=== PATIENT | male | born 1955 | race Caucasian/White ===

== ENCOUNTER 2016-04-27 22:51 | Inpatient (IN) ==
--- NOTE | 2016-04-27 23:01 | Emergency Department Note ---
Disposition Clinical Impression: NSTEMI (non-ST elevated myocardial infarction) Syncope Qualifiers: Syncope type: unspecified Qualified Code(s): R55 - Syncope and collapse Disposition: Home, Self-Care Condition: Good Time of Disposition: 01:10 Syncope HPI - General Chief Complaint: ED Fall Stated Complaint: fall Source: patient, EMS Mode of arrival: EMS Limitations: other (Patient is a vague historian and has history of psychiatric disease) Nursing Notes Reviewed: Yes Vital Signs Reviewed: Yes - History of Present Illness HPI Narrative: History is not exactly clear and is provided by the [facility] provider, EMS, and by the patient. Reportedly, the patient had an event in which he fell that was likely syncopal. He was found down in the shower. He states that he has a genital yeast infection and was bending down to put cream on his genitals when he passed out. He awakened with pain to the right side of his head as well as to his neck. He also complains of retrosternal sharp chest pain that has since resolved. He denies any shortness of breath. He denies any prior symptoms. He did not feel lightheaded prior to the episode. He is not sure why he fell. He, the patient has a significant cardiac history with history of stents in the remote past. He is unable to clarify his exact history and [facility] to the chart. We will request a chart for further history. - Related Data Allergies Allergy/AdvReac Type Severity Reaction Status Date / Time fentanyl Allergy Rash Verified 04/27/16 23:01 hydrogen peroxide Allergy Rash Verified 04/27/16 23:01 [From Peroxyl] All systems ED: reviewed and negative except as stated. Past Medical History - Past Medical History Attestation: Yes The following information was validated with the patient. Source: patient Medical history: Reports: coronary artery disease Physical Exam - Head Head exam: atraumatic, normocephalic, normal inspection - Eye Eye exam: Present: normal appearance, PERRL, EOMI - ENT ENT exam: normal exam, normal oropharynx, mucous membranes moist - Neck Cervical spine tenderness. Trachea midline. No lymphadenopathy. - Chest Chest inspection: normal inspection, symmetric chest wall rise. No chest wall tenderness. - Respiratory Respiratory exam: Clear to auscultation bilaterally without wheezes rales or rhonchi Cardiovascular Cardiovascular exam: Present: regular rate, normal rhythm, normal heart sounds - Abdominal Exam Abdominal exam: Present: soft, Non-Tender. Absent: tenderness, distention, guarding, rebound, rigidity - Extremities Exam Extremities exam: Present: normal inspection, full ROM - Expanded Lower Extremity Exam Hip/Pelvis exam: Present: normal inspection, full ROM - Back Exam Back exam: Present: normal inspection, full ROM. Absent: tenderness, CVA tenderness (R), CVA tenderness (L) - Neurological Exam Neurological exam: Present: alert, oriented X3, CN II-XII intact - Psychiatric Psychiatric exam: Present: normal affect, normal mood - Skin Skin exam: Present: warm, mild diaphoresis, intact, normal color Course - Reevaluation(s) Reevaluation #1: Trop elevated to .07 [facility]. Patient has no chest pain and no ST elevation or depression on EKG at this time so heparin was withheld. Additionally, he had a fall just prior to arrival although his CT is negative and may be best to withhold heparin for that as well. Pt accepted to Dr. Alexander. Time: 01:10 Vital Signs Temperature 97.6 F 04/27/16 23:02 Pulse Rate 74 04/27/16 23:02 Respiratory Rate 18 04/27/16 23:02 Blood Pressure 101/61 04/27/16 23:02 O2 Sat by Pulse Oximetry 98 04/27/16 23:02 Temperature 97.9 F 04/28/16 02:21 Pulse Rate 75 04/28/16 02:21 Respiratory Rate 16 04/28/16 02:21 Blood Pressure 96/55 04/28/16 02:21 O2 Sat by Pulse Oximetry 96 04/28/16 02:21 Oxygen Delivery Oxygen Delivery Nasal Cannula Syncope - Lab Data Result diagrams: 04/27/16 23:35 04/28/16 00:05 Lab Results 04/27/16 04/27/16 04/27/16 Range/Units 22:59 23:35 23:35 WBC 10.9 (4.3-11.1) K/mcL RBC 3.52 L (4.19-5.50) M/mcL Hgb 10.1 L (12.9-16.9) g/dL Hct 28.8 L (37.5-50.1) % MCV 81.8 L (83.0-100.0) fL MCH 28.7 (28.0-33.3) pg MCHC 35.1 (31.6-35.5) g/dL RDW 16.3 H (11.5-14.5) % Plt Count 261 (140-400) K/mcL MPV 10.8 (9.4-12.4) fL Immature Gran % 0.5 (0-4) % Seg Neutrophils % 66.6 % Lymphocytes % 21.6 % Monocytes % 10.4 % Eosinophils % 0.7 % Basophils % 0.2 % Neutrophils # 7.3 (1.6-8.9) K/mcL Lymphocytes # 2.4 (0.6-4.6) K/mcL Monocytes # 1.1 (0.0-1.3) K/mcL Eosinophils # 0.1 (0.0-0.6) K/mcL Basophils # 0.0 (0.0-0.2) K/mcL Platelet Estimate Normal (Normal) Immature Plt Fraction 6.3 H (1.1-6.1) % Polychromasia 1+ A (Not Present) Anisocytosis 1+ A (Not Present) Microcytosis Present A (Not Present) Sodium (136-145) mEq/L Potassium (3.5-4.5) mEq/L Chloride (98-109) mEq/L Carbon Dioxide (19-29) mEq/L BUN (8-26) mg/dL Creatinine (0.72-1.25) mg/dL Est GFR ( Amer) (> 60) Est GFR (Non-Af Amer) (> 60) BUN/Creatinine Ratio (6-26) Glucose (70-99) mg/dL POC Glucose 127 H (58-89) Calculated Osmolality (280-300) Calcium (8.6-10.8) mg/dL Troponin I 0.07 H* (0-0.03) ng/mL 04/28/16 Range/Units 00:05 WBC (4.3-11.1) K/mcL RBC (4.19-5.50) M/mcL Hgb (12.9-16.9) g/dL Hct (37.5-50.1) % MCV (83.0-100.0) fL MCH (28.0-33.3) pg MCHC (31.6-35.5) g/dL RDW (11.5-14.5) % Plt Count (140-400) K/mcL MPV (9.4-12.4) fL Immature Gran % (0-4) % Seg Neutrophils % % Lymphocytes % % Monocytes % % Eosinophils % % Basophils % % Neutrophils # (1.6-8.9) K/mcL Lymphocytes # (0.6-4.6) K/mcL Monocytes # (0.0-1.3) K/mcL Eosinophils # (0.0-0.6) K/mcL Basophils # (0.0-0.2) K/mcL Platelet Estimate (Normal) Immature Plt Fraction (1.1-6.1) % Polychromasia (Not Present) Anisocytosis (Not Present) Microcytosis (Not Present) Sodium 139 (136-145) mEq/L Potassium 3.3 L (3.5-4.5) mEq/L Chloride 106 (98-109) mEq/L Carbon Dioxide 23 (19-29) mEq/L BUN 12 (8-26) mg/dL Creatinine 1.27 H (0.72-1.25) mg/dL Est GFR ( Amer) > 60 (> 60) Est GFR (Non-Af Amer) 58 L (> 60) BUN/Creatinine Ratio 9 (6-26) Glucose 141 H (70-99) mg/dL POC Glucose (58-89) Calculated Osmolality 290 (280-300) Calcium 9.3 (8.6-10.8) mg/dL Troponin I (0-0.03) ng/mL - EKG Data EKG attestation: Yes I reviewed and interpreted this EKG. EKG results narrative: Normal sinus rhythm at 74. Normal axis and intervals. No ST elevation or depression. There are inferior Q waves which are new since 06/01/2007 Attestation Statement - Attestation Attestation: For this encounter, I have reviewed the resident, FOIL SPOOLER, or PA documentation, treatment plan, and medical decision making; and I have had face to face time with this patient. History source: Patient is unable to provide information for this note. Info was gathered from the patient, hospital staff, the patient's chart. History limitations: Patient condition Medications: As per nurses note 60-year-old male [facility]. We are unable to obtain an accurate history regarding the patient's case and presentation however are told that he syncopized while in the shower. Patient had a negative trop[facility] the [facility] however repeat laboratory testing shows an elevated troponin in the emergency department. ECG shows a normal sinus rhythm with a rate of 74 without evidence of STEMI. Patient was given aspirin in the emergency department and was admitted for further care and evaluation of syncope and elevated troponin.
[2016-04-27 23:48] LABS: Basophils % 0.2 %; Eosinophils # 0.1 K/mcL (0.0-0.6); Eosinophils % 0.7 %; Hematocrit 28.8 % (37.5-50.1); Hemoglobin 10.1 g/dL (12.9-16.9); Immature Granulocytes % 0.5 % (0-4); Immature Platelets 6.3 % (1.1-6.1); Lymphocytes % 21.6 %; Mean Corpuscular HGB Conc 35.1 g/dL (31.6-35.5); Mean Corpuscular Hemoglobin 28.7 pg (28.0-33.3); Mean Corpuscular Volume 81.8 fL (83.0-100.0); Mean Platelet Volume 10.8 fL (9.4-12.4); Monocytes # 1.1 K/mcL (0.0-1.3); Monocytes % 10.4 %; Platelet Count 261 K/mcL (140-400); Red Blood Count 3.52 M/mcL (4.19-5.50); Red Cell Distribution Width 16.3 % (11.5-14.5); Segmented Neutrophils % 66.6 %
[2016-04-28] MEDS ORDERED: Aspirin 81 MG TAB.CHEW PO ONE (00:07)
[2016-04-28 00:09] LABS: Lymphocytes # 2.4 K/mcL (0.6-4.6); Neutrophils # 7.3 K/mcL (1.6-8.9)
[2016-04-28 00:10] LABS: Anisocytosis 1+ (Not Present); Microcytosis Present (Not Present); Platelet Estimate Normal (Normal)
[2016-04-28 00:12] LABS: Polychromasia 1+ (Not Present)
[2016-04-28 00:26] LABS: BUN/Creatinine Ratio 9 (6-26); Blood Urea Nitrogen 12 mg/dL (8-26); Calcium 9.3 mg/dL (8.6-10.8); Carbon Dioxide 23 mEq/L (19-29); Chloride 106 mEq/L (98-109); Glucose 141 mg/dL (70-99); Osmolality,Calculated 290 (280-300); Potassium 3.3 mEq/L (3.5-4.5); Sodium 139 mEq/L (136-145); eGFR For African Americans > 60 (> 60); eGFR For Non-African Americans 58 (> 60)
--- NOTE | 2016-04-28 01:42 | Internal Med History&Physical ---
<Henry Lewis - Last Filed: 04/28/16 02:46> Date of Encounter: 04/28/16 Time of Encounter: 01:39 Assessment and Plan (1) Syncope Current visit: Yes Status: Acute Unclear etiology at this point, will work up orthostatic vs. cardiogenic Polypharmacy could certainly play a role as he is on many psychiatric and sedating medications Will obtain echocardiogram and bilateral carotid dopplers to rule out vascular/ cardiac causes Keep patient on traffic monitor specialist to observe for any arrhythmias Tox screen was negative from the [place] Qualifiers: Syncope type: unspecified Qualified Code(s): R55 - Syncope and collapse (2) Elevated troponin Current visit: Yes Status: Acute Likely demand ischemia from recent syncopal episode; initial 0.03, repeat 0.07 He does have some chest pain and given history of multiple MIs, will repeat troponin again (3) CKD (chronic kidney disease) Current visit: Yes Status: Chronic Unsure of patient's baseline Cr, he did present with Cr of 1.27 Will avoid nephrotoxic agents and start on gentle hydration as he appears mildly dry Qualifiers: Chronic kidney disease stage: unspecified stage Qualified Code(s): N18.9 - Chronic kidney disease, unspecified (4) COPD (chronic obstructive pulmonary disease) Current visit: Yes Status: Chronic Stable, patient does not endorse increase oxygen demands or productive cough Will continue scheduled breathing treatments, supplemental oxygen Qualifiers: Qualified Code(s): J44.9 - Chronic obstructive pulmonary disease, unspecified (5) CAD (coronary artery disease) Current visit: Yes Status: Chronic Continue with home ASA, BB, Statin and Plavix Obtain lipid panel in AM Qualifiers: Qualified Code(s): I25.10 - Atherosclerotic heart disease of [place] coronary artery without angina pectoris (6) Hypertension Current visit: Yes Status: Chronic He did present with borderline low blood pressures Will hold most home anti-hypertensives for now, but will continue on Metoprolol Qualifiers: Qualified Code(s): I10 - Essential (primary) hypertension (7) DVT prophylaxis Current visit: Yes Status: Acute Heparin 5000 units BID Internal Medicine - H&P: HPI Chief complaint: syncope Admitted From: Intrahospital Transfer Plans for Post Hospital Care: Transfer Senior Living Facility History of present illness: Mr. Mora is a 60 year old male who was transferred from the [facility] after syncope. He states that he was admitted to the [facility] for lightheadedness and earlier last night, he walked to his bathroom and had a syncopal episode. He claims that he was going to the bathroom to apply cream to his genital region for his yeast infection and felt lightheaded and dizzy before losing consciousness. There were no witnesses nearby and he estimates he was out for roughly 10 minutes. He states that when he regained his consciousness he felt confused, but denies any tongue biting, incontinence. He did hit his head in 2 places, his front and back side, and had minor bleeding from one of his wounds. He also mentioned having chest pain and also headache near his injury. He claims to have had a fever for the past 1-2 weeks. Of note , he has a history of multiple heart attacks s/p total of 9 stents, last one being in 2016. He is on aspirin and Plavix. Currently, patient complains of shortness of breath but his chest pain is resolved after aspirin. He denies any nausea, vomiting, diarrhea, or previous history of falls or losing consciousness. Past Med Surg Social Fam HX - Past Medical History Medical history: coronary artery disease Psychiatric history: no psych history - Social History Smoking Status: Current every day smoker Smokeless Tobacco Status: No Alcohol use: none Drug use: none Internal Medicine - H&P: Meds Allergies fentanyl Allergy (Verified 04/27/16 23:01) Rash hydrogen peroxide [From Peroxyl] Allergy (Verified 04/27/16 23:01) Rash All Systems PM: A 10-system review of systems was performed and is negative for pertinent findings except as documented above in the HPI. - Constitutional Constitutional: fever(s), falls, no chills, no night sweats - EENT Eyes: no change in vision, no discharge, no pain, no photophobia Ears: no ear discharge, no ear pain, no tinnitus Nose, mouth and throat: no dysphagia, no nasal discharge, no neck pain, no sore throat - Cardiovascular Cardiovascular ROS IM: chest pain, no diaphoresis, no dyspnea, no lightheadedness, no palpitations, no syncope - Respiratory Respiratory: dyspnea, dyspnea on exertion, no cough, no wheezing, no excessive phlegm production - Gastrointestinal Gastrointestinal: no abdominal pain, no diarrhea, no hematemesis, no hematochezia, no melena, no nausea, no vomiting - Musculoskeletal Musculoskeletal ROS IM: no numbness, no tingling - Integumentary Integumentary IM: no rash, no unusual bruising - Neurological Neurological ROS: confusion, headache(s), no convulsions, no focal weakness, no frequent falls, no numbness, no tingling, no tremor(s) - Hematologic/Lymphatic Hematologic/Lymphatic: no easy bruising - Constitutional Vitals: Temp Pulse Resp BP Pulse Ox 97.6 F 74 18 101/61 98 04/27/16 23:02 04/27/16 23:02 04/27/16 23:02 04/27/16 23:02 04/27/16 23:02 General appearance: Present: cooperative, A&O X 3, pleasant, no acute distress, answers questions appropriately - Head Head exam: Present: normocephalic Additional comments: Bruise noted in middle of forehead s/p fall, no bleeding or open wound - Eye Eye exam: Present: PERRL, conjuntiva pink, sclera anicteric - Neck Neck exam general surgery: Present: supple, trachea midline. Absent: lymphadenopathy - Respiratory Respiratory exam: Present: CTAB. Absent: accessory muscle use, rales, rhonchi, wheezes - Cardiovascular Cardiovascular exam: Present: RRR, +S1, +S2. Absent: diastolic murmur, gallop, rubs, systolic murmur - GI/Abdominal GI/Abdominal exam: Present: normal bowel sounds, soft, no peritoneal signs. Absent: distended, tenderness - Extremities Exam Extremities exam: Present: pedal edema (trace pitting), warm, radial pulses palpable and symetrical. Absent: calf tenderness, cyanotic - Neurological Exam Neurological exam: Present: alert, oriented X3, no focal deficits. Absent: facial droop, speech deficit - Skin Skin exam: Present: dry, intact Internal Med - H&P Results - Labs CBC & Chem 7: 04/27/16 23:35 04/28/16 00:05 <Ainsley Alexander - Last Filed: 04/28/16 08:02> Date of Encounter: 04/28/16 Assessment and Plan (1) Hypokalemia Current visit: Yes Status: Acute Internal Medicine - H&P: HPI History of present illness: Mr. Mora is a 60 year old male All Systems PM: A 10-system review of systems was performed and is negative for pertinent findings except as documented above in the HPI. - Constitutional Vitals: Temp Pulse Resp BP Pulse Ox 98.6 F 73 16 125/73 97 04/28/16 07:03 04/28/16 07:03 04/28/16 07:03 04/28/16 07:03 04/28/16 07:03 Internal Med - H&P Results - Labs CBC & Chem 7: 04/28/16 05:39 04/28/16 05:39 Labs: Short CBC 04/28/16 Range/Units 05:39 WBC 9.2 (4.3-11.1) K/mcL Hgb 9.6 L (12.9-16.9) g/dL Hct 28.0 L (37.5-50.1) % Plt Count 254 (140-400) K/mcL Neutrophils # 6.1 (1.6-8.9) K/mcL BMP 04/28/16 05:39 Sodium 140 Potassium 2.9 L Chloride 107 Carbon Dioxide 22 BUN 12 Creatinine 1.04 Glucose 114 H Calcium 8.8 Cardiac Enzymes 04/28/16 Range/Units 05:39 Troponin I 0.05 H* (0-0.03) ng/mL Liver Function 04/28/16 Range/Units 05:39 Total Bilirubin 0.5 (0.2-1.2) mg/dL AST 24 (5-34) Units/L ALT 24 (0-55) Units/L Alkaline Phosphatase 106 (38-126) Units/L Albumin 3.0 L (3.5-5.0) g/dL - Attending Attestation I examined this patient and my medical decision-making was reviewed with the TELETYPE OR [employer]ITYPE KEYBOARD OPERATOR/PA/Advanced Practice Nurse/Resident Physician. I agree with the documented findings, disposition and treatment plan as described except to the extent set forth below. 60 Y/O , transferred from the [place] [facility] after syncope. Reports LOC, but no incontinence. O/E: Systolic murmur present. No gross localizing deficits. EKG: Q waves in inferior leads. Peak troponin 0.07 CT Head, CT cervical spine and CXR: No acute abnormality. A/P: Syncope: possible Neuro-cardiogenic / vasovagal. Check orthostatics; Echo / carotid Doppler. Elevated troponin: Cardiology consult fof further advice. Hypokalemia: replenish potassium
[2016-04-28] MEDS ORDERED: Naloxone 0.4 MG/ML INJ IVP PRN (02:09)
[2016-04-28] MEDS ORDERED: Acetaminophen 325 MG TABLET PO PRN (02:09)
[2016-04-28] MEDS ORDERED: 0.9 % Sodium Chloride 1,000 ML IVC SCH (02:15)
[2016-04-28] MEDS ORDERED: Sennosides 8.6 MG TABLET PO PRN (02:38)
[2016-04-28] MEDS ORDERED: traMADol 50 MG TABLET PO PRN (02:38)
[2016-04-28] MEDS: *HR* HYDROcodone/Acet 7.5/325 mg TABLET PO PRN ×3 (04:20→21:51)
[2016-04-28] MEDS: Ipratropium/Albuterol Neb 3 ML IH SCH ×4 (04:47→21:40)
[2016-04-28 06:12] LABS: Basophils % 0.2 %; Eosinophils % 0.4 %; Hemoglobin 9.6 g/dL (12.9-16.9); Immature Granulocytes % 0.4 % (0-4); Lymphocytes % 21.4 %; Mean Corpuscular HGB Conc 34.3 g/dL (31.6-35.5); Mean Corpuscular Hemoglobin 28.5 pg (28.0-33.3); Mean Corpuscular Volume 83.1 fL (83.0-100.0); Mean Platelet Volume 10.2 fL (9.4-12.4); Monocytes % 11.3 %; Neutrophils # 6.1 K/mcL (1.6-8.9); Platelet Count 254 K/mcL (140-400); Red Blood Count 3.37 M/mcL (4.19-5.50); Red Cell Distribution Width 16.3 % (11.5-14.5); Segmented Neutrophils % 66.3 %
[2016-04-28 06:28] LABS: % Iron Saturation 11 % (20-55); Alanine Aminotransferase 24 Units/L (0-55); Albumin/Globulin Ratio 1.1 (1.1-2.2); Alkaline Phosphatase 106 Units/L (38-126); Aspartate Amino Transferase 24 Units/L (5-34); BUN/Creatinine Ratio 12 (6-26); Blood Urea Nitrogen 12 mg/dL (8-26); Calcium 8.8 mg/dL (8.6-10.8); Carbon Dioxide 22 mEq/L (19-29); Chloride 107 mEq/L (98-109); Cholesterol 105 mg/dL (< 200); Globulin 2.8 g/dL (2.4-3.5); Glucose 114 mg/dL (70-99); HDL Cholesterol 26 mg/dL (40-59); Iron 23 mcg/dL (65-175); LDL Cholesterol,Calculated 55 mg/dL (0-99); Magnesium 1.8 mg/dL (1.6-2.6); Osmolality,Calculated 291 (280-300); Phosphorous 4.4 mg/dL (2.3-4.7); Potassium 2.9 mEq/L (3.5-4.5); Sodium 140 mEq/L (136-145); Total Protein 5.8 g/dL (6.0-8.3); Transferrin 152 mg/dL (174-364); Triglycerides 120 mg/dL (< 150); eGFR For African Americans > 60 (> 60); eGFR For Non-African Americans > 60 (> 60)
[2016-04-28 06:48] LABS: Ferritin 110 ng/ml (22-275)
[2016-04-28] MEDS: *HR* Heparin 5,000 UNIT/ML VIAL SQ SCH ×2 (06:49→17:04)
[2016-04-28 07:02] LABS: Thyroid Stimulating Hormone 1.545 mcIU/mL (0.350-4.840)
[2016-04-28 07:15] LABS: Bilirubin,Total 0.5 mg/dL (0.2-1.2)
--- NOTE | 2016-04-28 08:46 | Cardiology Consult Note ---
<Tyrell Tao R - Last Filed: 04/28/16 08:46> Date of Encounter: 04/28/16 Time of Encounter: 08:46 Assessment and Plan (1) Syncope Current Visit: Yes Status: Acute Unclear etiology at this point. Agree that Polypharmacy could certainly play a role as he is on many psychiatric and sedating medications, as well as cardiac meds. BP has also been marginal. Will check orthostatic vitals to see if there is a vasovagal component. Agree with obtaining echocardiogram and bilateral carotid dopplers. K 2.9--replace. Mag 1.8. TSH 1.545. 24 hour tele reviewed--AVG HR 72, SR, no significant pauses or arrhythmias noted. Further recommendations to follow based on test results. Qualifiers: Syncope type: unspecified Qualified Code(s): R55 - Syncope and collapse (2) Elevated troponin Current Visit: Yes Status: Acute Borderline troponin elevation. [place]onin at [place] 0.03, then 0.07, 0.05 here at [facility]. This is in the setting of a syncopal event/fall. Do not suspect true ACS. Pt denies chest pain to me, although chest [facility] and in [facility]P. Check echo to evaluate structure and function. (3) Hypokalemia Current Visit: Yes Status: Acute K 2.9 this AM. Will replace. (4) CAD (coronary artery disease) Current Visit: Yes Status: Chronic Per H&P, hx of CAD s/p multipe PCIs. Per pt, most recent 2016 at [facility]. Will request records. Recommend continuing ASA, Statin, Plavix, BB, nitrates. Qualifiers: Coronary Disease-Associated Artery/Lesion type: [place] artery [place] vs. transplanted heart: [place] heart Associated angina: angina presence unspecified Qualified Code(s): I25.10 - Atherosclerotic heart disease of [place] coronary artery without angina pectoris Discussion w patient/family: The assessment and plan as outlined above was discussed with the patient and/or family members who expressed understanding and agreement. All questions were answered. Thank you for involving us in the care of your patient. Please call with any questions. I will discuss all the above with Dr. Núñez and make changes as necessary. History of Present Illness Consult date: 04/28/16 Requesting physician: Ainsley Alexander Consult reason: syncope, elevated troponin Chief complaint: syncope History of present illness: Mr. Mora is a 60 year old male with PMH of CAD s/p multiple PCIs, HTN, HLD, tobacco abuse that was transferred from the [place] hospital after syncope. There are conflicting stories based on pt's reports and [facility] and [facility]. He was recently hospitalized at [place] for spinal fractures/fusion. He has been intermittently confused since that time and walked to his bathroom and had a syncopal episode. He tells me this is the first time it has happened. He did hit his head, presented to [place] and reportedly complained of chest pain and was transferred here. Pt denies any chest pain to pa. He reports his last stent was in 2015 at the [facility]. Home meds included ASA, Plavix, Statin, BB, Lasix , Aldactone. When questioned about CHF pt denies history of this. Troponin 0.07 , 0.05. Past Med Surg Social Fam HX - Past Medical History Medical history: coronary artery disease, hyperlipidemia, hypertension Psychiatric history: no psych history - Past Surgical History Surgical History: angioplasty/stent - Social History Smoking Status: Current every day smoker Smokeless Tobacco Status: No Alcohol use: none Drug use: none Medications and Allergies Albuterol Sulfate [Proair Hfa] 2 puff IH Q6H PRN 04/28/16 [History] Alfuzosin HCl [Uroxatral] 10 mg PO DAILY 04/28/16 [History] Aspirin [Lo-Dose Aspirin EC] 81 mg PO DAILY 04/28/16 [History] Atorvastatin Calcium [Lipitor] 80 mg PO QPM 04/28/16 [History] Carvedilol [Coreg] 25 mg PO BID 04/28/16 [History] CloNIDine HCl [Kapvay] 0.1 mg PO TID 04/28/16 [History] Clopidogrel [Plavix] 75 mg PO DAILY 04/28/16 [History] Cyanocobalamin (B-12) [Vitamin B12] 1,000 mcg PO DAILY 04/28/16 [History] Docusate [Colace] 200 mg PO DAILY 04/28/16 [History] Duloxetine HCl [Cymbalta] 60 mg PO BID 04/28/16 [History] Ferrous Sulfate [Iron] 325 mg PO DAILY 04/28/16 [History] Fluticasone Propionate Nasal [Flonase] 50 mcg NS DAILY 04/28/16 [History] Furosemide [Lasix] 20 mg PO DAILY 04/28/16 [History] HydrALAZINE 75 mg PO TID 04/28/16 [History] Hydrocortisone 1% CREAM [Cortaid] 1 appl TP BID 04/28/16 [History] Isosorbide MONOnitrate [Isosorbide Mononitrate ER] 120 mg PO DAILY 04/28/16 [ History] Lidocaine 4% CRM (LMX) [Lmx 4] 1 appl TP BID PRN 04/28/16 [History] Minoxidil 2.5 mg PO BID 04/28/16 [History] Nicotine Patch [Nicoderm] 21 mg TD DAILY 04/28/16 [History] Nicotine Polacrilex [Nicotine Lozenge] 4 mg BC Q2H PRN 04/28/16 [History] Nystatin Cream [Mycostatin Cream] 1 appl TP BID 04/28/16 [History] Oxcarbazepine [Oxtellar Xr] 600 mg PO TID 04/28/16 [History] Promethazine [Phenergan] 25 mg PO TID PRN 04/28/16 [History] RisperiDONE [Risperdal] 2 mg PO HS 04/28/16 [History] RisperiDONE [Risperidone] 1 mg PO BID 04/28/16 [History] Sennosides [Laxative] 17.2 mg PO DAILY PRN 04/28/16 [History] Spironolactone [Aldactone] 25 mg PO DAILY 04/28/16 [History] TraZODone 50 mg PO HS 04/28/16 [History] Tramadol HCl [Ultram] 100 mg PO QID PRN 04/28/16 [History] Allergies fentanyl Allergy (Verified 04/27/16 23:01) Rash hydrogen peroxide [From Peroxyl] Allergy (Verified 04/27/16 23:01) Rash All Systems Review: A 10-system review of systems was performed and is negative for pertinent findings except as documented above in the HPI. - Cardiovascular Cardiovascular: as per HPI, syncope Physical Examination Vital Signs, Last 4 Hours Temp Pulse Resp BP Pulse Ox 04/28/16 07:03 98.6 F 73 16 125/73 97 Vital Signs Temp Pulse Resp BP Pulse Ox 04/28/16 07:03 98.6 F 73 16 125/73 97 04/28/16 02:21 97.9 F 75 16 96/55 96 04/28/16 01:47 15 104/54 04/27/16 23:02 97.6 F 74 18 101/61 98 Intake and Output 04/27/16 04/28/16 04/28/16 23:59 07:59 15:59 Other: Weight 108.862 kg 110 kg Patient Weight 04/28/16 23:59 Weight 110 kg General: Conversant, No Apparent Distress HEENT: Atraumatic, Normocephaly, Mucus Membranes Moist Neck: No JVD, Normal carotid pulses Cardiac: Reg Rate and Rhythm, Normal S1 and S2, No Murmur Lungs: Normal Breath Sounds, No Wheeze, Rales, Rhonchi Neuro: Alert and responsive, No focal deficits noted Abdomen: Soft, Non-Tender Skin: No rashes noted on visualized skin Musculoskeletal: No Chest Wall Tenderness Extremities: No Clubbing, No Cyanosis, No Edema, Normal Pulses Results 04/28/16 05:39 04/28/16 05:39 Lab Results 04/28/16 04/28/16 04/28/16 05:39 05:39 05:39 WBC 9.2 Hgb 9.6 L Hct 28.0 L Plt Count 254 Sodium 140 Potassium 2.9 L Chloride 107 Carbon Dioxide 22 BUN 12 Creatinine 1.04 Glucose 114 H Calcium 8.8 Magnesium 1.8 Total Bilirubin 0.5 AST 24 ALT 24 Alkaline Phosphatase 106 Troponin I 0.05 H* TSH 1.545 Short CBC 04/28/16 04/27/16 Range/Units 05:39 23:35 WBC 9.2 10.9 (4.3-11.1) K/mcL Hgb 9.6 L 10.1 L (12.9-16.9) g/dL Hct 28.0 L 28.8 L (37.5-50.1) % Plt Count 254 261 (140-400) K/mcL Neutrophils # 6.1 7.3 (1.6-8.9) K/mcL BMP 04/28/16 04/28/16 Range/Units 05:39 00:05 Sodium 140 139 (136-145) mEq/L Potassium 2.9 L 3.3 L (3.5-4.5) mEq/L Chloride 107 106 (98-109) mEq/L Carbon Dioxide 22 23 (19-29) mEq/L BUN 12 12 (8-26) mg/dL Creatinine 1.04 1.27 H (0.72-1.25) mg/dL Glucose 114 H 141 H (70-99) mg/dL Calcium 8.8 9.3 (8.6-10.8) mg/dL Cardiac Enzymes 04/28/16 04/27/16 Range/Units 05:39 23:35 Troponin I 0.05 H* 0.07 H* (0-0.03) ng/mL Liver Function 04/28/16 Range/Units 05:39 Total Bilirubin 0.5 (0.2-1.2) mg/dL AST 24 (5-34) Units/L ALT 24 (0-55) Units/L Alkaline Phosphatase 106 (38-126) Units/L Albumin 3.0 L (3.5-5.0) g/dL Impressions Chest X-Ray 04/27/16 22:56 IMPRESSION: No acute intrathoracic abnormality. D/ / Angelito Nesbitt MD / Angelito Nesbitt MD Interpreting Provider: Angelito Nesbitt MD Cervical Spine CT 04/27/16 22:57 IMPRESSION: No acute abnormality of the cervical spine. D/ / Marco Antonio Humphries MD / Marco Antonio Humphries MD Interpreting Provider: Marco Antonio Humphries MD Head CT 04/27/16 22:57 Active Medications Acetaminophen (Tylenol) 650 mg PO Q6HR PRN PRN Reason: Mild Pain (1-3) Stop: 10/28/16 02:10 Acetaminophen/Hydrocodone Bitart ([place] 7.5-325 Mg) 1 tab PO Q6HR PRN PRN Reason: Pain Stop: 10/28/16 02:39 Last Admin: 04/28/16 04:20 Dose: 1 tab Albuterol/Ipratropium (Duoneb) 3 ml IH [id number] JOVANNY PRN Reason: Protocol Stop: 10/28/16 04:01 Last Admin: 04/28/16 04:47 Dose: Not Given Aspirin (Aspirin) 81 mg PO DAILY [facility] Stop: 10/28/16 09:01 Atorvastatin Calcium (Lipitor) 80 mg PO HS [facility] Stop: 10/28/16 21:01 Budesonide/Formoterol Fumarate (Symbicort) 1 puff IH BIDRESP JOVANNY PRN Reason: Protocol Stop: 10/28/16 10:01 Docusate Sodium (Colace) 100 mg PO BID PRN; Protocol PRN Reason: Constipation Stop: 10/28/16 02:39 Duloxetine HCl (Cymbalta) 60 mg PO DAILY [facility] Stop: 10/28/16 09:01 Heparin Sodium (Porcine) (Heparin) 5,000 unit SQ Q12HR [facility] Stop: 10/28/16 06:01 Last Admin: 04/28/16 06:49 Dose: 5,000 unit Sodium Chloride (0.9 % Sodium Chloride) 1,000 mls @ 100 mls/hr IVC .Q10H [facility] Stop: 04/28/16 14:16 Last Admin: 04/28/16 04:20 Dose: 100 mls/hr Isosorbide Mononitrate (Imdur) 60 mg PO DAILY [facility] Stop: 10/28/16 09:01 Metoprolol Tartrate (Lopressor) 50 mg PO BID [facility] Stop: 10/28/16 09:01 Naloxone HCl (Narcan) 0.4 mg IVP Q2MIN PRN PRN Reason: Opioid Reversal Stop: 10/28/16 02:10 Omeprazole (Prilosec) 20 mg PO DAILY@0630 [facility] PRN Reason: Protocol Stop: 10/28/16 06:31 Last Admin: 04/28/16 06:52 Dose: 20 mg Ondansetron HCl (Zofran Odt) 4 mg SL Q8HR PRN PRN Reason: Nausea And Vomiting Stop: 10/28/16 02:10 Potassium Chloride (Potassium Chloride) 20 meq PO ONCE ONE Stop: 04/28/16 20:01 Risperidone (Risperdal) 2 mg PO DAILY [facility] Stop: 10/28/16 09:01 Senna (Senna) 17.2 mg PO DAILY PRN PRN Reason: Constipation Stop: 10/28/16 02:39 Tamsulosin HCl (Flomax) 0.4 mg PO DAILY JOVANNY PRN Reason: Protocol Stop: 10/28/16 09:01 Tramadol HCl (Ultram) 50 mg PO QID PRN PRN Reason: Pain Stop: 10/28/16 02:39 IMPRESSION: No acute intracranial abnormality. D/ / Guilherme Hardwick MD / Guilherme Hardwick MD Interpreting Provider: Guilherme Hardwick MD - Imaging and Cardiology Chest Xray: report reviewed - EKG Interpretation EKG results cardiology: personally reviewed (SR, evidence of inferior CT), other (24 hour tele AVG HR 72, SR, no significant pauses or arrhythmias noted.) Consult Discharge Plan - Plan [facility]errals: [facility] [Primary Care Provider] - <Tani Núñez - Last Filed: 04/28/16 12:46> Date of Encounter: 04/28/16 Assessment and Plan Discussion w patient/family: The assessment and plan as outlined above was discussed with the patient and/or family members who expressed understanding and agreement. All questions were answered. Thank you for involving us in the care of your patient. Please call with any questions. History of Present Illness History of present illness: Mr. Mora is a 60 year old male All Systems Review: A 10-system review of systems was performed and is negative for pertinent findings except as documented above in the HPI. Physical Examination Vital Signs, Last 4 Hours Temp Pulse Resp BP Pulse Ox 04/28/16 11:21 99.3 F 52 17 86/51 97 Results 04/28/16 05:39 04/28/16 05:39 Lab Results 04/28/16 04/28/16 04/28/16 05:39 05:39 05:39 WBC 9.2 Hgb 9.6 L Hct 28.0 L Plt Count 254 Sodium 140 Potassium 2.9 L Chloride 107 Carbon Dioxide 22 BUN 12 Creatinine 1.04 Glucose 114 H Calcium 8.8 Magnesium 1.8 Total Bilirubin 0.5 AST 24 ALT 24 Alkaline Phosphatase 106 Troponin I 0.05 H* TSH 1.545 - Attending Attestation I examined this patient and my medical decision-making was reviewed with the CROWN IRONER OPERATOR/PA/Advanced Practice Nurse/Resident Physician. I agree with the documented findings, disposition and treatment plan as described except to the extent set forth below. Syncope appears to be medication induced Pt passed out preceded by dizziness, no cp , sob recently had a stress test that was neg as per patient VSS JVD: 6-7 cm Chest : clear no carotid bruit CVS: regular , no murmur s EKG: no acute changes plan; check orthostatics hold diuretics will adjust BP meds PT OT Thanks
[2016-04-28] MEDS ORDERED: cloNIDine HCl 0.1 MG TABLET PO SCH (09:00)
[2016-04-28] MEDS: risperiDONE 1 MG TABLET PO SCH (09:04)
[2016-04-28] MEDS: Aspirin 81 MG TAB.CHEW PO SCH (09:04)
[2016-04-28] MEDS: Isosorbide MONOnitrate (24 HR) 60 MG TAB.ER.24H PO SCH (09:05)
--- NOTE | 2016-04-28 09:13 | Internal Med Progress Note ---
Date of Encounter: 04/28/16 Time of Encounter: 09:10 - Assessment and plan (1) Syncope Current Visit: Yes Status: Acute Assessment and plan: Syncope under evaluation. Possible polypharmacy. Continue tele monitoring. Hypokalemia noted, potassium supplemented. Magnesium WNL. Echo and carotid duplex ordered. Head CT, neck CT unremarkable. Follow cardiology recommendations. DVT prophylaxis. Qualifiers: Syncope type: unspecified Qualified Code(s): R55 - Syncope and collapse (2) Elevated troponin Current Visit: Yes Status: Acute Assessment and plan: Mild trop elevation, no chest pain. Unilkely ACS. (3) Hypokalemia Current Visit: Yes Status: Acute Assessment and plan: Potassium 2.9 Magnesium WNL. Will supplement potassium today and monitor tomorrow. (4) CAD (coronary artery disease) Current Visit: Yes Status: Chronic Qualifiers: Coronary Disease-Associated Artery/Lesion type: [place] artery [place] vs. transplanted heart: [place] heart Associated angina: angina presence unspecified Qualified Code(s): I25.10 - Atherosclerotic heart disease of [place] coronary artery without angina pectoris (5) DVT prophylaxis Current Visit: Yes Status: Acute Assessment and plan: Heparin sq. - Time Spent With Patient 25 - 35 minutes - Subjective Interval history: First encounter with the patient. Patient is currently denying chest pain, shortness of breath. Patient takes many medications including lasix. not sure of doses though. - Constitutional Vitals: Temp Pulse Resp BP Pulse Ox 98.6 F 73 16 125/73 97 04/28/16 07:03 04/28/16 07:03 04/28/16 07:03 04/28/16 07:03 04/28/16 07:03 General appearance: Present: cooperative, A&O X 3, pleasant, no acute distress, answers questions appropriately - Head Head exam: Present: atraumatic, normocephalic - Eye Eye exam: Present: PERRL, conjuntiva pink, sclera anicteric Pupils: Present: PERRL - Neck Neck exam general surgery: Present: supple, trachea midline. Absent: lymphadenopathy - Respiratory Respiratory exam: Present: CTAB. Absent: accessory muscle use, rales, rhonchi, wheezes - Cardiovascular Cardiovascular exam: Present: RRR, +S1, +S2. Absent: diastolic murmur, gallop, rubs, systolic murmur - GI/Abdominal GI/Abdominal exam: Present: normal bowel sounds, soft, no peritoneal signs. Absent: distended, tenderness - Extremities Exam Extremities exam: Present: warm, radial pulses palpable and symetrical. Absent : calf tenderness, cyanotic, pedal edema - Neurological Exam Neurological exam: Present: CN II-XII intact, oriented X3, no focal deficits. Absent: pronater drift, facial droop, speech deficit - Skin Skin exam: Present: dry, intact Internal Medicine: Result - Labs CBC & Chem 7: 04/28/16 05:39 04/28/16 05:39 Labs: Short CBC 04/28/16 Range/Units 05:39 WBC 9.2 (4.3-11.1) K/mcL Hgb 9.6 L (12.9-16.9) g/dL Hct 28.0 L (37.5-50.1) % Plt Count 254 (140-400) K/mcL Neutrophils # 6.1 (1.6-8.9) K/mcL BMP 04/28/16 05:39 Sodium 140 Potassium 2.9 L Chloride 107 Carbon Dioxide 22 BUN 12 Creatinine 1.04 Glucose 114 H Calcium 8.8 Cardiac Enzymes 04/28/16 Range/Units 05:39 Troponin I 0.05 H* (0-0.03) ng/mL Liver Function 04/28/16 Range/Units 05:39 Total Bilirubin 0.5 (0.2-1.2) mg/dL AST 24 (5-34) Units/L ALT 24 (0-55) Units/L Alkaline Phosphatase 106 (38-126) Units/L Albumin 3.0 L (3.5-5.0) g/dL Consult Discharge Plan - Plan [facility]errals: [facility] [Primary Care Provider] -
[2016-04-28] MEDS: Budesonide/Formoterol 160/4.5 MDI IH SCH ×2 (11:00→21:40)
--- NOTE | 2016-04-28 11:43 | Electrocardiograph Report ---
[address] [place] [address] Test Date: 2016-04-27 Pat Name: Chad Mora Department: 104 Room: 2A43 Gender: M Subsorter: : 1955 Requested By: Gabe Valentin Order Number: [id number] Reading MD: Robinson Bland MD Measurements Intervals [place] Rate: 74 P: 74 [place]: 183 QRS: 17 QRSD: 125 T: 91 QT: 441 QTc: 468 Interpretive Statements SINUS RHYTHM INFERIOR MYOCARDIAL INFARCTION, PROBABLY OLD WITH POSTERIOR EXTENSION IVCD, CONSIDER ATYPICAL LBBB Electronically Signed On 04-28-2016 11:41:58 EST by Robinson Bland MD
--- NOTE | 2016-04-28 15:09 | ECHO - Doppler Report ---
Echocardiogram Name: Chad Mora Date of Study: 04/28/2016 Date: 1955 Ht: 74.0 in Medical Record#: [id number] Age: 60 Wt: 242.0 lb Gender: Male BSA: 2.36 Order #: [id number] Location: [facility] Room #: 2A43 Reading Physician: Lashanda Knott DO Swimming Pool Cleaner: Sandeep Ruiz RN Ordering Physician: Henry Lewis DO Primary Physician: [facility] Indications: Syncope Impressions: LVEF 55%. Moderate concentric hypertrophy of the left ventricle. There is evidence of mild diastolic dysfunction of the left ventricle. Normal right ventricular size and function. Mild aortic regurgitation. No pulmonary hypertension. Left Ventricular Wall Motion: Rest Echo Findings All wall segments showed normal motion. Findings: Study Quality * Technically sub-optimal due to body habitus. ECG Findings * Normal sinus rhythm. Left Ventricle * LVEF 55%. * Moderate concentric left ventricular hypertrophy. No LVOTO. * Mild left ventricular diastolic dysfunction. Aortic Valve * Aortic valve not well visualized. * No aortic stenosis. * Mild aortic regurgitation. Mitral Valve * No mitral regurgitation. * Normal mitral valve structure. * No mitral stenosis. Tricuspid Valve * Tricuspid valve not well visualized. * Trace tricuspid regurgitation. * Estimated RA pressure is 3 mmHg. * Estimated RVSP is 21 mmHg. * No pulmonary hypertension. Pulmonic Valve * Pulmonic valve is not well visualized. * No pulmonic stenosis. * No pulmonic regurgitation. Pulmonary Artery * Pulmonary artery not well visualized. Right Ventricle * Normal right ventricular structure and function. Left Atrium * Normal left atrial size. Right Atrium * Normal right atrial size. IVC * Normal IVC dimensions and inspiratory collapse. Interatrial Septum * Interatrial septum not well evaluated. Pericardium * There is no pericardial effusion present. Aorta * Not fully visualized. History Hypertension Hypercholesteremia History of Smoking Years 45 Packs 1.5 Family History of CAD History of CAD/PTCA Myocardial Infarction Measurements: BP: 113/ 78 2D Normal Values IVSd: 1.50 cm 0.6 - 1.0 cm LVIDd: 3.70 cm 3.7 - 5.6 cm LVPWd: 1.50 cm 0.6 - 1.1 cm LVIDs: 2.30 cm 1.5 - 3.6 cm LA: 3.90 cm 2.0 - 4.0cm %FS: 37.80 cm >25 % LVOT Diam: 2.00 cm LA volume: 78 Mitral Valve Peak E:.69 m/sec Peak A:.98 m/sec E/A Ratio:0.7 Peak E' Lat Gen:9.07 cm/s Peak E' Med Gen:6.14 cm/s E/E' Lat Ratio:7.6 E/E' Med Ratio:11.3 Aortic Valve AI pressure Half-time: 682.00 msec Tricuspid Valve TV Regurg Peak Grad: 18.00mmHg TV Regurg Peak Gen: 2.14m/sec Updated by Lashanda Knott on 04/28/2016 3:02:27 PM electronically signed on 04/28/2016 3:03:29 PM with status of Final Wall Motion [place]: 1=Normal, 2=Hypokinesis, 3=Akinesis, 4=Dyskinesis, 5=Aneurysmal, 6=Hyperkinetic, X=Not Visualized (Blank)=Missing
--- NOTE | 2016-04-28 20:13 | Carotid Imaging Report ---
Carotid Duplex Patient Name:Chad Mora Order Number:[id number] Procedure Date:04/28/2016 Date:5Age:60 yrs Gender:Male Lt BP:108 / 67 mmHg Rt.BP:113 / 78 mmHgHeart Rate: Location:[facility] Room #: 2A43 Gallery Assistant:Sandeep Ruiz RN Referring MD:Henry Lewis DO apartment assistant manager:[facility] Kim MD:Dustin Yu MD , FACS Primary Indications:Syncope Risk Factors Yes/No Hypertension Yes Diabetes No Hypercholesterolemia Yes Smoking Current Yes Hx of TIA No Hx of CVA No Anticoagulants Yes Hx of CAD/PTCA Yes Previous Vascular Surgery No Impressions: Findings: Bilateral carotid systems are essentially normal. Recommendations: Test completed on 04/28/2016 at 1:55:00 pm. Findings Carotid Duplex: Right: The right proximal common carotid artery has a PSV of 117 cm/s and a EDV of 13 cm/s. The right mid common carotid artery has a PSV of 70 cm/s and a EDV of 12 cm/s. The right distal common carotid artery has a PSV of 68 cm/s and a EDV of 14 cm/s. There is nonstenotic plaque in the right bifurcation with a PSV of 44 cm/s and a EDV of 13 cm/s. There is smooth heterogeneous plaque. The right proximal internal carotid artery has a PSV of 29 cm/s and a EDV of 11 cm/s. The right mid internal carotid artery has a PSV of 50 cm/s and a EDV of 16 cm/s. The right distal internal carotid artery has a PSV of 64 cm/s and a EDV of 25 cm/s. The right eca has a PSV of 111 cm/s and a EDV of 9 cm/s. The right vertebral artery has a PSV of 45 cm/s and a EDV of 23 cm/s. Left: The left proximal common carotid artery has a PSV of 121 cm/s and a EDV of 15 cm/s. The left mid common carotid artery has a PSV of 59 cm/s and a EDV of 13 cm/s. The left distal common carotid artery has a PSV of 71 cm/s and a EDV of 18 cm/s. There is nonstenotic plaque in the left bifurcation with a PSV of 46 cm/s and a EDV of 13 cm/s. There is smooth heterogeneous plaque. The left proximal internal carotid artery has a PSV of 41 cm/s and a EDV of 13 cm/s. The left mid internal carotid artery has a PSV of 34 cm/s and a EDV of 15 cm/s. The left distal internal carotid artery has a PSV of 36 cm/s and a EDV of 16 cm/s. The left eca has a PSV of 122 cm/s and a EDV of 16 cm/s. The left vertebral artery has a PSV of 27 cm/s and a EDV of 9 cm/s. Prior Study: No prior study available for comparison. Carotid Results Right PSV EDV Assessment Proximal CCA 117 13 Normal Mid CCA 70 12 Normal Distal CCA 68 14 Normal Bifurcation 44 13 Non Stenotic Plaque Proximal ICA 29 11 Normal Mid ICA 50 16 Normal Distal ICA 64 25 Normal ECA 111 9 Normal Vertebral Artery 45 23 Normal Left PSV EDV Assessment Proximal CCA 121 15 Normal Mid CCA 59 13 Normal Distal CCA 71 18 Normal Bifurcation 46 13 Non Stenotic Plaque Proximal ICA 41 13 Normal Mid ICA 34 15 Normal Distal ICA 36 16 Normal ECA 122 16 Normal Vertebral Artery 27 9 Normal Ratio's Right ICA/CCA Ratio: 0.91 ICA/CCA Values: 64/70 Left ICA/CCA Ratio: 0.69 ICA/CCA Values: 41/59 Updated by Dustin Yu MD, FACS on 04/28/2016 8:06:29 PM Dustin Yu MD electronically signed on 04/28/2016 8:07:24 PM with status of Final
[2016-04-29] MEDS: Ipratropium/Albuterol Neb 3 ML IH SCH ×4 (05:33→22:42)
[2016-04-29] MEDS: *HR* Heparin 5,000 UNIT/ML VIAL SQ SCH ×2 (07:16→17:30)
[2016-04-29] MEDS: traZODone 50 MG TABLET PO SCH ×2 (08:38→20:10)
[2016-04-29 08:46] LABS: Basophils % 0.3 %; Eosinophils # 0.2 K/mcL (0.0-0.6); Eosinophils % 2.2 %; Hematocrit 31.8 % (37.5-50.1); Hemoglobin 10.6 g/dL (12.9-16.9); Immature Granulocytes % 0.6 % (0-4); Lymphocytes # 2.6 K/mcL (0.6-4.6); Lymphocytes % 36.3 %; Mean Corpuscular HGB Conc 33.3 g/dL (31.6-35.5); Mean Corpuscular Hemoglobin 28.3 pg (28.0-33.3); Mean Platelet Volume 10.2 fL (9.4-12.4); Monocytes # 0.9 K/mcL (0.0-1.3); Monocytes % 12.6 %; Neutrophils # 3.5 K/mcL (1.6-8.9); Platelet Count 269 K/mcL (140-400); Red Blood Count 3.74 M/mcL (4.19-5.50); Red Cell Distribution Width 16.6 % (11.5-14.5)
[2016-04-29] MEDS: risperiDONE 1 MG TABLET PO SCH (08:50)
[2016-04-29] MEDS: Aspirin 81 MG TAB.CHEW PO SCH (08:50)
[2016-04-29] MEDS: Isosorbide MONOnitrate (24 HR) 60 MG TAB.ER.24H PO SCH (08:50)
[2016-04-29 08:52] LABS: BUN/Creatinine Ratio 12 (6-26); Blood Urea Nitrogen 11 mg/dL (8-26); Carbon Dioxide 22 mEq/L (19-29); Chloride 109 mEq/L (98-109); Glucose 117 mg/dL (70-99); Magnesium 1.7 mg/dL (1.6-2.6); Osmolality,Calculated 294 (280-300); Potassium 3.1 mEq/L (3.5-4.5); Sodium 142 mEq/L (136-145); eGFR For African Americans > 60 (> 60); eGFR For Non-African Americans > 60 (> 60)
--- NOTE | 2016-04-29 09:09 | Internal Med Progress Note ---
Date of Encounter: 04/29/16 Time of Encounter: 09:06 - Assessment and plan (1) Syncope Current Visit: Yes Status: Acute Assessment and plan: Syncope under evaluation. Possible polypharmacy. Continue tele monitoring. Hypokalemia, supplement potassium accordingly. Monitor potassium level tomorrow in a.m. Magnesium WNL. Echo and carotid duplex ordered. Echo revealed an ejection fraction 55%, with moderate concentric hypertrophy of the left ventricle. There is evidence of mild diastolic dysfunction of the left ventricle. No pulmonary hypertension, mild aortic regurgitation. Carotid duplex revealed a bilateral carotid systems essentially normal. Head CT, neck CT unremarkable. Follow cardiology recommendations. DVT prophylaxis. Qualifiers: Syncope type: unspecified Qualified Code(s): R55 - Syncope and collapse (2) Elevated troponin Current Visit: Yes Status: Acute Assessment and plan: Mild trop elevation, no chest pain. Unilkely ACS. (3) Hypokalemia Current Visit: Yes Status: Acute Assessment and plan: Potassium 3.1 Magnesium WNL. Will supplement potassium today and monitor tomorrow. (4) CAD (coronary artery disease) Current Visit: Yes Status: Chronic Qualifiers: Coronary Disease-Associated Artery/Lesion type: [place] artery [place] vs. transplanted heart: [place] heart Associated angina: angina presence unspecified Qualified Code(s): I25.10 - Atherosclerotic heart disease of [place] coronary artery without angina pectoris (5) DVT prophylaxis Current Visit: Yes Status: Acute Assessment and plan: Heparin sq. (6) Hallucination, visual Current Visit: Yes Status: Acute Assessment and plan: Will obtain a consultation with psychiatry. - Subjective Interval history: Patient is currently denying chest pain, shortness of breath. He states that his doctor is waiting for him in the parking lot to take him to [facility]. Patient mentioned that the doctor is right behind me at this point. - Constitutional Vitals: Temp Pulse Resp BP Pulse Ox 97.6 F 88 16 162/79 98 04/29/16 07:12 04/29/16 07:12 04/29/16 07:12 04/29/16 07:12 04/29/16 07:12 General appearance: Present: pleasant, no acute distress - Head Head exam: Present: atraumatic, normocephalic - Eye Eye exam: Present: PERRL, conjuntiva pink, sclera anicteric Pupils: Present: PERRL - Neck Neck exam general surgery: Present: supple, trachea midline. Absent: lymphadenopathy - Respiratory Respiratory exam: Present: CTAB. Absent: accessory muscle use, rales, rhonchi, wheezes - Cardiovascular Cardiovascular exam: Present: RRR, +S1, +S2. Absent: diastolic murmur, gallop, rubs, systolic murmur - GI/Abdominal GI/Abdominal exam: Present: normal bowel sounds, soft, no peritoneal signs. Absent: distended, tenderness - Extremities Exam Extremities exam: Present: warm, radial pulses palpable and symetrical. Absent : calf tenderness, cyanotic, pedal edema - Neurological Exam Neurological exam: Present: CN II-XII intact, oriented X3, no focal deficits. Absent: pronater drift, facial droop, speech deficit - Psychiatric Psychiatric exam: Present: anxious - Skin Skin exam: Present: dry, intact Internal Medicine: Result - Labs CBC & Chem 7: 04/29/16 08:10 04/29/16 08:10 Labs: Short CBC 04/29/16 Range/Units 08:10 WBC 7.3 (4.3-11.1) K/mcL Hgb 10.6 L (12.9-16.9) g/dL Hct 31.8 L (37.5-50.1) % Plt Count 269 (140-400) K/mcL Neutrophils # 3.5 (1.6-8.9) K/mcL BMP 04/29/16 08:10 Sodium 142 Potassium 3.1 L Chloride 109 Carbon Dioxide 22 BUN 11 Creatinine 0.93 Glucose 117 H Calcium 9.0 Consult Discharge Plan - Plan [facility]errals: [facility] [Primary Care Provider] -
--- NOTE | 2016-04-29 10:17 | Cardiology Progress Note ---
Date of Encounter: 04/29/16 Time of Encounter: 10:14 Assessment and Plan (1) Syncope Current Visit: Yes Status: Acute Unclear etiology at this point. Agree that Polypharmacy could certainly play a role as he is on many psychiatric and sedating medications, as well as cardiac meds. BP has also been marginal. Check orthostatic vitals to see if there is a vasovagal component. These have still not been completed. Hypertensive this AM, add back low dose BB Toprol XL 25mg daily. Echo shows preserved EF 55%, moderate concentric LVH, mild diastolic dysfunction , mild AR. K 3.1--replace. Mag 1.8. TSH 1.545. 24 hour tele reviewed--AVG HR 64, SR, no significant pauses or arrhythmias noted. No records obtained, although were requested. At this point, no further cardiac work-up is indicated. Recommend follow-up with established [facility] bundler in [place], [place] in 2-3 weeks. Cardiology signing off. Reconsult PRN. Qualifiers: Syncope type: unspecified Qualified Code(s): R55 - Syncope and collapse (2) Elevated troponin Current Visit: Yes Status: Acute Borderline troponin elevation. Initial troponin at [place] 0.03, then 0.07, 0.[address] [facility]. This is in the setting of a syncopal event/fall. Do not suspect true ACS. Pt denies chest pain to me, although chest pain [facility] a [facility] and [facility]. Echo shows preserved EF. LHC and PCI reportedly last year at [facility] and reported normal stress test after that in [place]. Records requested but not received. No further cardiac testing warranted. (3) Hypokalemia Current Visit: Yes Status: Acute K 3.1 this AM. Will replace. (4) CAD (coronary artery disease) Current Visit: Yes Status: Chronic Per H&P, hx of CAD s/p multipe PCIs. Per pt, most recent 2015 at [facility]. Records requested but not received. Recommend continuing ASA, Statin, Plavix, BB, nitrates. Qualifiers: Coronary Disease-Associated Artery/Lesion type: [place] artery [place] vs. transplanted heart: [place] heart Associated angina: angina presence unspecified Qualified Code(s): I25.10 - Atherosclerotic heart disease of [place] coronary artery without angina pectoris Discussion w patient/family: The assessment and plan as outlined above was discussed with the patient and/or family members who expressed understanding and agreement. All questions were answered. Thank you for involving us in the care of your patient. Please call with any questions. I will discuss all the above with Dr. Núñez and make changes as necessary. Subjective Principal diagnosis: Syncope Interval history: Pt denies any acute complaints this AM. He is confused. No records received, but echo resulted, which shows preserved EF, no significant findings. Objective Vital Signs, Last 4 Hours Temp Pulse Resp BP Pulse Ox 04/29/16 07:12 97.6 F 88 16 162/79 98 Vital Signs Temp Pulse Resp BP Pulse Ox 04/29/16 07:12 97.6 F 88 16 162/79 98 04/28/16 21:53 97.8 F 75 20 117/79 97 04/28/16 15:40 98.6 F 56 18 89/56 98 04/28/16 11:21 99.3 F 52 17 86/51 97 Active Medications Acetaminophen (Tylenol) 650 mg PO Q6HR PRN PRN Reason: Mild Pain (1-3) Stop: 10/28/16 02:10 Acetaminophen/Hydrocodone Bitart ([place] 7.5-325 Mg) 1 tab PO Q6HR PRN PRN Reason: Pain Stop: 10/28/16 02:39 Last Admin: 04/28/16 21:51 Dose: 1 tab Albuterol/Ipratropium (Duoneb) 3 ml IH [id number] JOVANNY PRN Reason: Protocol Stop: 10/28/16 04:01 Last Admin: 04/29/16 05:33 Dose: Not Given Aspirin (Aspirin) 81 mg PO DAILY JOVANNY Stop: 10/28/16 09:01 Last Admin: 04/29/16 08:50 Dose: 81 mg Atorvastatin Calcium (Lipitor) 80 mg PO HS JOVANNY Stop: 10/28/16 21:01 Last Admin: 04/28/16 21:51 Dose: 80 mg Budesonide/Formoterol Fumarate (Symbicort) 1 puff IH BIDRESP JOVANNY PRN Reason: Protocol Stop: 10/28/16 10:01 Last Admin: 04/28/16 21:40 Dose: Not Given Clopidogrel Bisulfate (Plavix) 75 mg PO DAILY JOVANNY Stop: 10/28/16 10:01 Last Admin: 04/29/16 08:50 Dose: 75 mg Docusate Sodium (Colace) 100 mg PO BID PRN; Protocol PRN Reason: Constipation Stop: 10/28/16 02:39 Duloxetine HCl (Cymbalta) 60 mg PO DAILY [facility] Stop: 10/28/16 09:01 Last Admin: 04/29/16 08:49 Dose: 60 mg Heparin Sodium (Porcine) (Heparin) 5,000 unit SQ Q12HR [facility] Stop: 10/28/16 06:01 Last Admin: 04/29/16 07:16 Dose: 5,000 unit Isosorbide Mononitrate (Imdur) 60 mg PO DAILY [facility] Stop: 10/28/16 09:01 Last Admin: 04/29/16 08:50 Dose: 60 mg Naloxone HCl (Narcan) 0.4 mg IVP Q2MIN PRN PRN Reason: Opioid Reversal Stop: 10/28/16 02:10 Omeprazole (Prilosec) 20 mg PO DAILY@0630 [facility] PRN Reason: Protocol Stop: 10/28/16 06:31 Last Admin: 04/29/16 07:16 Dose: 20 mg Ondansetron HCl (Zofran Odt) 4 mg SL Q8HR PRN PRN Reason: Nausea And Vomiting Stop: 10/28/16 02:10 Potassium Chloride (Potassium Chloride) 40 meq PO BID [facility] Stop: 10/29/16 09:16 Last Admin: 04/29/16 09:31 Dose: 40 meq Potassium Chloride (Potassium Chloride) 20 meq PO ONCE ONE Stop: 04/29/16 14:01 Risperidone (Risperdal) 2 mg PO DAILY [facility] Stop: 10/28/16 09:01 Last Admin: 04/29/16 08:50 Dose: 2 mg Senna (Senna) 17.2 mg PO DAILY PRN PRN Reason: Constipation Stop: 10/28/16 02:39 Tamsulosin HCl (Flomax) 0.4 mg PO DAILY [facility] PRN Reason: Protocol Stop: 10/28/16 09:01 Last Admin: 04/29/16 08:49 Dose: 0.4 mg Tramadol HCl (Ultram) 50 mg PO QID PRN PRN Reason: Pain Stop: 10/28/16 02:39 Trazodone HCl (Trazodone) 50 mg PO HS [facility] Stop: 10/29/16 00:16 Last Admin: 04/29/16 08:38 Dose: Not Given Results 04/29/16 08:10 04/29/16 08:10 Lab Results 04/29/16 04/29/16 08:10 08:10 WBC 7.3 Hgb 10.6 L Hct 31.8 L Plt Count 269 Sodium 142 Potassium 3.1 L Chloride 109 Carbon Dioxide 22 BUN 11 Creatinine 0.93 Glucose 117 H Calcium 9.0 Magnesium 1.7 Consult Discharge Plan - Plan [facility]errals: [facility] [Primary Care Provider] -
[2016-04-29] MEDS: Budesonide/Formoterol 160/4.5 MDI IH SCH ×2 (11:23→22:42)
[2016-04-29] MEDS: Metoprolol XL (24 HR) Succ 25 MG TAB.ER.24H PO SCH (12:21)
[2016-04-29] MEDS ORDERED: Potassium Chloride Elixir 20 MEQ/15 ML UDC PO ONE (14:00)
--- NOTE | 2016-04-29 16:37 | Consult Note ---
Date of Encounter: 04/29/16 Time of Encounter: 16:00 Assessment & Recommendation (1) Hallucination, visual Current visit: Yes Status: Acute Assessment & Recommendation: Patient has established psychiatric diagnosis of depression and psychosis is followed by psychiatrist at the [facility] and taking medication for treatment. He can have baseline hallucination related to his illness in addition to hallucination delirium states view of his current medical condition this is a stable condition and that he started to 4 and there are no acute psychiatric recommendation at this time patient is follow up soon to follow-up at the [facility] was his psychiatrist. Thank you for your consult History of Present Illness Patient: new to practice Requesting Physician: Mauricio Mcgill Reason for consult: Visual hallucination History of present illness: Mr. Mora is a 60 year old male referred for psychiatric consultation to evaluate visual hallucinations. Patient is established end of the hospital and followed by psychiatrist and taking psychiatric medication including Risperdal. His psychiatric condition is stable on medication and his symptoms can be due to delirium related to his current medical status. Patient is well aware of his treatment and medication. CC: Mauricio Mcgill Past Med Surg Social Fam HX - Past Medical History Medical history: coronary artery disease, hyperlipidemia, hypertension - Past Psychiatric History Psychiatric history: Reports: schizophrenia, previous psychiatric hospitalization Family psychiatric history: Unknown Family History of Suicide: Unknown - Past Surgical History Surgical History: angioplasty/stent - Social History Smoking Status: Current every day smoker Smokeless Tobacco Status: No Alcohol use: none Drug use: none Medications & Allergies Albuterol Sulfate [Proair Hfa] 2 puff IH Q6H PRN 04/28/16 [History] Alfuzosin HCl [Uroxatral] 10 mg PO DAILY 04/28/16 [History] Aspirin [Lo-Dose Aspirin EC] 81 mg PO DAILY 04/28/16 [History] Atorvastatin Calcium [Lipitor] 80 mg PO QPM 04/28/16 [History] Carvedilol [Coreg] 25 mg PO BID 04/28/16 [History] CloNIDine HCl [Kapvay] 0.1 mg PO TID 04/28/16 [History] Clopidogrel [Plavix] 75 mg PO DAILY 04/28/16 [History] Cyanocobalamin (B-12) [Vitamin B12] 1,000 mcg PO DAILY 04/28/16 [History] Docusate [Colace] 200 mg PO DAILY 04/28/16 [History] Duloxetine HCl [Cymbalta] 60 mg PO BID 04/28/16 [History] Ferrous Sulfate [Iron] 325 mg PO DAILY 04/28/16 [History] Fluticasone Propionate Nasal [Flonase] 50 mcg NS DAILY 04/28/16 [History] Furosemide [Lasix] 20 mg PO DAILY 04/28/16 [History] HydrALAZINE 75 mg PO TID 04/28/16 [History] Hydrocortisone 1% CREAM [Cortaid] 1 appl TP BID 04/28/16 [History] Isosorbide MONOnitrate [Isosorbide Mononitrate ER] 120 mg PO DAILY 04/28/16 [ History] Lidocaine 4% CRM (LMX) [Lmx 4] 1 appl TP BID PRN 04/28/16 [History] Minoxidil 2.5 mg PO BID 04/28/16 [History] Nicotine Patch [Nicoderm] 21 mg TD DAILY 04/28/16 [History] Nicotine Polacrilex [Nicotine Lozenge] 4 mg BC Q2H PRN 04/28/16 [History] Nystatin Cream [Mycostatin Cream] 1 appl TP BID 04/28/16 [History] Oxcarbazepine [Oxtellar Xr] 600 mg PO TID 04/28/16 [History] Promethazine [Phenergan] 25 mg PO TID PRN 04/28/16 [History] RisperiDONE [Risperdal] 2 mg PO HS 04/28/16 [History] RisperiDONE [Risperidone] 1 mg PO BID 04/28/16 [History] Sennosides [Laxative] 17.2 mg PO DAILY PRN 04/28/16 [History] Spironolactone [Aldactone] 25 mg PO DAILY 04/28/16 [History] TraZODone 50 mg PO HS 04/28/16 [History] Tramadol HCl [Ultram] 100 mg PO QID PRN 04/28/16 [History] Allergies fentanyl Allergy (Verified 04/27/16 23:01) Rash hydrogen peroxide [From Peroxyl] Allergy (Verified 04/27/16 23:01) Rash Review of Systems Psychiatric: Reports: visual hallucinations Mental Status Exam Patient orientation: Yes Person, Yes Time, Yes Place Level of alertness: Alert Patient appearance: Unkempt, Disheveled, Malodorous Behavior: cooperative, distractible, talkative Psychomotor activity: Normal Eye contact: Maintains Eye Contact Mood description: Euthymic/stable Affect description: congruent with mood, full range, euphoric Speech pattern: Normal rate, Normal rhythm, Normal tone, Inappropriate to situation, Excessive Speech volume: Normal Thought process: Circumstantial, Tangential Thought content: No Suicidal ideation, No Homicidal ideation, No Overt delusions Perceptual disturbances: Yes Visual hallucinations Attention span: Unable to Focus Memory description: Recent Impaired, Remote Impaired Patient reliability: Not Reliable Historian Intelligence estimate: Below Average Judgment: Limited Insight: Partial Results - Vital Signs Vital signs: Temp Pulse Resp BP Pulse Ox 97.6 F 88 16 152/93 98 04/29/16 07:12 04/29/16 07:12 04/29/16 07:12 04/29/16 16:29 04/29/16 09:00 - Labs Labs: Laboratory Last Values WBC 7.3 K/mcL (4.3-11.1) 04/29/16 08:10 RBC 3.74 M/mcL (4.19-5.50) L 04/29/16 08:10 Hgb 10.6 g/dL (12.9-16.9) L 04/29/16 08:10 Hct 31.8 % (37.5-50.1) L 04/29/16 08:10 MCV 85.0 fL (83.0-100.0) 04/29/16 08:10 MCH 28.3 pg (28.0-33.3) 04/29/16 08:10 MCHC 33.3 g/dL (31.6-35.5) 04/29/16 08:10 RDW 16.6 % (11.5-14.5) H 04/29/16 08:10 Plt Count 269 K/mcL (140-400) 04/29/16 08:10 MPV 10.2 fL (9.4-12.4) 04/29/16 08:10 Immature Gran % 0.6 % (0-4) 04/29/16 08:10 Seg Neutrophils % 48.0 % 04/29/16 08:10 Lymphocytes % 36.3 % 04/29/16 08:10 Monocytes % 12.6 % 04/29/16 08:10 Eosinophils % 2.2 % 04/29/16 08:10 Basophils % 0.3 % 04/29/16 08:10 Neutrophils # 3.5 K/mcL (1.6-8.9) 04/29/16 08:10 Lymphocytes # 2.6 K/mcL (0.6-4.6) 04/29/16 08:10 Monocytes # 0.9 K/mcL (0.0-1.3) 04/29/16 08:10 Eosinophils # 0.2 K/mcL (0.0-0.6) 04/29/16 08:10 Basophils # 0.0 K/mcL (0.0-0.2) 04/29/16 08:10 Platelet Estimate Normal (Normal) 04/27/16 23:35 Immature Plt Fraction 6.3 % (1.1-6.1) H 04/27/16 23:35 Polychromasia 1+ (Not Present) A 04/27/16 23:35 Anisocytosis 1+ (Not Present) A 04/27/16 23:35 Microcytosis Present (Not Present) A 04/27/16 23:35 Sodium 142 mEq/L (136-145) 04/29/16 08:10 Potassium 3.1 mEq/L (3.5-4.5) L 04/29/16 08:10 Chloride 109 mEq/L (98-109) 04/29/16 08:10 Carbon Dioxide 22 mEq/L (19-29) 04/29/16 08:10 BUN 11 mg/dL (8-26) 04/29/16 08:10 Creatinine 0.93 mg/dL (0.72-1.25) 04/29/16 08:10 Est GFR ( Amer) > 60 (> 60) 04/29/16 08:10 Est GFR (Non-Af Amer) > 60 (> 60) 04/29/16 08:10 BUN/Creatinine Ratio 12 (6-26) 04/29/16 08:10 Glucose 117 mg/dL (70-99) H 04/29/16 08:10 POC Glucose 127 (58-89) H 04/27/16 22:59 Calculated Osmolality 294 (280-300) 04/29/16 08:10 Calcium 9.0 mg/dL (8.6-10.8) 04/29/16 08:10 Phosphorus 4.4 mg/dL (2.3-4.7) 04/28/16 05:39 Magnesium 1.7 mg/dL (1.6-2.6) 04/29/16 08:10 Iron 23 mcg/dL (65-175) L 04/28/16 05:39 % Saturation 11 % (20-55) L 04/28/16 05:39 Transferrin 152 mg/dL (174-364) L 04/28/16 05:39 Ferritin 110 ng/ml (22-275) 04/28/16 05:39 Total Bilirubin 0.5 mg/dL (0.2-1.2) 04/28/16 05:39 AST 24 Units/L (5-34) 04/28/16 05:39 ALT 24 Units/L (0-55) 04/28/16 05:39 Alkaline Phosphatase 106 Units/L (38-126) 04/28/16 05:39 Troponin I 0.05 ng/mL (0-0.03) H* 04/28/16 05:39 Serum Total Protein 5.8 g/dL (6.0-8.3) L 04/28/16 05:39 Albumin 3.0 g/dL (3.5-5.0) L 04/28/16 05:39 Globulin 2.8 g/dL (2.4-3.5) 04/28/16 05:39 Albumin/Globulin Ratio 1.1 (1.1-2.2) 04/28/16 05:39 Triglycerides 120 mg/dL (< 150) 04/28/16 05:39 Cholesterol 105 mg/dL (< 200) 04/28/16 05:39 LDL Cholesterol, Calc 55 mg/dL (0-99) 04/28/16 05:39 VLDL Cholesterol, Calc 24 mg/dL (< 31) 04/28/16 05:39 HDL Cholesterol 26 mg/dL (40-59) L 04/28/16 05:39 Cholesterol/HDL Ratio 4.0 (0-4.9) 04/28/16 05:39 TSH 1.545 mcIU/mL (0.350-4.840) 04/28/16 05:39 Consult Discharge Plan - Plan [facility]errals: [facility] [Primary Care Provider] -
[2016-04-29] MEDS: *HR* HYDROcodone/Acet 7.5/325 mg TABLET PO PRN ×2 (17:27→20:10)
[2016-04-29] MEDS: Ondansetron ODT 4 MG TAB.RAPDIS SL PRN (17:28)
[2016-04-30] MEDS: Ipratropium/Albuterol Neb 3 ML IH SCH ×4 (03:38→23:05)
[2016-04-30 06:37] LABS: Basophils % 0.3 %; Eosinophils # 0.1 K/mcL (0.0-0.6); Eosinophils % 1.9 %; Hematocrit 29.2 % (37.5-50.1); Hemoglobin 9.7 g/dL (12.9-16.9); Immature Granulocytes % 0.3 % (0-4); Lymphocytes # 2.5 K/mcL (0.6-4.6); Lymphocytes % 40.5 %; Mean Corpuscular HGB Conc 33.2 g/dL (31.6-35.5); Mean Corpuscular Hemoglobin 28.5 pg (28.0-33.3); Mean Corpuscular Volume 85.9 fL (83.0-100.0); Mean Platelet Volume 10.5 fL (9.4-12.4); Monocytes # 0.7 K/mcL (0.0-1.3); Monocytes % 11.7 %; Neutrophils # 2.8 K/mcL (1.6-8.9); Platelet Count 241 K/mcL (140-400); Red Cell Distribution Width 16.6 % (11.5-14.5); Segmented Neutrophils % 45.3 %
[2016-04-30] MEDS: *HR* Heparin 5,000 UNIT/ML VIAL SQ SCH ×2 (06:40→17:43)
[2016-04-30 06:55] LABS: BUN/Creatinine Ratio 10 (6-26); Blood Urea Nitrogen 8 mg/dL (8-26); Calcium 8.8 mg/dL (8.6-10.8); Carbon Dioxide 23 mEq/L (19-29); Chloride 112 mEq/L (98-109); Glucose 93 mg/dL (70-99); Magnesium 1.7 mg/dL (1.6-2.6); Osmolality,Calculated 292 (280-300); Sodium 142 mEq/L (136-145); eGFR For African Americans > 60 (> 60); eGFR For Non-African Americans > 60 (> 60)
[2016-04-30] MEDS: risperiDONE 1 MG TABLET PO SCH (09:30)
[2016-04-30] MEDS: Isosorbide MONOnitrate (24 HR) 60 MG TAB.ER.24H PO SCH (09:30)
[2016-04-30] MEDS: Aspirin 81 MG TAB.CHEW PO SCH (09:31)
[2016-04-30] MEDS: Metoprolol XL (24 HR) Succ 25 MG TAB.ER.24H PO SCH (09:31)
--- NOTE | 2016-04-30 09:42 | Discharge Summary ---
Date of Encounter: 04/30/16 Time of Encounter: 09:35 - Discharge Diagnosis (1) Syncope Priority: Primary Status: Acute Qualifiers: Syncope type: unspecified Qualified Code(s): R55 - Syncope and collapse (2) Elevated troponin Priority: Secondary Status: Acute (3) Hypokalemia Priority: Secondary Status: Acute (4) CAD (coronary artery disease) Priority: Secondary Status: Chronic Qualifiers: Coronary Disease-Associated Artery/Lesion type: [place] artery [place] vs. transplanted heart: [place] heart Associated angina: angina presence unspecified Qualified Code(s): I25.10 - Atherosclerotic heart disease of [place] coronary artery without angina pectoris (5) DVT prophylaxis Priority: Secondary Status: Acute (6) Hallucination, visual Priority: Secondary Status: Acute - Discharge Medications Prescriptions: HYDROcodone/Acet 7.5/325 mg [[place] 7.5-325 mg] 1 tab PO Q6HR PRN #20 tablet PRN Reason: Pain Isosorbide MONOnitrate (24 HR) [Imdur] 60 mg PO DAILY 30 Days Metoprolol XL (24 HR) Succ [Toprol Xl] 25 mg PO DAILY #30 tab.er.24h Home Medications: Albuterol Sulfate [Proair Hfa] 2 puff IH Q6H PRN 04/28/16 [History] Alfuzosin HCl [Uroxatral] 10 mg PO DAILY 04/28/16 [History] Aspirin [Lo-Dose Aspirin EC] 81 mg PO DAILY 04/28/16 [History] Atorvastatin Calcium [Lipitor] 80 mg PO QPM 04/28/16 [History] CloNIDine HCl [Kapvay] 0.1 mg PO TID 04/28/16 [History] Clopidogrel [Plavix] 75 mg PO DAILY 04/28/16 [History] Cyanocobalamin (B-12) [Vitamin B12] 1,000 mcg PO DAILY 04/28/16 [History] Docusate [Colace] 200 mg PO DAILY 04/28/16 [History] Duloxetine HCl [Cymbalta] 60 mg PO BID 04/28/16 [History] Ferrous Sulfate [Iron] 325 mg PO DAILY 04/28/16 [History] Fluticasone Propionate Nasal [Flonase] 50 mcg NS DAILY 04/28/16 [History] Furosemide [Lasix] 20 mg PO DAILY 04/28/16 [History] HydrALAZINE 75 mg PO TID 04/28/16 [History] Hydrocortisone 1% CREAM [Cortaid] 1 appl TP BID 04/28/16 [History] Lidocaine 4% CRM (LMX) [Lmx 4] 1 appl TP BID PRN 04/28/16 [History] Nicotine Patch [Nicoderm] 21 mg TD DAILY 04/28/16 [History] Nicotine Polacrilex [Nicotine Lozenge] 4 mg BC Q2H PRN 04/28/16 [History] Nystatin Cream [Mycostatin Cream] 1 appl TP BID 04/28/16 [History] Oxcarbazepine [Oxtellar Xr] 600 mg PO TID 04/28/16 [History] RisperiDONE [Risperdal] 2 mg PO HS 04/28/16 [History] RisperiDONE [Risperidone] 1 mg PO BID 04/28/16 [History] Sennosides [Laxative] 17.2 mg PO DAILY PRN 04/28/16 [History] TraZODone 50 mg PO HS 04/28/16 [History] HYDROcodone/Acet 7.5/325 mg [[place] 7.5-325 mg] 1 tab PO Q6HR PRN #20 tablet [Rx] Isosorbide MONOnitrate (24 HR) [Imdur] 60 mg PO DAILY 30 Days 04/30/16 [Rx] Metoprolol XL (24 HR) Succ [Toprol Xl] 25 mg PO DAILY #30 tab.er.24h 04/30/16 [ Rx] Allergies/Adverse Reactions: Allergies fentanyl Allergy (Verified 04/27/16 23:01) Rash hydrogen peroxide [From Peroxyl] Allergy (Verified 04/27/16 23:01) Rash Procedures/tests Complete & Pending: Procedures Performed prior 72 hours Category Date Time Status EV carotid duplex imaging BI Routine Y 04/28/16 02:38 Completed EV echocardiogram Routine Y 04/28/16 02:09 Completed Date of admission: 04/28/16 01:28 Primary care physician: [facility] Consults: 04/28/16 02:15 Consult to Occupational Therapy [CONS] Routine Comment: Evaluate, develop and implement POC Consult to Physical Therapy [CONS] Routine Comment: Evaluate, develop and implement POC Consult to [facility] Coat Tender [CONS] Routine Reason for SW Consult: [facility] patient, may need home health/rehab 04/28/16 02:46 Consult to Nutrition [CONS] Routine Comment: Consulting Provider: NUTRITION Reason for Dietary Consult: MST Score Consult to Pastoral Services [CONS] Routine Comment: 04/28/16 07:39 Consult to Cardiology [CONS] Routine Comment: Consulting Provider: Malorie Bro Reason for Consult: Elevated troponin Call Completed: No 04/29/16 09:04 Consult to Psychiatry [CONS] Routine Consulting Provider: Psychiatry Adali Reason for Consult: visual hallucinations, history of mental health problems Call Completed: Yes Discharging clinician: Mauricio Mcgill Anticipated date of discharge: 04/30/16 - Patient Status Disposition: Transfer Other Condition: Good Functional capacity at discharge: independent ambulation Overall status at discharge: patient is back to baseline - Discharge Instructions Follow Up With: [facility],PC[facility] [Primary Care Provider] - - Diet and Activity Activity: increase activity as tolerated Diet: advance to your usual diet Interval History: Mr. Mora is a 60 year old male who was transferred from the [facility] after syncope. He states that he was admitted to the [facility] for lightheadedness and earlier last night, he walked to his bathroom and had a syncopal episode. He claims that he was going to the bathroom to apply cream to his genital region for his yeast infection and felt lightheaded and dizzy before losing consciousness. There were no witnesses nearby and he estimates he was out for roughly 10 minutes. He states that when he regained his consciousness he felt confused, but denies any tongue biting, incontinence. He did hit his head in 2 places, his front and back side, and had minor bleeding from one of his wounds. He also mentioned having chest pain and also headache near his injury. He claims to have had a fever for the past 1-2 weeks. Of note , he has a history of multiple heart attacks s/p total of 9 stents, last one being in 2016. He is on aspirin and Plavix. Currently, patient complains of shortness of breath but his chest pain is resolved after aspirin. He denies any nausea, vomiting, diarrhea, or previous history of falls or losing consciousness. Hospital course: Mr. Mora is a 60 year old male. Admitted due to syncope. Head CT without intracranial abnormality. Echo revealed an ejection fraction 55%, with moderate concentric hypertrophy of the left ventricle. There is evidence of mild diastolic dysfunction of the left ventricle. No pulmonary hypertension, mild aortic regurgitation. Mild trop elevation, no chest pain. Unilkely ACS. Carotid duplex revealed a bilateral carotid systems essentially normal. Polypharmacy could certainly play a role as he is on many psychiatric and sedating medications, as well as cardiac meds. Potassium levels corrected. Mag 1.8. TSH 1.545. 24 hour tele reviewed--AVG HR 64, SR, no significant pauses or arrhythmias noted. At this point, no further cardiac work-up is indicated. Recommend follow- up with established winch stripper in [place], [place] in 2-3 weeks. Psych evaluated the patient while inhouse, patient has established psychiatric diagnosis of depression and psychosis is followed by psychiatrist at the [facility] and taking medication for treatment. He can have baseline hallucination related to his illness in addition to hallucination delirium states view of his current medical condition this is a stable condition and that he started to 4 and there are no acute psychiatric recommendation at this time patient is follow up soon to follow-up at the [facility] was his psychiatrist. Patient stable, will discharge him back to the [facility], since his EF is preserved, will d/c aldactone. Will continue with betablockers and antihypertensive meds. D /W patient and his . - Time Spent with Patient Total time spent providing and/or coordinating discharge services: Greater than 30 minutes - Constitutional Vitals: Temp Pulse Resp BP Pulse Ox 98.3 F 76 16 183/65 99 04/30/16 07:00 04/30/16 07:00 04/30/16 07:00 04/30/16 07:00 04/30/16 07:00 General appearance: Present: pleasant, no acute distress - Head Head exam: Present: atraumatic, normocephalic - Eye Eye exam: Present: PERRL, conjuntiva pink, sclera anicteric Pupils: Present: PERRL - Neck Neck exam general surgery: Present: supple, trachea midline. Absent: lymphadenopathy - Respiratory Respiratory exam: Present: CTAB. Absent: accessory muscle use, rales, rhonchi, wheezes - Cardiovascular Cardiovascular exam: Present: RRR, +S1, +S2. Absent: diastolic murmur, gallop, rubs, systolic murmur - GI/Abdominal GI/Abdominal exam: Present: normal bowel sounds, soft, no peritoneal signs. Absent: distended, tenderness - Extremities Exam Extremities exam: Present: warm, radial pulses palpable and symetrical. Absent : calf tenderness, cyanotic, pedal edema - Neurological Exam Neurological exam: Present: CN II-XII intact, oriented X3, no focal deficits. Absent: pronater drift, facial droop, speech deficit - Skin Skin exam: Present: dry, intact
--- NOTE | 2016-04-30 09:50 | Physician Discharge Referral ---
ExtendedCare Referral Info Transfer To: [facility] Provider in Charge after Transfer: PCP Institutional Level of Care: Skilled - Diagnosis (1) Syncope Status: Acute (2) Elevated troponin Status: Acute (3) Hypokalemia Status: Acute (4) CAD (coronary artery disease) Status: Chronic (5) DVT prophylaxis Status: Acute (6) Hallucination, visual Status: Acute - Transfer Medications Prescriptions: HYDROcodone/Acet 7.5/325 mg [[place] 7.5-325 mg] 1 tab PO Q6HR PRN #20 tablet PRN Reason: Pain Isosorbide MONOnitrate (24 HR) [Imdur] 60 mg PO DAILY 30 Days Metoprolol XL (24 HR) Succ [Toprol Xl] 25 mg PO DAILY #30 tab.er.24h Home Medications: Albuterol Sulfate [Proair Hfa] 2 puff IH Q6H PRN 04/28/16 [History] Alfuzosin HCl [Uroxatral] 10 mg PO DAILY 04/28/16 [History] Aspirin [Lo-Dose Aspirin EC] 81 mg PO DAILY 04/28/16 [History] Atorvastatin Calcium [Lipitor] 80 mg PO QPM 04/28/16 [History] CloNIDine HCl [Kapvay] 0.1 mg PO TID 04/28/16 [History] Clopidogrel [Plavix] 75 mg PO DAILY 04/28/16 [History] Cyanocobalamin (B-12) [Vitamin B12] 1,000 mcg PO DAILY 04/28/16 [History] Docusate [Colace] 200 mg PO DAILY 04/28/16 [History] Duloxetine HCl [Cymbalta] 60 mg PO BID 04/28/16 [History] Ferrous Sulfate [Iron] 325 mg PO DAILY 04/28/16 [History] Fluticasone Propionate Nasal [Flonase] 50 mcg NS DAILY 04/28/16 [History] Furosemide [Lasix] 20 mg PO DAILY 04/28/16 [History] HydrALAZINE 75 mg PO TID 04/28/16 [History] Hydrocortisone 1% CREAM [Cortaid] 1 appl TP BID 04/28/16 [History] Lidocaine 4% CRM (LMX) [Lmx 4] 1 appl TP BID PRN 04/28/16 [History] Nicotine Patch [Nicoderm] 21 mg TD DAILY 04/28/16 [History] Nicotine Polacrilex [Nicotine Lozenge] 4 mg BC Q2H PRN 04/28/16 [History] Nystatin Cream [Mycostatin Cream] 1 appl TP BID 04/28/16 [History] Oxcarbazepine [Oxtellar Xr] 600 mg PO TID 04/28/16 [History] RisperiDONE [Risperdal] 2 mg PO HS 04/28/16 [History] RisperiDONE [Risperidone] 1 mg PO BID 04/28/16 [History] Sennosides [Laxative] 17.2 mg PO DAILY PRN 04/28/16 [History] TraZODone 50 mg PO HS 04/28/16 [History] HYDROcodone/Acet 7.5/325 mg [[place] 7.5-325 mg] 1 tab PO Q6HR PRN #20 tablet [Rx] Isosorbide MONOnitrate (24 HR) [Imdur] 60 mg PO DAILY 30 Days 04/30/16 [Rx] Metoprolol XL (24 HR) Succ [Toprol Xl] 25 mg PO DAILY #30 tab.er.24h 04/30/16 [ Rx] Allergies/Adverse Reactions: Allergies fentanyl Allergy (Verified 04/27/16 23:01) Rash hydrogen peroxide [From Peroxyl] Allergy (Verified 04/27/16 23:01) Rash - Respiratory Orders Smoking Cessation: Smoking cessation has been advised. For more information, call the [place] Tobacco Quit Line at 8-365-DIHV-NOW. - Advance Directives Code Status: Full Code - Mobility Orders Other ( tolerated, fall precautions) - Rehabiliation Orders Rehab Potential: Fair Rehab Orders: ROM Exercises, Evaluation for Physical Therapy, Evaluation for Occupational Therapy - Diet Orders Regular, Cardiac CERTIFICATION: I certify that the transfer of the above named patient to an Extended Care Facility is necessary for the continuing treatment of the diagnosis listed. The above information is true and accurate reflection of patient's current condition. Confidential - Redisclosure prohibited without a patient's written consent.
[2016-04-30] MEDS: Budesonide/Formoterol 160/4.5 MDI IH SCH ×2 (10:47→23:06)
[2016-04-30] MEDS: *HR* HYDROcodone/Acet 7.5/325 mg TABLET PO PRN (20:19)
[2016-04-30] MEDS: traZODone 50 MG TABLET PO SCH (20:20)
[2016-04-30] MEDS: Ondansetron ODT 4 MG TAB.RAPDIS SL PRN (20:20)
[2016-05-01] MEDS: *HR* Heparin 5,000 UNIT/ML VIAL SQ SCH ×2 (06:29→17:12)
[2016-05-01] MEDS: *HR* HYDROcodone/Acet 7.5/325 mg TABLET PO PRN (06:35)
[2016-05-01] MEDS: Ipratropium/Albuterol Neb 3 ML IH SCH ×4 (06:38→22:03)
[2016-05-01 07:02] LABS: BUN/Creatinine Ratio 7 (6-26); Blood Urea Nitrogen 6 mg/dL (8-26); Calcium 8.9 mg/dL (8.6-10.8); Carbon Dioxide 25 mEq/L (19-29); Chloride 111 mEq/L (98-109); Glucose 96 mg/dL (70-99); Osmolality,Calculated 293 (280-300); Potassium 4.1 mEq/L (3.5-4.5); Sodium 143 mEq/L (136-145); eGFR For African Americans > 60 (> 60); eGFR For Non-African Americans > 60 (> 60)
[2016-05-01 07:20] LABS: Basophils % 0.3 %; Eosinophils # 0.1 K/mcL (0.0-0.6); Hematocrit 29.5 % (37.5-50.1); Hemoglobin 9.8 g/dL (12.9-16.9); Immature Granulocytes % 0.2 % (0-4); Lymphocytes # 2.7 K/mcL (0.6-4.6); Lymphocytes % 44.6 %; Mean Corpuscular HGB Conc 33.2 g/dL (31.6-35.5); Mean Corpuscular Hemoglobin 28.8 pg (28.0-33.3); Mean Corpuscular Volume 86.8 fL (83.0-100.0); Mean Platelet Volume 10.3 fL (9.4-12.4); Monocytes # 0.5 K/mcL (0.0-1.3); Monocytes % 8.7 %; Neutrophils # 2.6 K/mcL (1.6-8.9); Platelet Count 241 K/mcL (140-400); Red Cell Distribution Width 16.6 % (11.5-14.5); Segmented Neutrophils % 44.2 %
[2016-05-01] MEDS: Isosorbide MONOnitrate (24 HR) 60 MG TAB.ER.24H PO SCH (09:00)
[2016-05-01] MEDS: risperiDONE 1 MG TABLET PO SCH (09:00)
[2016-05-01] MEDS: Aspirin 81 MG TAB.CHEW PO SCH (09:00)
[2016-05-01] MEDS: Metoprolol XL (24 HR) Succ 25 MG TAB.ER.24H PO SCH (09:00)
--- NOTE | 2016-05-01 10:35 | Internal Med Progress Note ---
Date of Encounter: 05/01/16 Time of Encounter: 10:33 - Assessment and plan (1) Syncope Current Visit: Yes Status: Acute Assessment and plan: Syncope under evaluation. Possible polypharmacy. Continue tele monitoring. Hypokalemia, corrected, Magnesium WNL. Echo and carotid duplex ordered. Echo revealed an ejection fraction 55%, with moderate concentric hypertrophy of the left ventricle. There is evidence of mild diastolic dysfunction of the left ventricle. No pulmonary hypertension, mild aortic regurgitation. Carotid duplex revealed a bilateral carotid systems essentially normal. Head CT, neck CT unremarkable. Patient was medically discharged yesterday, awaiting for transfer to the [facility]. DVT prophylaxis. Qualifiers: Syncope type: unspecified Qualified Code(s): R55 - Syncope and collapse (2) Elevated troponin Current Visit: Yes Status: Acute Assessment and plan: Mild trop elevation, no chest pain. Unilkely ACS. (3) Hypokalemia Current Visit: Yes Status: Acute Assessment and plan: Corrected. Magnesium WNL. (4) CAD (coronary artery disease) Current Visit: Yes Status: Chronic Qualifiers: Coronary Disease-Associated Artery/Lesion type: [place] artery [place] vs. transplanted heart: [place] heart Associated angina: angina presence unspecified Qualified Code(s): I25.10 - Atherosclerotic heart disease of [place] coronary artery without angina pectoris (5) DVT prophylaxis Current Visit: Yes Status: Acute Assessment and plan: Heparin sq. (6) Hallucination, visual Current Visit: Yes Status: Acute - Time Spent With Patient 25 - 35 minutes - Subjective Interval history: Patient is currently denying chest pain, shortness of breath. Afebrile, sleepy. - Constitutional Vitals: Temp Pulse Resp BP Pulse Ox 98.3 F 66 14 177/104 100 05/01/16 06:54 05/01/16 06:54 05/01/16 06:54 05/01/16 06:54 05/01/16 06:54 General appearance: Present: pleasant, no acute distress - Head Head exam: Present: atraumatic, normocephalic - Eye Eye exam: Present: PERRL, conjuntiva pink, sclera anicteric Pupils: Present: PERRL - Neck Neck exam general surgery: Present: supple, trachea midline. Absent: lymphadenopathy - Respiratory Respiratory exam: Present: CTAB. Absent: accessory muscle use, rales, rhonchi, wheezes - Cardiovascular Cardiovascular exam: Present: RRR, +S1, +S2. Absent: diastolic murmur, gallop, rubs, systolic murmur - GI/Abdominal GI/Abdominal exam: Present: normal bowel sounds, soft, no peritoneal signs. Absent: distended, tenderness - Extremities Exam Extremities exam: Present: warm, radial pulses palpable and symetrical. Absent : calf tenderness, cyanotic, pedal edema - Neurological Exam Neurological exam: Present: CN II-XII intact, oriented X3, no focal deficits. Absent: pronater drift, facial droop, speech deficit - Skin Skin exam: Present: dry, intact Internal Medicine: Result - Labs CBC & Chem 7: 05/01/16 06:41 05/01/16 06:41 Labs: Short CBC 05/01/16 Range/Units 06:41 WBC 6.0 (4.3-11.1) K/mcL Hgb 9.8 L (12.9-16.9) g/dL Hct 29.5 L (37.5-50.1) % Plt Count 241 (140-400) K/mcL Neutrophils # 2.6 (1.6-8.9) K/mcL BMP 05/01/16 06:41 Sodium 143 Potassium 4.1 Chloride 111 H Carbon Dioxide 25 BUN 6 L Creatinine 0.84 Glucose 96 Calcium 8.9 Consult Discharge Plan - Plan Referrals: [facility] [Primary Care Provider] - Prescriptions: HYDROcodone/Acet 7.5/325 mg [[place] 7.5-325 mg] 1 tab PO Q6HR PRN #20 tablet PRN Reason: Pain Isosorbide MONOnitrate (24 HR) [Imdur] 60 mg PO DAILY 30 Days Metoprolol XL (24 HR) Succ [Toprol Xl] 25 mg PO DAILY #30 tab.er.24h
[2016-05-01] MEDS: Budesonide/Formoterol 160/4.5 MDI IH SCH ×2 (10:36→22:03)
[2016-05-01] MEDS: traZODone 50 MG TABLET PO SCH (23:29)
[2016-05-02] MEDS: Ipratropium/Albuterol Neb 3 ML IH SCH ×3 (06:06→16:34)
[2016-05-02 07:22] LABS: Basophils % 0.3 %; Eosinophils # 0.2 K/mcL (0.0-0.6); Eosinophils % 2.3 %; Hematocrit 30.7 % (37.5-50.1); Hemoglobin 10.1 g/dL (12.9-16.9); Immature Granulocytes % 0.3 % (0-4); Lymphocytes # 2.8 K/mcL (0.6-4.6); Lymphocytes % 38.5 %; Mean Corpuscular HGB Conc 32.9 g/dL (31.6-35.5); Mean Corpuscular Hemoglobin 28.5 pg (28.0-33.3); Mean Corpuscular Volume 86.7 fL (83.0-100.0); Mean Platelet Volume 10.1 fL (9.4-12.4); Monocytes # 0.6 K/mcL (0.0-1.3); Monocytes % 7.7 %; Neutrophils # 3.8 K/mcL (1.6-8.9); Platelet Count 242 K/mcL (140-400); Red Blood Count 3.54 M/mcL (4.19-5.50); Red Cell Distribution Width 15.9 % (11.5-14.5); Segmented Neutrophils % 50.9 %
[2016-05-02 07:32] LABS: BUN/Creatinine Ratio 7 (6-26); Blood Urea Nitrogen 6 mg/dL (8-26); Calcium 9.1 mg/dL (8.6-10.8); Carbon Dioxide 27 mEq/L (19-29); Chloride 108 mEq/L (98-109); Glucose 97 mg/dL (70-99); Osmolality,Calculated 294 (280-300); Potassium 3.8 mEq/L (3.5-4.5); Sodium 143 mEq/L (136-145); eGFR For African Americans > 60 (> 60); eGFR For Non-African Americans > 60 (> 60)
[2016-05-02] MEDS: *HR* Heparin 5,000 UNIT/ML VIAL SQ SCH ×2 (08:00→17:36)
[2016-05-02] MEDS: Metoprolol XL (24 HR) Succ 25 MG TAB.ER.24H PO SCH (09:17)
[2016-05-02] MEDS: risperiDONE 1 MG TABLET PO SCH (09:17)
[2016-05-02] MEDS: Aspirin 81 MG TAB.CHEW PO SCH (09:18)
[2016-05-02] MEDS: amLODIPine 5 MG TABLET PO SCH (09:18)
[2016-05-02] MEDS: Isosorbide MONOnitrate (24 HR) 60 MG TAB.ER.24H PO SCH (09:18)
--- NOTE | 2016-05-02 09:46 | Internal Med Progress Note ---
Date of Encounter: 05/02/16 Time of Encounter: 09:44 - Assessment and plan (1) Syncope Current Visit: Yes Status: Acute Assessment and plan: Admitted due to Syncope. Possible polypharmacy. Continue tele monitoring. Hypokalemia, corrected, Magnesium WNL. Echo and carotid duplex ordered. Echo revealed an ejection fraction 55%, with moderate concentric hypertrophy of the left ventricle. There is evidence of mild diastolic dysfunction of the left ventricle. No pulmonary hypertension, mild aortic regurgitation. Carotid duplex revealed a bilateral carotid systems essentially normal. Head CT, neck CT unremarkable. Patient was medically discharged 2 days ago, awaiting for transfer to the [facility]. Uncontrolled HTN, patient refused to take his meds. Will continue monitoring. DVT prophylaxis. Qualifiers: Syncope type: unspecified Qualified Code(s): R55 - Syncope and collapse (2) Elevated troponin Current Visit: Yes Status: Acute Assessment and plan: Mild trop elevation, no chest pain. Unilkely ACS. (3) Hypokalemia Current Visit: Yes Status: Acute Assessment and plan: Corrected. Magnesium WNL. (4) CAD (coronary artery disease) Current Visit: Yes Status: Chronic Qualifiers: Coronary Disease-Associated Artery/Lesion type: [place] artery [place] vs. transplanted heart: [place] heart Associated angina: angina presence unspecified Qualified Code(s): I25.10 - Atherosclerotic heart disease of [place] coronary artery without angina pectoris (5) DVT prophylaxis Current Visit: Yes Status: Acute Assessment and plan: Heparin sq. (6) Hallucination, visual Current Visit: Yes Status: Acute - Time Spent With Patient 25 - 35 minutes - Subjective Interval history: Patient is currently denying chest pain, shortness of breath. Afebrile, sleepy. Refused to take po meds. BP elevated. - Constitutional Vitals: Temp Pulse Resp BP Pulse Ox 98.2 F 82 18 163/94 98 05/02/16 08:12 05/02/16 08:12 05/02/16 08:12 05/02/16 08:12 05/02/16 08:12 General appearance: Present: pleasant, no acute distress - Head Head exam: Present: atraumatic, normocephalic - Eye Eye exam: Present: PERRL, conjuntiva pink, sclera anicteric Pupils: Present: PERRL - Neck Neck exam general surgery: Present: supple, trachea midline. Absent: lymphadenopathy - Respiratory Respiratory exam: Present: CTAB. Absent: accessory muscle use, rales, rhonchi, wheezes - Cardiovascular Cardiovascular exam: Present: RRR, +S1, +S2. Absent: diastolic murmur, gallop, rubs, systolic murmur - GI/Abdominal GI/Abdominal exam: Present: normal bowel sounds, soft, no peritoneal signs. Absent: distended, tenderness - Extremities Exam Extremities exam: Present: warm, radial pulses palpable and symetrical. Absent : calf tenderness, cyanotic, pedal edema - Neurological Exam Neurological exam: Present: CN II-XII intact, oriented X3, no focal deficits. Absent: pronater drift, facial droop, speech deficit - Skin Skin exam: Present: dry, intact Internal Medicine: Result - Labs CBC & Chem 7: 05/02/16 06:26 05/02/16 06:26 Labs: Short CBC 05/02/16 Range/Units 06:26 WBC 7.4 (4.3-11.1) K/mcL Hgb 10.1 L (12.9-16.9) g/dL Hct 30.7 L (37.5-50.1) % Plt Count 242 (140-400) K/mcL Neutrophils # 3.8 (1.6-8.9) K/mcL BMP 05/02/16 06:26 Sodium 143 Potassium 3.8 Chloride 108 Carbon Dioxide 27 BUN 6 L Creatinine 0.88 Glucose 97 Calcium 9.1 Consult Discharge Plan - Plan Referrals: [facility],PC[facility] [Primary Care Provider] - Prescriptions: HYDROcodone/Acet 7.5/325 mg [[place] 7.5-325 mg] 1 tab PO Q6HR PRN #20 tablet PRN Reason: Pain Isosorbide MONOnitrate (24 HR) [Imdur] 60 mg PO DAILY 30 Days Metoprolol XL (24 HR) Succ [Toprol Xl] 25 mg PO DAILY #30 tab.er.24h
[2016-05-02] MEDS: Budesonide/Formoterol 160/4.5 MDI IH SCH ×2 (10:07→22:00)
[2016-05-02] MEDS: hydrALAZINE 25 MG TABLET PO SCH (17:35)
[2016-05-02] MEDS: *HR* HYDROcodone/Acet 7.5/325 mg TABLET PO PRN (22:37)
[2016-05-02] MEDS: traZODone 50 MG TABLET PO SCH (22:38)
[2016-05-03] MEDS: hydrALAZINE 25 MG TABLET PO SCH ×3 (02:02→15:39)
[2016-05-03] MEDS: Ipratropium/Albuterol Neb 3 ML IH SCH ×4 (03:27→22:52)
[2016-05-03] MEDS: *HR* HYDROcodone/Acet 7.5/325 mg TABLET PO PRN ×3 (03:52→20:26)
[2016-05-03] MEDS: *HR* Heparin 5,000 UNIT/ML VIAL SQ SCH ×2 (06:18→17:34)
[2016-05-03 06:36] LABS: Basophils % 0.2 %; Eosinophils # 0.2 K/mcL (0.0-0.6); Eosinophils % 1.6 %; Hematocrit 30.3 % (37.5-50.1); Hemoglobin 10.1 g/dL (12.9-16.9); Immature Granulocytes % 0.3 % (0-4); Lymphocytes # 3.3 K/mcL (0.6-4.6); Lymphocytes % 34.9 %; Mean Corpuscular HGB Conc 33.3 g/dL (31.6-35.5); Mean Corpuscular Hemoglobin 28.9 pg (28.0-33.3); Mean Corpuscular Volume 86.8 fL (83.0-100.0); Mean Platelet Volume 10.2 fL (9.4-12.4); Monocytes # 0.8 K/mcL (0.0-1.3); Monocytes % 8.4 %; Neutrophils # 5.2 K/mcL (1.6-8.9); Platelet Count 243 K/mcL (140-400); Red Blood Count 3.49 M/mcL (4.19-5.50); Red Cell Distribution Width 16.1 % (11.5-14.5); Segmented Neutrophils % 54.6 %
[2016-05-03 06:49] LABS: BUN/Creatinine Ratio 7 (6-26); Blood Urea Nitrogen 7 mg/dL (8-26); Calcium 9.3 mg/dL (8.6-10.8); Carbon Dioxide 29 mEq/L (19-29); Chloride 107 mEq/L (98-109); Glucose 101 mg/dL (70-99); Osmolality,Calculated 294 (280-300); Potassium 4.2 mEq/L (3.5-4.5); Sodium 143 mEq/L (136-145); eGFR For African Americans > 60 (> 60); eGFR For Non-African Americans > 60 (> 60)
[2016-05-03] MEDS: Metoprolol XL (24 HR) Succ 25 MG TAB.ER.24H PO SCH (08:04)
[2016-05-03] MEDS: Isosorbide MONOnitrate (24 HR) 60 MG TAB.ER.24H PO SCH (08:04)
[2016-05-03] MEDS: Aspirin 81 MG TAB.CHEW PO SCH (08:05)
[2016-05-03] MEDS: risperiDONE 1 MG TABLET PO SCH (08:05)
[2016-05-03] MEDS: amLODIPine 5 MG TABLET PO SCH (08:06)
--- NOTE | 2016-05-03 09:57 | Internal Med Progress Note ---
Date of Encounter: 05/03/16 Time of Encounter: 09:55 - Assessment and plan (1) Syncope Current Visit: Yes Status: Acute Assessment and plan: Admitted due to Syncope. Possible polypharmacy. Patient refused tele monitoring. Hypokalemia, corrected, Magnesium WNL. Echo and carotid duplex ordered. Echo revealed an ejection fraction 55%, with moderate concentric hypertrophy of the left ventricle. There is evidence of mild diastolic dysfunction of the left ventricle. No pulmonary hypertension, mild aortic regurgitation. Carotid duplex revealed a bilateral carotid systems essentially normal. Head CT, neck CT unremarkable. Patient was medically discharged 2 days ago, awaiting for transfer to the [facility]. Uncontrolled HTN, patient refused to take his meds. Will continue monitoring. DVT prophylaxis. Qualifiers: Syncope type: unspecified Qualified Code(s): R55 - Syncope and collapse (2) Elevated troponin Current Visit: Yes Status: Acute (3) Hypokalemia Current Visit: Yes Status: Acute (4) CAD (coronary artery disease) Current Visit: Yes Status: Chronic Qualifiers: Coronary Disease-Associated Artery/Lesion type: [place] artery [place] vs. transplanted heart: [place] heart Associated angina: angina presence unspecified Qualified Code(s): I25.10 - Atherosclerotic heart disease of [place] coronary artery without angina pectoris (5) DVT prophylaxis Current Visit: Yes Status: Acute (6) Hallucination, visual Current Visit: Yes Status: Acute - Time Spent With Patient 25 - 35 minutes - Subjective Interval history: Patient is currently denying chest pain, shortness of breath. Afebrile, sleepy. BP elevated. His son is at bedside. - Constitutional Vitals: Temp Pulse Resp BP Pulse Ox 98.2 F 61 18 191/93 100 05/03/16 07:45 05/03/16 07:45 05/03/16 07:45 05/03/16 07:45 05/03/16 07:45 General appearance: Present: no acute distress - Head Head exam: Present: atraumatic, normocephalic - Eye Eye exam: Present: PERRL, conjuntiva pink, sclera anicteric Pupils: Present: PERRL - Neck Neck exam general surgery: Present: supple, trachea midline. Absent: lymphadenopathy - Respiratory Respiratory exam: Present: CTAB. Absent: accessory muscle use, rales, rhonchi, wheezes - Cardiovascular Cardiovascular exam: Present: RRR, +S1, +S2. Absent: diastolic murmur, gallop, rubs, systolic murmur - GI/Abdominal GI/Abdominal exam: Present: normal bowel sounds, soft, no peritoneal signs. Absent: distended, tenderness - Extremities Exam Extremities exam: Present: warm, radial pulses palpable and symetrical. Absent : calf tenderness, cyanotic, pedal edema - Neurological Exam Neurological exam: Present: CN II-XII intact, oriented X3, no focal deficits. Absent: pronater drift, facial droop, speech deficit - Skin Skin exam: Present: dry, intact Internal Medicine: Result - Labs CBC & Chem 7: 05/03/16 05:58 05/03/16 05:58 Labs: Short CBC 05/03/16 Range/Units 05:58 WBC 9.4 (4.3-11.1) K/mcL Hgb 10.1 L (12.9-16.9) g/dL Hct 30.3 L (37.5-50.1) % Plt Count 243 (140-400) K/mcL Neutrophils # 5.2 (1.6-8.9) K/mcL BMP 05/03/16 05:58 Sodium 143 Potassium 4.2 Chloride 107 Carbon Dioxide 29 BUN 7 L Creatinine 0.95 Glucose 101 H Calcium 9.3 Consult Discharge Plan - Plan Referrals: [facility] [Primary Care Provider] - Prescriptions: HYDROcodone/Acet 7.5/325 mg [[place] 7.5-325 mg] 1 tab PO Q6HR PRN #20 tablet PRN Reason: Pain Isosorbide MONOnitrate (24 HR) [Imdur] 60 mg PO DAILY 30 Days Metoprolol XL (24 HR) Succ [Toprol Xl] 25 mg PO DAILY #30 tab.er.24h
[2016-05-03] MEDS: Budesonide/Formoterol 160/4.5 MDI IH SCH ×2 (10:12→22:53)
[2016-05-03] MEDS: Ondansetron ODT 4 MG TAB.RAPDIS SL PRN (12:26)
[2016-05-03] MEDS: traZODone 50 MG TABLET PO SCH (20:26)
[2016-05-04] MEDS: hydrALAZINE 25 MG TABLET PO SCH ×4 (00:43→15:58)
[2016-05-04] MEDS: Ipratropium/Albuterol Neb 3 ML IH SCH ×4 (04:26→21:44)
[2016-05-04] MEDS: *HR* Heparin 5,000 UNIT/ML VIAL SQ SCH ×2 (05:45→17:58)
[2016-05-04 07:09] LABS: BUN/Creatinine Ratio 9 (6-26); Blood Urea Nitrogen 8 mg/dL (8-26); Calcium 9.3 mg/dL (8.6-10.8); Carbon Dioxide 26 mEq/L (19-29); Chloride 105 mEq/L (98-109); Glucose 101 mg/dL (70-99); Osmolality,Calculated 290 (280-300); Potassium 4.2 mEq/L (3.5-4.5); Sodium 141 mEq/L (136-145); eGFR For African Americans > 60 (> 60); eGFR For Non-African Americans > 60 (> 60)
[2016-05-04 07:13] LABS: Basophils % 0.1 %; Eosinophils # 0.2 K/mcL (0.0-0.6); Eosinophils % 1.8 %; Hematocrit 31.5 % (37.5-50.1); Hemoglobin 10.4 g/dL (12.9-16.9); Immature Granulocytes % 0.3 % (0-4); Lymphocytes # 3.1 K/mcL (0.6-4.6); Lymphocytes % 32.7 %; Mean Corpuscular Hemoglobin 28.7 pg (28.0-33.3); Mean Corpuscular Volume 86.8 fL (83.0-100.0); Mean Platelet Volume 9.8 fL (9.4-12.4); Monocytes # 0.7 K/mcL (0.0-1.3); Monocytes % 7.3 %; Neutrophils # 5.4 K/mcL (1.6-8.9); Platelet Count 254 K/mcL (140-400); Red Blood Count 3.63 M/mcL (4.19-5.50); Red Cell Distribution Width 15.9 % (11.5-14.5); Segmented Neutrophils % 57.8 %
[2016-05-04] MEDS: risperiDONE 1 MG TABLET PO SCH (08:47)
[2016-05-04] MEDS: amLODIPine 5 MG TABLET PO SCH (08:47)
[2016-05-04] MEDS: *HR* HYDROcodone/Acet 7.5/325 mg TABLET PO PRN ×2 (08:56→21:06)
[2016-05-04] MEDS: Budesonide/Formoterol 160/4.5 MDI IH SCH ×2 (10:38→21:44)
[2016-05-04] MEDS: Metoprolol XL (24 HR) Succ 25 MG TAB.ER.24H PO SCH (11:41)
[2016-05-04] MEDS: Isosorbide MONOnitrate (24 HR) 60 MG TAB.ER.24H PO SCH (11:41)
[2016-05-04] MEDS: Aspirin 81 MG TAB.CHEW PO SCH (11:41)
--- NOTE | 2016-05-04 13:48 | Internal Med Progress Note ---
Date of Encounter: 05/04/16 Time of Encounter: 13:46 - Assessment and plan (1) Syncope Current Visit: Yes Status: Acute Assessment and plan: Admitted due to Syncope. Possible polypharmacy. Patient refused tele monitoring. Hypokalemia, corrected, Magnesium WNL. Echo and carotid duplex ordered. Echo revealed an ejection fraction 55%, with moderate concentric hypertrophy of the left ventricle. There is evidence of mild diastolic dysfunction of the left ventricle. No pulmonary hypertension, mild aortic regurgitation. Carotid duplex revealed a bilateral carotid systems essentially normal. Head CT, neck CT unremarkable. Patient was medically discharged 2 days ago, awaiting for transfer to the [place]. Uncontrolled HTN, patient refused to take his meds. [facility]W [facility], patient wll be transferred to the [place] today. DVT prophylaxis. Qualifiers: Syncope type: unspecified Qualified Code(s): R55 - Syncope and collapse (2) Elevated troponin Current Visit: Yes Status: Acute (3) Hypokalemia Current Visit: Yes Status: Acute (4) CAD (coronary artery disease) Current Visit: Yes Status: Chronic Qualifiers: Coronary Disease-Associated Artery/Lesion type: [place] artery [place] vs. transplanted heart: [place] heart Associated angina: angina presence unspecified Qualified Code(s): I25.10 - Atherosclerotic heart disease of [place] coronary artery without angina pectoris (5) DVT prophylaxis Current Visit: Yes Status: Acute (6) Hallucination, visual Current Visit: Yes Status: Acute - Subjective Interval history: Patient is currently denying chest pain, shortness of breath. Afebrile, sleepy. BP elevated. Patient refuses to take most of his medications, refused tele monitoring. - Constitutional Vitals: Temp Pulse Resp BP Pulse Ox 98.5 F 85 16 199/99 97 05/04/16 07:39 05/04/16 07:39 05/04/16 07:39 05/04/16 07:39 05/04/16 09:10 General appearance: Present: no acute distress - Head Head exam: Present: atraumatic, normocephalic - Eye Eye exam: Present: PERRL, conjuntiva pink, sclera anicteric Pupils: Present: PERRL - Neck Neck exam general surgery: Present: supple, trachea midline. Absent: lymphadenopathy - Respiratory Respiratory exam: Present: CTAB. Absent: accessory muscle use, rales, rhonchi, wheezes - Cardiovascular Cardiovascular exam: Present: RRR, +S1, +S2. Absent: diastolic murmur, gallop, rubs, systolic murmur - GI/Abdominal GI/Abdominal exam: Present: normal bowel sounds, soft, no peritoneal signs. Absent: distended, tenderness - Extremities Exam Extremities exam: Present: warm, radial pulses palpable and symetrical. Absent : calf tenderness, cyanotic, pedal edema - Neurological Exam Neurological exam: Present: CN II-XII intact, no focal deficits. Absent: pronater drift, facial droop, speech deficit - Psychiatric Psychiatric exam: Present: anxious - Skin Skin exam: Present: dry, intact Internal Medicine: Result - Labs CBC & Chem 7: 05/04/16 06:23 05/04/16 06:23 Labs: Short CBC 05/04/16 Range/Units 06:23 WBC 9.3 (4.3-11.1) K/mcL Hgb 10.4 L (12.9-16.9) g/dL Hct 31.5 L (37.5-50.1) % Plt Count 254 (140-400) K/mcL Neutrophils # 5.4 (1.6-8.9) K/mcL BMP 05/04/16 06:23 Sodium 141 Potassium 4.2 Chloride 105 Carbon Dioxide 26 BUN 8 Creatinine 0.91 Glucose 101 H Calcium 9.3 Consult Discharge Plan - Plan [facility]errals: [facility] [Primary Care Provider] - (Patient will follow up with the [place] PCP from the unit admitted to) Prescriptions: HYDROcodone/Acet 7.5/325 mg [[place] 7.5-325 mg] 1 tab PO Q6HR PRN #20 tablet PRN Reason: Pain Isosorbide MONOnitrate (24 HR) [Imdur] 60 mg PO DAILY 30 Days Metoprolol XL (24 HR) Succ [Toprol Xl] 25 mg PO DAILY #30 tab.er.24h
[2016-05-04] MEDS: traZODone 50 MG TABLET PO SCH (21:06)
[2016-05-05] MEDS: hydrALAZINE 25 MG TABLET PO SCH ×3 (00:15→16:47)
[2016-05-05] MEDS: Ipratropium/Albuterol Neb 3 ML IH SCH ×4 (03:51→19:44)
[2016-05-05] MEDS: *HR* Heparin 5,000 UNIT/ML VIAL SQ SCH ×2 (06:33→18:28)
[2016-05-05 07:11] LABS: Basophils % 0.2 %; Eosinophils # 0.1 K/mcL (0.0-0.6); Eosinophils % 0.5 %; Hematocrit 36.2 % (37.5-50.1); Hemoglobin 11.9 g/dL (12.9-16.9); Immature Granulocytes % 0.3 % (0-4); Lymphocytes # 3.2 K/mcL (0.6-4.6); Lymphocytes % 35.3 %; Mean Corpuscular HGB Conc 32.9 g/dL (31.6-35.5); Mean Corpuscular Hemoglobin 27.9 pg (28.0-33.3); Mean Platelet Volume 9.6 fL (9.4-12.4); Monocytes # 0.8 K/mcL (0.0-1.3); Monocytes % 8.4 %; Neutrophils # 5.1 K/mcL (1.6-8.9); Platelet Count 277 K/mcL (140-400); Red Blood Count 4.26 M/mcL (4.19-5.50); Red Cell Distribution Width 16.1 % (11.5-14.5); Segmented Neutrophils % 55.3 %
[2016-05-05 07:29] LABS: BUN/Creatinine Ratio 7 (6-26); Blood Urea Nitrogen 7 mg/dL (8-26); Calcium 9.5 mg/dL (8.6-10.8); Carbon Dioxide 28 mEq/L (19-29); Chloride 106 mEq/L (98-109); Glucose 109 mg/dL (70-99); Osmolality,Calculated 299 (280-300); Potassium 4.4 mEq/L (3.5-4.5); Sodium 145 mEq/L (136-145); eGFR For African Americans > 60 (> 60); eGFR For Non-African Americans > 60 (> 60)
[2016-05-05] MEDS: amLODIPine 5 MG TABLET PO SCH (09:25)
[2016-05-05] MEDS: Isosorbide MONOnitrate (24 HR) 60 MG TAB.ER.24H PO SCH (09:25)
[2016-05-05] MEDS: Metoprolol XL (24 HR) Succ 25 MG TAB.ER.24H PO SCH (09:25)
[2016-05-05] MEDS: Aspirin 81 MG TAB.CHEW PO SCH (09:25)
[2016-05-05] MEDS: risperiDONE 1 MG TABLET PO SCH (09:26)
[2016-05-05] MEDS: Budesonide/Formoterol 160/4.5 MDI IH SCH ×2 (11:34→19:44)
[2016-05-05] MEDS: RisperiDONE-M 1 MG TAB.RAPDIS PO SCH (13:12)
[2016-05-05] MEDS: D5% in 0.45% NACL 1,000 ML IVC SCH (13:13)
--- NOTE | 2016-05-05 16:16 | Internal Med Progress Note ---
Date of Encounter: 05/05/16 Time of Encounter: 16:14 - Assessment and plan (1) Syncope Current Visit: Yes Status: Acute Assessment and plan: Admitted due to Syncope. Possible polypharmacy. Patient refused tele monitoring. Hypokalemia, corrected, Magnesium WNL. Echo and carotid duplex ordered. Echo revealed an ejection fraction 55%, with moderate concentric hypertrophy of the left ventricle. There is evidence of mild diastolic dysfunction of the left ventricle. No pulmonary hypertension, mild aortic regurgitation. Carotid duplex revealed a bilateral carotid systems essentially normal. Head CT, neck CT unremarkable. Uncontrolled HTN, patient refused to take his meds. IV hydralzyne for bp control. Not eating today, speech and swallow called for eval. Recommend NPO for now. IV fluids started. DVT prophylaxis. Qualifiers: Syncope type: unspecified Qualified Code(s): R55 - Syncope and collapse (2) Elevated troponin Current Visit: Yes Status: Acute (3) Hypokalemia Current Visit: Yes Status: Acute (4) CAD (coronary artery disease) Current Visit: Yes Status: Chronic Qualifiers: Coronary Disease-Associated Artery/Lesion type: [place] artery [place] vs. transplanted heart: [place] heart Associated angina: angina presence unspecified Qualified Code(s): I25.10 - Atherosclerotic heart disease of [place] coronary artery without angina pectoris (5) DVT prophylaxis Current Visit: Yes Status: Acute (6) Hallucination, visual Current Visit: Yes Status: Acute - Subjective Interval history: Patient is currently denying chest pain, shortness of breath. Afebrile, sleepy. BP elevated. Patient refuses to take most of his medications, refused tele monitoring. Did not have breakfast. Speech and swallow called. - Constitutional Vitals: Temp Pulse Resp BP Pulse Ox 96.8 F L 129 21 141/95 98 05/05/16 15:37 05/05/16 15:37 05/05/16 15:37 05/05/16 15:37 05/05/16 15:37 General appearance: Present: no acute distress - Head Head exam: Present: atraumatic, normocephalic - Eye Eye exam: Present: PERRL, conjuntiva pink, sclera anicteric Pupils: Present: PERRL - Neck Neck exam general surgery: Present: supple, trachea midline. Absent: lymphadenopathy - Respiratory Respiratory exam: Present: CTAB. Absent: accessory muscle use, rales, rhonchi, wheezes - Cardiovascular Cardiovascular exam: Present: RRR, +S1, +S2. Absent: diastolic murmur, gallop, rubs, systolic murmur - GI/Abdominal GI/Abdominal exam: Present: normal bowel sounds, soft, no peritoneal signs. Absent: distended, tenderness - Extremities Exam Extremities exam: Present: warm, radial pulses palpable and symetrical. Absent : calf tenderness, cyanotic, pedal edema - Neurological Exam Neurological exam: Present: CN II-XII intact, no focal deficits. Absent: pronater drift, facial droop, speech deficit - Skin Skin exam: Present: dry, intact Internal Medicine: Result - Labs CBC & Chem 7: 05/05/16 06:24 05/05/16 06:24 Labs: Short CBC 05/05/16 Range/Units 06:24 WBC 9.2 (4.3-11.1) K/mcL Hgb 11.9 L D (12.9-16.9) g/dL Hct 36.2 L (37.5-50.1) % Plt Count 277 (140-400) K/mcL Neutrophils # 5.1 (1.6-8.9) K/mcL BMP 05/05/16 06:24 Sodium 145 Potassium 4.4 Chloride 106 Carbon Dioxide 28 BUN 7 L Creatinine 0.98 Glucose 109 H Calcium 9.5 Consult Discharge Plan - Plan Referrals: [facility] [Primary Care Provider] - (Patient will follow up with the [place] PCP from the unit admitted to) Prescriptions: HYDROcodone/Acet 7.5/325 mg [[place] 7.5-325 mg] 1 tab PO Q6HR PRN #20 tablet PRN Reason: Pain Isosorbide MONOnitrate (24 HR) [Imdur] 60 mg PO DAILY 30 Days Metoprolol XL (24 HR) Succ [Toprol Xl] 25 mg PO DAILY #30 tab.er.24h
[2016-05-05] MEDS ORDERED: *HR* Metoprolol 5 MG/5 ML VIAL IVP ONE (16:33)
[2016-05-05] MEDS: Nystatin SUSP 5 ML UD.LIQ PO SCH ×2 (18:29→20:22)
[2016-05-05] MEDS: traZODone 50 MG TABLET PO SCH (20:22)
[2016-05-06] MEDS: hydrALAZINE 25 MG TABLET PO SCH ×2 (00:17→08:37)
[2016-05-06] MEDS: Ipratropium/Albuterol Neb 3 ML IH SCH ×3 (04:03→15:22)
[2016-05-06] MEDS: *HR* Heparin 5,000 UNIT/ML VIAL SQ SCH ×2 (06:55→17:53)
[2016-05-06 07:11] LABS: BUN/Creatinine Ratio 10 (6-26); Blood Urea Nitrogen 10 mg/dL (8-26); Calcium 9.6 mg/dL (8.6-10.8); Carbon Dioxide 26 mEq/L (19-29); Chloride 107 mEq/L (98-109); Glucose 132 mg/dL (70-99); Magnesium 1.8 mg/dL (1.6-2.6); Osmolality,Calculated 301 (280-300); Potassium 3.6 mEq/L (3.5-4.5); Sodium 145 mEq/L (136-145); eGFR For African Americans > 60 (> 60); eGFR For Non-African Americans > 60 (> 60)
[2016-05-06 07:30] LABS: Basophils % 0.1 %; Hematocrit 37.6 % (37.5-50.1); Hemoglobin 12.1 g/dL (12.9-16.9); Immature Granulocytes % 0.3 % (0-4); Lymphocytes # 2.4 K/mcL (0.6-4.6); Lymphocytes % 27.7 %; Mean Corpuscular HGB Conc 32.2 g/dL (31.6-35.5); Mean Corpuscular Hemoglobin 27.8 pg (28.0-33.3); Mean Corpuscular Volume 86.4 fL (83.0-100.0); Monocytes # 0.7 K/mcL (0.0-1.3); Monocytes % 8.5 %; Neutrophils # 5.5 K/mcL (1.6-8.9); Platelet Count 297 K/mcL (140-400); Red Blood Count 4.35 M/mcL (4.19-5.50); Red Cell Distribution Width 16.7 % (11.5-14.5); Segmented Neutrophils % 63.4 %
[2016-05-06] MEDS ORDERED: *HR* Metoprolol 5 MG/5 ML VIAL IVP SCH ×2 (07:45→08:39)
[2016-05-06] MEDS: Nystatin SUSP 5 ML UD.LIQ PO SCH ×4 (08:37→19:46)
[2016-05-06] MEDS ORDERED: *HR* Metoprolol 5 MG/5 ML VIAL IVP PRN (09:22)
[2016-05-06] MEDS: Aspirin 81 MG TAB.CHEW PO SCH (09:29)
[2016-05-06] MEDS: Isosorbide MONOnitrate (24 HR) 60 MG TAB.ER.24H PO SCH (09:30)
[2016-05-06] MEDS: amLODIPine 5 MG TABLET PO SCH (09:33)
[2016-05-06] MEDS: RisperiDONE-M 1 MG TAB.RAPDIS PO SCH (09:33)
[2016-05-06] MEDS: Pantoprazole 40 MG VIAL IVP SCH (10:15)
[2016-05-06 10:40] LABS: Folate 5.1 ng/mL (7.0-31.4)
[2016-05-06] MEDS: Budesonide/Formoterol 160/4.5 MDI IH SCH (10:41)
[2016-05-06] MEDS: Folic Acid 1 MG TABLET PO SCH (11:33)
[2016-05-06] MEDS ORDERED: 0.9 % Sodium Chloride 1,000 ML IVC ONE (13:58)
--- NOTE | 2016-05-06 15:16 | Internal Med Progress Note ---
Date of Encounter: 05/06/16 Time of Encounter: 13:00 - Assessment and plan (1) Syncope Current Visit: Yes Status: Acute Assessment and plan: Admitted due to Syncope. Possible polypharmacy. Patient refused tele monitoring. Hypokalemia, corrected. Magnesium WNL. Echo and carotid duplex ordered. Echo revealed an ejection fraction 55%, with moderate concentric hypertrophy of the left ventricle. There is evidence of mild diastolic dysfunction of the left ventricle. No pulmonary hypertension, mild aortic regurgitation. Carotid duplex revealed a bilateral carotid systems essentially normal. Head CT, neck CT unremarkable. Uncontrolled HTN, patient refused to take his meds and bp became uncontrolled. Currently bp got better, taking po meds now. However, tachycardic, possible withdrawl since he refused to take his po psych meds. Speeech and swallow follwoing, able to tolerate po today, will continue monitoring. On iv fluids, i ordered a bolus of normal saline today due to tachycardia and dyaphoresis. EKG sinus tachy. No chest pain. Afebrile. CXR last night: no pneumonia. Patient receiving DVT prophylaxis with sq heparin. Low folate levels, folic acid started. Not stable for transfer to the [place] at this time. DVT prophylaxis. Qualifiers: Syncope type: unspecified Qualified Code(s): R55 - Syncope and collapse (2) Elevated troponin Current Visit: Yes Status: Acute (3) Hypokalemia Current Visit: Yes Status: Acute (4) CAD (coronary artery disease) Current Visit: Yes Status: Chronic Qualifiers: Coronary Disease-Associated Artery/Lesion type: [place] artery [place] vs. transplanted heart: [place] heart Associated angina: angina presence unspecified Qualified Code(s): I25.10 - Atherosclerotic heart disease of [place] coronary artery without angina pectoris (5) DVT prophylaxis Current Visit: Yes Status: Acute (6) Hallucination, visual Current Visit: Yes Status: Acute - Time Spent With Patient 25 - 35 minutes - Subjective Interval history: Patient is currently denying chest pain, shortness of breath. Afebrile, sleepy. BP elevated. refused tele monitoring. Ate apple sauce. Tachycardic. - Constitutional Vitals: Temp Pulse Resp BP Pulse Ox 97.8 F 119 18 100/64 99 05/06/16 11:09 05/06/16 11:09 05/06/16 11:09 05/06/16 11:09 05/06/16 11:09 General appearance: Present: mild distress Exam: dry mucous membranes - Head Head exam: Present: atraumatic, normocephalic - Eye Eye exam: Present: PERRL, conjuntiva pink, sclera anicteric Pupils: Present: PERRL - Neck Neck exam general surgery: Present: supple, trachea midline. Absent: lymphadenopathy - Respiratory Respiratory exam: Present: CTAB. Absent: accessory muscle use, rales, rhonchi, wheezes - Cardiovascular Cardiovascular exam: Present: RRR, +S1, +S2. Absent: diastolic murmur, gallop, rubs, systolic murmur - GI/Abdominal GI/Abdominal exam: Present: normal bowel sounds, soft, no peritoneal signs. Absent: distended, tenderness - Extremities Exam Extremities exam: Present: warm, radial pulses palpable and symetrical. Absent : calf tenderness, cyanotic, pedal edema - Neurological Exam Neurological exam: Present: CN II-XII intact, oriented X3, no focal deficits. Absent: pronater drift, facial droop, speech deficit - Skin Skin exam: Present: dry, intact Internal Medicine: Result - Labs CBC & Chem 7: 05/06/16 05:28 05/06/16 05:28 Labs: Short CBC 05/06/16 Range/Units 05:28 WBC 8.7 (4.3-11.1) K/mcL Hgb 12.1 L (12.9-16.9) g/dL Hct 37.6 (37.5-50.1) % Plt Count 297 (140-400) K/mcL Neutrophils # 5.5 (1.6-8.9) K/mcL BMP 05/06/16 05:28 Sodium 145 Potassium 3.6 Chloride 107 Carbon Dioxide 26 BUN 10 Creatinine 1.00 Glucose 132 H Calcium 9.6 - Impressions Impressions Chest X-Ray 05/05/16 16:34 IMPRESSION: No acute cardiopulmonary disease. D/ / 05/05/2016 17:04:17 Erik Waldron MD / collin Interpreting Provider: Erik Waldron MD Consult Discharge Plan - Plan [facility]errals: [facility] [Primary Care Provider] - ([facility] with [facility] to) Prescriptions: HYDROcodone/Acet 7.5/325 mg [[place] 7.5-325 mg] 1 tab PO Q6HR PRN #20 tablet PRN Reason: Pain Isosorbide MONOnitrate (24 HR) [Imdur] 60 mg PO DAILY 30 Days Metoprolol XL (24 HR) Succ [Toprol Xl] 25 mg PO DAILY #30 tab.er.24h
[2016-05-06] MEDS: D5% in 0.45% NACL 1,000 ML IVC SCH ×2 (15:26→15:27)
[2016-05-06] MEDS ORDERED: 0.9 % Sodium Chloride 500 ML IVC ONE (18:21)
[2016-05-06] MEDS: traZODone 50 MG TABLET PO SCH (19:57)
[2016-05-06] MEDS: Ondansetron ODT 4 MG TAB.RAPDIS SL PRN (20:50)
[2016-05-06] MEDS: Ketorolac 30 MG/ML VIAL IVP PRN (20:51)
[2016-05-07] MEDS: *HR* Metoprolol 5 MG/5 ML VIAL IVP PRN ×2 (00:26→10:41)
[2016-05-07] MEDS: Ketorolac 30 MG/ML VIAL IVP PRN (03:09)
[2016-05-07] MEDS: Ondansetron ODT 4 MG TAB.RAPDIS SL PRN (05:52)
[2016-05-07] MEDS: *HR* Heparin 5,000 UNIT/ML VIAL SQ SCH ×2 (05:52→18:32)
[2016-05-07 06:00] LABS: Bilirubin,Urine Small (Negative); Blood,Urine Negative (Negative); Clarity,Urine Cloudy (Clear); Color,Urine Dark Yellow (Yellow); Glucose,Urine (UA) Normal (Normal); Ketones,Urine Negative (Negative); Leukocyte Esterase,Urine Small (Negative); Nitrite,Urine Negative (Negative); PH,Urine 6.5 pH Units (5.0-8.0); Protein,Urine 30 mg/dL (Neg-Trace); Specific Gravity,Urine 1.022 (1.010-1.025); Urobilinogen,Urine Normal (Normal)
[2016-05-07 06:03] LABS: Basophils % 0.2 %; Eosinophils % 0.1 %; Hematocrit 32.1 % (37.5-50.1); Hemoglobin 10.6 g/dL (12.9-16.9); Immature Granulocytes % 0.6 % (0-4); Lymphocytes # 2.9 K/mcL (0.6-4.6); Lymphocytes % 27.7 %; Mean Corpuscular Hemoglobin 28.9 pg (28.0-33.3); Mean Corpuscular Volume 87.5 fL (83.0-100.0); Mean Platelet Volume 9.8 fL (9.4-12.4); Monocytes # 0.8 K/mcL (0.0-1.3); Monocytes % 7.3 %; Neutrophils # 6.7 K/mcL (1.6-8.9); Platelet Count 230 K/mcL (140-400); Red Blood Count 3.67 M/mcL (4.19-5.50); Red Cell Distribution Width 16.8 % (11.5-14.5); Segmented Neutrophils % 64.1 %
[2016-05-07 06:03] LABS: RBC,Urine 0-3 per hpf (0-3); Squamous Epithelial Cell,Urine Many per lpf (None-Few); WBC,Urine 15-30 per hpf (0-3)
[2016-05-07 06:21] LABS: Mucus,Urine Moderate (Few)
[2016-05-07 06:22] LABS: Bacteria,Urine Few per hpf (None-Few)
[2016-05-07] MEDS: D5% in 0.45% NACL 1,000 ML IVC SCH ×2 (06:22→19:34)
[2016-05-07 06:26] LABS: BUN/Creatinine Ratio 12 (6-26); Blood Urea Nitrogen 13 mg/dL (8-26); Calcium 8.8 mg/dL (8.6-10.8); Carbon Dioxide 22 mEq/L (19-29); Chloride 110 mEq/L (98-109); Glucose 115 mg/dL (70-99); Osmolality,Calculated 295 (280-300); Potassium 4.1 mEq/L (3.5-4.5); Sodium 142 mEq/L (136-145); eGFR For African Americans > 60 (> 60); eGFR For Non-African Americans > 60 (> 60)
[2016-05-07] MEDS: Nystatin SUSP 5 ML UD.LIQ PO SCH ×4 (10:27→20:03)
[2016-05-07] MEDS ORDERED: 0.9 % Sodium Chloride 1,000 ML IVC ONE (10:28)
[2016-05-07] MEDS: Isosorbide MONOnitrate (24 HR) 60 MG TAB.ER.24H PO SCH (10:28)
[2016-05-07] MEDS: amLODIPine 5 MG TABLET PO SCH (10:30)
[2016-05-07] MEDS: Pantoprazole 40 MG VIAL IVP SCH (10:35)
[2016-05-07] MEDS: RisperiDONE-M 1 MG TAB.RAPDIS PO SCH (10:36)
[2016-05-07] MEDS: Folic Acid 1 MG TABLET PO SCH (10:37)
[2016-05-07] MEDS: Aspirin 81 MG TAB.CHEW PO SCH (10:39)
[2016-05-07] MEDS ORDERED: Folic Acid 1 MG TABLET PO SCH (11:11)
--- NOTE | 2016-05-07 12:30 | Internal Med Progress Note ---
Date of Encounter: 05/07/16 Time of Encounter: 12:28 - Assessment and plan (1) Syncope Current Visit: Yes Status: Acute Assessment and plan: Admitted due to Syncope. Possible polypharmacy. Patient refused tele monitoring. Hypokalemia, corrected. Magnesium WNL. Echo and carotid duplex ordered. Echo revealed an ejection fraction 55%, with moderate concentric hypertrophy of the left ventricle. There is evidence of mild diastolic dysfunction of the left ventricle. No pulmonary hypertension, mild aortic regurgitation. Carotid duplex revealed a bilateral carotid systems essentially normal. Head CT, neck CT unremarkable. Uncontrolled HTN, patient refused to take his meds and bp became uncontrolled. Currently bp got better, taking po meds now. However, tachycardic, possible withdrawl since he refused to take his po psych meds. Speeech and swallow follwoing, diet as per recommendations by spech and swallow team, will continue monitoring. On iv fluids, i ordered a bolus of normal saline today. EKG sinus tachy. No chest pain. Afebrile. CXR last night: no pneumonia. Patient receiving DVT prophylaxis with sq heparin. Low folate levels, continue with folic acid supplementation. Not stable for transfer to the [place] at this time. Abnormal UA, started on rocephin, possible UTI, follow culture. DVT prophylaxis. D/W patient and his son. Qualifiers: Syncope type: unspecified Qualified Code(s): R55 - Syncope and collapse (2) Elevated troponin Current Visit: Yes Status: Acute (3) Hypokalemia Current Visit: Yes Status: Acute (4) CAD (coronary artery disease) Current Visit: Yes Status: Chronic Qualifiers: Coronary Disease-Associated Artery/Lesion type: [place] artery [place] vs. transplanted heart: [place] heart Associated angina: angina presence unspecified Qualified Code(s): I25.10 - Atherosclerotic heart disease of [place] coronary artery without angina pectoris (5) DVT prophylaxis Current Visit: Yes Status: Acute (6) Hallucination, visual Current Visit: Yes Status: Acute - Subjective Interval history: Patient is currently denying chest pain, shortness of breath. Afebrile, sleepy. BP elevated. Tachycardic. hIS SON AT BEDSIDE. - Constitutional Vitals: Temp Pulse Resp BP Pulse Ox 97.8 F 89 16 112/71 97 05/07/16 11:09 05/07/16 11:09 05/07/16 11:09 05/07/16 11:09 05/07/16 11:09 General appearance: Present: cooperative, disheveled, A&O X 2, mild distress - Head Head exam: Present: atraumatic, normocephalic - Eye Eye exam: Present: PERRL, conjuntiva pink, sclera anicteric Pupils: Present: PERRL - Neck Neck exam general surgery: Present: supple, trachea midline. Absent: lymphadenopathy - Respiratory Respiratory exam: Present: CTAB. Absent: accessory muscle use, rales, rhonchi, wheezes - Cardiovascular Cardiovascular exam: Present: RRR, +S1, +S2. Absent: diastolic murmur, gallop, rubs, systolic murmur - GI/Abdominal GI/Abdominal exam: Present: normal bowel sounds, soft, no peritoneal signs. Absent: distended, tenderness - Extremities Exam Extremities exam: Present: warm, radial pulses palpable and symetrical. Absent : calf tenderness, cyanotic, pedal edema - Neurological Exam Neurological exam: Present: CN II-XII intact, no focal deficits. Absent: pronater drift, facial droop, speech deficit - Psychiatric Psychiatric exam: Present: flat affect - Skin Skin exam: Present: dry, intact Internal Medicine: Result - Labs CBC & Chem 7: 05/07/16 05:31 05/07/16 05:31 Labs: Short CBC 05/07/16 Range/Units 05:31 WBC 10.5 (4.3-11.1) K/mcL Hgb 10.6 L D (12.9-16.9) g/dL Hct 32.1 L (37.5-50.1) % Plt Count 230 (140-400) K/mcL Neutrophils # 6.7 (1.6-8.9) K/mcL BMP 05/07/16 05:31 Sodium 142 Potassium 4.1 Chloride 110 H Carbon Dioxide 22 BUN 13 Creatinine 1.05 Glucose 115 H Calcium 8.8 Urine 05/07/16 Range/Units 05:44 Urine Color Dark Yellow (Yellow) Urine Clarity Cloudy A (Clear) Urine pH 6.5 (5.0-8.0) pH Units Ur Specific [place] 1.022 (1.010-1.025) Urine Protein 30 H (Neg-Trace) mg/dL Urine Glucose (UA) Normal (Normal) mg/dL Consult Discharge Plan - Plan Referrals: [facility],PCP [Primary Care Provider] - (Patient will follow up with the [place] PCP from the unit admitted to) Prescriptions: HYDROcodone/Acet 7.5/325 mg [[place] 7.5-325 mg] 1 tab PO Q6HR PRN #20 tablet PRN Reason: Pain Isosorbide MONOnitrate (24 HR) [Imdur] 60 mg PO DAILY 30 Days Metoprolol XL (24 HR) Succ [Toprol Xl] 25 mg PO DAILY #30 tab.er.24h
--- NOTE | 2016-05-07 17:13 | Electrocardiograph Report ---
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
[2016-05-08] MEDS: *HR* Metoprolol 5 MG/5 ML VIAL IVP PRN ×2 (01:33→23:47)
[2016-05-08] MEDS: traZODone 50 MG TABLET PO SCH (02:26)
[2016-05-08] MEDS: *HR* Heparin 5,000 UNIT/ML VIAL SQ SCH ×2 (05:38→17:08)
[2016-05-08 07:08] LABS: Basophils % 0.2 %; Eosinophils % 0.4 %; Hematocrit 32.3 % (37.5-50.1); Hemoglobin 10.8 g/dL (12.9-16.9); Immature Granulocytes % 0.7 % (0-4); Lymphocytes # 2.5 K/mcL (0.6-4.6); Lymphocytes % 29.7 %; Mean Corpuscular HGB Conc 33.4 g/dL (31.6-35.5); Mean Corpuscular Hemoglobin 28.7 pg (28.0-33.3); Mean Corpuscular Volume 85.9 fL (83.0-100.0); Mean Platelet Volume 9.7 fL (9.4-12.4); Monocytes # 0.6 K/mcL (0.0-1.3); Monocytes % 7.4 %; Neutrophils # 5.1 K/mcL (1.6-8.9); Platelet Count 218 K/mcL (140-400); Red Blood Count 3.76 M/mcL (4.19-5.50); Red Cell Distribution Width 16.6 % (11.5-14.5); Segmented Neutrophils % 61.6 %
[2016-05-08 07:33] LABS: BUN/Creatinine Ratio 7 (6-26); Blood Urea Nitrogen 6 mg/dL (8-26); Calcium 8.6 mg/dL (8.6-10.8); Carbon Dioxide 22 mEq/L (19-29); Chloride 109 mEq/L (98-109); Glucose 120 mg/dL (70-99); Osmolality,Calculated 291 (280-300); Potassium 3.3 mEq/L (3.5-4.5); Sodium 141 mEq/L (136-145); eGFR For African Americans > 60 (> 60); eGFR For Non-African Americans > 60 (> 60)
[2016-05-08] MEDS ORDERED: Potassium Chloride Elixir 20 MEQ/15 ML UDC PO ONE (07:57)
[2016-05-08] MEDS: Isosorbide MONOnitrate (24 HR) 60 MG TAB.ER.24H PO SCH (08:20)
[2016-05-08] MEDS: RisperiDONE-M 1 MG TAB.RAPDIS PO SCH (08:21)
[2016-05-08] MEDS: Folic Acid 1 MG TABLET PO SCH (08:22)
[2016-05-08] MEDS: amLODIPine 5 MG TABLET PO SCH (08:22)
[2016-05-08] MEDS: Aspirin 81 MG TAB.CHEW PO SCH (08:23)
[2016-05-08] MEDS: Pantoprazole 40 MG VIAL IVP SCH (08:24)
[2016-05-08] MEDS: Nystatin SUSP 5 ML UD.LIQ PO SCH ×4 (08:24→23:48)
[2016-05-08] MEDS: D5% in 0.45% NACL 1,000 ML IVC SCH ×2 (10:40→23:47)
--- NOTE | 2016-05-08 15:49 | Internal Med Progress Note ---
Date of Encounter: 05/08/16 Time of Encounter: 10:00 - Assessment and plan (1) Syncope Current Visit: Yes Status: Acute Assessment and plan: Admitted due to Syncope. Possible polypharmacy. Patient refused tele monitoring. Hypokalemia, corrected. Magnesium WNL. Echo and carotid duplex ordered. Echo revealed an ejection fraction 55%, with moderate concentric hypertrophy of the left ventricle. There is evidence of mild diastolic dysfunction of the left ventricle. No pulmonary hypertension, mild aortic regurgitation. Carotid duplex revealed a bilateral carotid systems essentially normal. Head CT, neck CT unremarkable. Uncontrolled HTN, patient refused to take his meds and bp became uncontrolled. Currently bp got better, taking po meds now. Speeech and swallow follwoing, diet as per recommendations by spech and swallow team, will continue monitoring. Desi e with iv fluids. EKG sinus tachy. No chest pain. Afebrile. CXR last night: no pneumonia. Patient receiving DVT prophylaxis with sq heparin. Low folate levels, continue with folic acid supplementation. Abnormal UA, started on rocephin, possible UTI, follow culture. DVT prophylaxis. Had extensive imaging done last night, no remarkable findings. No leukocytosis. D/W patient's . Qualifiers: Syncope type: unspecified Qualified Code(s): R55 - Syncope and collapse (2) Elevated troponin Current Visit: Yes Status: Acute (3) Hypokalemia Current Visit: Yes Status: Acute Assessment and plan: Supplemented today. Magnesium WNL. Will recheck tomorrow. (4) CAD (coronary artery disease) Current Visit: Yes Status: Chronic Qualifiers: Coronary Disease-Associated Artery/Lesion type: [place] artery [place] vs. transplanted heart: [place] heart Associated angina: angina presence unspecified Qualified Code(s): I25.10 - Atherosclerotic heart disease of [place] coronary artery without angina pectoris (5) DVT prophylaxis Current Visit: Yes Status: Acute Assessment and plan: Heparin sq. (6) Hallucination, visual Current Visit: Yes Status: Acute - Time Spent With Patient 25 - 35 minutes - Subjective Interval history: Patient is not agitated, on the contrary is drowsy. Afebrile, sleepy. BP elevated. Tachycardic at times, was abl to take his meds in am. - Constitutional Vitals: Temp Pulse Resp BP Pulse Ox 99 F 95 22 195/106 99 05/08/16 04:11 05/08/16 04:11 05/08/16 04:11 05/08/16 04:11 05/08/16 04:11 General appearance: Present: cooperative, disheveled, A&O X 2, mild distress Exam: drooling - Head Head exam: Present: atraumatic, normocephalic - Eye Eye exam: Present: PERRL, conjuntiva pink, sclera anicteric Pupils: Present: PERRL - Neck Neck exam general surgery: Present: supple, trachea midline. Absent: lymphadenopathy - Respiratory Respiratory exam: Present: CTAB. Absent: accessory muscle use, rales, rhonchi, wheezes - Cardiovascular Cardiovascular exam: Present: RRR, +S1, +S2. Absent: diastolic murmur, gallop, rubs, systolic murmur - GI/Abdominal GI/Abdominal exam: Present: normal bowel sounds, soft, no peritoneal signs. Absent: distended, tenderness - Extremities Exam Extremities exam: Present: warm, radial pulses palpable and symetrical. Absent : calf tenderness, cyanotic, pedal edema - Neurological Exam Neurological exam: Present: CN II-XII intact, oriented X3, no focal deficits. Absent: pronater drift, facial droop, speech deficit - Skin Skin exam: Present: dry, intact Internal Medicine: Result - Labs CBC & Chem 7: 05/08/16 06:48 05/08/16 06:48 Labs: Short CBC 05/08/16 Range/Units 06:48 WBC 8.3 (4.3-11.1) K/mcL Hgb 10.8 L (12.9-16.9) g/dL Hct 32.3 L (37.5-50.1) % Plt Count 218 (140-400) K/mcL Neutrophils # 5.1 (1.6-8.9) K/mcL BMP 05/08/16 06:48 Sodium 141 Potassium 3.3 L Chloride 109 Carbon Dioxide 22 BUN 6 L Creatinine 0.86 Glucose 120 H Calcium 8.6 - Impressions Impressions Lumbar Spine CT 05/07/16 20:56 IMPRESSION: No CT findings of thoraco lumbar spinal infection. Spinal stimulator via T11-12 interlaminar approach, distal tip in dorsal epidural space at T8. L4-5 grade 1 anterolisthesis, with solid interbody fusion and incorporated spinous prosthesis. 3.1 cm infrarenal aortic aneurysm. RECOMMENDATIONS: Managing Abdominal Aortic Aneurysms 3.0-3.4 cm: 3 year follow up Reference: Annette et al. The care of patients with an abdominal aortic aneurysm: The Society of Vascular Surgery practice guidelines. Journal of Vascular Surgery. Vol 50, Number 85. Khosa et al. Managing Incidental Findings on Abdominal and Pelvic CT and MRI, Part 2: White Paper of the ACR Incidental Findings Committee II on Vascular Findings. J Am Denys Radiol 2013;10:789-794 D/ / Debi Arrieta MD / Debi Arrieta MD Interpreting Provider: Debi Arrieta MD Pelvis CT 05/07/16 20:56 IMPRESSION: 1. No acute findings identified in the pelvis. 2. There is a 3 cm infrarenal abdominal aortic aneurysm. RECOMMENDATIONS: Managing Abdominal Aortic Aneurysms 2.6-2.9 cm: 5 year follow up. 3.0-3.4 cm: 3 year follow up 3.5-3.9 cm: 1 year follow up. 4.0-4.4 cm: 1 year follow up. Recommend vascular consultation. 4.5-5.4 cm: 6 month follow up. Recommend vascular consultation. Greater than or equal to 5.5 cm: Referral to vascular surgeon. Reference: Annette et al. The care of patients with an abdominal aortic aneurysm: The Society of Vascular Surgery practice guidelines. Journal of Vascular Surgery. Vol 50, Number 85. Khosa et al. Managing Incidental Findings on Abdominal and Pelvic CT and MRI, Part 2: White Paper of the ACR Incidental Findings Committee II on Vascular Findings. J Am Denys Radiol 2013;10:789-794 D/ / 05/08/2016 07:55:33 Janes Rodriguez MD / Tanisha Gastelum Interpreting Provider: Janes Rodriguez MD Thoracic Spine CT 05/07/16 20:56 IMPRESSION: No CT findings of thoraco lumbar spinal infection. Spinal stimulator via T11-12 interlaminar approach, distal tip in dorsal epidural space at T8. L4-5 grade 1 anterolisthesis, with solid interbody fusion and incorporated spinous prosthesis. 3.1 cm infrarenal aortic aneurysm. RECOMMENDATIONS: Managing Abdominal Aortic Aneurysms 3.0-3.4 cm: 3 year follow up Reference: Annette et al. The care of patients with an abdominal aortic aneurysm: The Society of Vascular Surgery practice guidelines. Journal of Vascular Surgery. Vol 50, Number 85. Mine et al. Managing Incidental Findings on Abdominal and Pelvic CT and MRI, Part 2: White Paper of the ACR Incidental Findings Committee II on Vascular Findings. J Am Denys Radiol 2013;10:789-794 D/ / Debi Arrieta MD / Debi Arrieta MD Interpreting Provider: Debi Arrieta MD Consult Discharge Plan - Plan [facility]errals: [facility]Primary Care Provider] - (Patient will [facility] with [facility] from [facility] admitted to) Prescriptions: HYDROcodone/Acet 7.5/325 mg [[place] 7.5-325 mg] 1 tab PO Q6HR PRN #20 tablet PRN Reason: Pain Isosorbide MONOnitrate (24 HR) [Imdur] 60 mg PO DAILY 30 Days Metoprolol XL (24 HR) Succ [Toprol Xl] 25 mg PO DAILY #30 tab.er.24h
[2016-05-09] MEDS: *HR* Heparin 5,000 UNIT/ML VIAL SQ SCH ×2 (05:22→17:25)
[2016-05-09 07:50] LABS: Basophils % 0.1 %; Eosinophils % 0.2 %; Hematocrit 33.5 % (37.5-50.1); Hemoglobin 11.3 g/dL (12.9-16.9); Immature Granulocytes % 0.3 % (0-4); Lymphocytes # 2.6 K/mcL (0.6-4.6); Lymphocytes % 30.4 %; Mean Corpuscular HGB Conc 33.7 g/dL (31.6-35.5); Mean Corpuscular Hemoglobin 28.9 pg (28.0-33.3); Mean Corpuscular Volume 85.7 fL (83.0-100.0); Mean Platelet Volume 9.7 fL (9.4-12.4); Monocytes # 0.7 K/mcL (0.0-1.3); Monocytes % 8.4 %; Neutrophils # 5.2 K/mcL (1.6-8.9); Platelet Count 225 K/mcL (140-400); Red Blood Count 3.91 M/mcL (4.19-5.50); Red Cell Distribution Width 16.3 % (11.5-14.5); Segmented Neutrophils % 60.6 %
[2016-05-09 08:02] LABS: BUN/Creatinine Ratio 5 (6-26); Blood Urea Nitrogen 4 mg/dL (8-26); Calcium 8.7 mg/dL (8.6-10.8); Carbon Dioxide 23 mEq/L (19-29); Chloride 108 mEq/L (98-109); Glucose 113 mg/dL (70-99); Osmolality,Calculated 294 (280-300); Potassium 2.9 mEq/L (3.5-4.5); Sodium 143 mEq/L (136-145); eGFR For African Americans > 60 (> 60); eGFR For Non-African Americans > 60 (> 60)
[2016-05-09] MEDS: Aspirin 81 MG TAB.CHEW PO SCH (08:29)
[2016-05-09] MEDS: Pantoprazole 40 MG VIAL IVP SCH (08:29)
[2016-05-09] MEDS: amLODIPine 5 MG TABLET PO SCH (08:30)
[2016-05-09] MEDS: RisperiDONE-M 1 MG TAB.RAPDIS PO SCH ×2 (08:30→14:41)
[2016-05-09] MEDS: Isosorbide MONOnitrate (24 HR) 60 MG TAB.ER.24H PO SCH (08:31)
[2016-05-09] MEDS: Nystatin SUSP 5 ML UD.LIQ PO SCH ×4 (08:31→19:49)
[2016-05-09] MEDS: Folic Acid 1 MG TABLET PO SCH (08:31)
[2016-05-09] MEDS: *HR* Metoprolol 5 MG/5 ML VIAL IVP PRN ×2 (09:31→18:59)
[2016-05-09] MEDS ORDERED: CloNIDine Patch 0.2 MG PATCH (WEEKLY) TD SCH (10:30)
[2016-05-09] MEDS ORDERED: Magnesium Sulfate 2 GM in D5% in Water 100 ML IVPB ONE (10:34)
[2016-05-09] MEDS ORDERED: Potassium Chloride 40 MEQ, Lidocaine 1% 2 ML in D5% in Water 500 ML IVPB SCH ×2 (10:45→18:15)
--- NOTE | 2016-05-09 13:18 | Internal Med Progress Note ---
Date of Encounter: 05/09/16 Time of Encounter: 09:45 - Assessment and plan (1) Syncope Current Visit: Yes Status: Acute Assessment and plan: Admitted due to Syncope. Hypokalemia, today, will supplelemt potassium via IV and Magnesium, will continue monitoring. Echo revealed an ejection fraction 55%, with moderate concentric hypertrophy of the left ventricle. There is evidence of mild diastolic dysfunction of the left ventricle. No pulmonary hypertension, mild aortic regurgitation. Carotid duplex revealed a bilateral carotid systems essentially normal. Head CT, neck CT unremarkable. Uncontrolled HTN, patient refused to take his meds and bp became uncontrolled. Currently on iv lopressor and hydralazine. Clonidine patch. Speeech and swallow follwoing, diet as per recommendations by spech and swallow team, will continue monitoring. Continue with iv fluids, will add potassium to fluids. Ammonia levels noted. EKG sinus tachy. No chest pain. Afebrile. CXR: no pneumonia. Patient receiving DVT prophylaxis with sq heparin. Low folate levels, continue with folic acid supplementation. Abnormal UA, started on rocephin, possible UTI, follow culture. Had extensive imaging done last night, no remarkable findings. No leukocytosis. D/W patient's . Qualifiers: Syncope type: unspecified Qualified Code(s): R55 - Syncope and collapse (2) Elevated troponin Current Visit: Yes Status: Acute (3) Hypokalemia Current Visit: Yes Status: Acute (4) CAD (coronary artery disease) Current Visit: Yes Status: Chronic Qualifiers: Coronary Disease-Associated Artery/Lesion type: [place] artery [place] vs. transplanted heart: [place] heart Associated angina: angina presence unspecified Qualified Code(s): I25.10 - Atherosclerotic heart disease of [place] coronary artery without angina pectoris (5) DVT prophylaxis Current Visit: Yes Status: Acute (6) Hallucination, visual Current Visit: Yes Status: Acute - Subjective Interval history: Patient is not agitated, on the contrary is drowsy. Afebrile, sleepy. BP elevated. Tachycardic at times, was not able to take his meds in am. at bedside. - Constitutional Vitals: Temp Pulse Resp BP Pulse Ox 98.3 F 87 18 187/100 98 05/09/16 11:55 05/09/16 11:55 05/09/16 11:55 05/09/16 11:55 05/09/16 11:55 General appearance: Present: disheveled, A&O X 2, mild distress Exam: drroling, uncooperative - Head Head exam: Present: atraumatic, normocephalic - Eye Eye exam: Present: PERRL, conjuntiva pink, sclera anicteric Pupils: Present: PERRL - Neck Neck exam general surgery: Present: supple, trachea midline. Absent: lymphadenopathy - Respiratory Respiratory exam: Present: CTAB. Absent: accessory muscle use, rales, rhonchi, wheezes - Cardiovascular Cardiovascular exam: Present: RRR, +S1, +S2. Absent: diastolic murmur, gallop, rubs, systolic murmur - GI/Abdominal GI/Abdominal exam: Present: normal bowel sounds, soft, no peritoneal signs. Absent: distended, tenderness - Extremities Exam Extremities exam: Present: warm, radial pulses palpable and symetrical. Absent : calf tenderness, cyanotic, pedal edema - Neurological Exam Neurological exam: Present: CN II-XII intact, no focal deficits. Absent: pronater drift, facial droop, speech deficit - Skin Skin exam: Present: dry, intact Internal Medicine: Result - Labs CBC & Chem 7: 05/09/16 07:03 05/09/16 07:03 Labs: Short CBC 05/09/16 Range/Units 07:03 WBC 8.7 (4.3-11.1) K/mcL Hgb 11.3 L (12.9-16.9) g/dL Hct 33.5 L (37.5-50.1) % Plt Count 225 (140-400) K/mcL Neutrophils # 5.2 (1.6-8.9) K/mcL BMP 05/09/16 07:03 Sodium 143 Potassium 2.9 L Chloride 108 Carbon Dioxide 23 BUN 4 L Creatinine 0.87 Glucose 113 H Calcium 8.7 Consult Discharge Plan - Plan Referrals: [facility] [Primary Care Provider] - (Patient will follow [facility] with the [facility] P[facility] from the unit admitted to) Prescriptions: HYDROcodone/Acet 7.5/325 mg [[place] 7.5-325 mg] 1 tab PO Q6HR PRN #20 tablet PRN Reason: Pain Isosorbide MONOnitrate (24 HR) [Imdur] 60 mg PO DAILY 30 Days Metoprolol XL (24 HR) Succ [Toprol Xl] 25 mg PO DAILY #30 tab.er.24h
[2016-05-09] MEDS: Potassium Chloride 40 MEQ, Lidocaine 1% 2 ML in D5% in Water 500 ML IVPB SCH ×2 (13:20→18:06)
[2016-05-09] MEDS ORDERED: Thiamine (B-1) 100 MG in D5% in Water 50 ML IVPB STA (16:22)
[2016-05-09] MEDS ORDERED: Furosemide 20 MG/2 ML VIAL IVP ONE (20:41)
[2016-05-09] MEDS: D5% in 0.45% NACL w KCl 20 MEQ/1,000 ML MLS IVC SCH (22:07)
[2016-05-10] MEDS ORDERED: *HR* Morphine 2 MG/ML SYRINGE IVP PRN (03:52)
[2016-05-10] MEDS ORDERED: *HR* Metoprolol 5 MG/5 ML VIAL IVP ONE (04:36)
[2016-05-10] MEDS: *HR* Metoprolol 5 MG/5 ML VIAL IVP PRN ×2 (04:41→20:02)
[2016-05-10] MEDS: Ketorolac 30 MG/ML VIAL IVP PRN (04:42)
[2016-05-10] MEDS: *HR* Heparin 5,000 UNIT/ML VIAL SQ SCH ×2 (04:43→17:42)
[2016-05-10 07:49] LABS: Basophils % 0.2 %; Eosinophils % 0.1 %; Hematocrit 39.2 % (37.5-50.1); Hemoglobin 12.7 g/dL (12.9-16.9); Immature Granulocytes % 0.6 % (0-4); Lymphocytes # 2.5 K/mcL (0.6-4.6); Lymphocytes % 20.5 %; Mean Corpuscular HGB Conc 32.4 g/dL (31.6-35.5); Mean Corpuscular Hemoglobin 27.9 pg (28.0-33.3); Mean Corpuscular Volume 86.2 fL (83.0-100.0); Mean Platelet Volume 9.6 fL (9.4-12.4); Monocytes % 8.4 %; Neutrophils # 8.7 K/mcL (1.6-8.9); Platelet Count 249 K/mcL (140-400); Red Blood Count 4.55 M/mcL (4.19-5.50); Red Cell Distribution Width 16.5 % (11.5-14.5); Segmented Neutrophils % 70.2 %
[2016-05-10 08:13] LABS: BUN/Creatinine Ratio 6 (6-26); Blood Urea Nitrogen 6 mg/dL (8-26); Carbon Dioxide 23 mEq/L (19-29); Chloride 106 mEq/L (98-109); Glucose 117 mg/dL (70-99); Osmolality,Calculated 289 (280-300); Potassium 3.2 mEq/L (3.5-4.5); Sodium 140 mEq/L (136-145); eGFR For African Americans > 60 (> 60); eGFR For Non-African Americans > 60 (> 60)
[2016-05-10] MEDS: Pantoprazole 40 MG VIAL IVP SCH (09:18)
[2016-05-10] MEDS: Nystatin SUSP 5 ML UD.LIQ PO SCH ×4 (09:19→23:04)
[2016-05-10] MEDS: Folic Acid 1 MG TABLET PO SCH (09:29)
[2016-05-10] MEDS: Aspirin 81 MG TAB.CHEW PO SCH (09:29)
[2016-05-10] MEDS: RisperiDONE-M 1 MG TAB.RAPDIS PO SCH (09:30)
[2016-05-10] MEDS: amLODIPine 5 MG TABLET PO SCH (09:30)
[2016-05-10] MEDS: Isosorbide MONOnitrate (24 HR) 60 MG TAB.ER.24H PO SCH (09:30)
--- NOTE | 2016-05-10 10:00 | Internal Med Progress Note ---
Date of Encounter: 05/10/16 Time of Encounter: 09:58 - Assessment and plan (1) Syncope Current Visit: Yes Status: Acute Assessment and plan: Admitted due to Syncope from [place] inpatient psych unit. No episodes of syncope since admission. Had extensive syncope workup. Was medically discharged and was supposed to go to the [place] inpatient psych unit 10 days ago, however was not transferred due to lack of beds available. Last week his oral intake decreased. Uncontrolled HTN, patient refused to take his meds and bp became uncontrolled. Currently on IV lopressor, IV hydralazine and Clonidine patch ordered, will continue monitoring closely. Speech and swallow evlauated the patient and did not find anatomical or mechanical abnormalities that could prevent his ability to swallow. Speeech and swallow follwoing, diet as per recommendations by spech and swallow team, will continue monitoring. Hypokalemia has improved compared to yesterday, 3.2 today, in other setting would supplement via PO, however, since patient is not eating and not taking PO meds, will supplelemt potassium via IV, will continue monitoring. Continue with iv fluids, potassium added to fluids. Ammonia levels noted, not consistent with hepatic etiology of altered mental status. Mild leukocytosis, however afebrile and no evidence of infection at this point. Empirically started on rocephin due to abnormal UA on 05/07,. D/W micro lab, will have UC result tomorrow. Continue with empiric rocephin for now. Vit B12 levels WNL. VDRL negative. TSH WNL. EKG sinus tachy. No chest pain. Afebrile. CXR: no pneumonia. Patient receiving DVT prophylaxis with sq heparin. Low folate levels, continue with folic acid supplementation. Had extensive imaging done, no remarkable findings. Echo revealed an ejection fraction 55%, with moderate concentric hypertrophy of the left ventricle. There is evidence of mild diastolic dysfunction of the left ventricle. No pulmonary hypertension, mild aortic regurgitation. Carotid duplex revealed a bilateral carotid systems essentially normal. Head CT, neck CT unremarkable. Qualifiers: Syncope type: unspecified Qualified Code(s): R55 - Syncope and collapse (2) Elevated troponin Current Visit: Yes Status: Acute (3) Hypokalemia Current Visit: Yes Status: Acute Assessment and plan: Supplemented today via iv. (4) CAD (coronary artery disease) Current Visit: Yes Status: Chronic Qualifiers: Coronary Disease-Associated Artery/Lesion type: [place] artery [place] vs. transplanted heart: [place] heart Associated angina: angina presence unspecified Qualified Code(s): I25.10 - Atherosclerotic heart disease of [place] coronary artery without angina pectoris (5) DVT prophylaxis Current Visit: Yes Status: Acute Assessment and plan: Heparin sq. (6) Hallucination, visual Current Visit: Yes Status: Acute Assessment and plan: A consultation with psychiatry was requested earlier during this admission. Patient with established care at the [place] for psych issues. Will reconsult today. (7) Depression Current Visit: Yes Status: Acute Assessment and plan: Psych reevaluation. Qualifiers: Depression Type: unspecified Qualified Code(s): F32.9 - Major depressive disorder, single episode, unspecified - Subjective Interval history: Patient is not agitated, on the contrary is drowsy. Afebrile, sleepy. BP elevated. Tachycardic at times, was not able to take his meds in am. BP continues elevated. - Constitutional Vitals: Temp Pulse Resp BP Pulse Ox 98.3 F 95 16 163/89 96 05/10/16 07:44 05/10/16 07:44 05/10/16 07:44 05/10/16 07:44 05/10/16 07:44 General appearance: Present: disheveled, A&O X 2, mild distress, obese Exam: patient has significant syalorrhea, afebrile, partialy follows commands, sleepy , not in respiratory distress. - Head Head exam: Present: atraumatic, normocephalic - Eye Eye exam: Present: PERRL, conjuntiva pink, sclera anicteric Pupils: Present: PERRL - Neck Neck exam general surgery: Present: supple, trachea midline. Absent: lymphadenopathy - Respiratory Respiratory exam: Present: CTAB. Absent: accessory muscle use, rales, rhonchi, wheezes - Cardiovascular Cardiovascular exam: Present: RRR, +S1, +S2. Absent: diastolic murmur, gallop, rubs, systolic murmur - GI/Abdominal GI/Abdominal exam: Present: normal bowel sounds, soft, no peritoneal signs. Absent: distended, tenderness - Extremities Exam Extremities exam: Present: warm, radial pulses palpable and symetrical. Absent : calf tenderness, cyanotic, pedal edema - Neurological Exam Neurological exam: Present: no focal deficits. Absent: pronater drift, facial droop, speech deficit - Psychiatric Psychiatric exam: Present: depressed - Skin Skin exam: Present: dry, intact Internal Medicine: Result - Labs CBC & Chem 7: 05/10/16 06:37 05/10/16 06:37 Labs: Short CBC 05/10/16 Range/Units 06:37 WBC 12.4 H (4.3-11.1) K/mcL Hgb 12.7 L (12.9-16.9) g/dL Hct 39.2 (37.5-50.1) % Plt Count 249 (140-400) K/mcL Neutrophils # 8.7 (1.6-8.9) K/mcL BMP 05/10/16 06:37 Sodium 140 Potassium 3.2 L Chloride 106 Carbon Dioxide 23 BUN 6 L Creatinine 0.95 Glucose 117 H Calcium 9.0 Consult Discharge Plan - Plan [facility]errals: [facility] [Primary Care Provider] - (Patient will [facility] with [facility] from [facility] admitted to) Prescriptions: HYDROcodone/Acet 7.5/325 mg [[place] 7.5-325 mg] 1 tab PO Q6HR PRN #20 tablet PRN Reason: Pain Isosorbide MONOnitrate (24 HR) [Imdur] 60 mg PO DAILY 30 Days Metoprolol XL (24 HR) Succ [Toprol Xl] 25 mg PO DAILY #30 tab.er.24h
[2016-05-10 11:33] LABS: HIV-1&2 Antibody & p24 Ag Nonreactive (Nonreactive); Hepatitis A Antibody IgM Nonreactive (Nonreactive); Hepatitis B Core IgM Nonreactive (Nonreactive); Hepatitis B Surface Antigen Nonreactive (Nonreactive); Hepatitis C Virus Antibody Nonreactive (Nonreactive)
[2016-05-10] MEDS: D5% in 0.45% NACL w KCl 20 MEQ/1,000 ML MLS IVC SCH (11:37)
[2016-05-10] MEDS: Potassium Chloride 40 MEQ, Lidocaine 1% 2 ML in D5% in Water 500 ML IVPB SCH ×2 (11:48→16:05)
--- NOTE | 2016-05-10 16:02 | Psychiatry Progress Note ---
Date of Encounter: 05/10/16 Time of Encounter: 15:20 Subjective Interval history: This patient was seen and assessed after consultation evaluated on April 29 and recommendation were made for him to be followed at the [facility] for his psychiatric care where he is established. Today I received a request for the consultation ordered by Dr. Mcgill regarding his refusing medication and an being stabilized medically. I discussed the case was Dr. Mcgill and recommended that for agitation or behavioral disturbance small dose of Haldol injectable IM or IV can be used otherwise the rest of his psychiatric medication on oral medication and they have to be given by mouth. Also I indicated that patient psychiatric care and records are at the [facility] where he is established for many years. At this time I would recommend continuation was in medical stabilization and using when necessary Haldol if warranted. Review of Systems Psychiatric: Reports: visual hallucinations Objective: Exam Patient orientation: Yes Person, Yes Time, Yes Place Level of alertness: Alert Patient appearance: Unkempt, Disheveled, Malodorous Behavior: cooperative, distractible, talkative Psychomotor activity: Normal Eye contact: Maintains Eye Contact Mood description: Euthymic/stable Affect description: congruent with mood, full range, euphoric Speech pattern: Normal rate, Normal rhythm, Normal tone, Inappropriate to situation, Excessive Speech volume: Normal Thought process: Circumstantial, Tangential Thought content: No Suicidal ideation, No Homicidal ideation, No Overt delusions Perceptual disturbances: Yes Visual hallucinations Judgment: Limited Insight: Partial Results - Vital Signs Vital Signs: Temp Pulse Resp BP Pulse Ox 98.3 F 100 16 149/89 95 05/10/16 11:34 05/10/16 11:34 05/10/16 11:34 05/10/16 11:34 05/10/16 11:34 - Labs Labs: Laboratory Results - last 24 hr 05/06/16 05/09/16 05/10/16 05:28 07:03 01:15 WBC RBC Hgb Hct MCV MCH MCHC RDW Plt Count MPV Immature Gran % Seg Neutrophils % Lymphocytes % Monocytes % Eosinophils % Basophils % Neutrophils # Lymphocytes # Monocytes # Eosinophils # Basophils # Sodium Potassium Chloride Carbon Dioxide BUN Creatinine Est GFR ( Amer) Est GFR (Non-Af Amer) BUN/Creatinine Ratio Glucose POC Glucose 110 H Calculated Osmolality Calcium VDRL NON REACTIVE Hepatitis A IgM Ab Nonreactive Hep Bs Antigen Nonreactive Hep B Core IgM Ab Nonreactive Hepatitis C Ab Screen Nonreactive HIV Ag/Ab Combo Qual Nonreactive 05/10/16 05/10/16 06:37 06:37 WBC 12.4 H RBC 4.55 Hgb 12.7 L Hct 39.2 MCV 86.2 MCH 27.9 L MCHC 32.4 RDW 16.5 H Plt Count 249 MPV 9.6 Immature Gran % 0.6 Seg Neutrophils % 70.2 Lymphocytes % 20.5 Monocytes % 8.4 Eosinophils % 0.1 Basophils % 0.2 Neutrophils # 8.7 Lymphocytes # 2.5 Monocytes # 1.0 Eosinophils # 0.0 Basophils # 0.0 Sodium 140 Potassium 3.2 L Chloride 106 Carbon Dioxide 23 BUN 6 L Creatinine 0.95 Est GFR ( Amer) > 60 Est GFR (Non-Af Amer) > 60 BUN/Creatinine Ratio 6 Glucose 117 H POC Glucose Calculated Osmolality 289 Calcium 9.0 VDRL Hepatitis A IgM Ab Hep Bs Antigen Hep B Core IgM Ab Hepatitis C Ab Screen HIV Ag/Ab Combo Qual - Impressions ITS Impressions Chest X-Ray 05/05/16 16:34 IMPRESSION: No acute cardiopulmonary disease. D/ / 05/05/2016 17:04:17 Erik Waldron MD / collin Interpreting Provider: Erik Waldron MD Lumbar Spine CT 05/07/16 20:56 IMPRESSION: No CT findings of thoraco lumbar spinal infection. Spinal stimulator via T11-12 interlaminar approach, distal tip in dorsal epidural space at T8. L4-5 grade 1 anterolisthesis, with solid interbody fusion and incorporated spinous prosthesis. 3.1 cm infrarenal aortic aneurysm. RECOMMENDATIONS: Managing Abdominal Aortic Aneurysms 3.0-3.4 cm: 3 year follow up Reference: Annette et al. The care of patients with an abdominal aortic aneurysm: The Society of Vascular Surgery practice guidelines. Journal of Vascular Surgery. Vol 50, Number 85. Mine et al. Managing Incidental Findings on Abdominal and Pelvic CT and MRI, Part 2: White Paper of the ACR Incidental Findings Committee II on Vascular Findings. J Am Denys Radiol 2013;10:789-794 D/ / Debi Arrieta MD / Debi Arrieta MD Interpreting Provider: Debi Arrieta MD Pelvis CT 05/07/16 20:56 IMPRESSION: 1. No acute findings identified in the pelvis. 2. There is a 3 cm infrarenal abdominal aortic aneurysm. RECOMMENDATIONS: Managing Abdominal Aortic Aneurysms 2.6-2.9 cm: 5 year follow up. 3.0-3.4 cm: 3 year follow up 3.5-3.9 cm: 1 year follow up. 4.0-4.4 cm: 1 year follow up. Recommend vascular consultation. 4.5-5.4 cm: 6 month follow up. Recommend vascular consultation. Greater than or equal to 5.5 cm: Referral to vascular surgeon. Reference: Annette et al. The care of patients with an abdominal aortic aneurysm: The Society of Vascular Surgery practice guidelines. Journal of Vascular Surgery. Vol 50, Number 85. Khosa et al. Managing Incidental Findings on Abdominal and Pelvic CT and MRI, Part 2: White Paper of the ACR Incidental Findings Committee II on Vascular Findings. J Am Denys Radiol 2013;10:789-794 D/ / 05/08/2016 07:55:33 Janes Rodriguez MD / Tanisha Gastelum Interpreting Provider: Janes Rodriguez MD Thoracic Spine CT 05/07/16 20:56 IMPRESSION: No CT findings of thoraco lumbar spinal infection. Spinal stimulator via T11-12 interlaminar approach, distal tip in dorsal epidural space at T8. L4-5 grade 1 anterolisthesis, with solid interbody fusion and incorporated spinous prosthesis. 3.1 cm infrarenal aortic aneurysm. RECOMMENDATIONS: Managing Abdominal Aortic Aneurysms 3.0-3.4 cm: 3 year follow up Reference: Annette et al. The care of patients with an abdominal aortic aneurysm: The Society of Vascular Surgery practice guidelines. Journal of Vascular Surgery. Vol 50, Number 85. Reeseosa et al. Managing Incidental Findings on Abdominal and Pelvic CT and MRI, Part 2: White Paper of the ACR Incidental Findings Committee II on Vascular Findings. J Am Denys Radiol 2013;10:789-794 D/ / Debi Arrieta MD / Debi Arrieta MD Interpreting Provider: Debi Arrieta MD Assessment and Plan (1) Hallucination, visual Current visit: Yes Status: Acute Plan: Continue hospitalization, Close observation, Suicide Precautions per unit protocol, Encourage participation in unit milieu, Group Therapy, Monitor sleep, Monitor appetite Additional Plan: Haldol IM or IV when necessary 2-5 mg every 6 hours for agitation as recommended. Also her psychiatric medications are to be taken orally and it can be restarted when patient is agreeable to oral intake. Thank you for the consult Consult Discharge Plan - Plan [facility]errals: [facility] [Primary Care Provider] - ([facility] with [facility] admitted to) Prescriptions: HYDROcodone/Acet 7.5/325 mg [[place] 7.5-325 mg] 1 tab PO Q6HR PRN #20 tablet PRN Reason: Pain Isosorbide MONOnitrate (24 HR) [Imdur] 60 mg PO DAILY 30 Days Metoprolol XL (24 HR) Succ [Toprol Xl] 25 mg PO DAILY #30 tab.er.24h
[2016-05-11] MEDS: D5% in 0.45% NACL w KCl 20 MEQ/1,000 ML MLS IVC SCH ×3 (01:01→14:36)
[2016-05-11] MEDS: Ketorolac 30 MG/ML VIAL IVP PRN (05:58)
[2016-05-11] MEDS: *HR* Heparin 5,000 UNIT/ML VIAL SQ SCH ×2 (05:58→17:55)
[2016-05-11] MEDS: Pantoprazole 40 MG VIAL IVP SCH (09:48)
[2016-05-11] MEDS: Nystatin SUSP 5 ML UD.LIQ PO SCH ×4 (09:50→21:06)
[2016-05-11] MEDS: Aspirin 81 MG TAB.CHEW PO SCH (09:50)
[2016-05-11] MEDS: Folic Acid 1 MG TABLET PO SCH (09:50)
[2016-05-11] MEDS: amLODIPine 5 MG TABLET PO SCH (09:50)
[2016-05-11] MEDS: RisperiDONE-M 1 MG TAB.RAPDIS PO SCH (09:50)
[2016-05-11] MEDS: Isosorbide MONOnitrate (24 HR) 60 MG TAB.ER.24H PO SCH (09:50)
[2016-05-11 09:59] LABS: Basophils % 0.2 %; Eosinophils # 0.1 K/mcL (0.0-0.6); Eosinophils % 0.8 %; Hematocrit 38.6 % (37.5-50.1); Hemoglobin 12.9 g/dL (12.9-16.9); Immature Granulocytes % 0.4 % (0-4); Lymphocytes # 3.9 K/mcL (0.6-4.6); Lymphocytes % 31.1 %; Mean Corpuscular HGB Conc 33.4 g/dL (31.6-35.5); Mean Corpuscular Hemoglobin 28.6 pg (28.0-33.3); Mean Corpuscular Volume 85.6 fL (83.0-100.0); Mean Platelet Volume 9.6 fL (9.4-12.4); Monocytes % 7.8 %; Neutrophils # 7.4 K/mcL (1.6-8.9); Platelet Count 253 K/mcL (140-400); Red Blood Count 4.51 M/mcL (4.19-5.50); Red Cell Distribution Width 16.3 % (11.5-14.5); Segmented Neutrophils % 59.7 %
[2016-05-11 10:11] LABS: BUN/Creatinine Ratio 7 (6-26); Blood Urea Nitrogen 7 mg/dL (8-26); Calcium 9.1 mg/dL (8.6-10.8); Carbon Dioxide 20 mEq/L (19-29); Chloride 109 mEq/L (98-109); Glucose 129 mg/dL (70-99); Osmolality,Calculated 288 (280-300); Potassium 3.8 mEq/L (3.5-4.5); Sodium 139 mEq/L (136-145); eGFR For African Americans > 60 (> 60); eGFR For Non-African Americans > 60 (> 60)
[2016-05-11] MEDS ORDERED: Ketorolac 30 MG/ML VIAL IVP PRN (12:32)
--- NOTE | 2016-05-11 16:51 | Internal Med Progress Note ---
<Kong Palencia - Last Filed: 05/11/16 17:08> Date of Encounter: 05/11/16 Time of Encounter: 16:48 - Assessment and plan (1) Altered mental state Current Visit: Yes Status: Acute Assessment and plan: Etiology unclear at this time. However currently alert and protecting airway. Hypertensive encephalopathy? Abscence seizures? [facility] if [facility] a history and order EEG. Infection? Unlikely as he has mary afebrile mental status changes occured prior to UTI and leukocytosis. Psychiatric? Possible patient was transferred from [place] psych? Negative effects of Schizophrenia? Catatonia? However is not rigid. Psych is following along and we would appreciate their input. Stacy dose have history of Psychosis and Visual hallucinations. we will continue PRN haldol and when medically stable [facility]. Qualifiers: Qualified Code(s): R41.82 - Altered mental status, unspecified (2) Dysphagia Current Visit: Yes Status: Acute Assessment and plan: Patient may not have true dysphagia. Reportedly patient did not cooperate with testing. NPO for now. Will have speech reevaluate. Qualifiers: Qualified Code(s): R13.10 - Dysphagia, unspecified (3) Accelerated hypertension Current Visit: Yes Status: Acute Assessment and plan: secondary to not taking PO medications Will add scheduled metoprolol and continue PRN hydralazine. (4) Leukocytosis Current Visit: Yes Status: Acute Assessment and plan: mild Secondary to UTI? Qualifiers: Qualified Code(s): D72.829 - Elevated white blood cell count, unspecified (5) UTI (urinary tract infection) Current Visit: Yes Status: Acute Assessment and plan: continue rocephin day 3 Qualifiers: Qualified Code(s): N39.0 - Urinary tract infection, site not specified (6) Coronary artery disease Current Visit: Yes Status: Chronic Assessment and plan: stacy reportedly has had 9 stents in the past. Qualifiers: Qualified Code(s): I25.10 - Atherosclerotic heart disease of [place] coronary artery without angina pectoris (7) DVT prophylaxis Current Visit: Yes Status: Acute Assessment and plan: SQ heparin. barriers to DC. Patient still altered. will need to determine before transferring to CT. - Subjective Interval history: No major events overnight documented. Patient is alert but is a very poor historian. He is nearly nonverbal. No family present in the room. Patient denies any pain or discomfort. Of note patient refused to swallow during swallow test. Unsure if this is dysphagia or if the patient is refusing to participate. Patient has no complaints at this time. - Constitutional Vitals: Temp Pulse Resp BP Pulse Ox 98.4 F 116 20 172/98 97 05/11/16 15:16 05/11/16 15:16 05/11/16 15:16 05/11/16 15:16 05/11/16 15:16 Exam: General: This is a well-developed well-nourished 60-year-old male who is currently alert and orientated only to self. His lying that appears to be comfortable no acute distress at this time. Head: Head is no cephalic atraumatic. EENT: Anicteric sclera, pupils equally round reactive to light and accommodation. Moist mucous membranes. Poor dentition. Neck supple without mass or thyromegaly. There is no cervical or supraclavicular lymphadenopathy palpable on exam. Heart: Regular rate and rhythm without murmurs rubs or gallops. Lungs: Clear to auscultation bilaterally. He has a normal effort of breathing. Normal rise and expansion of the chest wall bilaterally. Abdomen: Obese, nondistended, nontender to palpation. No bruits no organomegaly. Musculoskeletal: Grossly normal for age. No gross deformity noted. Extremities: There is no clubbing, cyanosis or edema. Integument: No rashes or lesions. Does have multiple punctate scarring on the lower extremities bilaterally. Internal Medicine: Result - Labs CBC & Chem 7: 05/11/16 09:43 05/11/16 09:43 Labs: Short CBC 05/11/16 Range/Units 09:43 WBC 12.4 H (4.3-11.1) K/mcL Hgb 12.9 (12.9-16.9) g/dL Hct 38.6 (37.5-50.1) % Plt Count 253 (140-400) K/mcL Neutrophils # 7.4 (1.6-8.9) K/mcL BMP 05/11/16 09:43 Sodium 139 Potassium 3.8 Chloride 109 Carbon Dioxide 20 BUN 7 L Creatinine 1.02 Glucose 129 H Calcium 9.1 Consult Discharge Plan - Plan [facility]errals: [facility] [Primary Care Provider] - (Patient will follow up with the CT PCP from the unit admitted to) Prescriptions: HYDROcodone/Acet 7.5/325 mg [[place] 7.5-325 mg] 1 tab PO Q6HR PRN #20 tablet PRN Reason: Pain Isosorbide MONOnitrate (24 HR) [Imdur] 60 mg PO DAILY 30 Days Metoprolol XL (24 HR) Succ [Toprol Xl] 25 mg PO DAILY #30 tab.er.24h <David Russo - Last Filed: 05/11/16 18:32> Date of Encounter: 05/11/16 - Constitutional Vitals: Temp Pulse Resp BP Pulse Ox 98.4 F 116 20 172/98 97 05/11/16 15:16 05/11/16 15:16 05/11/16 15:16 05/11/16 15:16 05/11/16 15:16 Internal Medicine: Result - Labs CBC & Chem 7: 05/11/16 09:43 05/11/16 09:43 Labs: Short CBC 05/11/16 Range/Units 09:43 WBC 12.4 H (4.3-11.1) K/mcL Hgb 12.9 (12.9-16.9) g/dL Hct 38.6 (37.5-50.1) % Plt Count 253 (140-400) K/mcL Neutrophils # 7.4 (1.6-8.9) K/mcL BMP 05/11/16 09:43 Sodium 139 Potassium 3.8 Chloride 109 Carbon Dioxide 20 BUN 7 L Creatinine 1.02 Glucose 129 H Calcium 9.1 - Attending Attestation I examined this patient and my medical decision-making was reviewed with the LEAD BURNER SUPERVISOR/PA/Advanced Practice Nurse/Resident Physician. I agree with the documented findings, disposition and treatment plan as described except to the extent set forth below.
[2016-05-11] MEDS: *HR* Metoprolol 5 MG/5 ML VIAL IVP SCH (17:56)
[2016-05-11] MEDS: *HR* Morphine 2 MG/ML SYRINGE IVP PRN (21:12)
[2016-05-12] MEDS: *HR* Metoprolol 5 MG/5 ML VIAL IVP SCH ×5 (01:17→23:53)
[2016-05-12] MEDS: D5% in 0.45% NACL w KCl 20 MEQ/1,000 ML MLS IVC SCH ×2 (04:02→19:31)
[2016-05-12] MEDS: *HR* Heparin 5,000 UNIT/ML VIAL SQ SCH ×2 (06:18→16:58)
[2016-05-12 07:51] LABS: Hematocrit 36.6 % (37.5-50.1); Mean Corpuscular HGB Conc 32.8 g/dL (31.6-35.5); Mean Corpuscular Hemoglobin 28.2 pg (28.0-33.3); Mean Corpuscular Volume 86.1 fL (83.0-100.0); Mean Platelet Volume 10.3 fL (9.4-12.4); Platelet Count 224 K/mcL (140-400); Red Blood Count 4.25 M/mcL (4.19-5.50); Red Cell Distribution Width 16.5 % (11.5-14.5)
[2016-05-12 08:25] LABS: BUN/Creatinine Ratio 10 (6-26); Blood Urea Nitrogen 9 mg/dL (8-26); Calcium 8.6 mg/dL (8.6-10.8); Carbon Dioxide 19 mEq/L (19-29); Chloride 112 mEq/L (98-109); Glucose 107 mg/dL (70-99); Osmolality,Calculated 289 (280-300); Sodium 140 mEq/L (136-145); eGFR For African Americans > 60 (> 60); eGFR For Non-African Americans > 60 (> 60)
[2016-05-12] MEDS: Aspirin 81 MG TAB.CHEW PO SCH (09:37)
[2016-05-12] MEDS: Folic Acid 1 MG TABLET PO SCH (09:42)
[2016-05-12] MEDS: Nystatin SUSP 5 ML UD.LIQ PO SCH ×4 (09:44→21:03)
[2016-05-12] MEDS: Isosorbide MONOnitrate (24 HR) 60 MG TAB.ER.24H PO SCH (09:44)
[2016-05-12] MEDS: Pantoprazole 40 MG VIAL IVP SCH (09:45)
[2016-05-12] MEDS: amLODIPine 5 MG TABLET PO SCH (09:46)
[2016-05-12] MEDS: RisperiDONE-M 1 MG TAB.RAPDIS PO SCH (09:46)
--- NOTE | 2016-05-12 10:24 | Neurology - Consult Note ---
<René Baxter - Last Filed: 05/12/16 13:30> Date of Encounter: 05/12/16 Time of Encounter: 10:21 Assessment and Plan (1) Altered mental state Current Visit: Yes Status: Acute The patient has apparent alteration of mentation but is difficult to discern if this is different from his baseline. The patient is answering questions and the following commands appropriately. The patient is refusing to speak at this time but assures me that he is able to utilizing head nodding. The patient has no focalized deficits on physical exam. The patient has a very flat affect. He denies any complaints at this time other than mild reproducible sternal pain on palpation. With the patient's possible history of seizures and EEG is an appropriate test at this time. Further imaging may be warranted given the patient's overall symptoms. The patient appears to be having lack of cooperation without any neurologic cardiology at this time. Psychiatric evaluation is appropriate at this time given the patient's past psychiatric disorders. There seems to be no discernible cause for the patient's symptoms at this time other than mentioned above. We will continue to monitor the patient's mental status for any acute changes. Qualifiers: Altered mental status type: unspecified Qualified Code(s): R41.82 - Altered mental status, unspecified (2) Depression Current Visit: Yes Status: Chronic Qualifiers: Depression Type: unspecified Qualified Code(s): F32.9 - Major depressive disorder, single episode, unspecified (3) Dysphagia Current Visit: Yes Status: Acute Questionable whether this is due to patient participation or true dysphagia. Qualifiers: Dysphagia type: unspecified Qualified Code(s): R13.10 - Dysphagia, unspecified (4) CKD (chronic kidney disease) Current Visit: Yes Status: Chronic Qualifiers: Chronic kidney disease stage: unspecified stage Qualified Code(s): N18.9 - Chronic kidney disease, unspecified (5) COPD (chronic obstructive pulmonary disease) Current Visit: Yes Status: Chronic Qualifiers: COPD type: unspecified COPD Qualified Code(s): J44.9 - Chronic obstructive pulmonary disease, unspecified (6) Coronary artery disease Current Visit: Yes Status: Chronic Qualifiers: Coronary Disease-Associated Artery/Lesion type: unspecified vessel or lesion type [place] vs. transplanted heart: unspecified whether [place] or transplanted heart Associated angina: angina presence unspecified Qualified Code(s): I25.10 - Atherosclerotic heart disease of [place] coronary artery without angina pectoris (7) Hypertension Current Visit: Yes Status: Chronic Qualifiers: Hypertension type: essential hypertension Qualified Code(s): I10 - Essential (primary) hypertension History of Present Illness Chief complaint: Altered mentation HPI: Mr. Mora is a 60 year old male with unclear neurologic history who has been admitted to the hospital for now day 15. The patient has been experiencing alteration of his baseline mentation according to medical team. The patient has been refusing his medications as well as further testing. The patient continues to answer intermittent questions correctly but is unclear if this is the patient . The patient was noted to be on a low-dose carbamazepine outpatient prior to arrival with an unclear history of seizure activity. The patient denies any history of seizures but is a very poor historian. The patient is currently not speaking but answering questions motioning with his hands and his head. He has a clear understanding of the questions being asked of him. He has received a psychiatric evaluation for this refusal to take medications and participate in further testing. The patient will be receiving an EEG given his possible history of seizure activity and periods of not answering questions with concern for absence seizure's according to primary team. In addition it appears as though the primary team will be performing MRI of the patient's brain to determine any other etiology of the patient's symptoms. The patient denies any complaints at this time other than mild reproducible sternal pain. The patient demonstrates no weakness or other signs of focalized deficits. Past Med Surg Social Fam HX - Past Medical History Attestation: Yes The following information was validated with the patient. Source: old records reviewed Medical history: coronary artery disease, hyperlipidemia, hypertension Psychiatric history: schizophrenia, previous psychiatric hospitalization - Past Surgical History Surgical History: angioplasty/stent - Social History Smoking Status: Current every day smoker Smokeless Tobacco Status: No Alcohol use: none Drug use: none Medications and Allergies Albuterol Sulfate [Proair Hfa] 2 puff IH Q6H PRN 04/28/16 [History] Alfuzosin HCl [Uroxatral] 10 mg PO DAILY 04/28/16 [History] Aspirin [Lo-Dose Aspirin EC] 81 mg PO DAILY 04/28/16 [History] Atorvastatin Calcium [Lipitor] 80 mg PO QPM 04/28/16 [History] CloNIDine HCl [Kapvay] 0.1 mg PO TID 04/28/16 [History] Clopidogrel [Plavix] 75 mg PO DAILY 04/28/16 [History] Cyanocobalamin (B-12) [Vitamin B12] 1,000 mcg PO DAILY 04/28/16 [History] Docusate [Colace] 200 mg PO DAILY 04/28/16 [History] Duloxetine HCl [Cymbalta] 60 mg PO BID 04/28/16 [History] Ferrous Sulfate [Iron] 325 mg PO DAILY 04/28/16 [History] Fluticasone Propionate Nasal [Flonase] 50 mcg NS DAILY 04/28/16 [History] Furosemide [Lasix] 20 mg PO DAILY 04/28/16 [History] HydrALAZINE 75 mg PO TID 04/28/16 [History] Hydrocortisone 1% CREAM [Cortaid] 1 appl TP BID 04/28/16 [History] Lidocaine 4% CRM (LMX) [Lmx 4] 1 appl TP BID PRN 04/28/16 [History] Nicotine Patch [Nicoderm] 21 mg TD DAILY 04/28/16 [History] Nicotine Polacrilex [Nicotine Lozenge] 4 mg BC Q2H PRN 04/28/16 [History] Nystatin Cream [Mycostatin Cream] 1 appl TP BID 04/28/16 [History] Oxcarbazepine [Oxtellar Xr] 600 mg PO TID 04/28/16 [History] RisperiDONE [Risperdal] 2 mg PO HS 04/28/16 [History] RisperiDONE [Risperidone] 1 mg PO BID 04/28/16 [History] Sennosides [Laxative] 17.2 mg PO DAILY PRN 04/28/16 [History] TraZODone 50 mg PO HS 04/28/16 [History] HYDROcodone/Acet 7.5/325 mg [[place] 7.5-325 mg] 1 tab PO Q6HR PRN #20 tablet [Rx] Isosorbide MONOnitrate (24 HR) [Imdur] 60 mg PO DAILY 30 Days 04/30/16 [Rx] Metoprolol XL (24 HR) Succ [Toprol Xl] 25 mg PO DAILY #30 tab.er.24h 04/30/16 [ Rx] Allergies fentanyl Allergy (Verified 04/27/16 23:01) Rash hydrogen peroxide [From Peroxyl] Allergy (Verified 04/27/16 23:01) Rash All Systems: A 10-system review of systems was performed and is negative for pertinent findings except as documented above in the HPI. - Cardiovascular Cardiovascular ROS IM: chest pain (Sternal and reproducible) - Neurological Neurological ROS: weakness (Generalized) - Psychiatric Psychiatric general PM: behavioral changes (Unsure if different from baseline), change in appetite (Upon admission from the hospital), irritability Physical Examination - Vital Signs Vital Signs: Initial Vital Signs Temp Pulse Resp BP Pulse Ox 97.6 F 74 18 101/61 98 04/27/16 23:02 04/27/16 23:02 04/27/16 23:02 04/27/16 23:02 04/27/16 23:02 - Constitutional General appearance: comfortable - Neurologic Sensorimotor examination: intact Detailed motor examination: full strength in all major muscle groups Motor examination - right side: 5/5: deltoids, biceps, triceps, wrist flexion, wrist extension, title supervisor, hip flexors, tibialis Anterior, quadriceps, toe extension (EHL), plantarflexion Motor examination - left side: 5/5: deltoids, biceps, triceps, wrist flexion, wrist extension, hip flexors, title supervisor, quadriceps, tibialis Anterior, toe extension (EHL), plantarflexion Detailed sensory examination: intact Reflexes: Biceps: 2+, Brachioradialis: 2+, Patella: 2+, Achilles: 2+ Mental Status Examination: awake, alert, follows commands appropriately, answers questions appropriately (The patient is refusing to speak at this time but is able to communicate with head nods and movement of his hands. He follows all commands correctly and answers all questions appropriately utilizing his communication of hands and head nodding. He was asked to speak to which he promptly shook his head no. He was asked if he could speak which he promptly shook his head yes.), no agnosia Cranial nerve examination: PERRL, EOMI, visual disla intact, corneal reflexes brisk symmetrically, sensory to face intact, mastication intact, no facial asymmetry is present, no dysarthria, hearing is intact symmetrically, soft palate elevates bilaterally upon phonation, gag reflex intact, flexes SCM and trapezius muscles symmetrically with full power, tongue protrudes midline, no atrophy or facial fasiculations present Cerebellar examination: no dysmetria, performs finger to nose and heel to carlson symmetrically without ataxia, no difficulty with rapid alternating movements Results - Laboratory Findings CBC and BMP: 05/12/16 05:56 05/12/16 05:56 Abnormal lab findings: Abnormal lab results Hgb 12.0 g/dL (12.9-16.9) L 05/12/16 05:56 Hct 36.6 % (37.5-50.1) L 05/12/16 05:56 RDW 16.5 % (11.5-14.5) H 05/12/16 05:56 Immature Plt Fraction 6.3 % (1.1-6.1) H 04/27/16 23:35 Polychromasia 1+ (Not Present) A 04/27/16 23:35 Anisocytosis 1+ (Not Present) A 04/27/16 23:35 Microcytosis Present (Not Present) A 04/27/16 23:35 ESR 50 mm/hr (0-10) H 05/06/16 05:28 Chloride 112 mEq/L (98-109) H 05/12/16 05:56 Glucose 107 mg/dL (70-99) H 05/12/16 05:56 POC Glucose 110 (58-89) H 05/10/16 01:15 Iron 23 mcg/dL (65-175) L 04/28/16 05:39 % Saturation 11 % (20-55) L 04/28/16 05:39 Transferrin 152 mg/dL (174-364) L 04/28/16 05:39 Troponin I 0.05 ng/mL (0-0.03) H* 04/28/16 05:39 Serum Total Protein 5.8 g/dL (6.0-8.3) L 04/28/16 05:39 Albumin 3.0 g/dL (3.5-5.0) L 04/28/16 05:39 HDL Cholesterol 26 mg/dL (40-59) L 04/28/16 05:39 Folate 5.1 ng/mL (7.0-31.4) L 05/06/16 05:28 Urine Clarity Cloudy (Clear) A 05/07/16 05:44 Urine Protein 30 mg/dL (Neg-Trace) H 05/07/16 05:44 Urine Bilirubin Small (Negative) H 05/07/16 05:44 Ur Leukocyte Esterase Small (Negative) H 05/07/16 05:44 Urine Microscopic WBC 15-30 per hpf (0-3) H 05/07/16 05:44 Ur Squamous Epith Cells Many per lpf (None-Few) H 05/07/16 05:44 Urine Mucus Moderate (Few) H 05/07/16 05:44 Ur Culture Indicated? YES (NO) A 05/07/16 05:44 - Attending Attestation I examined this patient and my medical decision-making was reviewed with the Resident Physician. I agree with the documented findings, disposition and treatment plan as described except to the extent set forth below. Consult Discharge Plan - Plan [facility]errals: [facility] [Primary Care Provider] - (Patient will follow up with the CT PCP from the unit admitted to) Prescriptions: HYDROcodone/Acet 7.5/325 mg [[place] 7.5-325 mg] 1 tab PO Q6HR PRN #20 tablet PRN Reason: Pain Isosorbide MONOnitrate (24 HR) [Imdur] 60 mg PO DAILY 30 Days Metoprolol XL (24 HR) Succ [Toprol Xl] 25 mg PO DAILY #30 tab.er.24h <Melvi Rodriguez I - Last Filed: 05/12/16 15:40> Assessment and Plan (1) Altered mental state Current Visit: Yes Status: Acute I examined this patient and my medical decision-making was reviewed with the Resident Physician. I agree with the documented findings, disposition and treatment plan will review EEG in mean time continue to treat underlying etiology Melvi Rodriguez MD Qualifiers: Altered mental status type: unspecified Qualified Code(s): R41.82 - Altered mental status, unspecified History of Present Illness HPI: Mr. Mora is a 60 year old male All Systems: A 10-system review of systems was performed and is negative for pertinent findings except as documented above in the HPI. Physical Examination - Vital Signs Vital Signs: Initial Vital Signs Temp Pulse Resp BP Pulse Ox 97.6 F 74 18 101/61 98 04/27/16 23:02 04/27/16 23:02 04/27/16 23:02 04/27/16 23:02 04/27/16 23:02 Results - Laboratory Findings CBC and BMP: 05/12/16 05:56 05/12/16 05:56 Abnormal lab findings: Abnormal lab results Hgb 12.0 g/dL (12.9-16.9) L 05/12/16 05:56 Hct 36.6 % (37.5-50.1) L 05/12/16 05:56 RDW 16.5 % (11.5-14.5) H 05/12/16 05:56 Immature Plt Fraction 6.3 % (1.1-6.1) H 04/27/16 23:35 Polychromasia 1+ (Not Present) A 04/27/16 23:35 Anisocytosis 1+ (Not Present) A 04/27/16 23:35 Microcytosis Present (Not Present) A 04/27/16 23:35 ESR 50 mm/hr (0-10) H 05/06/16 05:28 Chloride 112 mEq/L (98-109) H 05/12/16 05:56 Glucose 107 mg/dL (70-99) H 05/12/16 05:56 POC Glucose 109 (58-89) H 05/12/16 12:03 Iron 23 mcg/dL (65-175) L 04/28/16 05:39 % Saturation 11 % (20-55) L 04/28/16 05:39 Transferrin 152 mg/dL (174-364) L 04/28/16 05:39 Troponin I 0.05 ng/mL (0-0.03) H* 04/28/16 05:39 Serum Total Protein 5.8 g/dL (6.0-8.3) L 04/28/16 05:39 Albumin 3.0 g/dL (3.5-5.0) L 04/28/16 05:39 HDL Cholesterol 26 mg/dL (40-59) L 04/28/16 05:39 Folate 5.1 ng/mL (7.0-31.4) L 05/06/16 05:28 Urine Clarity Cloudy (Clear) A 05/07/16 05:44 Urine Protein 30 mg/dL (Neg-Trace) H 05/07/16 05:44 Urine Bilirubin Small (Negative) H 05/07/16 05:44 Ur Leukocyte Esterase Small (Negative) H 05/07/16 05:44 Urine Microscopic WBC 15-30 per hpf (0-3) H 05/07/16 05:44 Ur Squamous Epith Cells Many per lpf (None-Few) H 05/07/16 05:44 Urine Mucus Moderate (Few) H 05/07/16 05:44 Ur Culture Indicated? YES (NO) A 05/07/16 05:44
[2016-05-12] MEDS: Fluconazole 100 MG/50 ML 100 MG/50 ML BAG IVPB SCH (10:34)
[2016-05-12] MEDS: Magic Mouthwash 10 ML UD Cup PO SCH ×2 (15:29→21:03)
--- NOTE | 2016-05-12 16:09 | EEG/EMG/Oth Biometrics Report ---
EEG Procedure Report Date of procedure: 05/12/16 EEG Procedure: Routine EEG Procedure Note: Patient with mental status changes transferred from the [facility] Routine EEG Routine 18-channel digital EEG was obtained to rule out any seizure activity or focal abnormalities. FINDINGS: Background rhythm during awake stage shows well-organized, well- developed, average voltage 8 to 9 hertz alpha activity in the posterior regions. It blocks with eye opening and it is bilaterally synchronous and symmetrical. No [id number] discharges or any lateralizing abnormalities are seen. Photic stimulation did not produce any abnormalities. Hyperventilation was not performed. No abnormalities were found during the procedure. There is some intermittent frontal temporal sharp activity noted without any obvious epileptiform discharges, Intermittent EMG artifacts were seen. Stage II sleep was not achieved. IMPRESSION: Normal awake study. No epileptiform discharges or any other paroxysmal activities or focal abnormalities seen. Clinical correlation is recommended.
--- NOTE | 2016-05-12 16:34 | Internal Med Progress Note ---
<Kong Palencia - Last Filed: 05/12/16 16:45> Date of Encounter: 05/12/16 Time of Encounter: 13:10 - Assessment and plan (1) Altered mental state Current Visit: Yes Status: Acute Assessment and plan: Etiology unclear at this time. However currently alert and protecting airway. Hypertensive encephalopathy? blood pressure better controlled but continues to be altered EEG is normal. Infection? Unlikely as he has been afebrile mental status changes occured prior to UTI and leukocytosis. Psychiatric? Possible patient was transferred from [facility]? Negative effects of Schizophrenia? Catatonia? However is not rigid. Psych is following along and we would appreciate their input. Patient dose have history of Psychosis and Visual hallucinations. Per history. However I had a long discussion with the this afternoon. she denies patient having hallucinations in the past. She states that he only had PTSD. She states that he was very strong and " normal " prior to april 07 when he had spinal stimulator placed. Reportedly they had use large amounts of anesthetics. 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 We will get an MRI to rule out structural disease or infarct. MRI staff is reviewing patients inplants to make certain it is compatable with MRI. we will continue PRN haldol Qualifiers: Altered mental status type: unspecified Qualified Code(s): R41.82 - Altered mental status, unspecified (2) Dysphagia Current Visit: Yes Status: Acute Assessment and plan: I think this is secondary to thrush. Likely candidal esophagitis. We will treat and see if he improves. Qualifiers: Dysphagia type: unspecified Qualified Code(s): R13.10 - Dysphagia, unspecified (3) Accelerated hypertension Current Visit: Yes Status: Acute Assessment and plan: secondary to not taking PO medications still above goal We will add scheduled hydralazine (4) Leukocytosis Current Visit: Yes Status: Acute Assessment and plan: resolved Qualifiers: Qualified Code(s): D72.829 - Elevated white blood cell count, unspecified (5) UTI (urinary tract infection) Current Visit: Yes Status: Acute Assessment and plan: continue rocephin day 4 Qualifiers: Qualified Code(s): N39.0 - Urinary tract infection, site not specified (6) Coronary artery disease Current Visit: Yes Status: Chronic Assessment and plan: stacy reportedly has had 9 stents in the past. Qualifiers: Coronary Disease-Associated Artery/Lesion type: unspecified vessel or lesion type [place] vs. transplanted heart: unspecified whether [place] or transplanted heart Associated angina: angina presence unspecified Qualified Code(s): I25.10 - Atherosclerotic heart disease of [place] coronary artery without angina pectoris (7) Thrush Current Visit: Yes Status: Acute Assessment and plan: fluconazole Miracle mouth wash (8) DVT prophylaxis Current Visit: Yes Status: Acute Assessment and plan: SQ heparin. barriers to DC. Patient still altered. will need to determine before transferring to [place]. - Subjective Interval history: No major events overnight documented. chas complains of sore throat this AM. He is much more talkative today. He denies any chest pain or dyspnea. He dose state he had breakfast with sausage and gravy however he has been NPO. He denies any further complaints at this time. . - Constitutional Vitals: Temp Pulse Resp BP Pulse Ox 99.2 F 63 17 168/88 98 05/12/16 15:33 05/12/16 15:33 05/12/16 15:33 05/12/16 15:33 05/12/16 15:33 General appearance: Present: A&O X 1, disheveled, obese - Head Head exam: Present: atraumatic, normocephalic - Eye Eye exam: Present: PERRL, conjuntiva pink, sclera anicteric Pupils: Present: PERRL - ENT Additional comments: thrush on buccal mucosa and posterior pharynx - Neck Neck exam general surgery: Present: supple, trachea midline. Absent: lymphadenopathy - Respiratory Respiratory exam: Present: CTAB. Absent: accessory muscle use, rales, rhonchi, wheezes - Cardiovascular Cardiovascular exam: Present: RRR, +S1, +S2. Absent: diastolic murmur, gallop, rubs, systolic murmur - Extremities Exam Extremities exam: Present: warm, radial pulses palpable and symetrical. Absent : calf tenderness, cyanotic, pedal edema Internal Medicine: Result - Labs CBC & Chem 7: 05/12/16 05:56 05/12/16 05:56 Labs: Short CBC 05/12/16 Range/Units 05:56 WBC 10.8 (4.3-11.1) K/mcL Hgb 12.0 L (12.9-16.9) g/dL Hct 36.6 L (37.5-50.1) % Plt Count 224 (140-400) K/mcL BMP 05/12/16 05:56 Sodium 140 Potassium 4.0 Chloride 112 H Carbon Dioxide 19 BUN 9 Creatinine 0.88 Glucose 107 H Calcium 8.6 - Impressions Impressions Pelvis CT 05/07/16 20:56 IMPRESSION: 1. No acute findings identified in the pelvis. 2. There is a 3 cm infrarenal abdominal aortic aneurysm. RECOMMENDATIONS: Managing Abdominal Aortic Aneurysms 2.6-2.9 cm: 5 year follow up. 3.0-3.4 cm: 3 year follow up 3.5-3.9 cm: 1 year follow up. 4.0-4.4 cm: 1 year follow up. Recommend vascular consultation. 4.5-5.4 cm: 6 month follow up. Recommend vascular consultation. Greater than or equal to 5.5 cm: Referral to vascular surgeon. Reference: Annette et al. The care of patients with an abdominal aortic aneurysm: The Society of Vascular Surgery practice guidelines. Journal of Vascular Surgery. Vol 50, Number 85. Reeseosa et al. Managing Incidental Findings on Abdominal and Pelvic CT and MRI, Part 2: White Paper of the ACR Incidental Findings Committee II on Vascular Findings. J Am Denys Radiol 2013;10:789-794 D/ / 05/08/2016 07:55:33 Janes Rodriguez MD / Tanisha Gastelum Interpreting Provider: Janes Rodriguez MD Thoracic Spine CT 05/07/16 20:56 IMPRESSION: No CT findings of thoraco lumbar spinal infection. Spinal stimulator via T11-12 interlaminar approach, distal tip in dorsal epidural space at T8. L4-5 grade 1 anterolisthesis, with solid interbody fusion and incorporated spinous prosthesis. 3.1 cm infrarenal aortic aneurysm. RECOMMENDATIONS: Managing Abdominal Aortic Aneurysms 3.0-3.4 cm: 3 year follow up Reference: Annette et al. The care of patients with an abdominal aortic aneurysm: The Society of Vascular Surgery practice guidelines. Journal of Vascular Surgery. Vol 50, Number 85. Reeseosa et al. Managing Incidental Findings on Abdominal and Pelvic CT and MRI, Part 2: White Paper of the ACR Incidental Findings Committee II on Vascular Findings. J Am Denys Radiol 2013;10:789-794 D/ / Debi Arrieta MD / Debi Arrieta MD Interpreting Provider: Debi Arrieta MD Consult Discharge Plan - Plan [facility]errals: [facility] [Primary Care Provider] - (Patient will follow up with the [place] PCP from the unit admitted to) Prescriptions: HYDROcodone/Acet 7.5/325 mg [[place] 7.5-325 mg] 1 tab PO Q6HR PRN #20 tablet PRN Reason: Pain Isosorbide MONOnitrate (24 HR) [Imdur] 60 mg PO DAILY 30 Days Metoprolol XL (24 HR) Succ [Toprol Xl] 25 mg PO DAILY #30 tab.er.24h <David Russo P - Last Filed: 05/12/16 18:42> - Constitutional Vitals: Temp Pulse Resp BP Pulse Ox 99.2 F 63 17 168/88 98 05/12/16 15:33 05/12/16 15:33 05/12/16 15:33 05/12/16 15:33 05/12/16 15:33 Internal Medicine: Result - Labs CBC & Chem 7: 05/12/16 05:56 05/12/16 05:56 Labs: Short CBC 05/12/16 Range/Units 05:56 WBC 10.8 (4.3-11.1) K/mcL Hgb 12.0 L (12.9-16.9) g/dL Hct 36.6 L (37.5-50.1) % Plt Count 224 (140-400) K/mcL BMP 05/12/16 05:56 Sodium 140 Potassium 4.0 Chloride 112 H Carbon Dioxide 19 BUN 9 Creatinine 0.88 Glucose 107 H Calcium 8.6 - Impressions Impressions Pelvis CT 05/07/16 20:56 IMPRESSION: 1. No acute findings identified in the pelvis. 2. There is a 3 cm infrarenal abdominal aortic aneurysm. RECOMMENDATIONS: Managing Abdominal Aortic Aneurysms 2.6-2.9 cm: 5 year follow up. 3.0-3.4 cm: 3 year follow up 3.5-3.9 cm: 1 year follow up. 4.0-4.4 cm: 1 year follow up. Recommend vascular consultation. 4.5-5.4 cm: 6 month follow up. Recommend vascular consultation. Greater than or equal to 5.5 cm: Referral to vascular surgeon. Reference: Annette et al. The care of patients with an abdominal aortic aneurysm: The Society of Vascular Surgery practice guidelines. Journal of Vascular Surgery. Vol 50, Number 85. Khosa et al. Managing Incidental Findings on Abdominal and Pelvic CT and MRI, Part 2: White Paper of the ACR Incidental Findings Committee II on Vascular Findings. J Am Denys Radiol 2013;10:789-794 D/ / 05/08/2016 07:55:33 Janes Rodriguez MD / Tanisha Gastelum Interpreting Provider: Janes Rodriguez MD Thoracic Spine CT 05/07/16 20:56 IMPRESSION: No CT findings of thoraco lumbar spinal infection. Spinal stimulator via T11-12 interlaminar approach, distal tip in dorsal epidural space at T8. L4-5 grade 1 anterolisthesis, with solid interbody fusion and incorporated spinous prosthesis. 3.1 cm infrarenal aortic aneurysm. RECOMMENDATIONS: Managing Abdominal Aortic Aneurysms 3.0-3.4 cm: 3 year follow up Reference: Annette et al. The care of patients with an abdominal aortic aneurysm: The Society of Vascular Surgery practice guidelines. Journal of Vascular Surgery. Vol 50, Number 85. Khosa et al. Managing Incidental Findings on Abdominal and Pelvic CT and MRI, Part 2: White Paper of the ACR Incidental Findings Committee II on Vascular Findings. J Am Denys Radiol 2013;10:789-794 D/ / Debi Arrieta MD / Debi Arrieta MD Interpreting Provider: Debi Arrieta MD Brain MRI 05/12/16 00:00 IMPRESSION: No acute infarct. D/ / Emerson Geller MD / Emerson Geller MD Interpreting Provider: Emerson Geller MD - Attending Attestation I examined this patient and my medical decision-making was reviewed with the SENIOR INSPECTOR/PA/Advanced Practice Nurse/Resident Physician. I agree with the documented findings, disposition and treatment plan as described except to the extent set forth below.
[2016-05-12] MEDS: Thiamine (B-1) 100 MG, Folic Acid 1 MG, MVI, adult with vitamin K 10 ML in 0.9 % Sodi... IVPB SCH (17:03)
[2016-05-13] MEDS: *HR* Metoprolol 5 MG/5 ML VIAL IVP SCH ×3 (05:25→18:52)
[2016-05-13] MEDS: *HR* Heparin 5,000 UNIT/ML VIAL SQ SCH ×2 (05:27→18:52)
[2016-05-13 06:55] LABS: Basophils % 0.2 %; Eosinophils # 0.3 K/mcL (0.0-0.6); Eosinophils % 2.4 %; Hemoglobin 11.3 g/dL (12.9-16.9); Immature Granulocytes % 0.3 % (0-4); Lymphocytes # 2.9 K/mcL (0.6-4.6); Lymphocytes % 27.7 %; Mean Corpuscular HGB Conc 33.2 g/dL (31.6-35.5); Mean Corpuscular Hemoglobin 28.3 pg (28.0-33.3); Mean Corpuscular Volume 85.2 fL (83.0-100.0); Mean Platelet Volume 9.6 fL (9.4-12.4); Monocytes # 0.9 K/mcL (0.0-1.3); Monocytes % 8.4 %; Neutrophils # 6.4 K/mcL (1.6-8.9); Platelet Count 223 K/mcL (140-400); Red Blood Count 3.99 M/mcL (4.19-5.50); Red Cell Distribution Width 15.9 % (11.5-14.5)
[2016-05-13 07:14] LABS: BUN/Creatinine Ratio 10 (6-26); Blood Urea Nitrogen 8 mg/dL (8-26); Calcium 8.7 mg/dL (8.6-10.8); Carbon Dioxide 22 mEq/L (19-29); Chloride 109 mEq/L (98-109); Glucose 110 mg/dL (70-99); Osmolality,Calculated 289 (280-300); Potassium 3.3 mEq/L (3.5-4.5); Sodium 140 mEq/L (136-145); eGFR For African Americans > 60 (> 60); eGFR For Non-African Americans > 60 (> 60)
--- NOTE | 2016-05-13 09:50 | Neurology Progress Note ---
Date of Encounter: 05/13/16 Time of Encounter: 09:47 Assessment and Plan (1) Altered mental state Current Visit: Yes Status: Acute Patient's imaging and testing, MRI and EEG, demonstrated no acute process. The patient is answering questions correctly with the exception of the date. The patient has no focalization of any deficits. He is able to follow commands without difficulty. We will follow the patient as needed. Qualifiers: Altered mental status type: unspecified Qualified Code(s): R41.82 - Altered mental status, unspecified (2) Depression Current Visit: Yes Status: Chronic Qualifiers: Depression Type: unspecified Qualified Code(s): F32.9 - Major depressive disorder, single episode, unspecified (3) Dysphagia Current Visit: Yes Status: Acute Qualifiers: Dysphagia type: unspecified Qualified Code(s): R13.10 - Dysphagia, unspecified (4) CKD (chronic kidney disease) Current Visit: Yes Status: Chronic Qualifiers: Chronic kidney disease stage: unspecified stage Qualified Code(s): N18.9 - Chronic kidney disease, unspecified (5) COPD (chronic obstructive pulmonary disease) Current Visit: Yes Status: Chronic Qualifiers: COPD type: unspecified COPD Qualified Code(s): J44.9 - Chronic obstructive pulmonary disease, unspecified (6) Coronary artery disease Current Visit: Yes Status: Chronic Qualifiers: Coronary Disease-Associated Artery/Lesion type: unspecified vessel or lesion type [place] vs. transplanted heart: unspecified whether [place] or transplanted heart Associated angina: angina presence unspecified Qualified Code(s): I25.10 - Atherosclerotic heart disease of [place] coronary artery without angina pectoris (7) Hypertension Current Visit: Yes Status: Chronic Qualifiers: Hypertension type: essential hypertension Qualified Code(s): I10 - Essential (primary) hypertension Subjective Principal diagnosis: Syncope Interval history: Patient EEG and MRI were negative for any acute findings. The patient appears to be mentating appropriately at this time. He answered all questions correctly and was able to follow commands without difficulty. The patient did have 1 episode of urinary incontinence prior to examination in the room. The patient denies any other complaints at this time. Objective - Constitutional Vitals: Temp Pulse Resp BP Pulse Ox 98.4 F 78 18 195/92 97 05/13/16 07:45 05/13/16 07:45 05/13/16 07:45 05/13/16 07:45 05/13/16 07:45 General appearance: Present: A&O X 2 (Patient did not know the year.), pleasant , no acute distress, answers questions appropriately - Neurological Exam Sensorimotor examination: Present: intact Motor Examination: Present: full strength in all major muscle groups Motor examination - right side: 5/5: deltoids, biceps, triceps, wrist flexion, wrist extension, open source developer, hip flexors, tibialis Anterior, quadriceps, toe extension (EHL), plantarflexion Motor examination - left side: 5/5: deltoids, biceps, triceps, wrist flexion, wrist extension, hip flexors, open source developer, quadriceps, tibialis Anterior, toe extension (EHL), plantarflexion Sensation intact: Present: intact Reflexes: Biceps: 2+, Patella: 2+ Mental Status Examination: Present: awake, alert, follows commands appropriately , answers questions appropriately (Patient was unable to elicit a year but knew location, and his name. He was able to recall my name upon questioning as well as 3 random objects given to the patient initially during the examination. He was able to recall these roughly 5 minutes later.), no agnosia, no aphasia, no aproxia Cranial nerve examination: Present: PERRL, EOMI, visual disla intact, corneal reflexes brisk symmetrically, sensory to face intact, mastication intact, no facial asymmetry is present, no dysarthria, hearing is intact symmetrically, soft palate elevates bilaterally upon phonation, gag reflex intact, flexes SCM and trapezius muscles symmetrically with full power, tongue protrudes midline, no atrophy or facial fasiculations present Cerebellar examination: Present: no dysmetria, performs finger to nose and heel to carlson symmetrically without ataxia, no difficulty with rapid alternating movements Results - Laboratory Findings CBC and BMP: 05/13/16 06:17 05/13/16 06:17 Abnormal lab findings: Abnormal lab results RBC 3.99 M/mcL (4.19-5.50) L 05/13/16 06:17 Hgb 11.3 g/dL (12.9-16.9) L 05/13/16 06:17 Hct 34.0 % (37.5-50.1) L 05/13/16 06:17 RDW 15.9 % (11.5-14.5) H 05/13/16 06:17 Immature Plt Fraction 6.3 % (1.1-6.1) H 04/27/16 23:35 Polychromasia 1+ (Not Present) A 04/27/16 23:35 Anisocytosis 1+ (Not Present) A 04/27/16 23:35 Microcytosis Present (Not Present) A 04/27/16 23:35 ESR 50 mm/hr (0-10) H 05/06/16 05:28 Potassium 3.3 mEq/L (3.5-4.5) L 05/13/16 06:17 Glucose 110 mg/dL (70-99) H 05/13/16 06:17 POC Glucose 99 (58-89) H 05/13/16 07:42 Iron 23 mcg/dL (65-175) L 04/28/16 05:39 % Saturation 11 % (20-55) L 04/28/16 05:39 Transferrin 152 mg/dL (174-364) L 04/28/16 05:39 Troponin I 0.05 ng/mL (0-0.03) H* 04/28/16 05:39 Serum Total Protein 5.8 g/dL (6.0-8.3) L 04/28/16 05:39 Albumin 3.0 g/dL (3.5-5.0) L 04/28/16 05:39 HDL Cholesterol 26 mg/dL (40-59) L 04/28/16 05:39 Folate 5.1 ng/mL (7.0-31.4) L 05/06/16 05:28 Urine Clarity Cloudy (Clear) A 05/07/16 05:44 Urine Protein 30 mg/dL (Neg-Trace) H 05/07/16 05:44 Urine Bilirubin Small (Negative) H 05/07/16 05:44 Ur Leukocyte Esterase Small (Negative) H 05/07/16 05:44 Urine Microscopic WBC 15-30 per hpf (0-3) H 05/07/16 05:44 Ur Squamous Epith Cells Many per lpf (None-Few) H 05/07/16 05:44 Urine Mucus Moderate (Few) H 05/07/16 05:44 Ur Culture Indicated? YES (NO) A 05/07/16 05:44 Consult Discharge Plan - Plan [facility]errals: [facility]Primary Care Provider[facility] - ([facility]) Prescriptions: HYDROcodone/Acet 7.5/325 mg [[place] 7.5-325 mg] 1 tab PO Q6HR PRN #20 tablet PRN Reason: Pain Isosorbide MONOnitrate (24 HR) [Imdur] 60 mg PO DAILY 30 Days Metoprolol XL (24 HR) Succ [Toprol Xl] 25 mg PO DAILY #30 tab.er.24h - Attending Attestation I examined this patient and my medical decision-making was reviewed with the Resident Physician. I agree with the documented findings, disposition and treatment plan as described except to the extent set forth below.
[2016-05-13] MEDS: D5% in 0.45% NACL w KCl 20 MEQ/1,000 ML MLS IVC SCH (14:08)
--- NOTE | 2016-05-13 14:19 | Internal Med Progress Note ---
<Kong Palencia - Last Filed: 05/13/16 15:13> Date of Encounter: 05/13/16 Time of Encounter: 11:10 - Assessment and plan (1) Altered mental state Current Visit: Yes Status: Acute Assessment and plan: Etiology unclear at this time. However currently alert and protecting airway. He is much more conversant today. Hypertensive encephalopathy? blood pressure better controlled but continues to be altered EEG is normal. MRI of the brain showed no acute findings. Infection? Unlikely as he has been afebrile mental status changes occured prior to UTI and leukocytosis. Additionally is had a CT scan of the lumbar spine and pelvis no abscess was noted. Also leukocytosis has now resolved. Psychiatric? Possible patient was transferred from [facility]? Negative effects of Schizophrenia? Catatonia? However is not rigid. Psych is following along and we would appreciate their input. Patient dose have history of Psychosis and Visual hallucinations. Per history. Given the generally negative workup thus far I would lean more toward a psychiatric cause. Additionally I think the thrushes was keeping him from eating drinking or taking oral medications. Patient does remain confused. We will continue to look for causes. However once he is eating and drinking he may be stable for discharge at that time. As the workup thus far has been negative. Qualifiers: Altered mental status type: unspecified Qualified Code(s): R41.82 - Altered mental status, unspecified (2) Dysphagia Current Visit: Yes Status: Acute Assessment and plan: I think this is secondary to thrush. Likely candidal esophagitis.\ Fluconazole and miracle mouthwash. Qualifiers: Dysphagia type: unspecified Qualified Code(s): R13.10 - Dysphagia, unspecified (3) Accelerated hypertension Current Visit: Yes Status: Acute Assessment and plan: secondary to not taking PO medications still above goal Increase scheduled hydralazine. (4) Leukocytosis Current Visit: Yes Status: Acute Assessment and plan: resolved Qualifiers: Qualified Code(s): D72.829 - Elevated white blood cell count, unspecified (5) UTI (urinary tract infection) Current Visit: Yes Status: Acute Assessment and plan: continue rocephin day 5 Qualifiers: Qualified Code(s): N39.0 - Urinary tract infection, site not specified (6) Coronary artery disease Current Visit: Yes Status: Chronic Assessment and plan: stacy reportedly has had 9 stents in the past. Qualifiers: Coronary Disease-Associated Artery/Lesion type: unspecified vessel or lesion type [place] vs. transplanted heart: unspecified whether [place] or transplanted heart Associated angina: angina presence unspecified Qualified Code(s): I25.10 - Atherosclerotic heart disease of [place] coronary artery without angina pectoris (7) Thrush Current Visit: Yes Status: Acute Assessment and plan: fluconazole Miracle mouth wash (8) DVT prophylaxis Current Visit: Yes Status: Acute Assessment and plan: SQ heparin. barriers to DC. Patient still altered. I think likely secondary to psych. Thyroid he has a severe thrush and will need to treated and oriented oral medications and heat prior to discharging - Subjective Interval history: Measurements overnight. The patient is much more orientated today. However he still has some confusions. However he is much more conversant this morning. He does complain of continued throat pain. Emesis and chronic lower back pain. Denies any chest pain dyspnea nausea vomiting abdominal pain. He has no further complaints or concerns at this time. We will he is currently not available to discuss chronic care - Constitutional Vitals: Temp Pulse Resp BP Pulse Ox 98.8 F 80 18 168/92 97 05/13/16 11:58 05/13/16 11:58 05/13/16 11:58 05/13/16 11:58 05/13/16 11:58 Exam: General: This is a well-developed well-nourished 60-year-old male who is alert and orientated only to person. He is lying that appears to be comfortable and in no acute distress at this time. He is just helpful out his IV. Head: Head is cephalic and atraumatic. EENT: Anicteric sclera, pupils equally round reactive to light palpation. Normal external appearance of the ears nose denies. It is difficult to examine the oropharynx is the patient is refusing to do this. However I did note some mild oral thrush briefly. Appears to be improving somewhat from yesterday. Without masses thyromegaly. No cervical submandibular or supraclavicular lymphadenopathy palpable on exam. Heart: Regular rhythm without murmurs rubs or gallops. Lungs: Clear to auscultation bilaterally. Normal effort of breathing. Abdomen: Nondistended, bowel sounds positive all quadrants. No tenderness to palpation. Musculoskeletal: Grossly normal for age no gross deformity noted. Extremities: No clubbing, cyanosis or edema. Integument: No rashes or lesions does have multiple punctate scarring on the lower extremities bilaterally Internal Medicine: Result - Labs CBC & Chem 7: 05/13/16 06:17 05/13/16 06:17 Labs: Short CBC 05/13/16 Range/Units 06:17 WBC 10.5 (4.3-11.1) K/mcL Hgb 11.3 L (12.9-16.9) g/dL Hct 34.0 L (37.5-50.1) % Plt Count 223 (140-400) K/mcL Neutrophils # 6.4 (1.6-8.9) K/mcL BMP 05/13/16 06:17 Sodium 140 Potassium 3.3 L Chloride 109 Carbon Dioxide 22 BUN 8 Creatinine 0.80 Glucose 110 H Calcium 8.7 - Impressions Impressions Brain MRI 05/12/16 00:00 IMPRESSION: No acute infarct. D/ / Emerson Geller MD / Emerson Geller MD Interpreting Provider: Emerson Geller MD Consult Discharge Plan - Plan [facility]errals: [facility] [Primary Care Provider] - (Patient will follow up with the [facility] PCP from the unit admitted to) Prescriptions: HYDROcodone/Acet 7.5/325 mg [[place] 7.5-325 mg] 1 tab PO Q6HR PRN #20 tablet PRN Reason: Pain Isosorbide MONOnitrate (24 HR) [Imdur] 60 mg PO DAILY 30 Days Metoprolol XL (24 HR) Succ [Toprol Xl] 25 mg PO DAILY #30 tab.er.24h <David Russo P - Last Filed: 05/13/16 18:39> - Constitutional Vitals: Temp Pulse Resp BP Pulse Ox 98.6 F 65 16 165/85 98 05/13/16 16:19 05/13/16 16:19 05/13/16 16:19 05/13/16 16:19 05/13/16 16:19 Internal Medicine: Result - Labs CBC & Chem 7: 05/13/16 06:17 05/13/16 06:17 Labs: Short CBC 05/13/16 Range/Units 06:17 WBC 10.5 (4.3-11.1) K/mcL Hgb 11.3 L (12.9-16.9) g/dL Hct 34.0 L (37.5-50.1) % Plt Count 223 (140-400) K/mcL Neutrophils # 6.4 (1.6-8.9) K/mcL BMP 05/13/16 06:17 Sodium 140 Potassium 3.3 L Chloride 109 Carbon Dioxide 22 BUN 8 Creatinine 0.80 Glucose 110 H Calcium 8.7 - Attending Attestation I examined this patient and my medical decision-making was reviewed with the FLATBED OWNER OPERATOR/PA/Advanced Practice Nurse/Resident Physician. I agree with the documented findings, disposition and treatment plan as described except to the extent set forth below. will speak to family most of the work up is with in normal limit if persists then will transfer to tertiary care.
[2016-05-13] MEDS: *HR* Morphine 2 MG/ML SYRINGE IVP PRN ×2 (14:25→22:48)
[2016-05-13] MEDS: Aspirin 81 MG TAB.CHEW PO SCH (17:26)
[2016-05-13] MEDS: Fluconazole 100 MG/50 ML 100 MG/50 ML BAG IVPB SCH (17:39)
[2016-05-13] MEDS: Isosorbide MONOnitrate (24 HR) 60 MG TAB.ER.24H PO SCH (17:39)
[2016-05-13] MEDS: Folic Acid 1 MG TABLET PO SCH (17:39)
[2016-05-13] MEDS: Nystatin SUSP 5 ML UD.LIQ PO SCH ×2 (17:40→22:09)
[2016-05-13] MEDS: amLODIPine 5 MG TABLET PO SCH (17:40)
[2016-05-13] MEDS: Magic Mouthwash 10 ML UD Cup PO SCH ×2 (17:40→22:09)
[2016-05-13] MEDS: Pantoprazole 40 MG VIAL IVP SCH (17:40)
[2016-05-13] MEDS: RisperiDONE-M 1 MG TAB.RAPDIS PO SCH (17:41)
[2016-05-13] MEDS: Thiamine (B-1) 100 MG, Folic Acid 1 MG, MVI, adult with vitamin K 10 ML in 0.9 % Sodi... IVPB SCH (18:52)
[2016-05-13] MEDS: Ondansetron 4 MG/2 ML VIAL IVP PRN (19:53)
[2016-05-14] MEDS: *HR* Metoprolol 5 MG/5 ML VIAL IVP SCH ×3 (00:24→11:21)
[2016-05-14] MEDS: D5% in 0.45% NACL w KCl 20 MEQ/1,000 ML MLS IVC SCH ×2 (02:57→03:16)
[2016-05-14 03:59] LABS: Basophils % 0.2 %; Eosinophils # 0.3 K/mcL (0.0-0.6); Eosinophils % 3.3 %; Hematocrit 33.1 % (37.5-50.1); Hemoglobin 10.9 g/dL (12.9-16.9); Immature Granulocytes % 0.4 % (0-4); Lymphocytes # 2.9 K/mcL (0.6-4.6); Lymphocytes % 35.1 %; Mean Corpuscular HGB Conc 32.9 g/dL (31.6-35.5); Mean Corpuscular Hemoglobin 28.2 pg (28.0-33.3); Mean Corpuscular Volume 85.5 fL (83.0-100.0); Mean Platelet Volume 9.8 fL (9.4-12.4); Monocytes # 0.8 K/mcL (0.0-1.3); Monocytes % 9.6 %; Neutrophils # 4.3 K/mcL (1.6-8.9); Platelet Count 222 K/mcL (140-400); Red Blood Count 3.87 M/mcL (4.19-5.50); Red Cell Distribution Width 15.9 % (11.5-14.5); Segmented Neutrophils % 51.4 %
[2016-05-14 04:12] LABS: BUN/Creatinine Ratio 9 (6-26); Blood Urea Nitrogen 7 mg/dL (8-26); Calcium 8.4 mg/dL (8.6-10.8); Carbon Dioxide 23 mEq/L (19-29); Chloride 109 mEq/L (98-109); Glucose 109 mg/dL (70-99); Osmolality,Calculated 291 (280-300); Potassium 3.1 mEq/L (3.5-4.5); Sodium 141 mEq/L (136-145); eGFR For African Americans > 60 (> 60); eGFR For Non-African Americans > 60 (> 60)
[2016-05-14] MEDS: *HR* Heparin 5,000 UNIT/ML VIAL SQ SCH (05:32)
[2016-05-14] MEDS: Ondansetron 4 MG/2 ML VIAL IVP PRN ×2 (05:33→11:19)
--- NOTE | 2016-05-14 08:10 | Discharge Summary ---
<Kong Palencia - Last Filed: 05/14/16 08:05> Date of Encounter: 05/14/16 Time of Encounter: 08:05 - Discharge Diagnosis (1) Altered mental state Priority: Primary Status: Acute Qualifiers: Altered mental status type: unspecified Qualified Code(s): R41.82 - Altered mental status, unspecified (2) Dysphagia Status: Acute Qualifiers: Dysphagia type: unspecified Qualified Code(s): R13.10 - Dysphagia, unspecified (3) Accelerated hypertension Status: Acute (4) Leukocytosis Status: Acute Qualifiers: Qualified Code(s): D72.829 - Elevated white blood cell count, unspecified (5) UTI (urinary tract infection) Status: Acute Qualifiers: Qualified Code(s): N39.0 - Urinary tract infection, site not specified (6) Coronary artery disease Status: Chronic Qualifiers: Coronary Disease-Associated Artery/Lesion type: unspecified vessel or lesion type [place] vs. transplanted heart: unspecified whether [place] or transplanted heart Associated angina: angina presence unspecified Qualified Code(s): I25.10 - Atherosclerotic heart disease of [place] coronary artery without angina pectoris (7) Thrush Status: Acute (8) DVT prophylaxis Status: Acute - Discharge Medications Prescriptions: CefTRIAXone [Rocephin] 1,000 mg IVPB DAILY 5 Days Fluconazole 100 MG/50 ML [Diflucan 100 MG/50 ML] 100 mg IVPB DAILY 3 Days Home Medications: Albuterol Sulfate [Proair Hfa] 2 puff IH Q6H PRN 04/28/16 [History] Alfuzosin HCl [Uroxatral] 10 mg PO DAILY 04/28/16 [History] Aspirin [Lo-Dose Aspirin EC] 81 mg PO DAILY 04/28/16 [History] Atorvastatin Calcium [Lipitor] 80 mg PO QPM 04/28/16 [History] Clopidogrel [Plavix] 75 mg PO DAILY 04/28/16 [History] Cyanocobalamin (B-12) [Vitamin B12] 1,000 mcg PO DAILY 04/28/16 [History] Docusate [Colace] 200 mg PO DAILY 04/28/16 [History] Duloxetine HCl [Cymbalta] 60 mg PO BID 04/28/16 [History] Ferrous Sulfate [Iron] 325 mg PO DAILY 04/28/16 [History] Fluticasone Propionate Nasal [Flonase] 50 mcg NS DAILY 04/28/16 [History] Furosemide [Lasix] 20 mg PO DAILY 04/28/16 [History] Hydrocortisone 1% CREAM [Cortaid] 1 appl TP BID 04/28/16 [History] Lidocaine 4% CRM (LMX) [Lmx 4] 1 appl TP BID PRN 04/28/16 [History] Nicotine Patch [Nicoderm] 21 mg TD DAILY 04/28/16 [History] Nicotine Polacrilex [Nicotine Lozenge] 4 mg BC Q2H PRN 04/28/16 [History] Nystatin Cream [Mycostatin Cream] 1 appl TP BID 04/28/16 [History] Oxcarbazepine [Oxtellar Xr] 600 mg PO TID 04/28/16 [History] RisperiDONE [Risperdal] 2 mg PO HS 04/28/16 [History] RisperiDONE [Risperidone] 1 mg PO BID 04/28/16 [History] Sennosides [Laxative] 17.2 mg PO DAILY PRN 04/28/16 [History] TraZODone 50 mg PO HS 04/28/16 [History] CefTRIAXone [Rocephin] 1,000 mg IVPB DAILY 5 Days 05/14/16 [Rx] CloNIDine Patch [Catapres-Tts] 0.2 mg TD QWEEK patch.tdwk 05/14/16 [Rx] Fluconazole 100 MG/50 ML [Diflucan 100 MG/50 ML] 100 mg IVPB DAILY 3 Days [Rx] Folic Acid 5 mg PO DAILY tablet 05/14/16 [Rx] Heparin 5,000 unit SQ Q12HR vial 05/14/16 [Rx] HydrALAZINE 20 mg IVP Q8H vial 05/14/16 [Rx] Metoprolol [Lopressor] 5 mg IVP Q6HR vial 05/14/16 [Rx] Ondansetron [Zofran] 4 mg IVP Q6HR PRN #0 vial 05/14/16 [Rx] Potassium Chloride 40 meq PO BID tab.er.prt 05/14/16 [Rx] Tamsulosin [Flomax] 0.4 mg PO DAILY capsule 05/14/16 [Rx] Allergies/Adverse Reactions: Allergies fentanyl Allergy (Verified 04/27/16 23:01) Rash hydrogen peroxide [From Peroxyl] Allergy (Verified 04/27/16 23:01) Rash Procedures/tests Complete & Pending: Procedures Performed prior 72 hours Category Date Time Status MR head/brain wo con [MR] Routine MRI 05/12/16 Completed Date of admission: 04/28/16 01:28 [facility] physician[facility] Consults: 04/28/16 02:15 Consult to Occupational Therapy [CONS] Routine Comment: Evaluate, develop and implement POC Consult to Physical Therapy [CONS] Routine Comment: Evaluate, develop and implement POC Consult to Outside Property Agent [CONS] Routine Reason for SW Consult: [facility] patient, may need home health/rehab 04/28/16 02:46 Consult to Nutrition [CONS] Routine Comment: Alt. means of nutrition Consulting Provider: NUTRITION Reason for Dietary Consult: MST Score Consult to Pastoral Services [CONS] Routine Comment: 04/28/16 07:39 Consult to Cardiology [CONS] Routine Comment: Consulting Provider: Cardiology [facility] Reason for Consult: Elevated troponin Call Completed: No 04/29/16 09:04 Consult to Psychiatry [CONS] Routine Consulting Provider: Psychiatry [facility] Reason for Consult: visual hallucinations, history of mental health problems Call Completed: Yes 05/05/16 09:42 Consult to Speech Therapy [CONS] Routine Comment: Evaluate, develop and implement POC Reason for Consult: Difficulty swallowing Call Completed: No 05/10/16 09:53 Consult to Psychiatry [CONS] Routine Consulting Provider: Psych[facility] [place] Reason for Consult: depression and psychosis. patient refusing to take meds. please reevaluate. Call Completed: Yes 05/12/16 12:40 Consult to Interpret Exam [CONS] Routine Consulting Provider: Melvi Rodriguez I Consult to Interpret Exam: Interpret EEG 05/13/16 17:31 Consult to Speech Therapy [CONS] Routine Comment: Evaluate, develop and implement POC Reason for Consult: Please reevaluate patient. Patient has severe thrush and suspected esophagitis. Doing better after 2 days of treatment. Please evaluate and make recomendations for a diet. Call Completed: No Discharging clinician: Kong Palencia Anticipated date of discharge: 05/14/16 - Patient Status Disposition: Transfer Other Condition: Good Functional capacity at discharge: bed bound Overall status at discharge: patient is not back to baseline - Discharge Instructions Follow Up With: [facility] [Primary Care Provider] - (Patient will [facility] with [facility] to) - Diet and Activity Activity: as per physical therapy Diet: other (diet after speech eval) Hospital course: Mr. Mora is a 60 year old male who was admitted to [facility] on 04/28/2015 with syncope. He also had altered mentation. Discussed in depth with the family. Patient does have some psychiatric issues at baseline. Reportedly from the he only suffers from PTSD. However he is on the some antipsychotic medications there have also been reports of possible visual hallucinations in the past. The patient had a very extensive workup including: MRI of the brain that showed no acute infarct he did have some minimal subcortical microvascular chronic ischemia. He also had old lacunar infarcts within the left basal ganglia as well as the thalamus. He would have an echocardiogram which revealed a left ventricular ejection fraction of 55%. There is moderate concentric hypertrophy of the left ventricle some mild diastolic dysfunction. Mild aortic regurgitation. No pulmonary hypertension. No significant valvular abnormalities were noted. He had a duplex carotid ultrasound which showed essentially normal bilateral carotids. CT scan of the head showed no acute intracranial abnormalities. Chest x-ray showed no acute cardiopulmonary abnormalities. CT of the lumbar spine showed a spinal stimulator T11-T12 distal tip was in the dorsal epidural space at T8. No signs of spinal abscess or infection. His L4/5 grade 1 anterior listhesis with interbody fusion and incorporating spinous prosthesis. He also had a 3.1 cm abdominal aortic aneurysm that was infrarenal. He was also seen in consultation by cardiology, neurology, and psychiatry. He has been afebrile throughout the entirety of his stay here. He did develop a urinary tract infection and is on day 3 of Rocephin. Additionally the patient stopped eating and taking his oral medications. I think most likely this is secondary to thrush esophagitis. Currently he is on day 2 of fluconazole and Magic mouthwash. VDRL, HIV, hepatitis A, B, and C were all nonreactive. B12 was 757. This morning the patient is alert and orientated to self. However he is still quite confused. He often refers to having a feeding tube which does not have. He is so has not been eating for the past 2-3 days and has stated that he had breakfast this morning which she is not. No significant vital sign abnormalities. No significant lab abnormalities. The patient is stable for transport. I had a long conversation with the family yesterday about the workup. It is my impression that this is most likely due to psychiatric illness. However the patient's and his 2 sons would like to have a second opinion. They are requesting a transfer to [facility] as this is the closest large facility for them. Would recommend that the patient has swallow evaluation. He did fell one 2 days ago however the patient had severe thrush and did not participate in the exam. I think he will likely be able to take oral intake in the next day or 2. Would also continue his IV antibiotics for urinary tract infection. If any questions about hospital stay he can contact me at [phone]. Kong Palencia D.O. PGY 3 IM - Time Spent with Patient Total time spent providing and/or coordinating discharge services: - Constitutional Vitals: Temp Pulse Resp BP Pulse Ox 98.3 F 73 16 147/85 98 05/14/16 07:19 05/14/16 07:19 05/14/16 07:19 05/14/16 07:19 05/14/16 07:19 Exam: General: This is a well-developed well-nourished 60-year-old male. He is currently alert but oriented only to self. She is quite confused. And may also be exhibiting delusions as he keeps referring to having a feeding tube. His lung that appears to be comfortable no acute distress at this time. Head: Head is normal cephalic atraumatic. EENT: Anicteric sclera, pupils equally round reactive light accommodation. Normal external appearance of the ears nose and eyes. He does have extensive oral thrush and the pupil mucosa and posterior pharynx. A likely has Tamy L esophagitis. Neck is supple without mass or thyromegaly. No cervical or or sup mandibular or supraclavicular lymphadenopathy palpable on exam. Heart: Regular rate and rhythm without murmurs rubs or gallops. Lungs: Clear to auscultation bilaterally. Abdomen: Obese, nondistended, he does have some mild ecchymosis from heparin injections. Bowel sounds are positive in all 4 quadrants. No tenderness to palpation. No organomegaly. No bruits. Musculoskeletal: Grossly normal for age no gross deformity noted. Spine: Normal curvature of the spine he does have surgical scars as well as a scar in the left lower lumbar region from a spinal stimulator. There is no erythema ecchymosis or fluctuance with palpation of the spine or the area where the spinal stimulator was placed. Extremities: There is no clubbing, cyanosis or edema. Integument: There is no rash or lesions. Psych: Patient is alert not cooperative with the exam. Possibly confabulating or delusional as he keeps referring to having breakfast or also having a feeding tube. Neuro: Limited by patient's not participating in exam. However does appear to have normal extraocular movements pupils equally round reactive to light. No facial droop or asymmetry he is able to stick out his tongue. He is able to move his head and neck and all 4 extremities without difficulty. <David Russo P - Last Filed: 05/14/16 17:59> Procedures/tests Complete & Pending: Procedures Performed prior 72 hours Category Date Time Status MR head/brain wo con [MR] Routine MRI 05/12/16 Completed Date of admission: 04/28/16 01:28 [facility] care physician: [facility] Consults: 04/28/16 02:15 Consult to Occupational Therapy [CONS] Routine Comment: Evaluate, develop and implement POC Consult to Physical Therapy [CONS] Routine Comment: Evaluate, develop and implement POC Consult to Outside Property Agent [CONS] Routine Reason for SW Consult: [facility], may need home health/rehab 04/28/16 02:46 Consult to Nutrition [CONS] Routine Comment: Alt. means of nutrition Consulting Provider: NUTRITION Reason for Dietary Consult: MST Score Consult to Pastoral Services [CONS] Routine Comment: 04/28/16 07:39 Consult to Cardiology [CONS] Routine Comment: Consulting Provider: Cardiology Adali Reason for Consult: Elevated troponin Call Completed: No 04/29/16 09:04 Consult to Psychiatry [CONS] Routine Consulting Provider: [facility] [place] Reason for Consult: visual hallucinations, history of mental health problems Call Completed: Yes 05/05/16 09:42 Consult to Speech Therapy [CONS] Routine Comment: Evaluate, develop and implement POC Reason for Consult: Difficulty swallowing Call Completed: No 05/10/16 09:53 Consult to Psychiatry [CONS] Routine Consulting Provider: Psych[facility] [place] Reason for Consult: depression and psychosis. patient refusing to take meds. please reevaluate. Call Completed: Yes 05/12/16 12:40 Consult to Interpret Exam [CONS] Routine Consulting Provider: Jennifer,[place] I Consult to Interpret Exam: Interpret EEG 05/13/16 17:31 Consult to Speech Therapy [CONS] Routine Comment: Evaluate, develop and implement POC Reason for Consult: Please reevaluate patient. Patient has severe thrush and suspected esophagitis. Doing better after 2 days of treatment. Please evaluate and make recomendations for a diet. Call Completed: No Hospital course: Mr. Mora is a 60 year old male - Time Spent with Patient Total time spent providing and/or coordinating discharge services: - Constitutional Vitals: Temp Pulse Resp BP Pulse Ox 98.5 F 80 16 180/89 100 05/14/16 16:27 05/14/16 16:27 05/14/16 16:27 05/14/16 16:27 05/14/16 16:27 - Attending Attestation I examined this patient and my medical decision-making was reviewed with the BLOOD BANK ORDER CONTROL CLERK/PA/Advanced Practice Nurse/Resident Physician. I agree with the documented findings, disposition and treatment plan as described except to the extent set forth below.
[2016-05-14] MEDS: RisperiDONE-M 1 MG TAB.RAPDIS PO SCH (09:01)
[2016-05-14] MEDS: Pantoprazole 40 MG VIAL IVP SCH (09:01)
[2016-05-14] MEDS: Nystatin SUSP 5 ML UD.LIQ PO SCH ×3 (09:02→16:35)
[2016-05-14] MEDS: Isosorbide MONOnitrate (24 HR) 60 MG TAB.ER.24H PO SCH (09:02)
[2016-05-14] MEDS: amLODIPine 5 MG TABLET PO SCH (09:02)
[2016-05-14] MEDS: Aspirin 81 MG TAB.CHEW PO SCH (09:03)
[2016-05-14] MEDS: Folic Acid 1 MG TABLET PO SCH (09:03)
[2016-05-14] MEDS: Fluconazole 100 MG/50 ML 100 MG/50 ML BAG IVPB SCH (09:54)
[2016-05-14] MEDS: Magic Mouthwash 10 ML UD Cup PO SCH ×2 (10:00→14:45)
[2016-05-14] MEDS: *HR* Morphine 2 MG/ML SYRINGE IVP PRN (13:49)
[2016-05-14 16:28] VITALS: BP 180/89
== END 2016-05-14 16:52 | disposition other institution (70) | DRG 690 ==
LOC: EMEROO 22:51 → SUATTDRO 04-28 01:28 → 2ANU 04-28 01:28
PROVIDERS: ADMIT Internal Medicine; ATTEND Internal Medicine

== ENCOUNTER 2016-06-05 19:17 | Inpatient (IN) ==
[2016-06-05] MEDS ORDERED: Nitroglycerin 25 MG/250 ML INFUS..BTL IVC SCH (19:30)
[2016-06-05] MEDS ORDERED: Ondansetron 4 MG/2 ML VIAL IVP ONE (19:34)
--- NOTE | 2016-06-05 19:34 | Emergency Department Note ---
Disposition Clinical Impression: Healthcare-associated pneumonia, Elevated troponin Leukocytosis Qualifiers: Leukocytosis type: unspecified Qualified Code(s): D72.829 - Elevated white blood cell count, unspecified Chest pain Qualifiers: Chest pain type: other chest pain Qualified Code(s): R07.89 - Other chest pain ; R07.8 - Other chest pain Disposition: Admitted As Inpatient Condition: Good Chest Pain HPI - General Chief Complaint: ED Chest Pain Stated Complaint: CP Time Seen by Provider: 06/05/16 19:20 Source: patient, EMS Mode of arrival: EMS Limitations: no limitations Vital Signs Reviewed: Yes Nursing Notes Reviewed: Yes - History of Present Illness HPI Narrative: 60-year-old male history of CAD, status post 9 cardiac stents, hypertension, hyperlipidemia, type 2 diabetes who presents to the ER from the [facility] due to elevated troponin and chest pain. Patient reports that he had a non-STEMI one week ago and was seen at [facility]. He denies any cath or intervention at that time. Patient reports this morning that he started having substernal chest pain described as pressure with left shoulder numbness. He states since that time that he has continued to have nausea and vomiting with some shortness of breath. Patient reports his last stent was placed in 2016 at [place]. Patient reports he was given nitroglycerin earlier and that improved his pain but it has continued. No other complaints. Pt complaint: chest pain Onset (ago): hour(s) Time: 11:00 Duration: constant Onset: during rest Pain Location: substernal Severity: moderate Severity scale (1-10): 5 Quality: tightness Pain Radiation: LUE (Numbness) Improves with: nitroglycerin Worsens with: nothing Associated symptoms: Reports: nausea, vomiting, diaphoresis. Denies: dyspnea Treatments prior to arrival chest pain: aspirin, nitroglycerin - Related Data On Oral Contraceptives: No Home Medications Medication Instructions Recorded Confirmed Albuterol Sulfate [Proair Hfa] 2 puff IH Q6H PRN 04/28/16 04/28/16 Alfuzosin HCl [Uroxatral] 10 mg PO DAILY 04/28/16 04/28/16 Aspirin [Lo-Dose Aspirin EC] 81 mg PO DAILY 04/28/16 04/28/16 Atorvastatin Calcium [Lipitor] 80 mg PO QPM 04/28/16 04/28/16 Clopidogrel [Plavix] 75 mg PO DAILY 04/28/16 04/28/16 Cyanocobalamin (B-12) [Vitamin B12] 1,000 mcg PO DAILY 04/28/16 04/28/16 Docusate [Colace] 200 mg PO DAILY 04/28/16 04/28/16 Duloxetine HCl [Cymbalta] 60 mg PO BID 04/28/16 04/28/16 Ferrous Sulfate [Iron] 325 mg PO DAILY 04/28/16 04/28/16 Fluticasone Propionate Nasal 50 mcg NS DAILY 04/28/16 04/28/16 [Flonase] Furosemide [Lasix] 20 mg PO DAILY 04/28/16 04/28/16 Hydrocortisone 1% CREAM [Cortaid] 1 appl TP BID 04/28/16 04/28/16 Lidocaine 4% CRM (LMX) [Lmx 4] 1 appl TP BID PRN 04/28/16 04/28/16 Nicotine Patch [Nicoderm] 21 mg TD DAILY 04/28/16 04/28/16 Nicotine Polacrilex [Nicotine 4 mg BC Q2H PRN 04/28/16 04/28/16 Lozenge] Nystatin Cream [Mycostatin Cream] 1 appl TP BID 04/28/16 04/28/16 Oxcarbazepine [Oxtellar Xr] 600 mg PO TID 04/28/16 04/28/16 RisperiDONE [Risperdal] 2 mg PO HS 04/28/16 04/28/16 RisperiDONE [Risperidone] 1 mg PO BID 04/28/16 04/28/16 Sennosides [Laxative] 17.2 mg PO DAILY PRN 04/28/16 04/28/16 TraZODone 50 mg PO HS 04/28/16 04/28/16 Previous Rx's Medication Instructions Recorded CefTRIAXone [Rocephin] 1,000 mg IVPB DAILY 5 Days 05/14/16 CloNIDine Patch [Catapres-Tts] 0.2 mg TD QWEEK patch.tdwk 05/14/16 Fluconazole 100 MG/50 ML [Diflucan 100 mg IVPB DAILY 3 Days 05/14/16 100 MG/50 ML] Folic Acid 5 mg PO DAILY tablet 05/14/16 Heparin 5,000 unit SQ Q12HR vial 05/14/16 HydrALAZINE 20 mg IVP Q8H vial 05/14/16 Metoprolol [Lopressor] 5 mg IVP Q6HR vial 05/14/16 Ondansetron [Zofran] 4 mg IVP Q6HR PRN #0 vial 05/14/16 Potassium Chloride 40 meq PO BID tab.er.prt 05/14/16 Tamsulosin [Flomax] 0.4 mg PO DAILY capsule 05/14/16 Allergies Allergy/AdvReac Type Severity Reaction Status Date / Time Amoxicillin Allergy See Verified 06/05/16 19:20 Comments fentanyl Allergy Rash Verified 04/27/16 23:01 hydrogen peroxide Allergy Rash Verified 04/27/16 23:01 [From Peroxyl] piroxicam Allergy See Verified 06/05/16 19:20 Comments propofol Allergy See Verified 06/05/16 19:20 Comments All systems ED: reviewed and negative except as stated. Constitutional: Denies: fever Cardiovascular: Reports: chest pain. Denies: palpitations Respiratory: Reports: dyspnea. Denies: cough, wheezes Gastrointestinal: Denies: abdominal pain, nausea, vomiting Musculoskeletal: Denies: back pain Chest Pain PMH - Past Medical History Medical history: Reports: coronary artery disease, hyperlipidemia, hypertension Surgical history: Reports: angioplasty/stent Psychiatric history: Reports: schizophrenia, previous psychiatric hospitalization - Social History Smoking Status: Current every day smoker Alcohol use: Reports: none Drug use: Reports: none Physical Exam - General Limitations: no limitations General appearance: alert, in no apparent distress - Head Head exam: atraumatic, normocephalic, normal inspection - Eye Eye exam: Present: normal appearance, EOMI - ENT ENT exam: normal exam - Neck Neck exam: Present: normal inspection - Chest Chest inspection: Present: normal inspection, symmetric chest wall rise - Respiratory Respiratory exam: Present: normal lung sounds bilaterally - Cardiovascular Cardiovascular exam: Present: regular rate, normal rhythm, normal heart sounds - Abdominal Exam Abdominal exam: Present: soft, Non-Tender. Absent: tenderness - Extremities Exam Extremities exam: Present: normal inspection, full ROM - Expanded Upper Extremity Exam Shoulder exam: Present: normal inspection, full ROM Arm exam: Present: normal inspection, full ROM Elbow exam: Present: normal inspection, full ROM Forearm/Wrist exam: Present: normal inspection, full ROM Hand exam: Present: normal inspection, full ROM - Expanded Lower Extremity Exam Hip/Pelvis exam: Present: normal inspection, full ROM Upper leg exam: Present: normal inspection, full ROM Knee exam: Present: normal inspection, full ROM Lower leg exam: Present: normal inspection, full ROM Ankle exam: Present: normal inspection, full ROM Foot/toe exam: Present: normal inspection, full ROM - Neurological Exam Neurological exam: Present: alert - Psychiatric Psychiatric exam: Present: normal affect, normal mood - Skin Skin exam: Present: warm, dry, intact, normal color Course Course Narrative: Patient seen and examined. Vital signs reviewed. Patient reports that he is still having chest pain rated as 5/10. He did report improvement with nitroglycerin earlier. His blood pressures currently in the 160s over 90s. We will begin him on a nitroglycerin drip and reorder labs to trend. Patient also provided Zofran for his nausea and vomiting. - Reevaluation(s) Reevaluation #1: I discussed the results with the patient and family present. We will be admitting to the hospital for concerning healthcare associated pneumonia. Vital Signs Temperature 100.3 F H 06/05/16 19:21 Pulse Rate 82 06/05/16 19:21 Respiratory Rate 16 06/05/16 19:21 Blood Pressure 163/97 06/05/16 19:21 O2 Sat by Pulse Oximetry 96 06/05/16 19:21 Temperature 100.3 F H 06/05/16 19:21 Pulse Rate 78 06/05/16 21:00 Respiratory Rate 20 06/05/16 22:43 Blood Pressure 150/100 06/05/16 22:43 O2 Sat by Pulse Oximetry 98 06/05/16 21:00 Oxygen Delivery Oxygen Delivery Nasal Cannula Chest Pain - [facility] Narrative Medical decision making narrative: 60-year-old male presents to the ER from the [facility] due to chest pain and elevated troponin. Patient was admitted there for a UTI and for follow -up after a non-STEMI last week at [facility]. His troponin had marginally increased from 0.037 to 0.43. Here the patient continued complaining of central chest pain with left shoulder numbness. Patient was placed on nitroglycerin drip due to hypertension and his chest pain. His EKG is sinus rhythm unchanged from previous. Troponin here is 0.04. His chest x-ray does show concern for pulmonary vascular congestion and opacities. However he does not appear fluid overloaded and has had a cough with recent utilization with a white count of 18. Patient treated for healthcare associated pneumonia and admitted to the hospital. - Lab Data Lab results reviewed: Yes I reviewed the patient's lab results. Result diagrams: 06/05/16 19:37 06/05/16 19:37 Lab Results 06/05/16 06/05/16 06/05/16 Range/Units 19:37 19:37 19:37 WBC 18.3 H (4.3-11.1) K/mcL RBC 4.05 L (4.19-5.50) M/mcL Hgb 11.3 L (12.9-16.9) g/dL Hct 34.2 L (37.5-50.1) % MCV 84.4 (83.0-100.0) fL MCH 27.9 L (28.0-33.3) pg MCHC 33.0 (31.6-35.5) g/dL RDW 14.5 (11.5-14.5) % Plt Count 333 (140-400) K/mcL MPV 9.6 (9.4-12.4) fL Immature Gran % 0.4 (0-4) % Seg Neutrophils % 80.8 % Lymphocytes % 10.2 % Monocytes % 8.3 % Eosinophils % 0.1 % Basophils % 0.2 % Neutrophils # 14.8 H (1.6-8.9) K/mcL Lymphocytes # 1.9 (0.6-4.6) K/mcL Monocytes # 1.5 H (0.0-1.3) K/mcL Eosinophils # 0.0 (0.0-0.6) K/mcL Basophils # 0.0 (0.0-0.2) K/mcL PT 12.8 H (9.4-12.1) Seconds INR 1.2 APTT 25.1 L (26.0-36.0) Seconds Sodium 139 (136-145) mEq/L Potassium 3.5 (3.5-4.5) mEq/L Chloride 106 (98-109) mEq/L Carbon Dioxide 22 (19-29) mEq/L BUN 15 (8-26) mg/dL Creatinine 0.70 L (0.72-1.25) mg/dL Est GFR ( Amer) > 60 (> 60) Est GFR (Non-Af Amer) > 60 (> 60) BUN/Creatinine Ratio 21 (6-26) Glucose 130 H (70-99) mg/dL Calculated Osmolality 291 (280-300) Calcium 9.6 (8.6-10.8) mg/dL Troponin I (0-0.03) ng/mL B-Natriuretic Peptide (0-100) pg/mL Urine Color (Yellow) Urine Clarity (Clear) Urine pH (5.0-8.0) pH Units Ur Specific [place] (1.010-1.025) Urine Protein (Neg-Trace) mg/dL Urine Glucose (UA) (Normal) mg/dL Urine Ketones (Negative) mg/dL Urine Blood (Negative) Urine Nitrite (Negative) Urine Bilirubin (Negative) Urine Urobilinogen (Normal) mg/dL Ur Leukocyte Esterase (Negative) Ur Culture Indicated? (NO) 06/05/16 06/05/16 06/05/16 Range/Units 19:37 19:37 22:00 WBC (4.3-11.1) K/mcL RBC (4.19-5.50) M/mcL Hgb (12.9-16.9) g/dL Hct (37.5-50.1) % MCV (83.0-100.0) fL MCH (28.0-33.3) pg MCHC (31.6-35.5) g/dL RDW (11.5-14.5) % Plt Count (140-400) K/mcL MPV (9.4-12.4) fL Immature Gran % (0-4) % Seg Neutrophils % % Lymphocytes % % Monocytes % % Eosinophils % % Basophils % % Neutrophils # (1.6-8.9) K/mcL Lymphocytes # (0.6-4.6) K/mcL Monocytes # (0.0-1.3) K/mcL Eosinophils # (0.0-0.6) K/mcL Basophils # (0.0-0.2) K/mcL PT (9.4-12.1) Seconds INR APTT (26.0-36.0) Seconds Sodium (136-145) mEq/L Potassium (3.5-4.5) mEq/L Chloride (98-109) mEq/L Carbon Dioxide (19-29) mEq/L BUN (8-26) mg/dL Creatinine (0.72-1.25) mg/dL Est GFR ( Amer) (> 60) Est GFR (Non-Af Amer) (> 60) BUN/Creatinine Ratio (6-26) Glucose (70-99) mg/dL Calculated Osmolality (280-300) Calcium (8.6-10.8) mg/dL Troponin I 0.04 H* (0-0.03) ng/mL B-Natriuretic Peptide 95 (0-100) pg/mL Urine Color Yellow (Yellow) Urine Clarity Clear (Clear) Urine pH 6.5 (5.0-8.0) pH Units Ur Specific [place] 1.015 (1.010-1.025) Urine Protein Negative (Neg-Trace) mg/dL Urine Glucose (UA) Normal (Normal) mg/dL Urine Ketones Negative (Negative) mg/dL Urine Blood Negative (Negative) Urine Nitrite Negative (Negative) Urine Bilirubin Negative (Negative) Urine Urobilinogen Normal (Normal) mg/dL Ur Leukocyte Esterase Negative (Negative) Ur Culture Indicated? NO (NO) - Radiology Data Radiology results reviewed: Yes I reviewed the patient's radiology results. Chest X-Ray 06/05/16 19:35 IMPRESSION: 1. Pulmonary vascular congestion with mild cardiomegaly. 2. Patchy bilateral perihilar opacities could represent developing edema. D/ / Hay Taylor MD / Hay Taylor MD Interpreting Provider: Hay Taylor MD - EKG Data EKG attestation: Yes I reviewed and interpreted this EKG. EKG results narrative: EKG demonstrates normal sinus rhythm with rate of 81 bpm. No more axis. MN interval 165 QRS duration [address] elevations or depressions. No acute ischemic findings. No significant changes from previous EKG. Critical Care Time Critical Care Time: Yes Total Critical Care Time: 45 Attestation: Critical care performed: Time is exclusive of separately billable procedures. Time includes: direct patient care, patient reassessment, coordination of patient care, interpretation of data (laboratory data, radiology data, and respiratory data), review of patient's medical records, medical consultation and documentation of patient care. Procedures included in critical care time: Procedures excluded from critical care time: S.B.AVilla - S.Wilma Situation: Demographics, MOA Background: Presenting Complaint, Relevant PMH, Meds, & Allergies Assessment: Vital Signs, Course and respsone to treatment, Exam Concerns, Patient/Family Expectation, Pertinant Lab Results, Outstanding Labs Recommendation: Barrier(s) to disposition, Recommendation based on pending studies, treatments, or consults S.Bal.A.Jennifer. Report Given to: Dr. Mcgill Attestation Statement - Attestation Attestation: I, Jose R Gottlieb MD, personally performed a history and physical exam of the patient and discussed their management with the resident. I reviewed the resident's note and agree with the documented findings, medical decision making , and plan of care. 60-year-old male transferred here from the local [place] hospital for further evaluation because he has been having persistent chest pain and elevated blood pressure with increasing troponins this afternoon. His last troponin around 5 PM was 0.043 which is still within their normal range of 0-0.045. Patient also has had a low-grade fever and increasing his seat. He has apparently been treated for urinary tract infection. On examination patient is a well-developed well-nourished male in no acute distress. She is alert and oriented 3. There is no cyanosis or diaphoresis. Breath sounds are equal but decreased bilaterally with no rales or wheezes noted. Heart regular rate and rhythm. Abdomen soft with normal bowel sounds. No acute changes on EKG. Troponin here is 0.04. Chest x-ray shows pulmonary vascular congestion and mild cardiomegaly with some bilateral perihilar opacities which could represent early edema. Urinalysis here was normal. WBC has increased and is now up to 18. Low-grade fever here. Patient was placed on a nitro drip here for his persistent chest pain and hypertension. The hospitalist, Dr. Mcgill, was consulted and accepted admission of the patient.
[2016-06-05 19:43] LABS: Basophils % 0.2 %; Eosinophils % 0.1 %; Hematocrit 34.2 % (37.5-50.1); Hemoglobin 11.3 g/dL (12.9-16.9); Immature Granulocytes % 0.4 % (0-4); Lymphocytes # 1.9 K/mcL (0.6-4.6); Lymphocytes % 10.2 %; Mean Corpuscular Hemoglobin 27.9 pg (28.0-33.3); Mean Corpuscular Volume 84.4 fL (83.0-100.0); Mean Platelet Volume 9.6 fL (9.4-12.4); Monocytes # 1.5 K/mcL (0.0-1.3); Monocytes % 8.3 %; Neutrophils # 14.8 K/mcL (1.6-8.9); Platelet Count 333 K/mcL (140-400); Red Blood Count 4.05 M/mcL (4.19-5.50); Red Cell Distribution Width 14.5 % (11.5-14.5); Segmented Neutrophils % 80.8 %
[2016-06-05] MEDS ORDERED: 0.9 % Sodium Chloride 1,000 ML ONE (19:46)
[2016-06-05 19:49] LABS: INR 1.2; Prothrombin Time 12.8 Seconds (9.4-12.1)
[2016-06-05 19:52] LABS: Activated Partial Thrombo Time 25.1 Seconds (26.0-36.0)
[2016-06-05 19:57] LABS: BUN/Creatinine Ratio 21 (6-26); Blood Urea Nitrogen 15 mg/dL (8-26); Calcium 9.6 mg/dL (8.6-10.8); Carbon Dioxide 22 mEq/L (19-29); Chloride 106 mEq/L (98-109); Glucose 130 mg/dL (70-99); Osmolality,Calculated 291 (280-300); Potassium 3.5 mEq/L (3.5-4.5); Sodium 139 mEq/L (136-145); eGFR For African Americans > 60 (> 60); eGFR For Non-African Americans > 60 (> 60)
[2016-06-05] MEDS: 0.9 % Sodium Chloride 500 ML IVC SCH (20:06)
[2016-06-05] MEDS ORDERED: Levofloxacin 750 MG/150 ML 750 MG/150 ML BAG IVPB ONE (20:48)
[2016-06-05] MEDS ORDERED: Vancomycin 1,500 MG in D5% in Water 250 ML IVPB ONE (20:48)
[2016-06-05] MEDS ORDERED: Aztreonam 2,000 MG in D5% in Water (Mini-Bag+) 100 ML IVPB ONE (20:48)
[2016-06-05 22:11] LABS: Bilirubin,Urine Negative (Negative); Blood,Urine Negative (Negative); Clarity,Urine Clear (Clear); Color,Urine Yellow (Yellow); Glucose,Urine (UA) Normal (Normal); Ketones,Urine Negative (Negative); Leukocyte Esterase,Urine Negative (Negative); Nitrite,Urine Negative (Negative); PH,Urine 6.5 pH Units (5.0-8.0); Protein,Urine Negative (Neg-Trace); Specific Gravity,Urine 1.015 (1.010-1.025); Urobilinogen,Urine Normal (Normal)
--- NOTE | 2016-06-05 23:20 | Internal Med History&Physical ---
Date of Encounter: 06/05/16 Time of Encounter: 23:10 Assessment and Plan (1) Acute cholecystitis Current visit: Yes Status: Suspected Patient with right upper quadrant pain, leukocytosis, nausea and vomiting and right upper quadrant tenderness. We will obtain a right upper Quadrant ultrasound. Abdominal CT. Liver Function test will be requested. Continue with broad-spectrum antibiotics. Pain control. IV fluids. Monitor kidney function tests. Check Amylase and lipase. (2) Elevated troponin Current visit: No Status: Acute Continue checking trend of troponin. Patient is on Plavix according to the [facility] records. Echo done in April of this year showed an ejection fraction of 55% with mild diastolic dysfunction. Telemetry monitoring. Aspirin. The patient also had mild troponin elevation 2 months ago, at the time he also was evaluated by cardiology, no further recommendation were provided. He is currently on nitroglycerin drip. A consultation with cardiology will be requested for further recommendations. (3) Hypertension Current visit: No Status: Chronic Qualifiers: Hypertension type: essential hypertension Qualified Code(s): I10 - Essential (primary) hypertension (4) Leukocytosis Current visit: No Status: Acute Patient with history of UTI, at the [facility] he had mild leukocytosis, however it has increased according to admission labs. Continue with broad-spectrum antibiotics. Leukocytosis likely infectious. Possibly due to UTI, however urinalysis upon admission looks clean. There was a concern about pneumonia based on the chest x-ray findings when he arrived at the emergency department. Chest x-ray done at the [facility] today did not show any acute findings. we will look for other sources. Qualifiers: Leukocytosis type: unspecified Qualified Code(s): D72.829 - Elevated white blood cell count, unspecified (5) COPD (chronic obstructive pulmonary disease) Current visit: No Status: Chronic Not in exacerbation. Qualifiers: COPD type: unspecified COPD Qualified Code(s): J44.9 - Chronic obstructive pulmonary disease, unspecified (6) CAD (coronary artery disease) Current visit: No Status: Chronic Qualifiers: Coronary Disease-Associated Artery/Lesion type: tribal artery [place] vs. transplanted heart: tribal heart Associated angina: angina presence unspecified Qualified Code(s): I25.10 - Atherosclerotic heart disease of tribal coronary artery without angina pectoris (7) DVT prophylaxis Current visit: No Status: Acute We will give DVT prophylaxis with subcutaneous heparin. (8) Urinary tract infection Current visit: Yes Status: Acute Patient was receiving treatment for a UTI at the [facility] with Levaquin, according to sensitivity given in the urine culture Qualifiers: Urinary tract infection type: site unspecified Hematuria presence: without hematuria Qualified Code(s): N39.0 - Urinary tract infection, site not specified Internal Medicine - H&P: HPI Chief complaint: Right upper quadrant pain Admitted From: Emergency Dept Plans for Post Hospital Care: Transfer Other ([facility]) History of present illness: Mr. Mora is a 60 year old male with past medical history of mental health disorders, hypertension, smoker, chronic back pain, CAD s/p multiple PCIs, recently transferred from this facility to [facility], last time he was admitted to syncope, he had uncontrolled hypertension and he was unable to swallow likely associated with oral and esophageal thrush. The patient was transferred to our emergency department from the inpatient at the [facility], he was receiving treatment for urinary tract infection (enterococcus, [facility] le[facility]quin[facility]) . The patient states that has been complaining of pain in the right upper quadrant in the last 3-4 days, associated to nausea and vomiting. Pain is worse after he eats. The patient had chest pain earlier today, he had workup done at the [facility] which revealed a mild elevation of troponins (0.04) and the patient was transferred here for evaluation of possible NSTEMI. Upon ambulation in our emergency department he was found to be hypertensive, with leukocytosis and complaining of chest pain. A nitro drip was started. Patient is currently chest pain-free. I saw him in the inpatient unit already, he was complaining of right upper quadrant pain. He is alert, he recognized me, I took care of him during his last admission. The patient denies fever, cough, shortness of breath. In the emergency department he received a dose of Azactam , Levaquin and vancomycin for a possible healthcare associated pneumonia. The patient is allergic to penicillins. Past Med Surg Social Fam HX - Past Medical History Medical history: coronary artery disease, hyperlipidemia, hypertension Psychiatric history: schizophrenia, previous psychiatric hospitalization - Past Surgical History Surgical History: angioplasty/stent - Social History Smoking Status: Current every day smoker Smokeless Tobacco Status: No Alcohol use: none Drug use: none Internal Medicine - H&P: Meds Albuterol Sulfate [Proair Hfa] 2 puff IH Q6H PRN 04/28/16 [History] Alfuzosin HCl [Uroxatral] 10 mg PO DAILY 04/28/16 [History] Aspirin [Lo-Dose Aspirin EC] 81 mg PO DAILY 04/28/16 [History] Atorvastatin Calcium [Lipitor] 80 mg PO QPM 04/28/16 [History] Clopidogrel [Plavix] 75 mg PO DAILY 04/28/16 [History] Cyanocobalamin (B-12) [Vitamin B12] 1,000 mcg PO DAILY 04/28/16 [History] Docusate [Colace] 200 mg PO DAILY 04/28/16 [History] Duloxetine HCl [Cymbalta] 60 mg PO BID 04/28/16 [History] Ferrous Sulfate [Iron] 325 mg PO DAILY 04/28/16 [History] Fluticasone Propionate Nasal [Flonase] 50 mcg NS DAILY 04/28/16 [History] Furosemide [Lasix] 20 mg PO DAILY 04/28/16 [History] Hydrocortisone 1% CREAM [Cortaid] 1 appl TP BID 04/28/16 [History] Lidocaine 4% CRM (LMX) [Lmx 4] 1 appl TP BID PRN 04/28/16 [History] Nicotine Patch [Nicoderm] 21 mg TD DAILY 04/28/16 [History] Nicotine Polacrilex [Nicotine Lozenge] 4 mg BC Q2H PRN 04/28/16 [History] Nystatin Cream [Mycostatin Cream] 1 appl TP BID 04/28/16 [History] Oxcarbazepine [Oxtellar Xr] 600 mg PO TID 04/28/16 [History] RisperiDONE [Risperdal] 2 mg PO HS 04/28/16 [History] RisperiDONE [Risperidone] 1 mg PO BID 04/28/16 [History] Sennosides [Laxative] 17.2 mg PO DAILY PRN 04/28/16 [History] TraZODone 50 mg PO HS 04/28/16 [History] CefTRIAXone [Rocephin] 1,000 mg IVPB DAILY 5 Days 05/14/16 [Rx] CloNIDine Patch [Catapres-Tts] 0.2 mg TD QWEEK patch.tdwk 05/14/16 [Rx] Fluconazole 100 MG/50 ML [Diflucan 100 MG/50 ML] 100 mg IVPB DAILY 3 Days [Rx] Folic Acid 5 mg PO DAILY tablet 05/14/16 [Rx] Heparin 5,000 unit SQ Q12HR vial 05/14/16 [Rx] HydrALAZINE 20 mg IVP Q8H vial 05/14/16 [Rx] Metoprolol [Lopressor] 5 mg IVP Q6HR vial 05/14/16 [Rx] Ondansetron [Zofran] 4 mg IVP Q6HR PRN #0 vial 05/14/16 [Rx] Potassium Chloride 40 meq PO BID tab.er.prt 05/14/16 [Rx] Tamsulosin [Flomax] 0.4 mg PO DAILY capsule 05/14/16 [Rx] Allergies Amoxicillin Allergy (Verified 06/05/16 19:20) See Comments fentanyl Allergy (Verified 04/27/16 23:01) Rash hydrogen peroxide [From Peroxyl] Allergy (Verified 04/27/16 23:01) Rash piroxicam Allergy (Verified 06/05/16 19:20) See Comments propofol Allergy (Verified 06/05/16 19:20) See Comments All Systems PM: A 10-system review of systems was performed and is negative for pertinent findings except as documented above in the HPI. - Constitutional Constitutional: as per HPI - EENT Eyes: as per HPI Ears: as per HPI Nose, mouth and throat: as per HPI - Breasts Breasts: as per HPI - Cardiovascular Cardiovascular ROS IM: as per HPI, chest pain - Respiratory Respiratory: as per HPI - Gastrointestinal Gastrointestinal: as per HPI, abdominal pain, nausea, vomiting - Genitourinary Genitourinary ROS male: as per HPI - Musculoskeletal Musculoskeletal ROS IM: as per HPI - Integumentary Integumentary IM: as per HPI - Neurological Neurological ROS: as per HPI - Psychiatric Psychiatric: as per HPI - Endocrine Endocrine IM: as per HPI - Hematologic/Lymphatic Hematologic/Lymphatic: as per HPI - Allergic/Immunologic Allergic/Immunologic: as per HPI - Constitutional Vitals: Temp Pulse Resp BP Pulse Ox 100.3 F H 78 20 150/100 98 06/05/16 19:21 06/05/16 21:00 06/05/16 22:43 06/05/16 22:43 06/05/16 21:00 General appearance: Present: cooperative, A&O X 2, mild distress, pleasant - Head Head exam: Present: atraumatic, normocephalic - Eye Eye exam: Present: PERRL, conjuntiva pink, sclera anicteric Pupils: Present: PERRL - Neck Neck exam general surgery: Present: supple, trachea midline. Absent: lymphadenopathy - Respiratory Respiratory exam: Present: CTAB. Absent: accessory muscle use, rales, rhonchi, wheezes - Cardiovascular Cardiovascular exam: Present: RRR, +S1, +S2. Absent: diastolic murmur, gallop, rubs, systolic murmur - GI/Abdominal GI/Abdominal exam: Present: normal bowel sounds, soft. Absent: distended, tenderness Additional comments: RUQ pain upon palpation - Extremities Exam Extremities exam: Present: warm, radial pulses palpable and symetrical. Absent : calf tenderness, cyanotic, pedal edema - Neurological Exam Neurological exam: Present: CN II-XII intact, oriented X3, no focal deficits. Absent: pronater drift, facial droop, speech deficit - Skin Skin exam: Present: dry, intact Internal Med - H&P Results - Labs CBC & Chem 7: 06/05/16 19:37 06/05/16 19:37
[2016-06-05] MEDS ORDERED: Acetaminophen 325 MG TABLET PO PRN (23:38)
[2016-06-05] MEDS ORDERED: Albuterol 2.5 MG/3 ML NEBULIZER IH PRN (23:38)
[2016-06-05] MEDS ORDERED: Naloxone 0.4 MG/ML INJ IVP PRN (23:38)
[2016-06-05] MEDS ORDERED: CloNIDine Patch 0.2 MG PATCH (WEEKLY) TD SCH (23:45)
[2016-06-05] MEDS ORDERED: Vancomycin (wt based) 1,000 MG VIAL IVPB SCH (23:45)
[2016-06-05] MEDS ORDERED: traMADol 50 MG TABLET PO PRN (23:48)
[2016-06-05] MEDS ORDERED: 0.9 % Sodium Chloride 500 ML IVC ONE (23:49)
[2016-06-06 00:48] LABS: Basophils % 0.1 %; Eosinophils % 0.1 %; Hematocrit 30.6 % (37.5-50.1); Hemoglobin 10.2 g/dL (12.9-16.9); Immature Granulocytes % 0.5 % (0-4); Lymphocytes # 2.6 K/mcL (0.6-4.6); Lymphocytes % 14.6 %; Mean Corpuscular HGB Conc 33.3 g/dL (31.6-35.5); Mean Corpuscular Hemoglobin 28.3 pg (28.0-33.3); Mean Corpuscular Volume 84.8 fL (83.0-100.0); Mean Platelet Volume 9.4 fL (9.4-12.4); Monocytes # 1.6 K/mcL (0.0-1.3); Neutrophils # 13.6 K/mcL (1.6-8.9); Platelet Count 297 K/mcL (140-400); Red Blood Count 3.61 M/mcL (4.19-5.50); Red Cell Distribution Width 14.6 % (11.5-14.5); Segmented Neutrophils % 75.7 %
[2016-06-06 00:54] LABS: INR 1.2; Prothrombin Time 13.5 Seconds (9.4-12.1)
[2016-06-06 01:03] LABS: Alanine Aminotransferase 63 Units/L (0-55); Albumin 2.5 g/dL (3.5-5.0); Albumin/Globulin Ratio 0.7 (1.1-2.2); Alkaline Phosphatase 169 Units/L (38-126); Aspartate Amino Transferase 82 Units/L (5-34); BUN/Creatinine Ratio 21 (6-26); Bilirubin,Direct 0.7 mg/dL (0.0-0.5); Bilirubin,Indirect 0.5 mg/dL (0.0-1.2); Bilirubin,Total 1.2 mg/dL (0.2-1.2); Blood Urea Nitrogen 16 mg/dL (8-26); Calcium 9.6 mg/dL (8.6-10.8); Carbon Dioxide 23 mEq/L (19-29); Chloride 102 mEq/L (98-109); Globulin 3.5 g/dL (2.4-3.5); Glucose 122 mg/dL (70-99); Magnesium 1.7 mg/dL (1.6-2.6); Osmolality,Calculated 284 (280-300); Potassium 3.5 mEq/L (3.5-4.5); Sodium 136 mEq/L (136-145); eGFR For African Americans > 60 (> 60); eGFR For Non-African Americans > 60 (> 60)
[2016-06-06] MEDS: D5% in 0.45% NACL 1,000 ML IVC SCH ×2 (01:08→13:46)
[2016-06-06] MEDS: MetroNIDAZOLE 500 MG/100 ML 500 MG/100 ML BAG IVPB SCH ×3 (01:09→16:30)
[2016-06-06] MEDS ORDERED: *HR* Heparin 5,000 UNIT/ML VIAL SQ SCH (06:00)
[2016-06-06] MEDS ORDERED: Vancomycin 2,000 MG in D5% in Water 500 ML IVPB SCH ×2 (08:00→23:00)
[2016-06-06] MEDS ORDERED: risperiDONE 1 MG TABLET PO SCH (09:00)
[2016-06-06] MEDS ORDERED: Aspirin Enteric Coated 81 MG Tablet PO SCH (09:00)
[2016-06-06] MEDS: Pantoprazole 40 MG VIAL IVP SCH (09:46)
--- NOTE | 2016-06-06 09:48 | Internal Med Progress Note ---
<Duarte Rodríguez - Last Filed: 06/06/16 16:13> Date of Encounter: 06/06/16 Time of Encounter: 09:39 - Assessment and plan (1) Acute cholecystitis Current Visit: Yes Status: Acute Assessment and plan: Patient is a 60 year old male who was transferred from the [place] to [facility] ED with complaint of chest pain, RUQ abdominal pain, nausea, and vomiting. Determined to have leukocytosis with WBC of 18.3 upon arrival and elevated temp of 100.3. AST 82, ALT 63, Alk phos 169, T bili 1.2, Direct bili 0.7, Indirect bili 0.5. Lipase and amylase normal. WBC at 18.0 this morning, decreased from 18.[address] abd/pelvis revealed acute cholecystitis, indeterminate 2.3 cm left adrenal nodule, trace bilateral pleural effusion Continue antibiotics. Patient received aztreonam, levaquin, and vancomycin in ED. Currently on Flagyl, Vancomycin, and Levaquin; continue d1. Pain control, avoid significant opiate pain medication due to history of dependence. IV Fluids RUQ ultrasound pending NPO diet Surgery consulted, note reviewed. Plan for IR tomorrow. Hold Aspirin and heparin. Anesthesia to evaluate patient due to complicated course following anesthesia previously. (2) Nausea & vomiting Current Visit: Yes Status: Acute Assessment and plan: No additional vomiting since admission. Likely secondary to acute cholecystitis. Zofran q8h prn. Qualifiers: Vomiting type: unspecified Vomiting Intractability: non-intractable Qualified Code(s): R11.2 - Nausea with vomiting, unspecified (3) Leukocytosis Current Visit: Yes Status: Acute Assessment and plan: WBC elevated at 18.3 upon admission. UA was negative for UTI. CXR revealed pulmonary vascular congestion with mild cardiomegaly and patchy bilateral perihilar opacities that could represent early pulmonary edema. Continue with broad spectrum antibiotics. Flagyl, Vancomycin, and Levaquin d1. Likely secondary to acute cholecytitis. Blood cultures ordered. Qualifiers: Leukocytosis type: other Qualified Code(s): D72.828 - Other elevated white blood cell count (4) Elevated troponin Current Visit: Yes Status: Acute Assessment and plan: Patient was transferred from [place] to [facility] ED with elevation in troponin, chest pain, abdominal pain, nausea, and vomiting. Troponin elevated from 0.03 to 0.04 prior to arrival. Troponins have been 0.04, 0.05, and 0.05. Elevated troponins likely secondary to demand ischemia secondary to acute cholecystitis. Continue telemetry, but in the absence of ekg findings, a fairly adynamic troponin, and resolution of chest pain since arrival this is unlikely related to ACS. Most recent cardiology evaluation at [facility] <1 week ago recommended no interventions. Aspirin held per surgery recommendation. Hold plavix pending possible interventions for acute cholecystitis. Nitro drip discontinued. (5) Chest pain Current Visit: Yes Status: Acute Assessment and plan: Resolved since admission. EKG revealed normal sinus rhythm, no st elevation or depressions. Troponin 0.04, 0.05, 0.05. Discontinue Nitroglycerin drip. Resume home medications. Qualifiers: Chest pain type: other chest pain Qualified Code(s): R07.89 - Other chest pain; R07.8 - Other chest pain (6) CAD (coronary artery disease) Current Visit: Yes Status: Chronic Assessment and plan: History of CAD s/p multiple PCI and stents, most recently at [facility] <1week ago for NSTEMI, no additional interventions. Hold Plavix for possible interventions for acute cholecystitis. Continue aspirin. Continue home isosorbide mononitrate tab 120mg po qd for angina. Qualifiers: Coronary Disease-Associated Artery/Lesion type: [place] artery [place] vs. transplanted heart: [place] heart Associated angina: angina presence unspecified Qualified Code(s): I25.10 - Atherosclerotic heart disease of [place] coronary artery without angina pectoris (7) COPD (chronic obstructive pulmonary disease) Current Visit: Yes Status: Chronic Assessment and plan: No acute exacerbation. Duonebs q6h prn Albuterol q2h prn. Qualifiers: COPD type: unspecified COPD Qualified Code(s): J44.9 - Chronic obstructive pulmonary disease, unspecified (8) Hypertension Current Visit: Yes Status: Chronic Assessment and plan: Elevated bp 163/97 upon arrival. Continues to be elevated, 172/96 this morning. [facility]: on Metoprolol succinate 12.5 mg po qd, nicardipine 40mg q8h, and enalapril inj 0.625/0.5mL IVP q6h. Restart home medications. Qualifiers: Hypertension type: essential hypertension Qualified Code(s): I10 - Essential (primary) hypertension (9) Mood disorder Current Visit: Yes Status: Chronic Assessment and plan: Mood disorder unspecified when reviewing [facility] records. Medications reviewed and ordered Duloxetine 60 mg po bid wm, Oxcarbazepine 600mg tid, risperidone 1mg po qhs for mood Haloperidol 10mg po q6h prn for moderate agitation ordered. (10) Thrush, oral Current Visit: Yes Status: Acute Assessment and plan: Chlorohexidine oral rinse ordered. (11) History of dysphagia Current Visit: Yes Status: Chronic Assessment and plan: Dysphagia alert noted when reviewing [facility]. Diet Pureed and thin liquids, crush and serve medication in pudding, direct feeding assistance, upright position and spoon straw intake. (12) DVT prophylaxis Current Visit: Yes Status: Acute Assessment and plan: Heparin held per Surgery recommendation. IPCD ordered. - Subjective Interval history: Mr. Mora is a 60 year old male with history of CAD s/p multiple pci and stents (most recent <1 week at [facility] for NSTEMI, no stent placement), hypertension , hld, type II dm, chronic back pain with pain stimulator, tobacco use disorder , and unspecified mood disorder who was transferred form the [place] to [facility] ED with complain of chest pain and elevated troponins (0.03 to 0.04). Patient was receiving treatment for UTI at the [place] and then started complaining substernal 5/ 10 chest pain with Left shoulder numbness that started yesterday afternoon. Patient has also been having RUQ abdominal pain for the past couple days and developed nausea and vomiting. Labs revealed elevated WBC of 18.0 and trponin of 0.04. EKG revealed normal sinus rhythm with rate [address] elevation or depression compared to previous. CXR revaled pulmonary vascular congestion with mild cardiomegaly and patchy bilateral perihilar opacities that could represent early pulmonary edema. Patient was admitted for possible HCAP and received Aztreonam, Levaquin, and Vancomycin in the ED. Overnight patient report no additional chest pain, continued left shoulder numbness. Patient reports sweats and feeling hot, but upon entering room the room was very warm and thermostat at max. Patient continues to reports achy RUQ pain of 5/10 severity and some nausea without vomiting since admission. Patient denies fevers, chills, headaches, vomiting, chest pain, shortness of breath, changes in bowels or bladder, weakness, or loss of sensation. - Constitutional Vitals: Temp Pulse Resp BP Pulse Ox 99.4 F 75 18 172/96 99 06/06/16 07:00 06/06/16 07:00 06/06/16 07:00 06/06/16 07:00 06/06/16 07:00 General appearance: Present: cooperative, mild distress, A&O X 3, pleasant, obese, answers questions appropriately - Head Head exam: Present: atraumatic, normal inspection, normocephalic - Eye Eye exam: Present: normal appearance - ENT ENT exam: Present: mucous membranes moist, normal external ear exam, normal oropharynx Additional comments: whitish membranous noted in oral pharynx and tongue. - Neck Neck exam general surgery: Present: normal inspection, supple, trachea midline - Respiratory Respiratory exam: Present: CTAB. Absent: rales, rhonchi, wheezes - Cardiovascular Cardiovascular exam: Present: +S1, +S2, systolic murmur. Absent: diastolic murmur, irregular rhythm, JVD Additional comments: regular rate - GI/Abdominal GI/Abdominal exam: Present: soft, tenderness (RUQ, murphys sign positive). Absent: distended, guarding, no peritoneal signs - Extremities Exam Extremities exam: Present: full ROM, pedal edema (1+ pitting bilaterally), warm. Absent: tenderness Additional comments: rash noted - Neurological Exam Neurological exam: Present: alert, oriented X3, no focal deficits, strengths equal and symetr throughout. Absent: facial droop, speech deficit - Psychiatric Psychiatric exam: Present: normal affect, normal mood - Skin Skin exam: Present: diaphoretic, intact, pallor, rash (multiple 8mm dark brown papular lesions with central umbilication and normal base over lower bilateral extremities R>L and stasis dermatitis changes to left lower extremity), warm. Absent: erythema Internal Medicine: Result - Labs CBC & Chem 7: 06/06/16 00:38 06/06/16 00:38 Labs: Short CBC 06/06/16 Range/Units 00:38 WBC 18.0 H (4.3-11.1) K/mcL Hgb 10.2 L (12.9-16.9) g/dL Hct 30.6 L (37.5-50.1) % Plt Count 297 (140-400) K/mcL Neutrophils # 13.6 H (1.6-8.9) K/mcL BMP 06/06/16 00:38 Sodium 136 Potassium 3.5 Chloride 102 Carbon Dioxide 23 BUN 16 Creatinine 0.77 Glucose 122 H Calcium 9.6 Cardiac Enzymes 06/06/16 06/06/16 Range/Units 00:38 08:20 Troponin I 0.05 H* 0.05 H* (0-0.03) ng/mL Liver Function 06/06/16 Range/Units 00:38 Total Bilirubin 1.2 (0.2-1.2) mg/dL Direct Bilirubin 0.7 H (0.0-0.5) mg/dL AST 82 H (5-34) Units/L ALT 63 H (0-55) Units/L Alkaline Phosphatase 169 H (38-126) Units/L Albumin 2.5 L (3.5-5.0) g/dL - ABG Interpretation ABG results: PT/INR, D-dimer PT 13.5 Seconds (9.4-12.1) H 06/06/16 00:38 Consult Discharge Plan - Plan [facility]errals: [facility] [Primary Care Provider] - <David Russo P - Last Filed: 06/06/16 16:34> Date of Encounter: 06/06/16 - Constitutional Vitals: Temp Pulse Resp BP Pulse Ox 99.6 F 77 18 144/88 97 06/06/16 15:00 06/06/16 15:00 06/06/16 15:00 06/06/16 15:00 06/06/16 15:00 Internal Medicine: Result - Labs CBC & Chem 7: 06/06/16 00:38 06/06/16 00:38 Labs: Short CBC 06/06/16 Range/Units 00:38 WBC 18.0 H (4.3-11.1) K/mcL Hgb 10.2 L (12.9-16.9) g/dL Hct 30.6 L (37.5-50.1) % Plt Count 297 (140-400) K/mcL Neutrophils # 13.6 H (1.6-8.9) K/mcL BMP 06/06/16 00:38 Sodium 136 Potassium 3.5 Chloride 102 Carbon Dioxide 23 BUN 16 Creatinine 0.77 Glucose 122 H Calcium 9.6 Cardiac Enzymes 06/06/16 06/06/16 Range/Units 00:38 08:20 Troponin I 0.05 H* 0.05 H* (0-0.03) ng/mL Liver Function 06/06/16 Range/Units 00:38 Total Bilirubin 1.2 (0.2-1.2) mg/dL Direct Bilirubin 0.7 H (0.0-0.5) mg/dL AST 82 H (5-34) Units/L ALT 63 H (0-55) Units/L Alkaline Phosphatase 169 H (38-126) Units/L Albumin 2.5 L (3.5-5.0) g/dL - ABG Interpretation ABG results: PT/INR, D-dimer PT 13.5 Seconds (9.4-12.1) H 06/06/16 00:38 - Impressions Impressions Abdomen/Pelvis CT 06/06/16 23:44 IMPRESSION: 1. Acute cholecystitis. 2. Indeterminate 2.3 cm left adrenal nodule. Recommend MRI of the abdomen with and without contrast using adrenal mass protocol in 1 year. 3. Trace bilateral pleural effusions. 4. Small amount of ascites RECOMMENDATION: Managing Incidental Adrenal Nodule > or equal to 1 cm Indeterminate adrenal nodule 1-4 cm: Benign imaging features (homogeneous, low density, smooth margin) - if no priors exams available, follow up adrenal protocol CT or MR recommended in 12 months Reference: Vince et al. Managing Incidental Findings on Abdominal CT: White Paper of the ACR Incidental Findings Committee. J Am Denys Radiol 2010;7:754-773 D/ / Leopoldo Pacheco MD / Leopoldo Pacheco MD Interpreting Provider: Leopoldo Pacheco MD - Attending Attestation I examined this patient and my medical decision-making was reviewed with the PENSION ADVISER/PA/Advanced Practice Nurse/Resident Physician. I agree with the documented findings, disposition and treatment plan as described except to the extent set forth below.
[2016-06-06] MEDS ORDERED: Ipratropium/Albuterol Neb 3 ML IH PRN (10:18)
[2016-06-06 11:52] LABS: Amylase 44 Units/L (25-125); Lipase 17 Units/L (8-78)
[2016-06-06] MEDS: Metoprolol XL (24 HR) Succ 25 MG TAB.ER.24H PO SCH (12:54)
[2016-06-06] MEDS: Isosorbide MONOnitrate (24 HR) 30 MG TAB.ER.24H PO SCH (12:54)
[2016-06-06] MEDS: Chlorhexidine Rinse 15 ML MOUTHWASH MM SCH ×2 (12:55→20:54)
[2016-06-06] MEDS: niCARdipine 20 MG CAPSULE PO SCH ×3 (13:02→20:54)
[2016-06-06] MEDS: Levofloxacin 750 MG/150 ML 750 MG/150 ML BAG IVPB SCH (13:03)
--- NOTE | 2016-06-06 15:20 | General Surgery Consult Note ---
Date of Encounter: 06/06/16 Time of Encounter: 15:20 Assessment and Plan (1) COPD (chronic obstructive pulmonary disease) Current Visit: Yes Status: Chronic ok to continue home meds, aggressive pulmonary toilet Qualifiers: COPD type: unspecified COPD Qualified Code(s): J44.9 - Chronic obstructive pulmonary disease, unspecified (2) CAD (coronary artery disease) Current Visit: Yes Status: Chronic hold aspirin for IR procedure tomorrow Qualifiers: Coronary Disease-Associated Artery/Lesion type: [place] artery [place] vs. transplanted heart: [place] heart Associated angina: angina presence unspecified Qualified Code(s): I25.10 - Atherosclerotic heart disease of [place] coronary artery without angina pectoris (3) Hypertension Current Visit: Yes Status: Chronic ok to continue home po meds Qualifiers: Hypertension type: essential hypertension Qualified Code(s): I10 - Essential (primary) hypertension (4) DVT prophylaxis Current Visit: Yes Status: Acute EPCDs for now hold heparin for IR procedure tomorrow (5) Depression Current Visit: No Status: Chronic ok to continue home po meds Qualifiers: Depression Type: unspecified Qualified Code(s): F32.9 - Major depressive disorder, single episode, unspecified (6) Altered mental state Current Visit: No Status: Acute consult to anesthesia for evaluation for reports of mental status changes after spinal surgery (not spinal stimulator) Qualifiers: Altered mental status type: unspecified Qualified Code(s): R41.82 - Altered mental status, unspecified (7) Leukocytosis Current Visit: No Status: Acute continue Antibiotics, trend wbc Qualifiers: Leukocytosis type: unspecified Qualified Code(s): D72.829 - Elevated white blood cell count, unspecified (8) Acute cholecystitis Current Visit: Yes Status: Acute patient with acute cholecystitis after extensive discussion with patient and family given his history of reaction and MS changes after general anesthesia will consult anesthesia to see and evaluate patient to see if he were to urgently need surgery what his risk is and for interval cholecystectomy in future in mean time will have IR place percutaneous cholecystostomy tube tomorrow hold all blood thinners and heparin npo ok give po meds ivf hydration dilaudid for pain control recheck labs in am History of Present Illness Consult date: 06/06/16 Reason for consult: gallstones History of present illness: Patient is a 60 yr old male with a complex medical history regarding recent anesthesia events during his back surgery. His family (, son and sister) is present and give most of the information. Several months ago he underwent spinal surgery and "woke up" during the procedure and and was given medication to further induce anesthesia. After that procedure patient had significant issues with memory, awareness and cognitiion and was up at [facility] for a month being treated and worked up after the incident. Family states he has never cognitively been right after that surgery, at least not to his baseline. He recently underwent a "light anesthesia" procedure and a spinal stimulator was placed and he had a little bit of return of cognitive issues after that as well. He started having chest pain last night which was sharp and he thought it was his heart as he has had 3 [place]'s in the past. He has 9 cardiac stents and has never undergone an open cardiac bypass. He had nausea and vomiting yesterday, none today. No diarrhea. Slight tactile fever and sweats. He came to the ED and CT scan was done showing pericholecystic fluid, gallbladder wall thickening and gallstones. WBC 18. Past Med Surg Social Fam HX - Past Medical History Source: patient, obtained from family Medical history: COPD (not on home oxygen), coronary artery disease, hyperlipidemia, hypertension, myocardial infarction (x3) Psychiatric history: anxiety, depression, schizophrenia, previous psychiatric hospitalization - Past Surgical History Surgical History: angioplasty/stent (9 cardiac stents), orthopedic, other ( spinal surgery, back spinal stimulator, LLE repair after trauma (tree crushed leg)) - Social History Smoking Status: Current every day smoker Smokeless Tobacco Status: No Alcohol use: none Drug use: none - Family History Father History Unknown: Yes Age: 45 Living Status: Age at : 45 Cause of : Heart attack Hx Family Cardiac Disorders: Yes Medications and Allergies Aspirin [Lo-Dose Aspirin EC] 81 mg PO DAILY 04/28/16 [History] Atorvastatin Calcium [Lipitor] 80 mg PO QPM 04/28/16 [History] Clopidogrel [Plavix] 75 mg PO DAILY 04/28/16 [History] Cyanocobalamin (B-12) [Vitamin B12] 1,000 mcg PO DAILY 04/28/16 [History] Docusate [Colace] 200 mg PO DAILY 04/28/16 [History] Duloxetine HCl [Cymbalta] 60 mg PO BID 04/28/16 [History] Fluticasone Propionate Nasal [Flonase] 50 mcg NS DAILY 04/28/16 [History] Hydrocortisone 1% CREAM [Cortaid] 1 appl TP BID 04/28/16 [History] Lidocaine 4% CRM (LMX) [Lmx 4] 1 appl TP BID PRN 04/28/16 [History] Oxcarbazepine [Oxtellar Xr] 600 mg PO TID 04/28/16 [History] RisperiDONE [Risperidone] 1 mg PO HS 04/28/16 [History] Sennosides [Laxative] 17.2 mg PO DAILY PRN 04/28/16 [History] Tamsulosin [Flomax] 0.4 mg PO DAILY capsule 05/14/16 [Rx] Acetaminophen [Tylenol] 650 mg PO Q6HR 06/06/16 [History] Cyclobenzaprine [Flexeril] 10 mg PO TID 06/06/16 [History] Enalapril Maleate [Vasotec] 5 mg PO BID 06/06/16 [History] Enoxaparin [Lovenox] 40 mg SQ DAILY 06/06/16 [History] Haloperidol 10 mg PO Q6H PRN 06/06/16 [History] Haloperidol Lactate [Haldol] 20 mg IM Q6H PRN 06/06/16 [History] Insulin Regular Human [HumuLIN R] 3 - 8 unit SQ TIDWM 06/06/16 [History] Ipratropium/Albuterol Neb [Duoneb] 3 ml IH Q4HR 06/06/16 [History] Isosorbide MONOnitrate (24 HR) [Imdur] 120 mg PO DAILY 06/06/16 [History] Levofloxacin [Levaquin] 750 mg PO DAILY 06/06/16 [History] Melatonin/Pyridoxine HCl (B6) [Melatonin 3 mg Tablet] 3 mg PO HS 06/06/16 [ History] Metoprolol XL (24 HR) Succ [Toprol XL] 12.5 mg PO DAILY 06/06/16 [History] Multivitamin Liquid [Cerovite Liquid] 5 ml PO DAILY 06/06/16 [History] Nitroglycerin [Nitro-Bid] 1 inch TD Q6H 06/06/16 [History] Pregabalin [Lyrica] 150 mg PO HS 06/06/16 [History] Allergies Amoxicillin Allergy (Verified 06/05/16 19:20) See Comments fentanyl Allergy (Verified 04/27/16 23:01) Rash hydrogen peroxide [From Peroxyl] Allergy (Verified 04/27/16 23:01) Rash piroxicam Allergy (Verified 06/05/16 19:20) See Comments propofol Allergy (Verified 06/05/16 19:20) See Comments Review of Systems All systems PM: reviewed and no additional remarkable complaints except as stated All systems PM: A 10-system review of systems was performed and is negative for pertinent findings except as documented above in the HPI. General Surgery Exam Initial Vital Signs Temp Pulse Resp BP Pulse Ox 100.3 F H 82 16 163/97 96 06/05/16 19:21 06/05/16 19:21 06/05/16 19:21 06/05/16 19:21 06/05/16 19:21 - General physical appearance well developed, moderate distress, moderate pain - Eyes PERRL, normal ocular movement - ENT normal mucosa, normocephalic - Neck trachea midline - Respiratory normal expansion, clear to auscultation - Cardiovascular Cardiovascular exam: Present: RRR - Abdomen Abdomen general surgery: Present: bowel sounds present, soft, tender. Absent: guarding, rebound Abdominal Tenderness: Present: RUQ - Integumentary Integumentary general surgery: Present: warm and dry, no abnormal pigmentation - Neurologic Present: CN 2-12 grossly intact - Musculoskeletal Present: normal posture - Psychiatric Psychiatric general surgery: Present: A&Ox3, speech is normal Exam Initial Vital Signs Temp Pulse Resp BP Pulse Ox 100.3 F H 82 16 163/97 96 06/05/16 19:21 06/05/16 19:21 06/05/16 19:21 06/05/16 19:21 06/05/16 19:21 Results - Labs 06/06/16 00:38 06/06/16 00:38 Short CBC 06/06/16 06/05/16 Range/Units 00:38 19:37 WBC 18.0 H 18.3 H (4.3-11.1) K/mcL Hgb 10.2 L 11.3 L (12.9-16.9) g/dL Hct 30.6 L 34.2 L (37.5-50.1) % Plt Count 297 333 (140-400) K/mcL Neutrophils # 13.6 H 14.8 H (1.6-8.9) K/mcL BMP 06/06/16 06/05/16 Range/Units 00:38 19:37 Sodium 136 139 (136-145) mEq/L Potassium 3.5 3.5 (3.5-4.5) mEq/L Chloride 102 106 (98-109) mEq/L Carbon Dioxide 23 22 (19-29) mEq/L BUN 16 15 (8-26) mg/dL Creatinine 0.77 0.70 L (0.72-1.25) mg/dL Glucose 122 H 130 H (70-99) mg/dL Calcium 9.6 9.6 (8.6-10.8) mg/dL Cardiac Enzymes 06/06/16 06/06/16 06/05/16 Range/Units 08:20 00:38 19:37 Troponin I 0.05 H* 0.05 H* 0.04 H* (0-0.03) ng/mL Liver Function 06/06/16 Range/Units 00:38 Total Bilirubin 1.2 (0.2-1.2) mg/dL Direct Bilirubin 0.7 H (0.0-0.5) mg/dL AST 82 H (5-34) Units/L ALT 63 H (0-55) Units/L Alkaline Phosphatase 169 H (38-126) Units/L Albumin 2.5 L (3.5-5.0) g/dL Urine 06/05/16 Range/Units 22:00 Urine Color Yellow (Yellow) Urine Clarity Clear (Clear) Urine pH 6.5 (5.0-8.0) pH Units Ur Specific [place] 1.015 (1.010-1.025) Urine Protein Negative (Neg-Trace) mg/dL Urine Glucose (UA) Normal (Normal) mg/dL Vital Signs Temp Pulse Resp BP Pulse Ox 06/06/16 07:00 99.4 F 75 18 172/96 99 06/06/16 04:30 98.1 F 71 16 170/91 98 06/06/16 03:35 160/95 06/05/16 23:31 100.4 F H 70 19 157/91 99 06/05/16 22:43 20 150/100 06/05/16 21:00 78 20 165/104 98 06/05/16 20:58 78 18 163/101 98 06/05/16 20:30 81 20 167/100 98 06/05/16 20:02 76 20 167/107 99 06/05/16 19:45 81 20 162/99 99 06/05/16 19:35 96 06/05/16 19:30 82 20 164/101 96 06/05/16 19:21 100.3 F H 82 16 163/97 96 Intake and Output 06/05/16 06/06/16 06/06/16 23:59 07:59 15:59 Intake Total 100 / 100 100 / 100 1000 / 1000 Output Total 100 / 100 Balance 100 / 100 0 / 0 1000 / 1000 Intake: IV Fluids 100 / 100 100 / 100 1000 / 1000 D5% And 0.45% Nacl 1000 1000 / 1000 Ml Bag 1,000 ML @ 100 mls /hr IVC .Q10H JOVANNY Rx#: [id number] Azactam 2,000 MG In 100 / 100 Dextrose 5% (Minibag+) 100 ML 100 ML @ 200 mls/ hr IVPB ONCE ONE Rx#: [id number] Flagyl 500 MG/100 ML 500 100 / 100 mg In 100 ml @ 100 mls/hr IVPB Q8HR JOVANNY Rx#: [id number] Output: Urine 100 / 100 Urethral (Colon) 100 / 100 Other: Weight 103.8 kg Blood Glucose* 131 122 - Imaging CT scan - abdomen: report reviewed, image reviewed CT scan - pelvis: report reviewed, image reviewed Consult Discharge Plan - Plan [facility]errals: [facility] [Primary Care Provider] -
[2016-06-06] MEDS: OXcarbazepine 150 MG TABLET PO SCH ×2 (16:29→20:55)
[2016-06-06] MEDS: *HR* HYDROmorphone (PF) 1 MG/ML SYRINGE IVP PRN ×2 (16:44→21:26)
--- NOTE | 2016-06-06 17:53 | Electrocardiograph Report ---
[place] [id number] Test Date: 2016-06-05 Pat Name: Chad Mora Department: 104 Room: 2NE28 Gender: M Claims Support Specialist: BOAZ : [id number] Requested By: David Russo Order Number: [id number] Reading MD: Lashanda Knott Measurements Intervals [place] Rate: 81 P: 62 HI: 165 QRS: 0 QRSD: 113 T: 68 QT: 386 QTc: 424 Interpretive Statements SINUS RHYTHM POSSIBLE LEFT VENTRICULAR HYPERTROPHY INFERIOR MYOCARDIAL INFARCTION, PROBABLY OLD Electronically Signed On 06-06-2016 17:51:41 EDT by Lashanda Knott
[2016-06-06] MEDS: Acetaminophen IV 1,000 MG/100 ML INFUS..BTL IVPB SCH (18:42)
[2016-06-06] MEDS: 0.9 % Sodium Chloride 500 ML IVC SCH (20:48)
[2016-06-06] MEDS: risperiDONE 1 MG TABLET PO SCH (20:55)
[2016-06-06] MEDS: 0.9 % Sodium Chloride 1,000 ML IVC SCH (20:55)
[2016-06-06] MEDS ORDERED: traZODone 50 MG TABLET PO SCH (21:00)
[2016-06-07] MEDS: MetroNIDAZOLE 500 MG/100 ML 500 MG/100 ML BAG IVPB SCH ×3 (00:15→18:23)
[2016-06-07] MEDS: 0.9 % Sodium Chloride 1,000 ML IVC SCH ×2 (02:58→09:45)
[2016-06-07 03:58] LABS: Basophils % 0.2 %; Eosinophils # 0.5 K/mcL (0.0-0.6); Eosinophils % 3.5 %; Hematocrit 24.5 % (37.5-50.1); Immature Granulocytes % 0.5 % (0-4); Lymphocytes # 2.5 K/mcL (0.6-4.6); Lymphocytes % 18.7 %; Mean Corpuscular HGB Conc 33.9 g/dL (31.6-35.5); Mean Corpuscular Hemoglobin 28.6 pg (28.0-33.3); Mean Corpuscular Volume 84.5 fL (83.0-100.0); Mean Platelet Volume 9.8 fL (9.4-12.4); Monocytes # 1.5 K/mcL (0.0-1.3); Neutrophils # 8.7 K/mcL (1.6-8.9); Platelet Count 227 K/mcL (140-400); Red Cell Distribution Width 14.6 % (11.5-14.5); Segmented Neutrophils % 66.1 %
[2016-06-07 04:05] LABS: INR 1.4; Prothrombin Time 14.8 Seconds (9.4-12.1)
[2016-06-07 04:09] LABS: Hemoglobin 8.3 g/dL (12.9-16.9)
[2016-06-07 04:13] LABS: BUN/Creatinine Ratio 13 (6-26); Blood Urea Nitrogen 9 mg/dL (8-26); Calcium 8.7 mg/dL (8.6-10.8); Carbon Dioxide 23 mEq/L (19-29); Chloride 104 mEq/L (98-109); Glucose 96 mg/dL (70-99); Osmolality,Calculated 279 (280-300); Potassium 3.1 mEq/L (3.5-4.5); Sodium 135 mEq/L (136-145); eGFR For African Americans > 60 (> 60); eGFR For Non-African Americans > 60 (> 60)
[2016-06-07 04:19] LABS: Albumin/Globulin Ratio 0.6 (1.1-2.2); Bilirubin,Direct 0.6 mg/dL (0.0-0.5); Bilirubin,Indirect 0.5 mg/dL (0.0-1.2); Bilirubin,Total 1.1 mg/dL (0.2-1.2); Globulin 3.1 g/dL (2.4-3.5); Total Protein 5.1 g/dL (6.0-8.3)
[2016-06-07] MEDS: *HR* HYDROmorphone (PF) 1 MG/ML SYRINGE IVP PRN ×4 (04:42→22:08)
[2016-06-07] MEDS: Acetaminophen IV 1,000 MG/100 ML INFUS..BTL IVPB SCH ×2 (05:00→19:40)
[2016-06-07] MEDS ORDERED: Potassium Chloride 40 MEQ, Lidocaine 1% 2 ML in D5% in Water 500 ML IVPB ONE (09:14)
[2016-06-07] MEDS: OXcarbazepine 150 MG TABLET PO SCH ×3 (09:44→21:56)
[2016-06-07] MEDS: Metoprolol XL (24 HR) Succ 25 MG TAB.ER.24H PO SCH (09:44)
[2016-06-07] MEDS: niCARdipine 20 MG CAPSULE PO SCH ×3 (09:45→21:57)
[2016-06-07] MEDS: Chlorhexidine Rinse 15 ML MOUTHWASH MM SCH ×2 (09:46→21:57)
[2016-06-07] MEDS: Isosorbide MONOnitrate (24 HR) 30 MG TAB.ER.24H PO SCH (09:48)
[2016-06-07] MEDS: Ondansetron 4 MG/2 ML VIAL IVP PRN (09:48)
[2016-06-07] MEDS: Pantoprazole 40 MG VIAL IVP SCH (09:49)
--- NOTE | 2016-06-07 10:11 | Internal Med Progress Note ---
<Duarte Rodríguez - Last Filed: 06/07/16 10:36> Date of Encounter: 06/07/16 Time of Encounter: 10:08 - Assessment and plan (1) Acute cholecystitis Current Visit: Yes Status: Acute Assessment and plan: Patient is a 60 year old male who was transferred [place] to [facility] ED with complaint of chest pain, RUQ abdominal pain, nausea, and vomiting. Determined to have leukocytosis with WBC of 18.3 upon arrival and elevated temp of 100.3. AST 82, ALT 63, Alk phos 169, T bili 1.2, Direct bili 0.7, Indirect bili 0.5. Lipase and amylase normal. LFT decreasing. AST 45, ALT 62, alk phos 167, T bili 1.1, Direct bili 0.6, Indirect bili 0.5. WBC at 13.2, decreased from 18.[address] abd/pelvis revealed acute cholecystitis, indeterminate 2.3 cm left adrenal nodule, trace bilateral pleural effusion Continue antibiotics. Patient received aztreonam, levaquin, and vancomycin in ED. Currently on Flagyl, Vancomycin, and Levaquin; continue d2. Pain control, avoid significant opiate pain medication due to history of dependence. IV Fluids RUQ ultrasound pending NPO diet Surgery following patient. Patient refused IR drain placement this morning, informed surgery. Hold Aspirin and heparin. Anesthesia to evaluate patient due to complicated course following anesthesia previously. (2) Nausea & vomiting Current Visit: Yes Status: Acute Assessment and plan: No additional vomiting since admission. Likely secondary to acute cholecystitis. Zofran q8h prn. Qualifiers: Vomiting type: unspecified Vomiting Intractability: non-intractable Qualified Code(s): R11.2 - Nausea with vomiting, unspecified (3) Leukocytosis Current Visit: Yes Status: Acute Assessment and plan: WBC elevated at 18.3 upon admission. UA was negative for UTI. CXR revealed pulmonary vascular congestion with mild cardiomegaly and patchy bilateral perihilar opacities that could represent early pulmonary edema. Continue with broad spectrum antibiotics. Flagyl, Vancomycin, and Levaquin d1. Likely secondary to acute cholecytitis. Blood cultures ordered, no growth to date x4 Qualifiers: Leukocytosis type: other Qualified Code(s): D72.828 - Other elevated white blood cell count (4) Elevated troponin Current Visit: Yes Status: Acute Assessment and plan: Patient was transferred [place] to [facility] ED with elevation in troponin, chest pain, abdominal pain, nausea, and vomiting. Troponin elevated from 0.03 to 0.04 prior to arrival. Troponins have been 0.04, 0.05, and 0.05. Elevated troponins likely secondary to demand ischemia secondary to acute cholecystitis. Continue telemetry, but in the absence of ekg findings, a fairly adynamic troponin, and resolution of chest pain since arrival this is unlikely related to ACS. Most recent cardiology evaluation at [facility] <1 week ago recommended no interventions. Aspirin held per surgery recommendation. Hold plavix pending possible interventions for acute cholecystitis. (5) Chest pain Current Visit: Yes Status: Acute Assessment and plan: Resolved since admission. EKG revealed normal sinus rhythm, no st elevation or depressions. Troponin 0.04, 0.05, 0.05. Discontinue Nitroglycerin drip. Resume home medications. Qualifiers: Chest pain type: other chest pain Qualified Code(s): R07.89 - Other chest pain; R07.8 - Other chest pain (6) CAD (coronary artery disease) Current Visit: Yes Status: Chronic Assessment and plan: History of CAD s/p multiple PCI and stents, most recently at [facility] <1week ago for NSTEMI, no additional interventions. Hold Plavix for possible interventions for acute cholecystitis. Continue aspirin. Continue home isosorbide mononitrate tab 120mg po qd for angina. Qualifiers: Coronary Disease-Associated Artery/Lesion type: [place] artery [place] vs. transplanted heart: [place] heart Associated angina: angina presence unspecified Qualified Code(s): I25.10 - Atherosclerotic heart disease of [place] coronary artery without angina pectoris (7) COPD (chronic obstructive pulmonary disease) Current Visit: Yes Status: Chronic Assessment and plan: No acute exacerbation. Duonebs q6h prn Albuterol q2h prn. Qualifiers: COPD type: unspecified COPD Qualified Code(s): J44.9 - Chronic obstructive pulmonary disease, unspecified (8) Hypertension Current Visit: Yes Status: Chronic Assessment and plan: Elevated bp 163/97 upon arrival. Bp 134/72 this morning, controlled on home medications. Review of [place] records: on Metoprolol succinate 12.5 mg po qd, nicardipine 40mg q8h, and enalapril inj 0.625/0.5mL IVP q6h. Qualifiers: Hypertension type: essential hypertension Qualified Code(s): I10 - Essential (primary) hypertension (9) Mood disorder Current Visit: Yes Status: Chronic Assessment and plan: Mood disorder unspecified [facility]. Medications reviewed and ordered Duloxetine 60 mg po bid wm, Oxcarbazepine 600mg tid, risperidone 1mg po qhs for mood Haloperidol 10mg po q6h prn for moderate agitation ordered. (10) Thrush, oral Current Visit: Yes Status: Acute Assessment and plan: Chlorohexidine oral rinse ordered. (11) History of dysphagia Current Visit: Yes Status: Chronic Assessment and plan: Dysphagia alert noted [facility]. Diet Pureed and thin liquids, crush and serve medication in pudding, direct feeding assistance, upright position and spoon straw intake. Spoke with rock star regarding [facility] brought forth from [facility] about [facility]. Patient has been on PPN for the past 4-5 days. Suspect symptoms from acute cholecystitis prevented this patietn from having a good appetite. Prealbumin ordered, Albumin 2.0 Bedside swallow eval ordered; however, patient is npo at this time, pending possible surgical intervention. Will likely have to reorder in the next couple days. (12) Hypokalemia Current Visit: Yes Status: Acute Assessment and plan: Potassium at 3.1 this morning. Replaced 40mEQ. Continue to monitor and replete as necessary. (13) DVT prophylaxis Current Visit: Yes Status: Acute Assessment and plan: Heparin held per Surgery recommendation. IPCD ordered. - Subjective Interval history: Patient reports he is feeling a little better today than yesterday. Patient continues to complain of nausea and abdominal pain. Patient refused drain placement by IR this morning. Patient would rather have surgical intervention for his gallbladder. Informed Surgery this morning. Patient denies fevers, chills, sweats, headaches, chest pain, vomiting, shortness of breath, changes in bowels or bladder, weakness, or loss of sensation. - Constitutional Vitals: Temp Pulse Resp BP Pulse Ox 98.4 F 70 16 134/72 97 06/07/16 09:20 06/07/16 09:20 06/07/16 09:20 06/07/16 09:20 06/07/16 09:20 General appearance: Present: cooperative, A&O X 3, pleasant, no acute distress, obese, answers questions appropriately - Head Head exam: Present: atraumatic, normocephalic - Eye Eye exam: Present: normal appearance - ENT ENT exam: Present: mucous membranes dry, normal exam, normal external ear exam, normal oropharynx - Neck Neck exam general surgery: Present: full ROM, normal inspection, supple, trachea midline. Absent: tenderness - Respiratory Respiratory exam: Present: CTAB. Absent: rales, rhonchi, wheezes - Cardiovascular Cardiovascular exam: Present: RRR, +S1, +S2. Absent: diastolic murmur, JVD, systolic murmur - GI/Abdominal GI/Abdominal exam: Present: hypoactive bowel sounds, soft, tenderness (RUQ). Absent: distended, guarding, rebound - Extremities Exam Extremities exam: Present: full ROM, pedal edema, warm. Absent: tenderness Additional comments: rash noted - Neurological Exam Neurological exam: Present: alert, oriented X3, no focal deficits, strengths equal and symetr throughout. Absent: facial droop, speech deficit - Psychiatric Psychiatric exam: Present: normal affect, normal mood - Skin Skin exam: Present: dry, intact, rash (multiple 8mm dark brown papular lesions with central umbilication and normal base over lower bilateral extremities R>L and stasis dermatitis changes to left lower extremity), warm. Absent: diaphoretic, erythema, pallor Internal Medicine: Result - Labs CBC & Chem 7: 06/07/16 03:41 06/07/16 03:41 Labs: Short CBC 06/07/16 Range/Units 03:41 WBC 13.2 H (4.3-11.1) K/mcL Hgb 8.3 L D (12.9-16.9) g/dL Hct 24.5 L (37.5-50.1) % Plt Count 227 (140-400) K/mcL Neutrophils # 8.7 (1.6-8.9) K/mcL BMP 06/07/16 03:41 Sodium 135 L Potassium 3.1 L Chloride 104 Carbon Dioxide 23 BUN 9 Creatinine 0.72 Glucose 96 Calcium 8.7 Liver Function 06/07/16 Range/Units 03:41 Total Bilirubin 1.1 (0.2-1.2) mg/dL Direct Bilirubin 0.6 H (0.0-0.5) mg/dL AST 45 H (5-34) Units/L ALT 62 H (0-55) Units/L Alkaline Phosphatase 167 H (38-126) Units/L Albumin 2.0 L (3.5-5.0) g/dL - ABG Interpretation ABG results: PT/INR, D-dimer PT 14.8 Seconds (9.4-12.1) H 06/07/16 03:41 - Impressions Impressions Abdomen/Pelvis CT 06/06/16 23:44 IMPRESSION: 1. Acute cholecystitis. 2. Indeterminate 2.3 cm left adrenal nodule. Recommend MRI of the abdomen with and without contrast using adrenal mass protocol in 1 year. 3. Trace bilateral pleural effusions. 4. Small amount of ascites RECOMMENDATION: Managing Incidental Adrenal Nodule > or equal to 1 cm Indeterminate adrenal nodule 1-4 cm: Benign imaging features (homogeneous, low density, smooth margin) - if no priors exams available, follow up adrenal protocol CT or MR recommended in 12 months Reference: Vince et al. Managing Incidental Findings on Abdominal CT: White Paper of the ACR Incidental Findings Committee. J Am Denys Radiol 2010;7:754-773 D/ / Leopoldo Pacheco MD / Leopoldo Pacheco MD Interpreting Provider: Leopoldo Pacheco MD Abdomen Ultrasound 06/07/16 08:30 IMPRESSION: 1. Cholelithiasis. Moderate gallbladder wall thickening and pericholecystic edema concerning for acute cholecystitis. 2. No significant bile duct dilatation. D/ / 06/07/2016 09:24:07 Santana Mckeon MD / Tanisha Gsatelum Interpreting Provider: Santana Mckeon MD Consult Discharge Plan - Plan [facility]errals: [facility] [Primary Care Provider[facility] - <David Russo P - Last Filed: 06/07/16 16:56> Date of Encounter: 06/07/16 - Constitutional Vitals: Temp Pulse Resp BP Pulse Ox 98.5 F 69 18 113/70 93 06/07/16 11:24 06/07/16 15:08 06/07/16 15:08 06/07/16 15:08 06/07/16 15:08 Internal Medicine: Result - Labs CBC & Chem 7: 06/07/16 03:41 06/07/16 03:41 Labs: Short CBC 06/07/16 Range/Units 03:41 WBC 13.2 H (4.3-11.1) K/mcL Hgb 8.3 L D (12.9-16.9) g/dL Hct 24.5 L (37.5-50.1) % Plt Count 227 (140-400) K/mcL Neutrophils # 8.7 (1.6-8.9) K/mcL BMP 06/07/16 03:41 Sodium 135 L Potassium 3.1 L Chloride 104 Carbon Dioxide 23 BUN 9 Creatinine 0.72 Glucose 96 Calcium 8.7 Liver Function 06/07/16 Range/Units 03:41 Total Bilirubin 1.1 (0.2-1.2) mg/dL Direct Bilirubin 0.6 H (0.0-0.5) mg/dL AST 45 H (5-34) Units/L ALT 62 H (0-55) Units/L Alkaline Phosphatase 167 H (38-126) Units/L Albumin 2.0 L (3.5-5.0) g/dL - ABG Interpretation ABG results: PT/INR, D-dimer PT 14.8 Seconds (9.4-12.1) H 06/07/16 03:41 - Impressions Impressions Abdomen Ultrasound 06/07/16 08:30 IMPRESSION: 1. Cholelithiasis. Moderate gallbladder wall thickening and pericholecystic edema concerning for acute cholecystitis. 2. No significant bile duct dilatation. D/ / 06/07/2016 09:24:07 Santana Mckeon MD / Tanisha Gastelum Interpreting Provider: Santana Mckeon MD - Attending Attestation I examined this patient and my medical decision-making was reviewed with the GEOGRAPHY PROFESSOR/PA/Advanced Practice Nurse/Resident Physician. I agree with the documented findings, disposition and treatment plan as described except to the extent set forth below.
[2016-06-07] MEDS: Levofloxacin 750 MG/150 ML 750 MG/150 ML BAG IVPB SCH (10:30)
--- NOTE | 2016-06-07 11:36 | Electrocardiograph Report ---
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
--- NOTE | 2016-06-07 14:03 | General Surgery Progress Note ---
Date of Encounter: 06/07/16 Time of Encounter: 14:01 - Assessment and Plan (1) Acute cholecystitis Current Visit: Yes Status: Acute He has a history of reaction and MS changes after general anesthesia Anesthesia consult pending Patient was to have IR place percutaneous cholecystostomy tube today, however patient refused and he and his voiced there wishes to have cholecystectomy. I spoke at length with his about his previous mental status change when he had a spinal stimulator placed. She stated that Mr. Mora was taking a lot of pain medication and she believed that this was the cause of his difficulty to sedate him. Patient will be taken for cholecystecomy tomorrow, 06/08/16. hold all blood thinners and heparin NPO after midnight for surgery tomorrow npo ok give po meds ivf hydration dilaudid for pain control recheck labs in am (2) Altered mental state Current Visit: No Status: Acute consult to anesthesia for evaluation for reports of mental status changes after surgery Qualifiers: Altered mental status type: unspecified Qualified Code(s): R41.82 - Altered mental status, unspecified (3) CAD (coronary artery disease) Current Visit: Yes Status: Chronic hold aspirin for surgery tomorrow Qualifiers: Coronary Disease-Associated Artery/Lesion type: [place] artery [place] vs. transplanted heart: [place] heart Associated angina: angina presence unspecified Qualified Code(s): I25.10 - Atherosclerotic heart disease of [place] coronary artery without angina pectoris (4) COPD (chronic obstructive pulmonary disease) Current Visit: Yes Status: Chronic IH bronchodilators Qualifiers: COPD type: unspecified COPD Qualified Code(s): J44.9 - Chronic obstructive pulmonary disease, unspecified (5) DVT prophylaxis Current Visit: Yes Status: Acute epcds (6) Hypertension Current Visit: Yes Status: Chronic currently normotensive, 113/70 continue home meds Qualifiers: Hypertension type: essential hypertension Qualified Code(s): I10 - Essential (primary) hypertension Subjective Narrative: Patient seen and examined. He continues to have RUQ and epigastric abdominal pain. Continues to have nausea but no further episodes of emesis. Objective Vital Signs - Last 8 Hours Temp Pulse Resp BP Pulse Ox 06/07/16 11:24 98.5 F 72 18 108/69 90 06/07/16 09:20 98.4 F 70 16 134/72 97 06/07/16 08:30 92 06/07/16 07:37 98.6 F 71 18 130/70 92 Intake and Output 06/06/16 06/07/16 06/07/16 23:59 07:59 15:59 Intake Total 2100 / 2100 1700 / 1700 Output Total 1800 / 1800 800 / 800 400 / 400 Balance 300 / 300 900 / 900 -400 / -400 Intake: IV Fluids 2100 / 2100 1700 / 1700 0.9 % Sodium Chloride 1, 1000 / 1000 000 ML @ 125 mls/hr IVC . Q8H JOVANNY Rx#:[id number] D5% And 0.45% Nacl 1000 1000 / 1000 Ml Bag 1,000 ML @ 100 mls /hr IVC .Q10H JOVANNY Rx#: [id number] Ofirmev 1,000 mg In 100 100 / 100 100 / 100 ml @ 400 mls/hr IVPB Q12HR JOVANNY Rx#:[id number] Levaquin 750mg/150 mL 750 150 / 150 mg In 150 ml @ 100 mls/ hr IVPB DAILY JOVANNY Rx#: [id number] Flagyl 500 MG/100 ML 500 100 / 100 100 / 100 mg In 100 ml @ 100 mls/hr IVPB Q8HR JOVANNY Rx#: [id number] Vancocin 2,000 MG In 500 / 500 500 / 500 Dextrose 5% 500 ML @ 250 mls/hr IVPB Q12H JOVANNY Rx#: [id number] Output: Urine 400 / 400 Catheter 1800 / 1800 800 / 800 Other: Weight 103.8 kg Blood Glucose* 99 106 Patient Weight 06/07/16 23:59 Weight 103.8 kg - General physical appearance well developed, well nourished, moderate distress - Eyes normal ocular movement - Neck Neck exam: trachea midline - Respiratory clear to auscultation - Cardiovascular Cardiovascular exam: Present: RRR, no murmurs/rubs/gallops - Abdomen Abdomen: Present: bowel sounds present, soft, tender. Absent: guarding, rebound , rigid Abdominal Tenderness: epigastic, RUQ - Neurologic CN 2-12 grossly intact - Labs 06/08/16 07:12 06/08/16 07:12 Diabetes panel 06/07/16 06/07/16 Range/Units 03:41 03:41 Sodium 135 L (136-145) mEq/L Potassium 3.1 L (3.5-4.5) mEq/L Chloride 104 (98-109) mEq/L Carbon Dioxide 23 (19-29) mEq/L BUN 9 (8-26) mg/dL Creatinine 0.72 (0.72-1.25) mg/dL Glucose 96 (70-99) mg/dL Calcium 8.7 (8.6-10.8) mg/dL AST 45 H (5-34) Units/L ALT 62 H (0-55) Units/L Alkaline Phosphatase 167 H (38-126) Units/L Albumin 2.0 L (3.5-5.0) g/dL Calcium panel 06/07/16 06/07/16 Range/Units 03:41 03:41 Calcium 8.7 (8.6-10.8) mg/dL Albumin 2.0 L (3.5-5.0) g/dL Pituitary panel 06/07/16 Range/Units 03:41 Sodium 135 L (136-145) mEq/L Potassium 3.1 L (3.5-4.5) mEq/L Chloride 104 (98-109) mEq/L Carbon Dioxide 23 (19-29) mEq/L BUN 9 (8-26) mg/dL Creatinine 0.72 (0.72-1.25) mg/dL Glucose 96 (70-99) mg/dL Calcium 8.7 (8.6-10.8) mg/dL Adrenal panel 06/07/16 06/07/16 Range/Units 03:41 03:41 Sodium 135 L (136-145) mEq/L Potassium 3.1 L (3.5-4.5) mEq/L Chloride 104 (98-109) mEq/L Carbon Dioxide 23 (19-29) mEq/L BUN 9 (8-26) mg/dL Creatinine 0.72 (0.72-1.25) mg/dL Glucose 96 (70-99) mg/dL Calcium 8.7 (8.6-10.8) mg/dL Total Bilirubin 1.1 (0.2-1.2) mg/dL AST 45 H (5-34) Units/L ALT 62 H (0-55) Units/L Alkaline Phosphatase 167 H (38-126) Units/L Albumin 2.0 L (3.5-5.0) g/dL Consult Discharge Plan - Plan [facility]: [facility] Care Provider[facility] - 06/15/16 3:30 pm
[2016-06-07] MEDS: Vancomycin 1,750 MG in D5% in Water 500 ML IVPB SCH (15:41)
--- NOTE | 2016-06-07 21:25 | Anesthesia Evaluation PreOp ---
Date of Encounter: 06/07/16 Time of Encounter: 21:25 - Past History Planned Operation: Lap cholecystectomy Cardiac History: VT, HTN, Hyperlipidemia, Cardiac Stent (9 stents total; patient says most recent in 2015 -- I found most recent in transfer records 11-14 (2 [facility] to [facility])), Other (CAD) Pulmonary History: Former smoker (quit in March), COPD MEDICATION MANAGER History: Other (anxiety, depression, schizophrenia) Other Medical History: Diabetes Type II (uses insulin), Other (anemia -- repeat HH 8.3?) Anesthesia History: Problems (awareness during spinal cord stimulator placement and is not the same since (patient says he is "loopy")) Alcohol Use: none Drug use: none Medications and Allergies Aspirin [Lo-Dose Aspirin EC] 81 mg PO DAILY 04/28/16 [History] Atorvastatin Calcium [Lipitor] 80 mg PO QPM 04/28/16 [History] Clopidogrel [Plavix] 75 mg PO DAILY 04/28/16 [History] Cyanocobalamin (B-12) [Vitamin B12] 1,000 mcg PO DAILY 04/28/16 [History] Docusate [Colace] 200 mg PO DAILY 04/28/16 [History] Duloxetine HCl [Cymbalta] 60 mg PO BID 04/28/16 [History] Fluticasone Propionate Nasal [Flonase] 50 mcg NS DAILY 04/28/16 [History] Hydrocortisone 1% CREAM [Cortaid] 1 appl TP BID 04/28/16 [History] Lidocaine 4% CRM (LMX) [Lmx 4] 1 appl TP BID PRN 04/28/16 [History] Oxcarbazepine [Oxtellar Xr] 600 mg PO TID 04/28/16 [History] RisperiDONE [Risperidone] 1 mg PO HS 04/28/16 [History] Sennosides [Laxative] 17.2 mg PO DAILY PRN 04/28/16 [History] Tamsulosin [Flomax] 0.4 mg PO DAILY capsule 05/14/16 [Rx] Acetaminophen [Tylenol] 650 mg PO Q6HR 06/06/16 [History] Cyclobenzaprine [Flexeril] 10 mg PO TID 06/06/16 [History] Enalapril Maleate [Vasotec] 5 mg PO BID 06/06/16 [History] Enoxaparin [Lovenox] 40 mg SQ DAILY 06/06/16 [History] Haloperidol 10 mg PO Q6H PRN 06/06/16 [History] Haloperidol Lactate [Haldol] 20 mg IM Q6H PRN 06/06/16 [History] Insulin Regular Human [HumuLIN R] 3 - 8 unit SQ TIDWM 06/06/16 [History] Ipratropium/Albuterol Neb [Duoneb] 3 ml IH Q4HR 06/06/16 [History] Isosorbide MONOnitrate (24 HR) [Imdur] 120 mg PO DAILY 06/06/16 [History] Levofloxacin [Levaquin] 750 mg PO DAILY 06/06/16 [History] Melatonin/Pyridoxine HCl (B6) [Melatonin 3 mg Tablet] 3 mg PO HS 06/06/16 [ History] Metoprolol XL (24 HR) Succ [Toprol XL] 12.5 mg PO DAILY 06/06/16 [History] Multivitamin Liquid [Cerovite Liquid] 5 ml PO DAILY 06/06/16 [History] Nitroglycerin [Nitro-Bid] 1 inch TD Q6H 06/06/16 [History] Pregabalin [Lyrica] 150 mg PO HS 06/06/16 [History] Allergies Amoxicillin Allergy (Verified 06/05/16 19:20) See Comments fentanyl Allergy (Verified 04/27/16 23:01) Rash hydrogen peroxide [From Peroxyl] Allergy (Verified 04/27/16 23:01) Rash piroxicam Allergy (Verified 06/05/16 19:20) See Comments propofol Allergy (Verified 06/05/16 19:20) See Comments - Meds/Allergy Pre-op Review Medications Reviewed: Yes Allergies Reviewed: Yes Beta Blockers on Current Med List: Yes Anesthesia Results - Labs 06/07/16 03:41 06/07/16 03:41 06-05-16 bnp 95 - Imaging EKG: report reviewed, image reviewed (SR; possible LVH; inferior VT (possibly old)) Chest x-ray: image reviewed (Pulm vascular congestion, mild cardiomegay; bilateral perihilar opacities could represent developing edema) Additional studies: TTE: LVEF 55% mod concentric LVH mild diastolic dysfunction of the LV normal RV size/function mild AR no pulm htn 04-29-16 Cardiology consult: Patient with elevated troponins at the time and s/p syncopal event and with mildly elevated troponins (trop 0.03, 0.07, 0.05); Per patient report [facility] with PCI prior year at [facility] (records note obtained per cards consult). Anesthesia Exam Last Vital Signs Temp 98.8 F 06/07/16 20:00 Pulse 74 06/07/16 20:00 Resp 20 06/07/16 20:00 BP 151/88 06/07/16 20:00 Pulse Ox 95 06/07/16 20:00 Weight: 104 kg - HEENT Pupil (Motor): Pupils equal, EOMI Mallampati: IV (large tongue, small mouth opening) Oral Opening: Less than or equal to 3 - MEDICATION MANAGER LOC: Oriented - Cardiac Rhythm: Regular Murmur: None - Pulmonary Breath Sounds: bilateral Rhonchi Anesthesia Assess/Plan ASA Score: 4 (schizophrenia, anemia, CAD s/p multiple PCI (? most recent), VT, COPD, tobacco abuse, ?chronic troponin elevation, possible early CHF exacerbation (with relatively low BNP of 95 but pulm vascular congestion noted on recent CXR)) Modified [place] Scale for Level of Consciousness: Cooperative, oriented, and tranquil Anesthetic Plan: General Monitoring Plan: Standard Monitors Recovery Plan: PACU
[2016-06-07] MEDS: risperiDONE 1 MG TABLET PO SCH (21:56)
[2016-06-07] MEDS: 0.9 % Sodium Chloride 500 ML IVC SCH (21:56)
[2016-06-08] MEDS: 0.9 % Sodium Chloride 1,000 ML IVC SCH ×2 (00:50→00:53)
[2016-06-08] MEDS: MetroNIDAZOLE 500 MG/100 ML 500 MG/100 ML BAG IVPB SCH ×4 (00:52→23:55)
[2016-06-08] MEDS: Vancomycin 1,750 MG in D5% in Water 500 ML IVPB SCH ×2 (02:13→15:25)
[2016-06-08] MEDS: *HR* HYDROmorphone (PF) 1 MG/ML SYRINGE IVP PRN ×3 (03:19→22:08)
[2016-06-08] MEDS: Acetaminophen IV 1,000 MG/100 ML INFUS..BTL IVPB SCH ×2 (06:45→20:10)
[2016-06-08 07:45] LABS: Basophils % 0.2 %; Eosinophils # 0.6 K/mcL (0.0-0.6); Eosinophils % 3.8 %; Hematocrit 24.9 % (37.5-50.1); Hemoglobin 8.3 g/dL (12.9-16.9); Immature Granulocytes % 0.5 % (0-4); Lymphocytes # 2.3 K/mcL (0.6-4.6); Mean Corpuscular HGB Conc 33.3 g/dL (31.6-35.5); Mean Corpuscular Hemoglobin 28.4 pg (28.0-33.3); Mean Corpuscular Volume 85.3 fL (83.0-100.0); Mean Platelet Volume 10.1 fL (9.4-12.4); Monocytes # 1.3 K/mcL (0.0-1.3); Monocytes % 8.3 %; Platelet Count 247 K/mcL (140-400); Red Blood Count 2.92 M/mcL (4.19-5.50); Red Cell Distribution Width 14.6 % (11.5-14.5); Segmented Neutrophils % 72.2 %
[2016-06-08 07:50] LABS: INR 1.2; Prothrombin Time 12.5 Seconds (9.4-12.1)
[2016-06-08 07:53] LABS: Activated Partial Thrombo Time 27.8 Seconds (26.0-36.0)
[2016-06-08 08:00] LABS: Alanine Aminotransferase 40 Units/L (0-55); Albumin/Globulin Ratio 0.5 (1.1-2.2); Alkaline Phosphatase 203 Units/L (38-126); Aspartate Amino Transferase 25 Units/L (5-34); BUN/Creatinine Ratio 12 (6-26); Bilirubin,Direct 0.5 mg/dL (0.0-0.5); Bilirubin,Indirect 0.3 mg/dL (0.0-1.2); Bilirubin,Total 0.8 mg/dL (0.2-1.2); Blood Urea Nitrogen 9 mg/dL (8-26); Calcium 8.7 mg/dL (8.6-10.8); Carbon Dioxide 23 mEq/L (19-29); Chloride 102 mEq/L (98-109); Globulin 3.5 g/dL (2.4-3.5); Glucose 96 mg/dL (70-99); Osmolality,Calculated 277 (280-300); Potassium 3.1 mEq/L (3.5-4.5); Sodium 134 mEq/L (136-145); Total Protein 5.4 g/dL (6.0-8.3); eGFR For African Americans > 60 (> 60); eGFR For Non-African Americans > 60 (> 60)
[2016-06-08 08:01] LABS: Albumin 1.9 g/dL (3.5-5.0)
--- NOTE | 2016-06-08 08:16 | Internal Med Progress Note ---
<Duarte Rodríguez - Last Filed: 06/08/16 09:41> Date of Encounter: 06/08/16 Time of Encounter: 08:14 - Assessment and plan (1) Acute cholecystitis Current Visit: Yes Status: Acute Assessment and plan: Patient is a 60 year old male who was transferred from the [place] to [facility] ED with complaint of chest pain, RUQ abdominal pain, nausea, and vomiting. Determined to have leukocytosis with WBC of 18.3 upon arrival and elevated temp of 100.3. AST 82, ALT 63, Alk phos 169, T bili 1.2, Direct bili 0.7, Indirect bili 0.5. Lipase and amylase normal. LFT continues decreasing. AST 25, ALT 40, Alk phos 203 (increased), T bili 0.8 , Direct bili 0.5, Indirect bili 0.3 WBC at 15.3, increased from 13.[address] abd/pelvis revealed acute cholecystitis, indeterminate 2.3 cm left adrenal nodule, trace bilateral pleural effusion Continue antibiotics. Currently on Flagyl, Vancomycin, and Levaquin; continue d3. Add Zosyn for Hospital acquired pneumonia. Pain control, avoid significant opiate pain medication due to history of dependence. IV Fluids NPO diet Surgery following patient, plan for cholecystectomy later today. Hold Aspirin and heparin. (2) Nausea & vomiting Current Visit: Yes Status: Acute Assessment and plan: No additional vomiting since admission. Likely secondary to acute cholecystitis. Zofran q8h prn. Qualifiers: Vomiting type: unspecified Vomiting Intractability: non-intractable Qualified Code(s): R11.2 - Nausea with vomiting, unspecified (3) Hospital-acquired pneumonia Current Visit: Yes Status: Acute Assessment and plan: Patient reported increased cough and sputum production overnight. Exam revealed significant rhonchi and rales throughout lung disla. Elevated WBC 15.3 fro 13.2 yesterday. CXR revealed increased right infrahilar region opacities, likely developing pneumonia in RLL. Start Zosyn. Continue d3 of Flagyl, Levaquin, and Vancomycin. (4) Leukocytosis Current Visit: Yes Status: Acute Assessment and plan: WBC elevated at 18.3 upon admission. UA was negative for UTI. CXR revealed pulmonary vascular congestion with mild cardiomegaly and patchy bilateral perihilar opacities that could represent early pulmonary edema. WBC at 15.3, elevated from 13.2 yesterday. Blood cultures ordered, no growth to date x4 Likely secondary to acute cholecystitis, though with significant lung findings correlated to history, patient may be developing early pneumonia. CXR revealed increase opacity of right infrahilar region, likely related to developing pneumonia. Continue with antibiotics Flagyl, Vancomycin, and Levaquin d3. Start Zosyn. Qualifiers: Leukocytosis type: other Qualified Code(s): D72.828 - Other elevated white blood cell count (5) Elevated troponin Current Visit: Yes Status: Acute Assessment and plan: Patient was transferred [place] to [facility] ED with elevation in troponin, chest pain, abdominal pain, nausea, and vomiting. Troponin elevated from 0.03 to 0.04 prior to arrival. Troponins have been 0.04, 0.05, and 0.05. Elevated troponins likely secondary to demand ischemia secondary to acute cholecystitis. Continue telemetry, but in the absence of ekg findings, a fairly adynamic troponin, and resolution of chest pain since arrival this is unlikely related to ACS. Most recent cardiology evaluation at [facility] <1 week ago recommended no interventions. Aspirin held per surgery recommendation. Hold plavix pending possible interventions for acute cholecystitis. (6) Chest pain Current Visit: Yes Status: Acute Assessment and plan: Resolved since admission. EKG revealed normal sinus rhythm, no st elevation or depressions. Troponin 0.04, 0.05, 0.05. Discontinue Nitroglycerin drip. Resume home medications. Qualifiers: Chest pain type: other chest pain Qualified Code(s): R07.89 - Other chest pain; R07.8 - Other chest pain (7) CAD (coronary artery disease) Current Visit: Yes Status: Chronic Assessment and plan: History of CAD s/p multiple PCI and stents, most recently at [facility] <1week ago for NSTEMI, no additional interventions. Hold Plavix for possible interventions for acute cholecystitis. Continue aspirin. Continue home isosorbide mononitrate tab 120mg po qd for angina. Qualifiers: Coronary Disease-Associated Artery/Lesion type: [place] artery [place] vs. transplanted heart: [place] heart Associated angina: angina presence unspecified Qualified Code(s): I25.10 - Atherosclerotic heart disease of [place] coronary artery without angina pectoris (8) COPD (chronic obstructive pulmonary disease) Current Visit: Yes Status: Chronic Assessment and plan: No acute exacerbation. Duonebs q6h prn Albuterol q2h prn. Qualifiers: COPD type: unspecified COPD Qualified Code(s): J44.9 - Chronic obstructive pulmonary disease, unspecified (9) Hypertension Current Visit: Yes Status: Chronic Assessment and plan: Elevated bp 163/97 upon arrival. Bp 121/74 this morning, controlled on home medications. [facility] Metoprolol succinate 12.5 mg po qd, nicardipine 40mg q8h, and enalapril inj 0.625/0.5mL IVP q6h. Qualifiers: Hypertension type: essential hypertension Qualified Code(s): I10 - Essential (primary) hypertension (10) Mood disorder Current Visit: Yes Status: Chronic Assessment and plan: Mood disorder unspecified when reviewing [facility]. Medications reviewed and ordered Duloxetine 60 mg po bid wm, Oxcarbazepine 600mg tid, risperidone 1mg po qhs for mood Haloperidol 10mg po q6h prn for moderate agitation ordered. (11) Thrush, oral Current Visit: Yes Status: Acute Assessment and plan: Chlorohexidine oral rinse ordered. (12) History of dysphagia Current Visit: Yes Status: Chronic Assessment and plan: Dysphagia alert noted when reviewing [facility]. Diet Pureed and thin liquids, crush and serve medication in pudding, direct feeding assistance, upright position and spoon straw intake. Spoke with installer metal flooring regarding concerns brought forth from [facility] about [facility]. Patient has been on PPN for the past 4-5 days. Suspect symptoms from acute cholecystitis prevented this patient from having a good appetite. Prealbumin ordered, Albumin 2.0 Bedside swallow reviewed. Speech therapy recommends thin liquids and puree textures. Speech will continue to follow patient per note reviewed. (13) Hypokalemia Current Visit: Yes Status: Acute Assessment and plan: Potassium at 3.1 this morning again. Continue to monitor and replete as necessary. (14) DVT prophylaxis Current Visit: Yes Status: Acute Assessment and plan: Heparin held per Surgery recommendation. IPCD ordered - Subjective Interval history: Patient reports he had some significant pain overnight, has been having chills and sweats, coughing more and more sputum overnight. Patient continues to complain of nausea and abdominal pain. Patient denies fever, headaches, chest pain, shortness of breath, vomiting, changes in bowels or bladder, weakness, or loss of sensation. Plan to go to surgery for cholecystectomy later today. - Constitutional Vitals: Temp Pulse Resp BP Pulse Ox 99 F 67 18 121/74 94 06/08/16 07:17 06/08/16 07:17 06/08/16 07:17 06/08/16 07:06/08/16 07:17 General appearance: Present: cooperative, A&O X 3, pleasant, no acute distress, obese, answers questions appropriately - Head Head exam: Present: atraumatic, normocephalic - Eye Eye exam: Present: normal appearance - ENT ENT exam: Present: mucous membranes dry, normal external ear exam Additional comments: thrush noted - Neck Neck exam general surgery: Present: supple, trachea midline. Absent: tenderness - Respiratory Respiratory exam: Present: rales, rhonchi. Absent: wheezes - Cardiovascular Cardiovascular exam: Present: RRR, +S1, +S2. Absent: diastolic murmur, JVD, systolic murmur - GI/Abdominal GI/Abdominal exam: Present: hypoactive bowel sounds, soft, tenderness (RUQ). Absent: distended, guarding - Extremities Exam Extremities exam: Present: pedal edema, warm. Absent: tenderness Additional comments: rash noted. - Neurological Exam Neurological exam: Present: alert, oriented X3, strengths equal and symetr throughout. Absent: facial droop, speech deficit - Psychiatric Psychiatric exam: Present: normal affect, normal mood - Skin Skin exam: Present: diaphoretic, intact, normal color, rash (multiple 8mm dark brown papular lesions with central umbilication and normal base over lower bilateral extremities R>L and stasis dermatitis changes to left lower extremity) , warm. Absent: erythema, pallor Internal Medicine: Result - Labs CBC & Chem 7: 06/08/16 07:12 06/08/16 07:12 Labs: Short CBC 06/08/16 Range/Units 07:12 WBC 15.3 H (4.3-11.1) K/mcL Hgb 8.3 L (12.9-16.9) g/dL Hct 24.9 L (37.5-50.1) % Plt Count 247 (140-400) K/mcL Neutrophils # 11.0 H (1.6-8.9) K/mcL BMP 06/08/16 07:12 Sodium 134 L Potassium 3.1 L Chloride 102 Carbon Dioxide 23 BUN 9 Creatinine 0.74 Glucose 96 Calcium 8.7 Liver Function 06/08/16 Range/Units 07:12 Total Bilirubin 0.8 (0.2-1.2) mg/dL Direct Bilirubin 0.5 (0.0-0.5) mg/dL AST 25 (5-34) Units/L ALT 40 (0-55) Units/L Alkaline Phosphatase 203 H (38-126) Units/L Albumin 1.9 L (3.5-5.0) g/dL - ABG Interpretation ABG results: PT/INR, D-dimer PT 12.5 Seconds (9.4-12.1) H 06/08/16 07:12 - Impressions Impressions Abdomen Ultrasound 06/07/16 08:30 IMPRESSION: 1. Cholelithiasis. Moderate gallbladder wall thickening and pericholecystic edema concerning for acute cholecystitis. 2. No significant bile duct dilatation. D/ / 06/07/2016 09:24:07 Santana Mckeon MD / Tanisha Gastelum Interpreting Provider: Santana Mckeon MD Consult Discharge Plan - Plan Referrals: [place],PCP [Primary Care Provider] - 06/15/16 3:30 pm <David Russo P - Last Filed: 06/08/16 17:51> Date of Encounter: 06/08/16 - Constitutional Vitals: Temp Pulse Resp BP Pulse Ox 98.9 F 69 16 145/81 99 06/08/16 15:22 06/08/16 15:22 06/08/16 15:22 06/08/16 15:22 06/08/16 15:22 Internal Medicine: Result - Labs CBC & Chem 7: 06/08/16 07:12 06/08/16 07:12 Labs: Short CBC 06/08/16 Range/Units 07:12 WBC 15.3 H (4.3-11.1) K/mcL Hgb 8.3 L (12.9-16.9) g/dL Hct 24.9 L (37.5-50.1) % Plt Count 247 (140-400) K/mcL Neutrophils # 11.0 H (1.6-8.9) K/mcL BMP 06/08/16 07:12 Sodium 134 L Potassium 3.1 L Chloride 102 Carbon Dioxide 23 BUN 9 Creatinine 0.74 Glucose 96 Calcium 8.7 Liver Function 06/08/16 Range/Units 07:12 Total Bilirubin 0.8 (0.2-1.2) mg/dL Direct Bilirubin 0.5 (0.0-0.5) mg/dL AST 25 (5-34) Units/L ALT 40 (0-55) Units/L Alkaline Phosphatase 203 H (38-126) Units/L Albumin 1.9 L (3.5-5.0) g/dL - ABG Interpretation ABG results: PT/INR, D-dimer PT 12.5 Seconds (9.4-12.1) H 06/08/16 07:12 - Impressions Impressions Needle Aspiration CT 06/08/16 00:00 IMPRESSION: Successful CT guided placement of cholecystostomy tube. D/ / Jeffery Connell MD / Jeffery Connell MD Interpreting Provider: Jeffery Connell MD Chest X-Ray 06/08/16 08:20 IMPRESSION: Likely developing pneumonia in the right lower lobe. D/ / Justice Hobson MD / Justice Hobson MD Interpreting Provider: Justice Hobson MD - Attending Attestation I examined this patient and my medical decision-making was reviewed with the MILITARY TECHNICIAN/PA/Advanced Practice Nurse/Resident Physician. I agree with the documented findings, disposition and treatment plan as described except to the extent set forth below. Events noted. Chart reviewed. Patient will be in interventional radiology for possible drainage.
[2016-06-08] MEDS: Metoprolol XL (24 HR) Succ 25 MG TAB.ER.24H PO SCH (08:39)
[2016-06-08] MEDS: Pantoprazole 40 MG VIAL IVP SCH (08:41)
[2016-06-08] MEDS: Chlorhexidine Rinse 15 ML MOUTHWASH MM SCH ×2 (08:41→22:01)
[2016-06-08] MEDS: OXcarbazepine 150 MG TABLET PO SCH ×3 (08:41→22:01)
[2016-06-08] MEDS: Isosorbide MONOnitrate (24 HR) 30 MG TAB.ER.24H PO SCH (08:43)
[2016-06-08] MEDS: niCARdipine 20 MG CAPSULE PO SCH ×3 (11:21→22:00)
[2016-06-08] MEDS: Levofloxacin 750 MG/150 ML 750 MG/150 ML BAG IVPB SCH (11:23)
--- NOTE | 2016-06-08 11:51 | General Surgery Progress Note ---
Date of Encounter: 06/08/16 Time of Encounter: 12:10 - Assessment and Plan (1) Acute cholecystitis Current Visit: Yes Status: Acute Surgery cancelled per anesthesia due to developing RLL pneumonia and high risk for general anesthesia NPO for IR drain placement, May have clears after procedure IV fluids Interventional Radiology consulted to percutaneous cholecystotomy tube today- IR notified and patient/ agreeable IV antibiotics- Zosyn Supportive care/pain control Repeat am labs (2) Hospital-acquired pneumonia Current Visit: Yes Status: Acute IV antibiotics coverage increased per hospitalist- Zosyn, Flagyl, Vancomycin IS every 1 hour while awake WBC 13.2>15.3 Management per medicine service (3) COPD (chronic obstructive pulmonary disease) Current Visit: Yes Status: Chronic Stable Continue bronchodilators as needed Qualifiers: COPD type: unspecified COPD Qualified Code(s): J44.9 - Chronic obstructive pulmonary disease, unspecified (4) CAD (coronary artery disease) Current Visit: Yes Status: Chronic Qualifiers: Coronary Disease-Associated Artery/Lesion type: [place] artery [place] vs. transplanted heart: [place] heart Associated angina: angina presence unspecified Qualified Code(s): I25.10 - Atherosclerotic heart disease of [place] coronary artery without angina pectoris (5) Hypertension Current Visit: Yes Status: Chronic Normotensive Continue current medication regimen Management per medicine service Qualifiers: Hypertension type: essential hypertension Qualified Code(s): I10 - Essential (primary) hypertension (6) DVT prophylaxis Current Visit: Yes Status: Acute EPCDs to bilateral lower extremities for DVT prophylaxis Subjective Patient reports: no new complaints, still having pain, no bowel movement, afebrile, other (Events noted- increased WBC count, CXR shows RLL pneumonia; anesthesia has seen and evaluate the patient and patient not safe for general anesthesia at this time) Narrative: pain in RUQ better, no rebound or guarding coarse audible rhonchi, denies nausea Objective Vital Signs - Last 8 Hours Temp Pulse Resp BP Pulse Ox 06/08/16 07:17 99 F 67 18 121/74 94 06/08/16 04:00 67 20 94 Intake and Output 06/07/16 06/08/16 06/08/16 23:59 07:59 15:59 Intake Total 1800 / 1800 0 / 0 100 / 100 Output Total 450 / 450 425 / 425 Balance 1350 / 1350 -425 / -425 100 / 100 Intake: IV Fluids 1800 / 1800 100 / 100 0.9 % Sodium Chloride 1, 1000 / 1000 000 ML @ 125 mls/hr IVC . Q8H JOVANNY Rx#:[id number] Ofirmev 1,000 mg In 100 100 / 100 ml @ 400 mls/hr IVPB Q12HR JOVANNY Rx#:[id number] Flagyl 500 MG/100 ML 500 200 / 200 100 / 100 mg In 100 ml @ 100 mls/hr IVPB Q8HR JOVANNY Rx#: [id number] Vancocin 1,750 MG In 500 / 500 Dextrose 5% 500 ML @ 333. 34 mls/hr IVPB Q12H JOVANNY Rx#:[id number] Oral 0 / 0 Output: Catheter 450 / 450 425 / 425 Other: Weight 105.7 kg Blood Glucose* 92 101 Patient Weight 06/08/16 23:59 Weight 105.7 kg - General physical appearance well developed, moderate distress, moderate pain, chronically ill, obese - Eyes PERRL, normal ocular movement - ENT normal mucosa, dry mucosa, atraumatic, normocephalic - Neck Neck exam: trachea midline - Respiratory other (diminished bibasilar bases) rales: right - Cardiovascular Cardiovascular exam: Present: RRR - Abdomen Abdomen: Present: bowel sounds present, soft, distended, tender (less than previously). Absent: guarding, rebound Abdominal Tenderness: epigastic, RUQ - Genitourinary other (moscoso catheter to SD with clear, yellow urine noted) - Integumentary no rash, no growths - Neurologic CN 2-12 grossly intact - Psychiatric oriented to time, oriented to person, oriented to place, speech is normal, memory intact - Labs 06/08/16 07:12 06/08/16 07:12 Short CBC 06/08/16 Range/Units 07:12 WBC 15.3 H (4.3-11.1) K/mcL Hgb 8.3 L (12.9-16.9) g/dL Hct 24.9 L (37.5-50.1) % Plt Count 247 (140-400) K/mcL Neutrophils # 11.0 H (1.6-8.9) K/mcL BMP 06/08/16 Range/Units 07:12 Sodium 134 L (136-145) mEq/L Potassium 3.1 L (3.5-4.5) mEq/L Chloride 102 (98-109) mEq/L Carbon Dioxide 23 (19-29) mEq/L BUN 9 (8-26) mg/dL Creatinine 0.74 (0.72-1.25) mg/dL Glucose 96 (70-99) mg/dL Calcium 8.7 (8.6-10.8) mg/dL Liver Function 06/08/16 Range/Units 07:12 Total Bilirubin 0.8 (0.2-1.2) mg/dL Direct Bilirubin 0.5 (0.0-0.5) mg/dL AST 25 (5-34) Units/L ALT 40 (0-55) Units/L Alkaline Phosphatase 203 H (38-126) Units/L Albumin 1.9 L (3.5-5.0) g/dL Vital Signs Temp Pulse Resp BP Pulse Ox 06/08/16 15:22 98.9 F 69 16 145/81 99 06/08/16 15:20 70 16 145/81 98 06/08/16 14:36 72 30 134/76 89 06/08/16 12:00 98.5 F 65 18 98 06/08/16 07:17 99 F 67 18 121/74 94 06/08/16 04:00 67 20 94 06/08/16 00:24 99.2 F 64 20 100/48 94 06/07/16 22:19 97 06/07/16 20:00 98.8 F 74 20 151/88 95 Intake and Output 06/08/16 06/08/16 06/08/16 07:59 15:59 23:59 Intake Total 500 / 500 200 / 200 240 / 240 Output Total 425 / 425 75 / 75 Balance 75 / 75 200 / 200 165 / 165 Intake: IV Fluids 500 / 500 200 / 200 Flagyl 500 MG/100 ML 500 200 / 200 mg In 100 ml @ 100 mls/hr IVPB Q8HR JOVANNY Rx#: [id number] Vancocin 1,750 MG In 500 / 500 Dextrose 5% 500 ML @ 333. 34 mls/hr IVPB Q12H JOVANNY Rx#:[id number] Oral 0 / 0 240 / 240 Output: Catheter 425 / 425 Wound Drainage 75 / 75 Right Medial Abdomen 75 / 75 Other: Meal npo Weight 105.7 kg Blood Glucose* 101 106 Patient Weight 06/08/16 23:59 Weight 105.7 kg Consult Discharge Plan - Plan [facility] Provider[facility] - 06/15/16 3:30 pm - Attending Attestation I examined this patient and my medical decision-making was reviewed with the GAS OPERATION MANAGER/PA/Advanced Practice Nurse/Resident Physician. I agree with the documented findings, disposition and treatment plan as described except to the extent set forth below.
[2016-06-08] MEDS: Piperacillin/Tazobactam 3.375 GM in D5% in Water (Mini-Bag+) 100 ML IVPB SCH ×2 (12:49→20:30)
[2016-06-08] MEDS: 0.9 % Sodium Chloride 500 ML IVC SCH (20:17)
[2016-06-08] MEDS: risperiDONE 1 MG TABLET PO SCH (22:08)
[2016-06-08 23:37] LABS: Appearance of Body Fluid Cloudy (Clear); Source of Body Fluid right upper quadrant; Volume of Body Fluid 20 mL
[2016-06-09 01:30] LABS: Basophils % 0.2 %; Eosinophils # 0.4 K/mcL (0.0-0.6); Hematocrit 25.2 % (37.5-50.1); Hemoglobin 8.4 g/dL (12.9-16.9); Immature Granulocytes % 0.4 % (0-4); Lymphocytes # 2.5 K/mcL (0.6-4.6); Lymphocytes % 21.4 %; Mean Corpuscular HGB Conc 33.3 g/dL (31.6-35.5); Mean Corpuscular Hemoglobin 28.2 pg (28.0-33.3); Mean Corpuscular Volume 84.6 fL (83.0-100.0); Mean Platelet Volume 9.6 fL (9.4-12.4); Monocytes # 0.8 K/mcL (0.0-1.3); Platelet Count 276 K/mcL (140-400); Red Blood Count 2.98 M/mcL (4.19-5.50); Red Cell Distribution Width 14.6 % (11.5-14.5)
[2016-06-09 01:36] LABS: INR 1.3; Prothrombin Time 14.2 Seconds (9.4-12.1)
[2016-06-09 01:49] LABS: BUN/Creatinine Ratio 12 (6-26); Blood Urea Nitrogen 9 mg/dL (8-26); Carbon Dioxide 24 mEq/L (19-29); Chloride 103 mEq/L (98-109); Glucose 98 mg/dL (70-99); Osmolality,Calculated 283 (280-300); Sodium 137 mEq/L (136-145); eGFR For African Americans > 60 (> 60); eGFR For Non-African Americans > 60 (> 60)
[2016-06-09 01:51] LABS: Albumin/Globulin Ratio 0.5 (1.1-2.2); Bilirubin,Direct 0.4 mg/dL (0.0-0.5); Bilirubin,Indirect 0.3 mg/dL (0.0-1.2); Bilirubin,Total 0.7 mg/dL (0.2-1.2); Globulin 3.5 g/dL (2.4-3.5); Total Protein 5.4 g/dL (6.0-8.3)
[2016-06-09 01:52] LABS: Albumin 1.9 g/dL (3.5-5.0)
[2016-06-09] MEDS: Vancomycin 1,750 MG in D5% in Water 500 ML IVPB SCH ×2 (02:45→14:48)
[2016-06-09] MEDS: Piperacillin/Tazobactam 3.375 GM in D5% in Water (Mini-Bag+) 100 ML IVPB SCH ×3 (04:18→21:30)
[2016-06-09] MEDS: Acetaminophen IV 1,000 MG/100 ML INFUS..BTL IVPB SCH (06:11)
[2016-06-09] MEDS ORDERED: Potassium Chloride 40 MEQ, Lidocaine 1% 2 ML in D5% in Water 500 ML IVPB ONE (07:57)
--- NOTE | 2016-06-09 07:58 | Internal Med Progress Note ---
<Duarte Rodríguez - Last Filed: 06/09/16 10:24> Date of Encounter: 06/09/16 Time of Encounter: 07:58 - Assessment and plan (1) Acute cholecystitis Current Visit: Yes Status: Acute Assessment and plan: Patient is a 60 year old male who was transferred from the ID to [facility] ED with complaint of chest pain, RUQ abdominal pain, nausea, and vomiting. Determined to have leukocytosis with WBC of 18.3 upon arrival and elevated temp of 100.3. AST 82, ALT 63, Alk phos 169, T bili 1.2, Direct bili 0.7, Indirect bili 0.5. Lipase and amylase normal. LFT continues decreasing. AST 19, ALT 28, Alk phos 198, T bili 0.7, Direct bili 0.4, Indirect bili 0.3 WBC at 11.8, decreased from 15.[address] abd/pelvis revealed acute cholecystitis, indeterminate 2.3 cm left adrenal nodule, trace bilateral pleural effusion Underwent IR drain placement yesterday, surgery cancelled due to developing RLL and high risk for general anesthesia. Gallbladder fluid sent for culture, no growth to date. Continue antibiotics. Currently on Flagyl, Vancomycin, and Levaquin; continue d4. Zosyn d2. Pain control, avoid significant opiate pain medication due to history of dependence. IV Fluids Clear liquid diet, Clear Ensure, may consider increase to normal diet tomorrow. Continue following surgery recommendations. Hold Aspirin. Heparin for dvt ppx. (2) Nausea & vomiting Current Visit: Yes Status: Acute Assessment and plan: No additional vomiting since admission. Likely secondary to acute cholecystitis. Zofran q8h prn. Qualifiers: Vomiting type: unspecified Vomiting Intractability: non-intractable Qualified Code(s): R11.2 - Nausea with vomiting, unspecified (3) Hospital-acquired pneumonia Current Visit: Yes Status: Acute Assessment and plan: Patient reported increased cough and sputum production overnight on the morning of 06/08/16. Exam revealed significant rhonchi and rales throughout lung disla. Elevated WBC 15.3 from 13.2 yesterday. CXR revealed increased right infrahilar region opacities, likely developing pneumonia in RLL. WBC decreased to 11.8 from 15.3 yesterday. Continue d4 of Flagyl, Levaquin, and Vancomycin. Zosyn d2 Encourage incentive spirometry PT/OT consulted (4) Leukocytosis Current Visit: Yes Status: Acute Assessment and plan: WBC elevated at 18.3 upon admission. UA was negative for UTI. CXR revealed pulmonary vascular congestion with mild cardiomegaly and patchy bilateral perihilar opacities that could represent early pulmonary edema. WBC at 11.8, elevated from 15.3 yesterday. Blood cultures ordered, no growth to date x4 Likely secondary to acute cholecystitis, though with significant lung findings correlated to history, patient may be developing early pneumonia. CXR revealed increase opacity of right infrahilar region, likely related to developing pneumonia. Continue with antibiotics Flagyl, Vancomycin, and Levaquin d4. Zosyn d2.. Qualifiers: Leukocytosis type: other Qualified Code(s): D72.828 - Other elevated white blood cell count (5) Elevated troponin Current Visit: Yes Status: Acute Assessment and plan: Patient was transferred from ID to [facility] ED with elevation in troponin, chest pain, abdominal pain, nausea, and vomiting. Troponin elevated from 0.03 to 0.04 prior to arrival. Troponins have been 0.04, 0.05, and 0.05. Elevated troponins likely secondary to demand ischemia secondary to acute cholecystitis. Continue telemetry, but in the absence of ekg findings, a fairly adynamic troponin, and resolution of chest pain since arrival this is unlikely related to ACS. Most recent cardiology evaluation at [facility] <1 week ago recommended no interventions. (6) Chest pain Current Visit: Yes Status: Acute Assessment and plan: Resolved since admission. EKG revealed normal sinus rhythm, no st elevation or depressions. Troponin 0.04, 0.05, 0.05. Discontinue Nitroglycerin drip. Resume home medications. Qualifiers: Chest pain type: other chest pain Qualified Code(s): R07.89 - Other chest pain; R07.8 - Other chest pain (7) CAD (coronary artery disease) Current Visit: Yes Status: Chronic Assessment and plan: History of CAD s/p multiple PCI and stents, most recently at [facility] <1week ago for NSTEMI, no additional interventions. Hold Plavix for possible interventions for acute cholecystitis. Continue holding aspirin. Continue home isosorbide mononitrate tab 120mg po qd for angina. Qualifiers: Coronary Disease-Associated Artery/Lesion type: [place] artery [place] vs. transplanted heart: [place] heart Associated angina: angina presence unspecified Qualified Code(s): I25.10 - Atherosclerotic heart disease of [place] coronary artery without angina pectoris (8) COPD (chronic obstructive pulmonary disease) Current Visit: Yes Status: Chronic Assessment and plan: No acute exacerbation. Duonebs q6h prn Albuterol q2h prn. Qualifiers: COPD type: unspecified COPD Qualified Code(s): J44.9 - Chronic obstructive pulmonary disease, unspecified (9) Hypertension Current Visit: Yes Status: Chronic Assessment and plan: Elevated bp 163/97 upon arrival. Bp 130/89 this morning, controlled on home medications. [facility] Metoprolol succinate 12.5 mg po qd, nicardipine 40mg q8h, and enalapril inj 0.625/0.5mL IVP q6h. Qualifiers: Hypertension type: essential hypertension Qualified Code(s): I10 - Essential (primary) hypertension (10) Mood disorder Current Visit: Yes Status: Chronic Assessment and plan: Mood disorder unspecified when reviewing [facility]. Medications reviewed and ordered Duloxetine 60 mg po bid wm, Oxcarbazepine 600mg tid, risperidone 1mg po qhs for mood Haloperidol 10mg po q6h prn for moderate agitation ordered. (11) Thrush, oral Current Visit: Yes Status: Acute Assessment and plan: Chlorohexidine oral rinse ordered. (12) History of dysphagia Current Visit: Yes Status: Chronic Assessment and plan: Dysphagia alert noted when reviewing [facility]. Diet Pureed and thin liquids, crush and serve medication in pudding, direct feeding assistance, upright position and spoon straw intake. Spoke with cylinder die machine helper regarding concerns brought forth from [facility] about [facility]. Patient has been on PPN for the past 4-5 days. Suspect symptoms from acute cholecystitis prevented this patient from having a good appetite. Prealbumin ordered, Albumin 2.0 Bedside swallow reviewed. Speech therapy recommends thin liquids and puree textures. Speech will continue to follow patient per note reviewed. (13) Hypokalemia Current Visit: Yes Status: Acute Assessment and plan: Potassium at 3.0 this morning again. Continue to monitor and replete as necessary. (14) DVT prophylaxis Current Visit: Yes Status: Acute Assessment and plan: Heparin for dvt ppx. IPCD ordered - Subjective Interval history: Patient reports he is feeling much better overnight compared to yesterday. He reports cough without sputum this morning. Patient reports continue nausea and mild abdominal pain. Patient denies fevers, chills, sweats, chest pain, shortness of breath, vomiting, changes in bowels or bladder, weakness, or loss of sensation. Continue management per surgical recommendations. - Constitutional Vitals: Temp Pulse Resp BP Pulse Ox 98.7 F 63 18 130/89 96 06/09/16 07:40 06/09/16 07:40 06/09/16 07:40 06/09/16 07:40 06/09/16 07:40 General appearance: Present: cooperative, A&O X 3, pleasant, no acute distress, obese, answers questions appropriately - Head Head exam: Present: atraumatic, normocephalic - Eye Eye exam: Present: normal appearance - ENT ENT exam: Present: mucous membranes moist, normal exam, normal external ear exam , normal oropharynx Additional comments: thrush noted. - Neck Neck exam general surgery: Present: full ROM, normal inspection, supple, trachea midline. Absent: tenderness - Respiratory Respiratory exam: Present: rales, rhonchi. Absent: wheezes - Cardiovascular Cardiovascular exam: Present: RRR, +S1, +S2 - GI/Abdominal GI/Abdominal exam: Present: normal bowel sounds, soft, tenderness (RUQ). Absent : distended, guarding - Extremities Exam Extremities exam: Present: pedal edema, warm - Neurological Exam Neurological exam: Present: alert, oriented X3, no focal deficits, strengths equal and symetr throughout. Absent: facial droop, speech deficit - Psychiatric Psychiatric exam: Present: normal affect, normal mood - Skin Skin exam: Present: diaphoretic, intact, warm. Absent: erythema, pallor Internal Medicine: Result - Labs CBC & Chem 7: 06/09/16 01:10 06/09/16 01:10 Labs: Short CBC 06/09/16 Range/Units 01:10 WBC 11.8 H (4.3-11.1) K/mcL Hgb 8.4 L (12.9-16.9) g/dL Hct 25.2 L (37.5-50.1) % Plt Count 276 (140-400) K/mcL Neutrophils # 8.0 (1.6-8.9) K/mcL BMP 06/08/16 06/09/16 07:12 01:10 Sodium 134 L 137 Potassium 3.1 L 3.0 L Chloride 102 103 Carbon Dioxide 23 24 BUN 9 9 Creatinine 0.74 0.73 Glucose 96 98 Calcium 8.7 9.0 Liver Function 06/08/16 06/09/16 Range/Units 07:12 01:10 Total Bilirubin 0.8 0.7 (0.2-1.2) mg/dL Direct Bilirubin 0.5 0.4 (0.0-0.5) mg/dL AST 25 19 (5-34) Units/L ALT 40 28 (0-55) Units/L Alkaline Phosphatase 203 H 198 H (38-126) Units/L Albumin 1.9 L 1.9 L (3.5-5.0) g/dL - ABG Interpretation ABG results: PT/INR, D-dimer PT 14.2 Seconds (9.4-12.1) H 06/09/16 01:10 - Impressions Impressions Needle Aspiration CT 06/08/16 00:00 IMPRESSION: Successful CT guided placement of cholecystostomy tube. D/ / Jeffery Connell MD / Jeffery Connell MD Interpreting Provider: Jeffery Connell MD Chest X-Ray 06/08/16 08:20 IMPRESSION: Likely developing pneumonia in the right lower lobe. D/ / Justice Hobson MD / Justice Hobson MD Interpreting Provider: Justice Hobson MD Consult Discharge Plan - Plan [facility]errals: [facility]Primary Care Provider[facility] - 06/15/16 3:30 pm <David Russo - Last Filed: 06/09/16 16:52> Date of Encounter: 06/09/16 - Constitutional Vitals: Temp Pulse Resp BP Pulse Ox 97.6 F 68 18 147/87 98 06/09/16 14:53 06/09/16 14:53 06/09/16 14:53 06/09/16 14:53 06/09/16 14:53 Internal Medicine: Result - Labs CBC & Chem 7: 06/09/16 01:10 06/09/16 01:10 Labs: Short CBC 06/09/16 Range/Units 01:10 WBC 11.8 H (4.3-11.1) K/mcL Hgb 8.4 L (12.9-16.9) g/dL Hct 25.2 L (37.5-50.1) % Plt Count 276 (140-400) K/mcL Neutrophils # 8.0 (1.6-8.9) K/mcL BMP 06/09/16 01:10 Sodium 137 Potassium 3.0 L Chloride 103 Carbon Dioxide 24 BUN 9 Creatinine 0.73 Glucose 98 Calcium 9.0 Liver Function 06/09/16 Range/Units 01:10 Total Bilirubin 0.7 (0.2-1.2) mg/dL Direct Bilirubin 0.4 (0.0-0.5) mg/dL AST 19 (5-34) Units/L ALT 28 (0-55) Units/L Alkaline Phosphatase 198 H (38-126) Units/L Albumin 1.9 L (3.5-5.0) g/dL - ABG Interpretation ABG results: PT/INR, D-dimer PT 14.2 Seconds (9.4-12.1) H 06/09/16 01:10 - Attending Attestation I examined this patient and my medical decision-making was reviewed with the BUILDING WRECKER/PA/Advanced Practice Nurse/Resident Physician. I agree with the documented findings, disposition and treatment plan as described except to the extent set forth below.
[2016-06-09 08:07] LABS: Magnesium 1.8 mg/dL (1.6-2.6)
[2016-06-09] MEDS: Pantoprazole 40 MG VIAL IVP SCH (08:52)
[2016-06-09] MEDS: MetroNIDAZOLE 500 MG/100 ML 500 MG/100 ML BAG IVPB SCH ×2 (08:53→16:48)
[2016-06-09] MEDS: OXcarbazepine 150 MG TABLET PO SCH ×2 (08:55→14:48)
[2016-06-09] MEDS: Isosorbide MONOnitrate (24 HR) 30 MG TAB.ER.24H PO SCH (08:55)
[2016-06-09] MEDS: niCARdipine 20 MG CAPSULE PO SCH ×2 (08:55→14:47)
[2016-06-09] MEDS: Chlorhexidine Rinse 15 ML MOUTHWASH MM SCH (08:55)
--- NOTE | 2016-06-09 09:37 | General Surgery Progress Note ---
Date of Encounter: 06/09/16 Time of Encounter: 09:00 - Assessment and Plan (1) Acute cholecystitis Current Visit: Yes Status: Acute Surgery cancelled per anesthesia due to developing RLL pneumonia and high risk for general anesthesia S/P IR cholecystostomy drain placement WBC improving- 15.3>11.8 IV fluids IV antibiotics- Zosyn Supportive care/pain control Repeat am labs (2) Hospital-acquired pneumonia Current Visit: Yes Status: Acute IV antibiotics coverage increased per hospitalist- Zosyn, Flagyl, Vancomycin IS every 1 hour while awake WBC 13.2>15.3>11.8 Management per medicine service (3) COPD (chronic obstructive pulmonary disease) Current Visit: Yes Status: Chronic Stable Continue bronchodilators as needed Qualifiers: COPD type: unspecified COPD Qualified Code(s): J44.9 - Chronic obstructive pulmonary disease, unspecified (4) CAD (coronary artery disease) Current Visit: Yes Status: Chronic Qualifiers: Coronary Disease-Associated Artery/Lesion type: [place] artery [place] vs. transplanted heart: [place] heart Associated angina: angina presence unspecified Qualified Code(s): I25.10 - Atherosclerotic heart disease of [place] coronary artery without angina pectoris (5) Hypertension Current Visit: Yes Status: Chronic Normotensive Continue current medication regimen Management per medicine service Qualifiers: Hypertension type: essential hypertension Qualified Code(s): I10 - Essential (primary) hypertension (6) DVT prophylaxis Current Visit: Yes Status: Acute EPCDs to bilateral lower extremities for DVT prophylaxis Add heparin 5,000 units SQ twice daily for DVT prophylaxis Subjective Patient reports: no new complaints, feels better, still having pain, pain is less, tolerating liquids well, afebrile, other (Patient resting comfortably and states that he feels much better after cholecystostomy tube placement) Objective Vital Signs - Last 8 Hours Temp Pulse Resp BP Pulse Ox 06/09/16 07:40 98.7 F 63 18 130/89 96 06/09/16 05:13 98.8 F 62 18 133/85 99 Intake and Output 06/08/16 06/09/16 06/09/16 23:59 07:59 15:59 Intake Total 1040 / 1040 300 / 300 Output Total 1500 / 1500 477 / 477 Balance -460 / -460 -177 / -177 Intake: IV Fluids 800 / 800 300 / 300 Ofirmev 1,000 mg In 100 100 / 100 100 / 100 ml @ 400 mls/hr IVPB Q12HR [facility] Rx#:[id number] Flagyl 500 MG/100 ML 500 100 / 100 100 / 100 mg In 100 ml @ 100 mls/hr IVPB Q8HR [facility] Rx#: [id number] Zosyn 3.375 GM In 100 / 100 100 / 100 Dextrose 5% (Minibag+) 100 ML 100 ML @ 25 mls/hr IVPB Q8H [facility] Rx#: [id number] Vancocin 1,750 MG In 500 / 500 Dextrose 5% 500 ML @ 333. 34 mls/hr IVPB Q12H [facility] Rx#:[id number] Oral 240 / 240 0 / 0 Output: Catheter 1400 / 1400 450 / 450 Wound Drainage 100 / 100 / Right Medial Abdomen 100 / 100 Other: # Voids 0 0 Weight 105.7 kg Patient Weight 06/09/16 23:59 Weight 105.7 kg - General physical appearance no distress, chronically ill, obese - Eyes PERRL, normal ocular movement - ENT dry mucosa, atraumatic, normocephalic - Neck Neck exam: trachea midline - Respiratory normal respiratory effort, other (diminished bibasilar bases; moist, non- productive cough) rales: bilateral - Cardiovascular Cardiovascular exam: Present: RRR - Abdomen Abdomen: Present: bowel sounds present, soft, tender (minimal), wound (Pigtail drain with bilious drainage noted ) Abdominal Tenderness: RUQ - Genitourinary other (Colon catheter to SD with clear, yellow urine noted) - Neurologic CN 2-12 grossly intact - Psychiatric oriented to person, oriented to place, speech is normal - Labs 06/09/16 01:10 06/09/16 01:10 Diabetes panel 06/09/16 06/09/16 Range/Units 01:10 01:10 Sodium 137 (136-145) mEq/L Potassium 3.0 L (3.5-4.5) mEq/L Chloride 103 (98-109) mEq/L Carbon Dioxide 24 (19-29) mEq/L BUN 9 (8-26) mg/dL Creatinine 0.73 (0.72-1.25) mg/dL Glucose 98 (70-99) mg/dL Calcium 9.0 (8.6-10.8) mg/dL AST 19 (5-34) Units/L ALT 28 (0-55) Units/L Alkaline Phosphatase 198 H (38-126) Units/L Albumin 1.9 L (3.5-5.0) g/dL Calcium panel 06/09/16 06/09/16 Range/Units 01:10 01:10 Calcium 9.0 (8.6-10.8) mg/dL Albumin 1.9 L (3.5-5.0) g/dL Pituitary panel 06/09/16 Range/Units 01:10 Sodium 137 (136-145) mEq/L Potassium 3.0 L (3.5-4.5) mEq/L Chloride 103 (98-109) mEq/L Carbon Dioxide 24 (19-29) mEq/L BUN 9 (8-26) mg/dL Creatinine 0.73 (0.72-1.25) mg/dL Glucose 98 (70-99) mg/dL Calcium 9.0 (8.6-10.8) mg/dL Adrenal panel 06/09/16 06/09/16 Range/Units 01:10 01:10 Sodium 137 (136-145) mEq/L Potassium 3.0 L (3.5-4.5) mEq/L Chloride 103 (98-109) mEq/L Carbon Dioxide 24 (19-29) mEq/L BUN 9 (8-26) mg/dL Creatinine 0.73 (0.72-1.25) mg/dL Glucose 98 (70-99) mg/dL Calcium 9.0 (8.6-10.8) mg/dL Total Bilirubin 0.7 (0.2-1.2) mg/dL AST 19 (5-34) Units/L ALT 28 (0-55) Units/L Alkaline Phosphatase 198 H (38-126) Units/L Albumin 1.9 L (3.5-5.0) g/dL Consult Discharge Plan - Plan [facility]: [facility] Care Provider[facility] - 06/15/16 3:30 pm - Attending Attestation I examined this patient and my medical decision-making was reviewed with the SUBSTANCE ADDICTION COORDINATOR/PA/Advanced Practice Nurse/Resident Physician. I agree with the documented findings, disposition and treatment plan as described except to the extent set forth below.
[2016-06-09] MEDS: Metoprolol XL (24 HR) Succ 25 MG TAB.ER.24H PO SCH (11:32)
[2016-06-09] MEDS: Levofloxacin 750 MG/150 ML 750 MG/150 ML BAG IVPB SCH (11:33)
[2016-06-09] MEDS: *HR* Heparin 5,000 UNIT/ML VIAL SQ SCH (16:54)
[2016-06-09] MEDS: 0.9 % Sodium Chloride 500 ML IVC SCH (21:31)
[2016-06-09] MEDS: Ondansetron 4 MG/2 ML VIAL IVP PRN (21:32)
[2016-06-10] MEDS: risperiDONE 1 MG TABLET PO SCH ×2 (00:06→22:43)
[2016-06-10] MEDS: niCARdipine 20 MG CAPSULE PO SCH ×4 (00:06→22:59)
[2016-06-10] MEDS: OXcarbazepine 150 MG TABLET PO SCH ×4 (00:06→22:43)
[2016-06-10] MEDS: Chlorhexidine Rinse 15 ML MOUTHWASH MM SCH ×3 (00:07→22:44)
[2016-06-10] MEDS: *HR* HYDROmorphone (PF) 1 MG/ML SYRINGE IVP PRN (00:14)
[2016-06-10] MEDS: MetroNIDAZOLE 500 MG/100 ML 500 MG/100 ML BAG IVPB SCH ×3 (00:18→20:05)
[2016-06-10] MEDS: Vancomycin 1,750 MG in D5% in Water 500 ML IVPB SCH ×2 (04:38→17:13)
[2016-06-10] MEDS: Piperacillin/Tazobactam 3.375 GM in D5% in Water (Mini-Bag+) 100 ML IVPB SCH ×3 (04:39→22:44)
[2016-06-10] MEDS: *HR* Heparin 5,000 UNIT/ML VIAL SQ SCH ×2 (04:57→18:34)
[2016-06-10] MEDS: Pantoprazole 40 MG VIAL IVP SCH (09:07)
[2016-06-10] MEDS: Isosorbide MONOnitrate (24 HR) 30 MG TAB.ER.24H PO SCH (09:15)
[2016-06-10] MEDS: Metoprolol XL (24 HR) Succ 25 MG TAB.ER.24H PO SCH (09:16)
--- NOTE | 2016-06-10 09:26 | Internal Med Progress Note ---
<Duarte Rodríguez - Last Filed: 06/10/16 15:13> Date of Encounter: 06/10/16 Time of Encounter: 09:26 - Assessment and plan (1) Acute cholecystitis Current Visit: Yes Status: Acute Assessment and plan: Patient is a 60 year old male who was transferred from the [place] to [facility] ED with complaint of chest pain, RUQ abdominal pain, nausea, and vomiting. Determined to have leukocytosis with WBC of 18.3 upon arrival and elevated temp of 100.3. AST 82, ALT 63, Alk phos 169, T bili 1.2, Direct bili 0.7, Indirect bili 0.5. Lipase and amylase normal. LFT continues decreasing. AST 26, ALT 23, Alk phos 200, T bili 0.5, Direct bili 0.3, Indirect bili 0.2 WBC at 7.9, decreased from 11.[address] abd/pelvis revealed acute cholecystitis, indeterminate 2.3 cm left adrenal nodule, trace bilateral pleural effusion Underwent IR drain placement yesterday, surgery cancelled due to developing RLL and high risk for general anesthesia. Gallbladder fluid sent for culture, no growth to date, negative acid fast stain. Continue antibiotics. Currently on Flagyl, Vancomycin, and Levaquin, continue d5. Zosyn d3. Pain control, avoid significant opiate pain medication due to history of dependence. IV Fluids Clear liquid diet, Clear Ensure, ok to advance to low fat diet. Follow up with Surgery as outpatient 06/23/16. Hold Aspirin. Heparin for dvt ppx. (2) Nausea & vomiting Current Visit: Yes Status: Acute Assessment and plan: No additional vomiting since admission. Likely secondary to acute cholecystitis. Zofran q8h prn. Qualifiers: Vomiting type: unspecified Vomiting Intractability: non-intractable Qualified Code(s): R11.2 - Nausea with vomiting, unspecified (3) Hospital-acquired pneumonia Current Visit: Yes Status: Acute Assessment and plan: Hospital Acquired Pneumonia, unknown. Patient reported increased cough and sputum production overnight on the morning of 06/08/16. Exam revealed significant rhonchi and rales throughout lung disla. Elevated WBC 15.3 from 13.2 day prior. CXR revealed increased right infrahilar region opacities, likely developing pneumonia in RLL. Blood cultures x4 negative, sputum culture unobtained. WBC decreased to 7.9 from 11.8 yesterday. Improved lung sounds Reported decreased cough. Continue d5 of Flagyl, Levaquin, and Vancomycin. Zosyn d3 Encourage incentive spirometry PT/OT consulted (4) Leukocytosis Current Visit: Yes Status: Acute Assessment and plan: Resolved. WBC elevated at 18.3 upon admission. UA was negative for UTI. CXR revealed pulmonary vascular congestion with mild cardiomegaly and patchy bilateral perihilar opacities that could represent early pulmonary edema. WBC at 7.9, decreased from 11.8 yesterday. Blood cultures ordered, no growth to date x4 Likely secondary to acute cholecystitis, though with significant lung findings correlated to history, patient may have been due to developing early pneumonia. CXR revealed increase opacity of right infrahilar region, likely related to developing pneumonia. Continue with antibiotics Flagyl, Vancomycin, and Levaquin d5. Zosyn d3. Qualifiers: Leukocytosis type: other Qualified Code(s): D72.828 - Other elevated white blood cell count (5) Elevated troponin Current Visit: Yes Status: Acute Assessment and plan: Patient was transferred from [place] to [facility] ED with elevation in troponin, chest pain, abdominal pain, nausea, and vomiting. Troponin elevated from 0.03 to 0.04 prior to arrival. Troponins have been 0.04, 0.05, and 0.05. Elevated troponins likely secondary to demand ischemia secondary to acute cholecystitis. Continue telemetry, but in the absence of ekg findings, a fairly adynamic troponin, and resolution of chest pain since arrival this is unlikely related to ACS. Most recent cardiology evaluation at [facility] <1 week ago recommended no interventions. (6) Chest pain Current Visit: Yes Status: Acute Assessment and plan: Resolved since admission. EKG revealed normal sinus rhythm, no st elevation or depressions. Troponin 0.04, 0.05, 0.05. Discontinue Nitroglycerin drip. Resume home medications. Qualifiers: Chest pain type: other chest pain Qualified Code(s): R07.89 - Other chest pain; R07.8 - Other chest pain (7) CAD (coronary artery disease) Current Visit: Yes Status: Chronic Assessment and plan: History of CAD s/p multiple PCI and stents, most recently at [facility] <1week ago for NSTEMI, no additional interventions. Hold Plavix for possible interventions for acute cholecystitis. Continue holding aspirin. Continue home isosorbide mononitrate tab 120mg po qd for angina. Qualifiers: Coronary Disease-Associated Artery/Lesion type: [place] artery [place] vs. transplanted heart: [place] heart Associated angina: angina presence unspecified Qualified Code(s): I25.10 - Atherosclerotic heart disease of [place] coronary artery without angina pectoris (8) COPD (chronic obstructive pulmonary disease) Current Visit: Yes Status: Chronic Assessment and plan: No acute exacerbation. Duonebs q6h prn Albuterol q2h prn. Qualifiers: COPD type: unspecified COPD Qualified Code(s): J44.9 - Chronic obstructive pulmonary disease, unspecified (9) Hypertension Current Visit: Yes Status: Chronic Assessment and plan: Elevated bp 163/97 upon arrival. Bp 152/90 this morning, controlled on home medications. [facility] Metoprolol succinate 12.5 mg po qd, nicardipine 40mg q8h, and enalapril inj 0.625/0.5mL IVP q6h. Qualifiers: Hypertension type: essential hypertension Qualified Code(s): I10 - Essential (primary) hypertension (10) Mood disorder Current Visit: Yes Status: Chronic Assessment and plan: Mood disorder unspecified when reviewing [facility]. Medications reviewed and ordered Duloxetine 60 mg po bid wm, Oxcarbazepine 600mg tid, risperidone 1mg po qhs for mood Haloperidol 10mg po q6h prn for moderate agitation ordered. (11) Thrush, oral Current Visit: Yes Status: Acute Assessment and plan: Chlorohexidine oral rinse ordered. (12) History of dysphagia Current Visit: Yes Status: Chronic Assessment and plan: Dysphagia alert noted when reviewing [facility]. Diet Pureed and thin liquids, crush and serve medication in pudding, direct feeding assistance, upright position and spoon straw intake. Spoke with graphics manager regarding concerns brought forth from [facility] about [facility]. Patient has been on PPN for the past 4-5 days. Suspect symptoms from acute cholecystitis prevented this patient from having a good appetite. Prealbumin ordered, Albumin 2.0 Bedside swallow reviewed. Speech therapy recommends thin liquids and puree textures. Speech will continue to follow patient per note reviewed. Diet currently clear liquids with Ensure clear. Pending surgery recommendation to advance. (13) Hypokalemia Current Visit: Yes Status: Acute Assessment and plan: Potassium at 3.0 this morning again. Continue to monitor and replete as necessary. (14) DVT prophylaxis Current Visit: Yes Status: Acute Assessment and plan: Heparin for dvt ppx. IPCD ordered - Subjective Interval history: Patient reports he is continuing to feel much better. Patient reports cough has improved as well. Has some nausea, but denies abdominal pain. Patient denies fevers, chills, sweats, chest pain, shortness of breath, vomiting, changes in bowels or bladder, weakness, or loss of sensation. Continue management per surgical recommendations. - Constitutional Vitals: Temp Pulse Resp BP Pulse Ox 98.2 F 72 18 152/90 99 06/10/16 07:01 06/10/16 07:01 06/10/16 07:01 06/10/16 07:01 06/10/16 07:01 General appearance: Present: cooperative, A&O X 3, pleasant, no acute distress, obese, answers questions appropriately - Head Head exam: Present: atraumatic, normal inspection, normocephalic - Eye Eye exam: Present: normal appearance - ENT ENT exam: Present: mucous membranes moist, normal external ear exam, normal oropharynx Additional comments: thrush noted, improving. - Neck Neck exam general surgery: Present: supple, trachea midline. Absent: tenderness - Respiratory Respiratory exam: Present: rhonchi (decreased rhonchi bilaterally). Absent: rales, wheezes - Cardiovascular Cardiovascular exam: Present: RRR, +S1, +S2 - GI/Abdominal GI/Abdominal exam: Present: normal bowel sounds, soft. Absent: distended, guarding, tenderness Additional comments: drain in place, bilious drainage noted. - Extremities Exam Extremities exam: Present: full ROM, pedal edema, warm. Absent: tenderness Additional comments: rash: multiple 8mm dark brown papular lesions with central umbilication and normal base over lower bilateral extremities R>L and stasis dermatitis changes to left lower extremity - Neurological Exam Neurological exam: Present: alert, oriented X3, no focal deficits, strengths equal and symetr throughout. Absent: facial droop, speech deficit - Psychiatric Psychiatric exam: Present: normal affect, normal mood - Skin Skin exam: Present: dry, intact, rash, warm. Absent: diaphoretic, erythema, pallor Internal Medicine: Result - Labs CBC & Chem 7: 06/10/16 09:36 06/10/16 09:36 - ABG Interpretation ABG results: PT/INR, D-dimer PT 14.2 Seconds (9.4-12.1) H 06/09/16 01:10 Consult Discharge Plan - Plan Additional Instructions: Low fat diet Pigtail drain- cleanse around drain with soap and water and pat dry daily, apply split 4X4 gauze and tape to secure daily. Empty drain 4 times daily and as needed if full. Record output and bring to follow-up appointment on 06/23/[address] Brenner. Referrals: Jenny Brenner MD [Partnered Physician] - 06/23/16 1:50 pm (hospital follow- up) [facility] [Primary Care Provider] - 06/15/16 3:30 pm <David Russo - Last Filed: 06/10/16 16:31> Date of Encounter: 06/10/16 - Constitutional Vitals: Temp Pulse Resp BP Pulse Ox 97.9 F 73 17 125/86 96 06/10/16 15:41 06/10/16 15:00 06/10/16 15:00 06/10/16 15:00 06/10/16 15:00 Internal Medicine: Result - Labs CBC & Chem 7: 06/10/16 09:36 06/10/16 09:36 Labs: Short CBC 06/10/16 Range/Units 09:36 WBC 7.9 (4.3-11.1) K/mcL Hgb 9.1 L (12.9-16.9) g/dL Hct 27.5 L (37.5-50.1) % Plt Count 336 (140-400) K/mcL Neutrophils # 5.0 (1.6-8.9) K/mcL BMP 06/10/16 09:36 Sodium 138 Potassium 3.0 L Chloride 103 Carbon Dioxide 26 BUN 9 Creatinine 0.77 Glucose 107 H Calcium 9.2 Liver Function 06/10/16 Range/Units 09:36 Total Bilirubin 0.5 (0.2-1.2) mg/dL Direct Bilirubin 0.3 (0.0-0.5) mg/dL AST 26 (5-34) Units/L ALT 23 (0-55) Units/L Alkaline Phosphatase 200 H (38-126) Units/L Albumin 2.0 L (3.5-5.0) g/dL - ABG Interpretation ABG results: PT/INR, D-dimer PT 14.2 Seconds (9.4-12.1) H 06/09/16 01:10 - Attending Attestation I examined this patient and my medical decision-making was reviewed with the SHERIFF OFFICER/PA/Advanced Practice Nurse/Resident Physician. I agree with the documented findings, disposition and treatment plan as described except to the extent set forth below.
[2016-06-10 09:54] LABS: Basophils % 0.3 %; Eosinophils # 0.2 K/mcL (0.0-0.6); Eosinophils % 2.7 %; Hematocrit 27.5 % (37.5-50.1); Hemoglobin 9.1 g/dL (12.9-16.9); Immature Granulocytes % 0.4 % (0-4); Lymphocytes % 24.9 %; Mean Corpuscular HGB Conc 33.1 g/dL (31.6-35.5); Mean Corpuscular Hemoglobin 27.9 pg (28.0-33.3); Mean Corpuscular Volume 84.4 fL (83.0-100.0); Mean Platelet Volume 9.1 fL (9.4-12.4); Monocytes # 0.7 K/mcL (0.0-1.3); Monocytes % 9.2 %; Platelet Count 336 K/mcL (140-400); Red Blood Count 3.26 M/mcL (4.19-5.50); Red Cell Distribution Width 14.4 % (11.5-14.5); Segmented Neutrophils % 62.5 %
[2016-06-10 10:15] LABS: Alanine Aminotransferase 23 Units/L (0-55); Albumin/Globulin Ratio 0.6 (1.1-2.2); Alkaline Phosphatase 200 Units/L (38-126); Aspartate Amino Transferase 26 Units/L (5-34); BUN/Creatinine Ratio 12 (6-26); Bilirubin,Direct 0.3 mg/dL (0.0-0.5); Bilirubin,Indirect 0.2 mg/dL (0.0-1.2); Bilirubin,Total 0.5 mg/dL (0.2-1.2); Blood Urea Nitrogen 9 mg/dL (8-26); Calcium 9.2 mg/dL (8.6-10.8); Carbon Dioxide 26 mEq/L (19-29); Chloride 103 mEq/L (98-109); Globulin 3.5 g/dL (2.4-3.5); Glucose 107 mg/dL (70-99); Osmolality,Calculated 285 (280-300); Sodium 138 mEq/L (136-145); Total Protein 5.5 g/dL (6.0-8.3); eGFR For African Americans > 60 (> 60); eGFR For Non-African Americans > 60 (> 60)
[2016-06-10] MEDS ORDERED: Potassium Chloride 40 MEQ, Lidocaine 1% 2 ML in D5% in Water 500 ML IVPB ONE (10:47)
[2016-06-10] MEDS ORDERED: Potassium Chloride Elixir 20 MEQ/15 ML UDC PO ONE (10:48)
[2016-06-10] MEDS: Levofloxacin 750 MG/150 ML 750 MG/150 ML BAG IVPB SCH (12:14)
--- NOTE | 2016-06-10 13:42 | General Surgery Progress Note ---
Date of Encounter: 06/10/16 Time of Encounter: 13:00 - Assessment and Plan (1) Acute cholecystitis Current Visit: Yes Status: Acute Surgery cancelled per anesthesia due to developing RLL pneumonia and high risk for general anesthesia S/P IR cholecystostomy drain placement Advance to low fat diet as tolerated WBC improving- 15.3>11.8>7.9 IV fluids IV antibiotics- Zosyn Supportive care/pain control Surgery will sign off at this time. Thank you for allowing us to participate in the care of this patient. Please call with any further questions/concerns. Follow-up as scheduled with Dr. Brenner on 06/23/16. (2) Hospital-acquired pneumonia Current Visit: Yes Status: Acute IV antibiotics coverage increased per hospitalist- Zosyn, Flagyl, Vancomycin IS every 1 hour while awake WBC 13.2>15.3>11.8>7.9 Management per medicine service (3) COPD (chronic obstructive pulmonary disease) Current Visit: Yes Status: Chronic Stable Continue bronchodilators as needed Qualifiers: COPD type: unspecified COPD Qualified Code(s): J44.9 - Chronic obstructive pulmonary disease, unspecified (4) CAD (coronary artery disease) Current Visit: Yes Status: Chronic Qualifiers: Coronary Disease-Associated Artery/Lesion type: [place] artery [place] vs. transplanted heart: [place] heart Associated angina: angina presence unspecified Qualified Code(s): I25.10 - Atherosclerotic heart disease of [place] coronary artery without angina pectoris (5) Hypertension Current Visit: Yes Status: Chronic Normotensive Continue current medication regimen Management per medicine service Qualifiers: Hypertension type: essential hypertension Qualified Code(s): I10 - Essential (primary) hypertension (6) DVT prophylaxis Current Visit: Yes Status: Acute EPCDs to bilateral lower extremities for DVT prophylaxis Add heparin 5,000 units SQ twice daily for DVT prophylaxis Subjective Patient reports: no new complaints, tolerating liquids well, flatus, bowel movement, afebrile, other (resting comfortably) Objective Vital Signs - Last 8 Hours Temp Pulse Resp BP Pulse Ox 06/10/16 12:13 84 16 125/87 96 06/10/16 07:01 98.2 F 72 18 152/90 99 Intake and Output 06/09/16 06/10/16 06/10/16 23:59 07:59 15:59 Intake Total 700 / 700 100 / 100 700 / 700 Output Total 462 / 462 575 / 575 850 / 850 Balance 238 / 238 -475 / -475 -150 / -150 Intake: IV Fluids 700 / 700 100 / 100 700 / 700 Flagyl 500 MG/100 ML 500 100 / 100 100 / 100 100 / 100 mg In 100 ml @ 100 mls/hr IVPB Q8HR JOV[facility] Rx#: [id number] Zosyn 3.375 GM In 100 / 100 0 / 0 100 / 100 Dextrose 5% (Minibag+) 100 ML 100 ML @ 25 mls/hr IVPB Q8H [facility]OV[facility] Rx#: [id number] Vancocin 1,750 MG In 500 / 500 500 / 500 Dextrose 5% 500 ML @ 150 mls/hr IVPB Q12H [facility]OV[facility] Rx#: [id number] Output: Urine 500 / 500 Catheter 450 / 450 800 / 800 Wound Drainage 75 / 75 50 / 50 Right Medial Abdomen 75 / 75 50 / 50 Other: Stool Size Moderate Stool Consistency liquid Stool Color Brown Weight 104.1 kg Patient Weight 06/10/16 23:59 Weight 104.1 kg - General physical appearance well developed, no distress, chronically ill - Eyes normal ocular movement - ENT normal mucosa, atraumatic, normocephalic - Neck Neck exam: trachea midline - Respiratory normal respiratory effort, other (diminished bibasilar bases) rales: bilateral - Cardiovascular Cardiovascular exam: Present: RRR - Abdomen Abdomen: Present: bowel sounds present, soft, non tender, wound (Pigtail drain RUQ with bilious drainage noted) - Genitourinary other ([place]o catheter to [place] with clear, yellow urine noted) - Psychiatric oriented to person, oriented to place - Labs 06/10/16 09:36 06/10/16 09:36 Diabetes panel 06/10/16 Range/Units 09:36 Sodium 138 (136-145) mEq/L Potassium 3.0 L (3.5-4.5) mEq/L Chloride 103 (98-109) mEq/L Carbon Dioxide 26 (19-29) mEq/L BUN 9 (8-26) mg/dL Creatinine 0.77 (0.72-1.25) mg/dL Glucose 107 H (70-99) mg/dL Calcium 9.2 (8.6-10.8) mg/dL AST 26 (5-34) Units/L ALT 23 (0-55) Units/L Alkaline Phosphatase 200 H (38-126) Units/L Albumin 2.0 L (3.5-5.0) g/dL Calcium panel 06/10/16 Range/Units 09:36 Calcium 9.2 (8.6-10.8) mg/dL Albumin 2.0 L (3.5-5.0) g/dL Pituitary panel 06/10/16 Range/Units 09:36 Sodium 138 (136-145) mEq/L Potassium 3.0 L (3.5-4.5) mEq/L Chloride 103 (98-109) mEq/L Carbon Dioxide 26 (19-29) mEq/L BUN 9 (8-26) mg/dL Creatinine 0.77 (0.72-1.25) mg/dL Glucose 107 H (70-99) mg/dL Calcium 9.2 (8.6-10.8) mg/dL Adrenal panel 06/10/16 Range/Units 09:36 Sodium 138 (136-145) mEq/L Potassium 3.0 L (3.5-4.5) mEq/L Chloride 103 (98-109) mEq/L Carbon Dioxide 26 (19-29) mEq/L BUN 9 (8-26) mg/dL Creatinine 0.77 (0.72-1.25) mg/dL Glucose 107 H (70-99) mg/dL Calcium 9.2 (8.6-10.8) mg/dL Total Bilirubin 0.5 (0.2-1.2) mg/dL AST 26 (5-34) Units/L ALT 23 (0-55) Units/L Alkaline Phosphatase 200 H (38-126) Units/L Albumin 2.0 L (3.5-5.0) g/dL Consult Discharge Plan - Plan Additional Instructions: Low fat diet Pigtail drain- cleanse around drain with soap and water and pat dry daily, apply split 4X4 gauze and tape to secure daily. Empty drain 4 times daily and as needed if full. Record output and bring to follow-up appointment on 06/23/[address] Brenner. [facility] - 06/15/16 3:30 pm Jenny Brenner MD [Partnered Physician] - 06/23/16 1:50 pm (hospital follow- up) - Attending Attestation I examined this patient and my medical decision-making was reviewed with the TRACTOR TRAILER DRIVER/PA/Advanced Practice Nurse/Resident Physician. I agree with the documented findings, disposition and treatment plan as described except to the extent set forth below.
[2016-06-10] MEDS ORDERED: Lidocaine -MPF 1% 5 ML AMPUL INFILT ONE (15:39)
[2016-06-10] MEDS: 0.9 % Sodium Chloride 500 ML IVC SCH (22:34)
[2016-06-11] MEDS: MetroNIDAZOLE 500 MG/100 ML 500 MG/100 ML BAG IVPB SCH ×3 (03:53→20:14)
[2016-06-11 04:32] LABS: Basophils % 0.3 %; Eosinophils # 0.3 K/mcL (0.0-0.6); Eosinophils % 4.7 %; Hematocrit 22.8 % (37.5-50.1); Immature Granulocytes % 0.6 % (0-4); Lymphocytes % 30.4 %; Mean Corpuscular Hemoglobin 27.4 pg (28.0-33.3); Mean Corpuscular Volume 85.7 fL (83.0-100.0); Mean Platelet Volume 8.6 fL (9.4-12.4); Monocytes # 0.6 K/mcL (0.0-1.3); Monocytes % 9.6 %; Neutrophils # 3.5 K/mcL (1.6-8.9); Platelet Count 282 K/mcL (140-400); Red Blood Count 2.66 M/mcL (4.19-5.50); Red Cell Distribution Width 14.5 % (11.5-14.5); Segmented Neutrophils % 54.4 %
[2016-06-11] MEDS: Vancomycin 1,750 MG in D5% in Water 500 ML IVPB SCH (04:34)
[2016-06-11 04:37] LABS: Hemoglobin 7.3 g/dL (12.9-16.9)
[2016-06-11 04:48] LABS: Alanine Aminotransferase 18 Units/L (0-55); Albumin/Globulin Ratio 0.6 (1.1-2.2); Alkaline Phosphatase 151 Units/L (38-126); Aspartate Amino Transferase 22 Units/L (5-34); BUN/Creatinine Ratio 8 (6-26); Bilirubin,Direct 0.2 mg/dL (0.0-0.5); Bilirubin,Indirect 0.2 mg/dL (0.0-1.2); Bilirubin,Total 0.4 mg/dL (0.2-1.2); Blood Urea Nitrogen 6 mg/dL (8-26); Calcium 7.9 mg/dL (8.6-10.8); Carbon Dioxide 24 mEq/L (19-29); Chloride 108 mEq/L (98-109); Globulin 2.8 g/dL (2.4-3.5); Glucose 85 mg/dL (70-99); Osmolality,Calculated 291 (280-300); Potassium 2.7 mEq/L (3.5-4.5); Sodium 142 mEq/L (136-145); Total Protein 4.6 g/dL (6.0-8.3); eGFR For African Americans > 60 (> 60); eGFR For Non-African Americans > 60 (> 60)
[2016-06-11 04:51] LABS: Albumin 1.8 g/dL (3.5-5.0)
[2016-06-11] MEDS ORDERED: Vancomycin 1,750 MG in D5% in Water 500 ML IVPB SCH (05:00)
[2016-06-11] MEDS ORDERED: Calcium Gluconate 2,000 MG in D5% in Water 100 ML IVPB ONE (05:21)
[2016-06-11] MEDS: *HR* Heparin 5,000 UNIT/ML VIAL SQ SCH ×2 (06:10→17:27)
[2016-06-11] MEDS: Piperacillin/Tazobactam 3.375 GM in D5% in Water (Mini-Bag+) 100 ML IVPB SCH ×3 (06:12→20:15)
[2016-06-11 07:03] LABS: Magnesium 1.7 mg/dL (1.6-2.6); Phosphorous 2.8 mg/dL (2.3-4.7)
[2016-06-11] MEDS ORDERED: Aminoglycoside Consult 1 EACH MC ONE (08:36)
--- NOTE | 2016-06-11 08:45 | Internal Med Progress Note ---
<Duarte Rodríguez - Last Filed: 06/11/16 13:50> Date of Encounter: 06/11/16 Time of Encounter: 08:40 - Assessment and plan (1) Acute cholecystitis Current Visit: Yes Status: Acute Assessment and plan: Patient is a 60 year old male who was transferred from the CT to [facility] ED with complaint of chest pain, RUQ abdominal pain, nausea, and vomiting. Determined to have leukocytosis with WBC of 18.3 upon arrival and elevated temp of 100.3. AST 82, ALT 63, Alk phos 169, T bili 1.2, Direct bili 0.7, Indirect bili 0.5. Lipase and amylase normal. LFT continues decreasing. AST 22, ALT 18, Alk phos 151, T bili 0.4, Direct bili 0.2, Indirect bili 0.2 WBC at 6.4, decreased from 7.[address] abd/pelvis revealed acute cholecystitis, indeterminate 2.3 cm left adrenal nodule, trace bilateral pleural effusion Underwent IR drain placement yesterday, surgery cancelled due to developing RLL and high risk for general anesthesia. Gallbladder fluid sent for culture, no growth to date, negative acid fast stain. Observed to be grossly bloody yesterday evening and mildly blood this morning. Continue antibiotics. Currently on Flagyl, Vancomycin, and Levaquin, continue d6. Zosyn d4. Pain control, avoid significant opiate pain medication due to history of dependence. IV Fluids NPO d/t partial sbo. Begin TPN per nutrition. Follow up with Surgery as outpatient 06/23/16. Hold Aspirin. Heparin for dvt ppx. Home med changes as noted d/t npo status: stop Duloxetine 60mg po Bidwm, stop Imdur 120mg po qd, ordered sublingual nitroglycerin prn, stop Metoprolol XL 12.5mg po qd, switch to IV metoprolol 5mg q6h, stop Nicardipine 40mg po tid, stop oxcarbazepine 600mg po tid, switch to ? (pending pharmacist recommendation) , stop Risperdal 1mg po qhs, switch to Risperdal rapid dissolve 1mg po hs. (2) Partial small bowel obstruction Current Visit: Yes Status: Acute Assessment and plan: CT abdomen/pelvis revealed decompressed gallbladder s/p cholecystostomy tube placement without evidence of bleed, new distention of fluid-filled small bowel loops to level of distal small bowel concerning for partial sbo, increase small bilateral pleural effusions, increasing small abdominal and pelvis free fluid, left adrenal nodule as previously noted. Surgery consulted. NG tube placement, to LIWS NPO, TPN ordered (3) Nausea & vomiting Current Visit: Yes Status: Acute Assessment and plan: Projectile vomiting reported last evening. On admission nausea and vomiting likely secondary to acute cholecystitis. Overnight, likely secondary to partial sbo. Zofran q8h prn. Additional management per assessments above. Qualifiers: Vomiting type: unspecified Vomiting Intractability: non-intractable Qualified Code(s): R11.2 - Nausea with vomiting, unspecified (4) Hospital-acquired pneumonia Current Visit: Yes Status: Acute Assessment and plan: Hospital Acquired Pneumonia, unknown. Patient reported increased cough and sputum production overnight on the morning of 06/08/16. Exam revealed significant rhonchi and rales throughout lung disla. Elevated WBC 15.3 from 13.2 day prior. CXR revealed increased right infrahilar region opacities, likely developing pneumonia in RLL. Blood cultures x4 negative, sputum culture unobtained. WBC decreased to 6.4 from 7.9 yesterday. Improved lung sounds, rhonchi still present. Reported decreased cough. Continue d6 of Flagyl, Levaquin, and Vancomycin. Zosyn d4 Encourage incentive spirometry PT/OT consulted (5) Leukocytosis Current Visit: Yes Status: Resolved Assessment and plan: Resolved. WBC elevated at 18.3 upon admission. UA was negative for UTI. CXR revealed pulmonary vascular congestion with mild cardiomegaly and patchy bilateral perihilar opacities that could represent early pulmonary edema. WBC at 6.4, decreased from 7.9 yesterday. Blood cultures ordered, final no growth Likely secondary to acute cholecystitis, though with significant lung findings correlated to history, patient may have been due to developing early pneumonia. CXR revealed increase opacity of right infrahilar region, likely related to developing pneumonia. Continue with antibiotics Flagyl, Vancomycin, and Levaquin d6. Zosyn d4. Qualifiers: Leukocytosis type: other Qualified Code(s): D72.828 - Other elevated white blood cell count (6) Elevated troponin Current Visit: Yes Status: Acute Assessment and plan: Patient was transferred from CT to [facility] ED with elevation in troponin, chest pain, abdominal pain, nausea, and vomiting. Troponin elevated from 0.03 to 0.04 prior to arrival. Troponins have been 0.04, 0.05, and 0.05. Elevated troponins likely secondary to demand ischemia secondary to acute cholecystitis. Continue telemetry, but in the absence of ekg findings, a fairly adynamic troponin, and resolution of chest pain since arrival this is unlikely related to ACS. Most recent cardiology evaluation at [facility] <1 week ago recommended no interventions. (7) Chest pain Current Visit: Yes Status: Acute Assessment and plan: Resolved since admission. EKG revealed normal sinus rhythm, no st elevation or depressions. Troponin 0.04, 0.05, 0.05. Discontinue Nitroglycerin drip. Home med held due to npo status, resume when partial sbo cleared. Med changes as set forth in plans above. Qualifiers: Chest pain type: other chest pain Qualified Code(s): R07.89 - Other chest pain; R07.8 - Other chest pain (8) CAD (coronary artery disease) Current Visit: Yes Status: Chronic Assessment and plan: History of CAD s/p multiple PCI and stents, most recently at [facility] <1week ago for NSTEMI, no additional interventions. Hold Plavix for possible interventions for acute cholecystitis. Continue holding aspirin. ome med held due to npo status, resume when partial sbo cleared. Med changes as set forth in plans above. Qualifiers: Coronary Disease-Associated Artery/Lesion type: douglas artery [place] vs. transplanted heart: douglas heart Associated angina: angina presence unspecified Qualified Code(s): I25.10 - Atherosclerotic heart disease of douglas coronary artery without angina pectoris (9) COPD (chronic obstructive pulmonary disease) Current Visit: Yes Status: Chronic Assessment and plan: No acute exacerbation. Duonebs q6h prn Albuterol q2h prn. Qualifiers: COPD type: unspecified COPD Qualified Code(s): J44.9 - Chronic obstructive pulmonary disease, unspecified (10) Hypertension Current Visit: Yes Status: Chronic Assessment and plan: Bp 147/93 this morning, controlled on home medications. Review of CT records: on Metoprolol succinate 12.5 mg po qd, nicardipine 40mg q8h, and enalapril inj 0.625/0.5mL IVP q6h. Home med held due to npo status, resume when partial sbo cleared. Med changes as set forth in plans above. Was determined to still have Clonidine patch on yesterday evening despite discontinuance on d1 of hospital stay, removed from patient. Watch next 24 hours for possible rebound hypertension. Appears stable thus far. Qualifiers: Hypertension type: essential hypertension Qualified Code(s): I10 - Essential (primary) hypertension (11) Mood disorder Current Visit: Yes Status: Chronic Assessment and plan: Mood disorder unspecified [facility]. Medications reviewed and ordered Duloxetine 60 mg po bid wm, Oxcarbazepine 600mg tid, risperidone 1mg po qhs for mood Home med held due to npo status, resume when partial sbo cleared. Med changes as set forth in plans above. (12) Thrush, oral Current Visit: Yes Status: Acute Assessment and plan: Chlorohexidine oral rinse ordered. (13) History of dysphagia Current Visit: Yes Status: Chronic Assessment and plan: Dysphagia alert noted [facility]. Diet Pureed and thin liquids, crush and serve medication in pudding, direct feeding assistance, upright position and spoon straw intake. Spoke with assistant director of plant operations regarding concerns brought forth from [facility] about [facility]. Patient has been on PPN for the past 4-5 days. Suspect symptoms from acute cholecystitis prevented this patient from having a good appetite. Prealbumin ordered, Albumin 2.0 Bedside swallow reviewed. Speech therapy recommends thin liquids and puree textures. Speech will continue to follow patient per note reviewed. Patient developed partial sbo, currently NPO, will start TPN. (14) Hypokalemia Current Visit: Yes Status: Acute Assessment and plan: Potassium at 2.7 this morning, down from 3.0 yesterday. Continue to monitor and replete as necessary. Electrolyte protocol. (15) Altered mental state Current Visit: Yes Status: Resolved Assessment and plan: AMS, unspecified, resolved overnight. Nurses report patient has been in and out of arousability throughout the day, lethargic. Patient was at baseline/normal three time throughout the day when visited patient, until later evening when he was determined to be less arousable. CT Head revealed no acute intracranial abnormality. Stable findings compatible with mild age related atrophy and likely chronic small vessel ischemic changes as well as old lacunar infarcts to left basal ganglia. CT abdomen/pelvis revealed decompressed gallbladder s/p cholecystostomy tube placement without evidence of bleed, new distention of fluid-filled small bowel loops to level of distal small bowel concerning for partial sbo, increase small bilateral pleural effusions, increasing small abdominal and pelvis free fluid, left adrenal nodule as previously noted. poc glucose was 100. Vitals otherwise stable. This morning, discussed events of yesterday and patient reports he was just not feeling all that well throughout the afternoon and early evening. Patient reports he was very tired and had significant decreased energy due to pain. Qualifiers: Altered mental status type: unspecified Qualified Code(s): R41.82 - Altered mental status, unspecified (16) Severe protein-calorie malnutrition Current Visit: Yes Status: Acute Assessment and plan: Likely related to dysphagia vs nausea and vomiting in acute disease processes. History of poor ntakes since February 2016, 47 Lb weight loss in 3 months, Pre albumin 10. Nutrition on board, continue to follow recommendations. NPO due to partial sbo, Start TPN. (17) DVT prophylaxis Current Visit: Yes Status: Acute Assessment and plan: Heparin for dvt ppx. IPCD ordered - Subjective Interval history: Yesterday patient was determined to have episodes in and out of arousability, due to worsening status CT Head and Abd/Pelvis was ordered. Patient was determined to have partial sbo noted on CT Abd/pelvis, and drain in place. Patient this morning started on npo diet, ng tube management, and tpn started. Hb also notable drop from 9.1 to 7.3 this morning. Patient transferred to for continued care. Patient reports feeling mediocre this morning, better than yesterday afternoon/ evening. Patient has had continued episodes of emesis and not able to tolerate diet ordered. Patient also reports diffuse dull achy abdominal pain. Patient denies fevers, chills, sweats, chest pain, shortness of breath, changes in bowels or bladder, weakness, or loss of sensation. Patient has bloody drainage into drain. - Constitutional Vitals: Temp Pulse Resp BP Pulse Ox 98.3 F 65 18 147/93 96 06/11/16 08:23 06/11/16 08:23 06/11/16 08:23 06/11/16 08:23 06/11/16 08:23 General appearance: Present: cooperative, A&O X 3, pleasant, no acute distress, obese, answers questions appropriately - Head Head exam: Present: atraumatic, normal inspection, normocephalic - Eye Eye exam: Present: normal appearance - ENT ENT exam: Present: mucous membranes dry, normal external ear exam, normal oropharynx Additional comments: thrush noted - Neck Neck exam general surgery: Present: normal inspection, supple, trachea midline. Absent: tenderness - Respiratory Respiratory exam: Present: rhonchi. Absent: rales, wheezes - Cardiovascular Cardiovascular exam: Present: RRR, +S1, +S2 - GI/Abdominal GI/Abdominal exam: Present: distended, hypoactive bowel sounds, soft, tenderness (diffuse mild tenderness). Absent: guarding, rebound, no peritoneal signs - Extremities Exam Extremities exam: Present: full ROM, pedal edema, warm, radial pulses palpable and symetrical. Absent: tenderness - Neurological Exam Neurological exam: Present: alert, oriented X3, no focal deficits, strengths equal and symetr throughout. Absent: facial droop, speech deficit - Psychiatric Psychiatric exam: Present: normal affect, normal mood - Skin Skin exam: Present: diaphoretic, intact, normal color, rash, warm. Absent: erythema, pallor Internal Medicine: Result - Labs CBC & Chem 7: 06/11/16 04:15 06/11/16 04:15 Labs: Short CBC 06/10/16 06/11/16 Range/Units 09:36 04:15 WBC 7.9 6.4 (4.3-11.1) K/mcL Hgb 9.1 L 7.3 L D (12.9-16.9) g/dL Hct 27.5 L 22.8 L (37.5-50.1) % Plt Count 336 282 (140-400) K/mcL Neutrophils # 5.0 3.5 (1.6-8.9) K/mcL BMP 06/10/16 06/11/16 09:36 04:15 Sodium 138 142 Potassium 3.0 L 2.7 L Chloride 103 108 Carbon Dioxide 26 24 BUN 9 6 L Creatinine 0.77 0.72 Glucose 107 H 85 Calcium 9.2 7.9 L Liver Function 06/10/16 06/11/16 Range/Units 09:36 04:15 Total Bilirubin 0.5 0.4 (0.2-1.2) mg/dL Direct Bilirubin 0.3 0.2 (0.0-0.5) mg/dL AST 26 22 (5-34) Units/L ALT 23 18 (0-55) Units/L Alkaline Phosphatase 200 H 151 H (38-126) Units/L Albumin 2.0 L 1.8 L (3.5-5.0) g/dL - ABG Interpretation ABG results: PT/INR, D-dimer PT 14.2 Seconds (9.4-12.1) H 06/09/16 01:10 - Impressions Impressions Abdomen/Pelvis CT 06/10/16 17:25 IMPRESSION: 1. Status post recent cholecystostomy tube placement secondary to acute cholecystitis. The gallbladder is now decompressed. No evidence of complication. No evidence of a bleed. 2. New distention of fluid-filled small bowel loops to the level of the distal small bowel. Findings are concerning for a partial small bowel obstruction. Follow-up is recommended. 3. Increasing, but small, bilateral pleural effusions. Increasing small abdominal and pelvic free fluid. 4. The previously described left adrenal nodule is a benign adenoma, and requires no further follow-up. 5. 3.1 x 3.4 cm infrarenal abdominal aortic aneurysm. Management guidelines are outlined below. RECOMMENDATIONS: Managing Abdominal Aortic Aneurysms 2.6-2.9 cm: 5 year follow up. 3.0-3.4 cm: 3 year follow up 3.5-3.9 cm: 1 year follow up. 4.0-4.4 cm: 1 year follow up. Recommend vascular consultation. 4.5-5.4 cm: 6 month follow up. Recommend vascular consultation. Greater than or equal to 5.5 cm: Referral to vascular surgeon. Reference: Annette et al. The care of patients with an abdominal aortic aneurysm: The Society of Vascular Surgery practice guidelines. Journal of Vascular Surgery. Vol 50, Number 85. Mine et al. Managing Incidental Findings on Abdominal and Pelvic CT and MRI, Part 2: White Paper of the ACR Incidental Findings Committee II on Vascular Findings. J Am Denys Radiol 2013;10:789-794 D/ / 06/10/2016 18:31:55 Angelito Benitez MD / christina Interpreting Provider: Angelito Benitez MD Head CT 06/10/16 17:25 IMPRESSION: No acute intracranial abnormality. Stable exam with findings compatible with mild age related atrophy and likely chronic small vessel ischemic change as well as old lacunar infarcts to the left basal ganglia. D/ / Robert Ulloa MD / Robert Ulloa MD Interpreting Provider: Robert Ulloa MD Consult Discharge Plan - Plan Additional Instructions: Low fat diet Pigtail drain- cleanse around drain with soap and water and pat dry daily, apply split 4X4 gauze and tape to secure daily. Empty drain 4 times daily and as needed if full. Record output and bring to follow-up appointment on 06/23/[address] Brenner. Referrals: Jenny Brenner MD [Partnered Physician] - 06/23/16 1:50 pm (hospital follow- up) CT,PCP [Primary Care Provider] - 06/15/16 3:30 pm <David Russo P - Last Filed: 06/11/16 16:33> Date of Encounter: 06/11/16 - Constitutional Vitals: Temp Pulse Resp BP Pulse Ox 98.0 F 59 18 169/95 97 06/11/16 15:00 06/11/16 15:00 06/11/16 15:00 06/11/16 15:00 06/11/16 15:00 Internal Medicine: Result - Labs CBC & Chem 7: 06/11/16 04:15 06/11/16 04:15 Labs: Short CBC 06/11/16 Range/Units 04:15 WBC 6.4 (4.3-11.1) K/mcL Hgb 7.3 L D (12.9-16.9) g/dL Hct 22.8 L (37.5-50.1) % Plt Count 282 (140-400) K/mcL Neutrophils # 3.5 (1.6-8.9) K/mcL BMP 06/11/16 04:15 Sodium 142 Potassium 2.7 L Chloride 108 Carbon Dioxide 24 BUN 6 L Creatinine 0.72 Glucose 85 Calcium 7.9 L Liver Function 06/11/16 Range/Units 04:15 Total Bilirubin 0.4 (0.2-1.2) mg/dL Direct Bilirubin 0.2 (0.0-0.5) mg/dL AST 22 (5-34) Units/L ALT 18 (0-55) Units/L Alkaline Phosphatase 151 H (38-126) Units/L Albumin 1.8 L (3.5-5.0) g/dL - ABG Interpretation ABG results: PT/INR, D-dimer PT 14.2 Seconds (9.4-12.1) H 06/09/16 01:10 - Impressions Impressions Abdomen/Pelvis CT 06/10/16 17:25 IMPRESSION: 1. Status post recent cholecystostomy tube placement secondary to acute cholecystitis. The gallbladder is now decompressed. No evidence of complication. No evidence of a bleed. 2. New distention of fluid-filled small bowel loops to the level of the distal small bowel. Findings are concerning for a partial small bowel obstruction. Follow-up is recommended. 3. Increasing, but small, bilateral pleural effusions. Increasing small abdominal and pelvic free fluid. 4. The previously described left adrenal nodule is a benign adenoma, and requires no further follow-up. 5. 3.1 x 3.4 cm infrarenal abdominal aortic aneurysm. Management guidelines are outlined below. RECOMMENDATIONS: Managing Abdominal Aortic Aneurysms 2.6-2.9 cm: 5 year follow up. 3.0-3.4 cm: 3 year follow up 3.5-3.9 cm: 1 year follow up. 4.0-4.4 cm: 1 year follow up. Recommend vascular consultation. 4.5-5.4 cm: 6 month follow up. Recommend vascular consultation. Greater than or equal to 5.5 cm: Referral to vascular surgeon. Reference: Annette et al. The care of patients with an abdominal aortic aneurysm: The Society of Vascular Surgery practice guidelines. Journal of Vascular Surgery. Vol 50, Number 85. Mine et al. Managing Incidental Findings on Abdominal and Pelvic CT and MRI, Part 2: White Paper of the ACR Incidental Findings Committee II on Vascular Findings. J Am Denys Radiol 2013;10:789-794 D/ / 06/10/2016 18:31:55 Angelito Benitez MD / christina Interpreting Provider: Angelito Benitez MD Head CT 06/10/16 17:25 IMPRESSION: No acute intracranial abnormality. Stable exam with findings compatible with mild age related atrophy and likely chronic small vessel ischemic change as well as old lacunar infarcts to the left basal ganglia. D/ / Robert Ulloa MD / Robert Ulloa MD Interpreting Provider: Robert Ulloa MD - Attending Attestation I examined this patient and my medical decision-making was reviewed with the PRODUCER ASSISTANT/PA/Advanced Practice Nurse/Resident Physician. I agree with the documented findings, disposition and treatment plan as described except to the extent set forth below. Very ill patient. Noted that patient has a partial small bowel obstruction. Surgery consulted. Patient transferred to stepdown unit. We will continue to follow recommendations from surgery.
[2016-06-11] MEDS ORDERED: 0.9 % Sodium Chloride 250 ML ONE (09:19)
[2016-06-11] MEDS: Levofloxacin 750 MG/150 ML 750 MG/150 ML BAG IVPB SCH (09:49)
[2016-06-11] MEDS: Chlorhexidine Rinse 15 ML MOUTHWASH MM SCH ×2 (09:53→20:15)
[2016-06-11] MEDS: Pantoprazole 40 MG VIAL IVP SCH (09:53)
[2016-06-11] MEDS ORDERED: Nitroglycerin 0.4 MG TAB.SUBL SL PRN (10:18)
[2016-06-11] MEDS ORDERED: D10% in Water 500 ML IVC PRN (12:21)
[2016-06-11] MEDS: *HR* Metoprolol 5 MG/5 ML VIAL IVP SCH ×2 (12:36→17:22)
[2016-06-11] MEDS: *HR* HYDROmorphone (PF) 1 MG/ML SYRINGE IVP PRN ×2 (12:54→20:12)
[2016-06-11] MEDS: niCARdipine 20 MG CAPSULE PO SCH ×3 (15:03→20:14)
[2016-06-11] MEDS: OXcarbazepine 150 MG TABLET PO SCH ×3 (15:03→20:15)
[2016-06-11] MEDS: Magnesium Sulfate 2 GM in D5% in Water 100 ML IVPB PRN (15:04)
[2016-06-11] MEDS ORDERED: Clinimix E 5%-20% SOLUTION 2,000 ML with MVI, adult with vitamin K 10 ML IVC SCH (17:00)
[2016-06-11 17:04] LABS: Basophils % 0.5 %; Eosinophils # 0.3 K/mcL (0.0-0.6); Eosinophils % 3.8 %; Hematocrit 31.7 % (37.5-50.1); Immature Granulocytes % 0.5 % (0-4); Lymphocytes # 2.4 K/mcL (0.6-4.6); Lymphocytes % 29.5 %; Mean Corpuscular HGB Conc 33.1 g/dL (31.6-35.5); Mean Corpuscular Hemoglobin 27.9 pg (28.0-33.3); Mean Corpuscular Volume 84.1 fL (83.0-100.0); Mean Platelet Volume 8.9 fL (9.4-12.4); Monocytes # 0.8 K/mcL (0.0-1.3); Monocytes % 9.8 %; Neutrophils # 4.5 K/mcL (1.6-8.9); Platelet Count 324 K/mcL (140-400); Red Blood Count 3.77 M/mcL (4.19-5.50); Red Cell Distribution Width 14.2 % (11.5-14.5); Segmented Neutrophils % 55.9 %
[2016-06-11 17:05] LABS: Hemoglobin 10.5 g/dL (12.9-16.9)
--- NOTE | 2016-06-11 17:22 | General Surgery Progress Note ---
Date of Encounter: 06/11/16 Time of Encounter: 17:20 - Assessment and Plan (1) Acute cholecystitis Current Visit: Yes Status: Acute pt afebrile, minimal RUQ pain percut CCT now bloody bile, will monitor wbc normal acute cholecystitis resolved (2) Hospital-acquired pneumonia Current Visit: Yes Status: Acute IV antibiotics coverage increased per hospitalist- Zosyn, Flagyl, Vancomycin IS every 1 hour while awake Management per medicine service patient looks better today (3) COPD (chronic obstructive pulmonary disease) Current Visit: Yes Status: Chronic Stable Continue bronchodilators as needed Qualifiers: COPD type: unspecified COPD Qualified Code(s): J44.9 - Chronic obstructive pulmonary disease, unspecified (4) CAD (coronary artery disease) Current Visit: Yes Status: Chronic ok for aspirin Qualifiers: Coronary Disease-Associated Artery/Lesion type: [place] artery [place] vs. transplanted heart: [place] heart Associated angina: angina presence unspecified Qualified Code(s): I25.10 - Atherosclerotic heart disease of [place] coronary artery without angina pectoris (5) Hypertension Current Visit: Yes Status: Chronic pressures elevated Management per medicine service Qualifiers: Hypertension type: essential hypertension Qualified Code(s): I10 - Essential (primary) hypertension (6) DVT prophylaxis Current Visit: Yes Status: Acute EPCDs to bilateral lower extremities for DVT prophylaxis (7) Partial small bowel obstruction Current Visit: Yes Status: Acute unable to place ngt due to nasal septal issues continue npo and current conservative therapy TPN for nutrition will order dulcolax suppository serial abdominal exams Subjective Narrative: patient states his main complaint today is knee pain he denies nausea and is asking for water he denies passing flatus or having bm pain in RUQ well controlled Objective Vital Signs - Last 8 Hours Temp Pulse Resp BP Pulse Ox 06/11/16 15:00 98.0 F 59 18 169/95 97 06/11/16 13:30 97.9 F 59 18 164/97 99 06/11/16 12:45 98.0 F 65 16 174/102 96 06/11/16 12:30 98.3 F 60 16 160/95 96 06/11/16 12:10 98.3 F 60 16 160/95 96 06/11/16 12:07 98.3 F 60 16 160/95 96 06/11/16 12:00 98.0 F 59 18 169/95 97 06/11/16 11:12 98.3 F 63 20 145/92 97 06/11/16 11:08 98.3 F 66 20 145/92 95 06/11/16 10:27 98.0 F 68 16 145/93 95 06/11/16 10:12 98.1 F 72 16 145/91 99 Intake and Output 06/11/16 06/11/16 06/11/16 07:59 15:59 23:59 Intake Total 200 / 200 1470 / 1470 Output Total 725 / 725 825 / 825 Balance -525 / -525 645 / 645 Intake: IV Fluids 200 / 200 350 / 350 Levaquin 750mg/150 mL 750 150 / 150 mg In 150 ml @ 100 mls/ hr IVPB DAILY [facility] Rx#: [id number] Flagyl 500 MG/100 ML 500 100 / 100 100 / 100 mg In 100 ml @ 100 mls/hr IVPB Q8H [facility] Rx#: [id number] Zosyn 3.375 GM In 100 / 100 100 / 100 Dextrose 5% (Minibag+) 100 ML 100 ML @ 25 mls/hr IVPB Q8H [facility] Rx#: [id number] Oral 0 / 0 0 / 0 Blood Product 1120 / 1120 Rbcs Leuko Poor As-1 568 / 568 Unit [id number] Rbcs Leuko Poor As-1 552 / 552 Unit [id number] Output: Catheter 700 / 700 750 / 750 Wound Drainage 25 / 25 75 / 75 Right Medial Abdomen 25 / 25 75 / 75 Other: Meal NPO Weight 104.5 kg Blood Glucose* 154 118 Patient Weight 06/11/16 23:59 Weight 104.5 kg - General physical appearance well developed, no distress, no pain, obese - Eyes PERRL, normal ocular movement - ENT dry mucosa, atraumatic, normocephalic - Neck Neck exam: trachea midline - Respiratory normal expansion, normal respiratory effort, clear to auscultation - Cardiovascular Cardiovascular exam: Present: RRR, tachycardia - Abdomen Abdomen: Present: bowel sounds present (high pitched tinkling), soft, distended , tender (mildly diffusely, minimally more in RUQ) Additional Comments: percutaneous cholecystostomy tube with bloody bile output - Integumentary no rash, no growths - Neurologic CN 2-12 grossly intact - Musculoskeletal normal posture - Psychiatric oriented to person, oriented to place - Labs 06/11/16 16:30 06/11/16 04:15 Short CBC 06/11/16 06/11/16 Range/Units 16:30 04:15 WBC 8.1 6.4 (4.3-11.1) K/mcL Hgb 10.5 L D 7.3 L D (12.9-16.9) g/dL Hct 31.7 L 22.8 L (37.5-50.1) % Plt Count 324 282 (140-400) K/mcL Neutrophils # 4.5 3.5 (1.6-8.9) K/mcL BMP 06/11/16 Range/Units 04:15 Sodium 142 (136-145) mEq/L Potassium 2.7 L (3.5-4.5) mEq/L Chloride 108 (98-109) mEq/L Carbon Dioxide 24 (19-29) mEq/L BUN 6 L (8-26) mg/dL Creatinine 0.72 (0.72-1.25) mg/dL Glucose 85 (70-99) mg/dL Calcium 7.9 L (8.6-10.8) mg/dL Liver Function 06/11/16 Range/Units 04:15 Total Bilirubin 0.4 (0.2-1.2) mg/dL Direct Bilirubin 0.2 (0.0-0.5) mg/dL AST 22 (5-34) Units/L ALT 18 (0-55) Units/L Alkaline Phosphatase 151 H (38-126) Units/L Albumin 1.8 L (3.5-5.0) g/dL Vital Signs Temp Pulse Resp BP Pulse Ox 06/11/16 15:00 98.0 F 59 18 169/95 97 06/11/16 13:30 97.9 F 59 18 164/97 99 06/11/16 12:45 98.0 F 65 16 174/102 96 06/11/16 12:30 98.3 F 60 16 160/95 96 06/11/16 12:10 98.3 F 60 16 160/95 96 06/11/16 12:07 98.3 F 60 16 160/95 96 06/11/16 12:00 98.0 F 59 18 169/95 97 06/11/16 11:12 98.3 F 63 20 145/92 97 06/11/16 11:08 98.3 F 66 20 145/92 95 06/11/16 10:27 98.0 F 68 16 145/93 95 06/11/16 10:12 98.1 F 72 16 145/91 99 06/11/16 08:23 98.3 F 65 18 147/93 96 06/11/16 08:20 98.3 F 65 18 167/95 96 06/11/16 07:00 98 F 57 15 133/85 100 06/11/16 03:20 98.4 F 66 16 136/80 95 06/11/16 00:00 98.6 F 63 18 120/71 95 06/10/16 21:00 96 06/10/16 20:08 98.2 F 74 18 144/88 Intake and Output 06/11/16 06/11/16 06/11/16 07:59 15:59 23:59 Intake Total 200 / 200 1470 / 1470 Output Total 725 / 725 825 / 825 Balance -525 / -525 645 / 645 Intake: IV Fluids 200 / 200 350 / 350 Levaquin 750mg/150 mL 750 150 / 150 mg In 150 ml @ 100 mls/ hr IVPB DAILY [facility] Rx#: [id number] Flagyl 500 MG/100 ML 500 100 / 100 100 / 100 mg In 100 ml @ 100 mls/hr IVPB Q8H [facility] Rx#: [id number] Zosyn 3.375 GM In 100 / 100 100 / 100 Dextrose 5% (Minibag+) 100 ML 100 ML @ 25 mls/hr IVPB Q8H [facility] Rx#: [id number] Oral 0 / 0 0 / 0 Blood Product 1120 / 1120 Rbcs Leuko Poor As-1 568 / 568 Unit [id number] Rbcs Leuko Poor As-1 552 / 552 Unit [id number] Output: Catheter 700 / 700 750 / 750 Wound Drainage / 75 / 75 Right Medial Abdomen 75 / 75 Other: Meal NPO Weight 104.5 kg Blood Glucose* 154 118 Patient Weight 06/11/16 23:59 Weight 104.5 kg - Imaging CT scan - abdomen: report reviewed, image reviewed CT scan - pelvis: report reviewed, image reviewed Consult Discharge Plan - Plan Additional Instructions: Low fat diet Pigtail drain- cleanse around drain with soap and water and pat dry daily, apply split 4X4 gauze and tape to secure daily. Empty drain 4 times daily and as needed if full. Record output and bring to follow-up appointment on 06/23/[address] Brenner. Referrals: Jenny Brenner MD [Partnered Physician] - 06/23/16 1:50 pm (hospital follow- up) [facility] - 06/15/16 3:30 pm
[2016-06-11] MEDS ORDERED: Bisacodyl 10 MG RECTAL SUPPOSITORY RC SCH (17:30)
[2016-06-11 17:36] LABS: BUN/Creatinine Ratio 9 (6-26); Blood Urea Nitrogen 7 mg/dL (8-26); Carbon Dioxide 28 mEq/L (19-29); Chloride 102 mEq/L (98-109); Glucose 100 mg/dL (70-99); Magnesium 2.2 mg/dL (1.6-2.6); Osmolality,Calculated 284 (280-300); Potassium 3.1 mEq/L (3.5-4.5); Sodium 138 mEq/L (136-145); eGFR For African Americans > 60 (> 60); eGFR For Non-African Americans > 60 (> 60)
[2016-06-11 17:45] LABS: Calcium 9.2 mg/dL (8.6-10.8)
[2016-06-11] MEDS: 0.9 % Sodium Chloride 500 ML IVC SCH (20:13)
[2016-06-11] MEDS: RisperiDONE-M 1 MG TAB.RAPDIS PO SCH (20:15)
[2016-06-12] MEDS: *HR* Metoprolol 5 MG/5 ML VIAL IVP SCH ×4 (00:07→17:15)
[2016-06-12] MEDS: *HR* HYDROmorphone (PF) 1 MG/ML SYRINGE IVP PRN ×3 (00:10→20:11)
[2016-06-12] MEDS: MetroNIDAZOLE 500 MG/100 ML 500 MG/100 ML BAG IVPB SCH ×3 (04:02→20:11)
[2016-06-12] MEDS: Piperacillin/Tazobactam 3.375 GM in D5% in Water (Mini-Bag+) 100 ML IVPB SCH ×3 (04:03→20:11)
[2016-06-12 04:08] LABS: Basophils % 0.4 %; Eosinophils # 0.4 K/mcL (0.0-0.6); Eosinophils % 4.7 %; Hematocrit 31.7 % (37.5-50.1); Hemoglobin 10.6 g/dL (12.9-16.9); Immature Granulocytes % 0.6 % (0-4); Lymphocytes # 2.5 K/mcL (0.6-4.6); Mean Corpuscular HGB Conc 33.4 g/dL (31.6-35.5); Mean Corpuscular Hemoglobin 27.9 pg (28.0-33.3); Mean Corpuscular Volume 83.4 fL (83.0-100.0); Mean Platelet Volume 8.6 fL (9.4-12.4); Monocytes # 0.9 K/mcL (0.0-1.3); Neutrophils # 4.7 K/mcL (1.6-8.9); Platelet Count 323 K/mcL (140-400); Red Cell Distribution Width 14.1 % (11.5-14.5); Segmented Neutrophils % 55.3 %
[2016-06-12 04:19] LABS: BUN/Creatinine Ratio 9 (6-26); Blood Urea Nitrogen 7 mg/dL (8-26); Calcium 8.6 mg/dL (8.6-10.8); Carbon Dioxide 30 mEq/L (19-29); Chloride 105 mEq/L (98-109); Glucose 108 mg/dL (70-99); Osmolality,Calculated 293 (280-300); Potassium 2.8 mEq/L (3.5-4.5); Sodium 142 mEq/L (136-145); Triglycerides 148 mg/dL (< 150); eGFR For African Americans > 60 (> 60); eGFR For Non-African Americans > 60 (> 60)
[2016-06-12] MEDS: *HR* Heparin 5,000 UNIT/ML VIAL SQ SCH (04:59)
[2016-06-12] MEDS: niCARdipine 20 MG CAPSULE PO SCH ×3 (08:51→20:12)
[2016-06-12] MEDS: Pantoprazole 40 MG VIAL IVP SCH (08:51)
[2016-06-12] MEDS: OXcarbazepine 150 MG TABLET PO SCH ×3 (08:51→20:12)
[2016-06-12] MEDS: Levofloxacin 750 MG/150 ML 750 MG/150 ML BAG IVPB SCH (08:52)
[2016-06-12] MEDS: Chlorhexidine Rinse 15 ML MOUTHWASH MM SCH ×2 (08:52→20:12)
--- NOTE | 2016-06-12 09:33 | General Surgery Progress Note ---
Date of Encounter: 06/12/16 Time of Encounter: 12:00 - Assessment and Plan (1) Acute cholecystitis Current Visit: Yes Status: Acute Pt. was scheduled to have cholecystectomy but developed PNA so percutaneous CCT was placed. this am has 80cc sanguineous drainage Afebrile. WBC 8.5 CT A/P on 06/10/16: gallbladder decompressed, no evidence of complication, no evidence of bleed. If he continues to have sanguineous drainage in HENRY drain will require further imaging. percut CCT with bilious bloody drainage, Hb stable, will continue to monitor (2) Altered mental state Current Visit: Yes Status: Resolved Oriented to person,place,time, but answers some questions inappropriately. Difficult to discern whether this is his baseline, or an acute process. Qualifiers: Altered mental status type: unspecified Qualified Code(s): R41.82 - Altered mental status, unspecified (3) CAD (coronary artery disease) Current Visit: Yes Status: Chronic would hold aspirin in light of recent percut CCT bleeding Qualifiers: Coronary Disease-Associated Artery/Lesion type: [place] artery [place] vs. transplanted heart: [place] heart Associated angina: angina presence unspecified Qualified Code(s): I25.10 - Atherosclerotic heart disease of [place] coronary artery without angina pectoris (4) COPD (chronic obstructive pulmonary disease) Current Visit: Yes Status: Chronic IH bronchodilators Qualifiers: COPD type: unspecified COPD Qualified Code(s): J44.9 - Chronic obstructive pulmonary disease, unspecified (5) DVT prophylaxis Current Visit: Yes Status: Acute epcds stop heparin due to bleeding from percut CCT (6) Hypertension Current Visit: Yes Status: Chronic Bp in acceptable range this am management by primary team Qualifiers: Hypertension type: essential hypertension Qualified Code(s): I10 - Essential (primary) hypertension (7) Hospital-acquired pneumonia Current Visit: Yes Status: Acute Management per primary team Levaqspeedy neal zosyn wbc normal (8) Partial small bowel obstruction Current Visit: Yes Status: Acute CT A/P revealed likely psbo NG tube was tried to be placed but not successful d/t hx of nasal septal problems He does have faint bowel sounds on exam. His abdomen is less tender this am, but he just received pain medication so it is unclear as to if it is truly less tender. He states he has been passing flatus and had a BM yesterday, but nothing is in the chart and nursing states he has not had a bm. continue npo and current conservative therapy pain control anti-emetics TPN for nutrition serial abdominal exams try dulcolax to stimulate bowels Subjective Narrative: Patient seen and examined. He was just given pain medicine and cannot keep his eyes open. He is oriented to person, place, time. He complains of nausea, but has not had any emesis. He has bowel sounds and states he is passing flatus. Cholecystostomy drain has sanguineous drainage, 80cc since midnight. Continues to have RUQ abdominal pain to palpation. patient complains of back and right knee pain states abdomen near percut CCT does hurt. He denies nausea or emesis. He thinks he has passed some flatus. Objective Vital Signs - Last 8 Hours Temp Pulse Resp BP Pulse Ox 06/12/16 04:26 98.0 F 58 18 152/95 96 Intake and Output 06/11/16 06/12/16 06/12/16 23:59 07:59 15:59 Intake Total 420 / 420 300 / 300 100 / 100 Output Total 415 / 415 2029 / 2029 Balance 5 / 5 -1730 / -1730 100 / 100 Intake: IV Fluids 200 / 200 300 / 300 100 / 100 Flagyl 500 MG/100 ML 500 100 / 100 100 / 100 mg In 100 ml @ 100 mls/hr IVPB Q8H [facility] Rx#: [id number] Zosyn 3.375 GM In 100 / 100 100 / 100 Dextrose 5% (Minibag+) 100 ML 100 ML @ 25 mls/hr IVPB Q8H [facility] Rx#: [id number] Potassium Chloride 10 mEq 100 / 100 100 / 100 /100mL 10 meq In 100 ml @ 100 mls/hr IVPB Q1H [facility] Rx#:[id number] Oral 220 / 220 Output: Urine 350 / 350 1950 / 1950 Urethral ([place]) 350 / 350 600 / 600 Wound Drainage 65 / 65 80 / 80 Right Medial Abdomen 65 / 65 80 / 80 Other: Weight 107.5 kg Blood Glucose* 127 96 Patient Weight 06/12/16 23:59 Weight 107.5 kg - General physical appearance well developed, no distress, obese - Eyes PERRL, normal ocular movement - ENT dry mucosa, atraumatic, normocephalic - Neck Neck exam: trachea midline - Respiratory normal expansion, clear to auscultation, other (rhonchi b/l, poor inspiratory effort) - Cardiovascular Cardiovascular exam: Present: RRR, no murmurs/rubs/gallops - Abdomen Abdomen: Present: bowel sounds present (faint), soft, tender (mild RUQ to palpation). Absent: guarding, rigid Abdominal Tenderness: RUQ Additional Comments: HENRY Drain: sanguineous drainage. 80cc since midnight - Integumentary no rash, no growths - Neurologic CN 2-12 grossly intact - Psychiatric oriented to time, oriented to person, oriented to place - Labs 06/12/16 03:50 06/12/16 03:50 Short CBC 06/12/16 06/11/16 Range/Units 03:50 16:30 WBC 8.5 8.1 (4.3-11.1) K/mcL Hgb 10.6 L 10.5 L D (12.9-16.9) g/dL Hct 31.7 L 31.7 L (37.5-50.1) % Plt Count 323 324 (140-400) K/mcL Neutrophils # 4.7 4.5 (1.6-8.9) K/mcL BMP 06/12/16 06/11/16 Range/Units 03:50 16:30 Sodium 142 138 (136-145) mEq/L Potassium 2.8 L 3.1 L (3.5-4.5) mEq/L Chloride 105 102 (98-109) mEq/L Carbon Dioxide 30 H 28 (19-29) mEq/L BUN 7 L 7 L (8-26) mg/dL Creatinine 0.79 0.75 (0.72-1.25) mg/dL Glucose 108 H 100 H (70-99) mg/dL Calcium 8.6 9.2 D (8.6-10.8) mg/dL Vital Signs Temp Pulse Resp BP Pulse Ox 06/12/16 09:00 98.1 F 60 14 171/102 98 06/12/16 04:26 98.0 F 58 18 152/95 96 06/12/16 00:31 97.9 F 59 16 151/89 95 06/11/16 20:00 59 06/11/16 19:39 97.6 F 59 17 159/94 97 06/11/16 16:00 59 06/11/16 15:00 98.0 F 59 18 169/95 97 06/11/16 13:30 97.9 F 59 18 164/97 99 Intake and Output 06/11/16 06/12/16 06/12/16 23:59 07:59 15:59 Intake Total 524 / 524 300 / 300 550 / 550 Output Total 415 / 415 2029 / 2029 90 / 90 Balance 109 / 109 -1730 / -1730 460 / 460 Intake: IV Fluids 304 / 304 300 / 300 550 / 550 Levaquin 750mg/150 mL 750 150 / 150 mg In 150 ml @ 100 mls/ hr IVPB DAILY [facility] Rx#: [id number] Magnesium Sulfate 2 GM In 104 / 104 Dextrose 5% 100 ML @ 50 mls/hr IVPB Q6H [facility] Rx#: [id number] Flagyl 500 MG/100 ML 500 100 / 100 100 / 100 100 / 100 mg In 100 ml @ 100 mls/hr IVPB Q8H [facility] Rx#: [id number] Zosyn 3.375 GM In 100 / 100 100 / 100 100 / 100 Dextrose 5% (Minibag+) 100 ML 100 ML @ 25 mls/hr IVPB Q8H [facility] Rx#: [id number] Potassium Chloride 10 mEq 100 / 100 200 / 200 /100mL 10 meq In 100 ml @ 100 mls/hr IVPB Q1H [facility] Rx#:[id number] Oral 220 / 220 0 / 0 Output: Urine 350 / 350 1950 / 1950 Urethral (Colon) 350 / 350 600 / 600 Wound Drainage 65 / 65 80 / 80 90 / 90 Right Medial Abdomen 65 / 65 80 / 80 90 / 90 Other: Meal Breakfast Percent of Meal Consumed 0% Weight 107.5 kg Blood Glucose* 127 96 100 Patient Weight 06/12/16 23:59 Weight 107.5 kg Consult Discharge Plan - Plan Additional Instructions: Low fat diet Pigtail drain- cleanse around drain with soap and water and pat dry daily, apply split 4X4 gauze and tape to secure daily. Empty drain 4 times daily and as needed if full. Record output and bring to follow-up appointment on 06/23/[address] Brenner. Referrals: Jenny Brenner MD [Partnered Physician] - 06/23/16 1:50 pm (hospital follow- up) [facility] - 06/15/16 3:30 pm - Attending Attestation I examined this patient and my medical decision-making was reviewed with the [employer]/PA/Advanced Practice Nurse/Resident Physician. I agree with the documented findings, disposition and treatment plan as described except to the extent set forth below.
[2016-06-12 14:37] LABS: INR 1.2; Prothrombin Time 12.6 Seconds (9.4-12.1)
[2016-06-12 14:43] LABS: BUN/Creatinine Ratio 9 (6-26); Blood Urea Nitrogen 7 mg/dL (8-26); Calcium 8.5 mg/dL (8.6-10.8); Carbon Dioxide 30 mEq/L (19-29); Chloride 104 mEq/L (98-109); Glucose 121 mg/dL (70-99); Osmolality,Calculated 289 (280-300); Potassium 3.2 mEq/L (3.5-4.5); Sodium 140 mEq/L (136-145); eGFR For African Americans > 60 (> 60); eGFR For Non-African Americans > 60 (> 60)
--- NOTE | 2016-06-12 15:02 | Internal Med Progress Note ---
Date of Encounter: 06/12/16 Time of Encounter: 11:05 - Assessment and plan (1) Acute cholecystitis Current Visit: Yes Status: Acute Assessment and plan: S/P percutaneous CCT CT A/P on 06/10/16: gallbladder decompressed, no evidence of complication, no evidence of bleed. Percutaneous drain noted with bilous, seroussangunious drainage, H&H within acceptable range management as per surgery, will continue to monitor (2) Partial small bowel obstruction Current Visit: Yes Status: Acute Assessment and plan: NPO Pain control TPN patient had a bowel movement this morning resume feedings as per surgery (3) Hospital-acquired pneumonia Current Visit: Yes Status: Acute Assessment and plan: continue empiric IV abx treatment at this time Afebrile, leukocytosis resolved will continue to monitor (4) Electrolyte abnormality Current Visit: Yes Status: Acute Assessment and plan: Hypokalemia K supplemented electrolyte protocol initiated continue to monitor electrolytes and replace as needed (5) COPD (chronic obstructive pulmonary disease) Current Visit: Yes Status: Chronic Assessment and plan: not in acute exacerbation continue bronchodilators as needed continue O2 supplementation as needed Qualifiers: COPD type: unspecified COPD Qualified Code(s): J44.9 - Chronic obstructive pulmonary disease, unspecified (6) CAD (coronary artery disease) Current Visit: Yes Status: Chronic Assessment and plan: continue to hold aspirin until percut CCT bleeding resolves Qualifiers: Coronary Disease-Associated Artery/Lesion type: [place] artery [place] vs. transplanted heart: [place] heart Associated angina: angina presence unspecified Qualified Code(s): I25.10 - Atherosclerotic heart disease of [place] coronary artery without angina pectoris (7) DVT prophylaxis Current Visit: No Status: Acute Assessment and plan: IPCD - Subjective Interval history: Patient seen and examined at bedside. Resting in bed, denies any discomfort at this time. HENRY drain continues to have serosanguineous drainage. Patient encouraged to get out of bed to chair and ambulate with assistance. Patient reports of having a bowel movement earlier this morning. - Constitutional Vitals: Temp Pulse Resp BP Pulse Ox 98.1 F 60 14 171/102 98 06/12/16 09:00 06/12/16 09:00 06/12/16 09:00 06/12/16 09:00 06/12/16 09:00 General appearance: Present: cooperative, A&O X 3, pleasant, no acute distress, obese, answers questions appropriately - Head Head exam: Present: atraumatic, normocephalic - Eye Eye exam: Present: conjuntiva pink, sclera anicteric - Respiratory Respiratory exam: Present: CTAB. Absent: accessory muscle use, rales, rhonchi, wheezes - Cardiovascular Cardiovascular exam: Present: RRR, +S1, +S2 - GI/Abdominal GI/Abdominal exam: Present: normal bowel sounds, soft, no peritoneal signs. Absent: distended, tenderness - Extremities Exam Extremities exam: Present: pedal edema, warm, radial pulses palpable and symetrical. Absent: calf tenderness - Neurological Exam Neurological exam: Present: alert Internal Medicine: Result - Labs CBC & Chem 7: 06/12/16 03:50 06/12/16 14:00 Labs: Short CBC 06/11/16 06/12/16 Range/Units 16:30 03:50 WBC 8.1 8.5 (4.3-11.1) K/mcL Hgb 10.5 L D 10.6 L (12.9-16.9) g/dL Hct 31.7 L 31.7 L (37.5-50.1) % Plt Count 324 323 (140-400) K/mcL Neutrophils # 4.5 4.7 (1.6-8.9) K/mcL BMP 06/11/16 06/12/16 06/12/16 16:30 03:50 14:00 Sodium 138 142 140 Potassium 3.1 L 2.8 L 3.2 L Chloride 102 105 104 Carbon Dioxide 28 30 H 30 H BUN 7 L 7 L 7 L Creatinine 0.75 0.79 0.74 Glucose 100 H 108 H 121 H Calcium 9.2 D 8.6 8.5 L - ABG Interpretation ABG results: PT/INR, D-dimer PT 12.6 Seconds (9.4-12.1) H 06/12/16 14:00 Consult Discharge Plan - Plan Additional Instructions: Low fat diet Pigtail drain- cleanse around drain with soap and water and pat dry daily, apply split 4X4 gauze and tape to secure daily. Empty drain 4 times daily and as needed if full. Record output and bring to follow-up appointment on 06/23/[address] Brenner. Referrals: Jenny Brenner MD [Partnered Physician] - 06/23/16 1:50 pm (hospital follow- up) [facility] [Primary Care Provider] - 06/15/16 3:30 pm
[2016-06-12] MEDS ORDERED: Clinimix E 5%-20% SOLUTION 2,000 ML with MVI, adult with vitamin K 10 ML IVC SCH (17:00)
[2016-06-12] MEDS: RisperiDONE-M 1 MG TAB.RAPDIS PO SCH (20:12)
[2016-06-12] MEDS: 0.9 % Sodium Chloride 500 ML IVC SCH (20:12)
[2016-06-13] MEDS: *HR* Metoprolol 5 MG/5 ML VIAL IVP SCH ×5 (01:02→21:58)
[2016-06-13] MEDS: Piperacillin/Tazobactam 3.375 GM in D5% in Water (Mini-Bag+) 100 ML IVPB SCH ×3 (04:36→23:58)
[2016-06-13] MEDS: *HR* HYDROmorphone (PF) 1 MG/ML SYRINGE IVP PRN ×2 (04:36→20:40)
[2016-06-13] MEDS: MetroNIDAZOLE 500 MG/100 ML 500 MG/100 ML BAG IVPB SCH ×3 (04:37→21:55)
[2016-06-13 04:45] LABS: Basophils % 0.3 %; Eosinophils # 0.4 K/mcL (0.0-0.6); Eosinophils % 4.1 %; Hematocrit 31.2 % (37.5-50.1); Hemoglobin 10.1 g/dL (12.9-16.9); Immature Granulocytes % 0.8 % (0-4); Immature Platelets 1.7 % (1.1-6.1); Lymphocytes # 2.1 K/mcL (0.6-4.6); Lymphocytes % 24.5 %; Mean Corpuscular HGB Conc 32.4 g/dL (31.6-35.5); Mean Corpuscular Hemoglobin 27.4 pg (28.0-33.3); Mean Corpuscular Volume 84.8 fL (83.0-100.0); Mean Platelet Volume 8.6 fL (9.4-12.4); Monocytes # 0.8 K/mcL (0.0-1.3); Monocytes % 8.7 %; Neutrophils # 5.3 K/mcL (1.6-8.9); Platelet Count 371 K/mcL (140-400); Red Blood Count 3.68 M/mcL (4.19-5.50); Red Cell Distribution Width 14.2 % (11.5-14.5); Segmented Neutrophils % 61.6 %
[2016-06-13 05:09] LABS: BUN/Creatinine Ratio 10 (6-26); Blood Urea Nitrogen 7 mg/dL (8-26); Calcium 8.6 mg/dL (8.6-10.8); Carbon Dioxide 29 mEq/L (19-29); Chloride 104 mEq/L (98-109); Glucose 108 mg/dL (70-99); Magnesium 1.5 mg/dL (1.6-2.6); Osmolality,Calculated 289 (280-300); Phosphorous 3.1 mg/dL (2.3-4.7); Potassium 2.9 mEq/L (3.5-4.5); Sodium 140 mEq/L (136-145); eGFR For African Americans > 60 (> 60); eGFR For Non-African Americans > 60 (> 60)
[2016-06-13] MEDS: Magnesium Sulfate 2 GM in D5% in Water 100 ML IVPB PRN (05:54)
[2016-06-13] MEDS: OXcarbazepine 150 MG TABLET PO SCH ×3 (07:51→20:42)
[2016-06-13] MEDS: niCARdipine 20 MG CAPSULE PO SCH ×3 (07:51→20:42)
[2016-06-13] MEDS: Levofloxacin 750 MG/150 ML 750 MG/150 ML BAG IVPB SCH (07:51)
[2016-06-13] MEDS: Chlorhexidine Rinse 15 ML MOUTHWASH MM SCH ×2 (07:51→20:42)
[2016-06-13] MEDS: Pantoprazole 40 MG VIAL IVP SCH (07:51)
[2016-06-13] MEDS ORDERED: Bisacodyl 10 MG RECTAL SUPPOSITORY RC STA (09:26)
--- NOTE | 2016-06-13 09:47 | General Surgery Progress Note ---
Date of Encounter: 06/13/16 Time of Encounter: 09:00 - Assessment and Plan (1) Acute cholecystitis Current Visit: Yes Status: Acute no real RUQ pain with palpation anymore percut CCT with bilious bloody drainage, Hb stable, will continue to monitor will start clears as pt is passing flatus (2) Altered mental state Current Visit: Yes Status: Resolved Oriented to person,place,time, Difficult to discern whether this is his baseline, or an acute process. Qualifiers: Altered mental status type: unspecified Qualified Code(s): R41.82 - Altered mental status, unspecified (3) CAD (coronary artery disease) Current Visit: Yes Status: Chronic would hold aspirin in light of recent percut CCT bleeding Qualifiers: Coronary Disease-Associated Artery/Lesion type: [place] artery [place] vs. transplanted heart: unspecified whether [place] or transplanted heart Associated angina: angina presence unspecified Qualified Code(s): I25.10 - Atherosclerotic heart disease of [place] coronary artery without angina pectoris (4) COPD (chronic obstructive pulmonary disease) Current Visit: Yes Status: Chronic IH bronchodilators management per hospitalists Qualifiers: COPD type: unspecified COPD Qualified Code(s): J44.9 - Chronic obstructive pulmonary disease, unspecified (5) DVT prophylaxis Current Visit: Yes Status: Acute epcds stop heparin due to bleeding from percut CCT (6) Hypertension Current Visit: Yes Status: Chronic Normotensive, monitor Qualifiers: Hypertension type: essential hypertension Qualified Code(s): I10 - Essential (primary) hypertension (7) Hospital-acquired pneumonia Current Visit: Yes Status: Acute Management per primary team wbc normal (8) Partial small bowel obstruction Current Visit: Yes Status: Acute TPN until adequate po intake, start clears, must be sitting up while eat try dulcolax to stimulate bowels Subjective Narrative: passing flatus, no bm complains of pain a little RUQ and mostly his knee he is hungry complains of nausea if sitting up in bed Objective Vital Signs - Last 8 Hours Temp Pulse Resp BP Pulse Ox 06/13/16 07:45 98.4 F 61 16 149/96 99 06/13/16 07:12 98.4 F 61 16 149/96 99 06/13/16 04:00 98 F 64 16 143/88 97 Intake and Output 04/08/17 04/09/17 04/09/17 23:59 07:59 15:59 Intake Total 710 / 710 764 / 764 100 / 100 Output Total 1260 / 1260 1665 / 1665 Balance -550 / -550 -901 / -901 100 / 100 Intake: IV Fluids 600 / 600 654 / 654 100 / 100 0.9 % Sodium Chloride 500 500 / 500 ML @ 20 mls/hr IVC .Q24H [facility] Rx#:[id number] Intralipid 20% 250 ML @ 250 / 250 21 mls/hr IVPB DAILY@1700 [facility] Rx#:[id number] Magnesium Sulfate 2 GM In 104 / 104 Dextrose 5% 100 ML @ 50 mls/hr IVPB Q6H PRN Rx#: [id number] Flagyl 500 MG/100 ML 500 100 / 100 100 / 100 mg In 100 ml @ 100 mls/hr IVPB Q8H [facility] Rx#: [id number] Zosyn 3.375 GM In 100 / 100 Dextrose 5% (Minibag+) 100 ML 100 ML @ 25 mls/hr IVPB Q8H [facility] Rx#: [id number] Potassium Chloride 10 mEq 100 / 100 100 / 100 /100mL 10 meq In 100 ml @ 100 mls/hr IVPB Q1H PRN Rx#:[id number] Oral 110 / 110 110 / 110 Output: Catheter 1200 / 1200 1600 / 1600 Gastric Drainage 20 / 20 Wound Drainage 40 / 40 65 / 65 Right Medial Abdomen 40 / 40 65 / 65 Other: Meal Dinner TPN Percent of Meal Consumed 0% # Bowel Movements 0 Blood Glucose* 129 126 - General physical appearance well developed, well nourished, no distress, obese - Eyes PERRL, normal ocular movement - ENT normal mucosa, normocephalic - Neck Neck exam: trachea midline - Respiratory normal expansion, clear to auscultation - Cardiovascular Cardiovascular exam: Present: RRR - Abdomen Abdomen: Present: bowel sounds present, soft, non tender. Absent: distended, guarding, rebound Additional Comments: HENRY drain - bloody bile - Integumentary no rash, no growths - Neurologic CN 2-12 grossly intact - Musculoskeletal normal posture - Psychiatric oriented to time, oriented to person, memory intact - Labs 06/13/16 04:25 06/13/16 04:25 Short CBC 06/13/16 Range/Units 04:25 WBC 8.6 (4.3-11.1) K/mcL Hgb 10.1 L (12.9-16.9) g/dL Hct 31.2 L (37.5-50.1) % Plt Count 371 (140-400) K/mcL Neutrophils # 5.3 (1.6-8.9) K/mcL BMP 06/13/16 06/12/16 Range/Units 04:25 14:00 Sodium 140 140 (136-145) mEq/L Potassium 2.9 L 3.2 L (3.5-4.5) mEq/L Chloride 104 104 (98-109) mEq/L Carbon Dioxide 29 30 H (19-29) mEq/L BUN 7 L 7 L (8-26) mg/dL Creatinine 0.71 L 0.74 (0.72-1.25) mg/dL Glucose 108 H 121 H (70-99) mg/dL Calcium 8.6 8.5 L (8.6-10.8) mg/dL Vital Signs Temp Pulse Resp BP Pulse Ox 06/13/16 07:45 98.4 F 61 16 149/96 99 06/13/16 07:12 98.4 F 61 16 149/96 99 06/13/16 04:00 98 F 64 16 143/88 97 06/13/16 00:07 98.5 F 62 14 134/86 98 06/12/16 19:18 98.3 F 62 16 154/96 93 06/12/16 18:00 132/88 06/12/16 16:30 98.6 F 57 16 156/94 93 06/12/16 12:00 98.1 F 58 16 130/78 97 Intake and Output 06/12/16 06/13/16 06/13/16 23:59 07:59 15:59 Intake Total 710 / 710 764 / 764 100 / 100 Output Total 1260 / 1260 1665 / 1665 Balance -550 / -550 -901 / -901 100 / 100 Intake: IV Fluids 600 / 600 654 / 654 100 / 100 0.9 % Sodium Chloride 500 500 / 500 ML @ 20 mls/hr IVC .Q24H [facility] Rx#:[id number] Intralipid 20% 250 ML @ 250 / 250 21 mls/hr IVPB DAILY@1700 [facility] Rx#:[id number] Magnesium Sulfate 2 GM In 104 / 104 Dextrose 5% 100 ML @ 50 mls/hr IVPB Q6H PRN Rx#: [id number] Flagyl 500 MG/100 ML 500 100 / 100 100 / 100 mg In 100 ml @ 100 mls/hr IVPB Q8H [facility] Rx#: [id number] Zosyn 3.375 GM In 100 / 100 Dextrose 5% (Minibag+) 100 ML 100 ML @ 25 mls/hr IVPB Q8H [facility] Rx#: [id number] Potassium Chloride 10 mEq 100 / 100 100 / 100 /100mL 10 meq In 100 ml @ 100 mls/hr IVPB Q1H PRN Rx#:[id number] Oral 110 / 110 110 / 110 Output: Catheter 1200 / 1200 1600 / 1600 Gastric Drainage 20 / 20 Wound Drainage 40 / 40 65 / 65 Right Medial Abdomen 40 / 40 65 / 65 Other: Meal Dinner TPN Percent of Meal Consumed 0% # Bowel Movements 0 Blood Glucose* 129 126 Consult Discharge Plan - Plan Additional Instructions: Low fat diet Pigtail drain- cleanse around drain with soap and water and pat dry daily, apply split 4X4 gauze and tape to secure daily. Empty drain 4 times daily and as needed if full. Record output and bring to follow-up appointment on 06/23/[address] Brenner. Referrals: Jenny Brenner MD [Partnered Physician] - 06/23/16 1:50 pm (hospital follow- up) [place],PCP [Primary Care Provider] - 06/15/16 3:30 pm
[2016-06-13] MEDS ORDERED: Magnesium Sulfate 2 GM in D5% in Water 100 ML IVPB ONE (09:50)
[2016-06-13] MEDS: *HR* OxyCODONE/APAP 5/325 TABLET PO PRN ×2 (10:32→16:30)
--- NOTE | 2016-06-13 13:10 | Internal Med Progress Note ---
Date of Encounter: 06/13/16 Time of Encounter: 12:30 - Assessment and plan (1) Acute cholecystitis Current Visit: Yes Status: Acute Assessment and plan: S/P percutaneous CCT CT A/P on 06/10/16: gallbladder decompressed, no evidence of complication, no evidence of bleed. Percutaneous drain noted with bilous, seroussangunious drainage, H&H within acceptable range management as per surgery, will continue to monitor Currently on Zosyn- (start date: 06/08/16) and Flagyl (start date: 06/07/16) Code(s): K81.0 - Acute cholecystitis (2) Partial small bowel obstruction Current Visit: Yes Status: Acute Assessment and plan: Reports of having a bowel movement Clear liquid diet management as per surgery (3) Hospital-acquired pneumonia Current Visit: Yes Status: Resolved Assessment and plan: Patient completed abx treatment currently asymptomatic Leukocytosis resolved Afebrile (4) Electrolyte abnormality Current Visit: Yes Status: Acute Assessment and plan: Hypokalemia, Hypomagnesemia K and Mg supplemented electrolyte protocol initiated continue to monitor electrolytes and replace as needed (5) COPD (chronic obstructive pulmonary disease) Current Visit: Yes Status: Chronic Assessment and plan: not in acute exacerbation continue bronchodilators as needed continue O2 supplementation as needed Qualifiers: COPD type: unspecified COPD Qualified Code(s): J44.9 - Chronic obstructive pulmonary disease, unspecified (6) CAD (coronary artery disease) Current Visit: Yes Status: Chronic Assessment and plan: continue to hold aspirin until percut CCT bleeding resolves Qualifiers: Coronary Disease-Associated Artery/Lesion type: [place] artery [place] vs. transplanted heart: unspecified whether [place] or transplanted heart Associated angina: angina presence unspecified Qualified Code(s): I25.10 - Atherosclerotic heart disease of [place] coronary artery without angina pectoris (7) DVT prophylaxis Current Visit: No Status: Acute Assessment and plan: IPCD - Subjective Interval history: Patient seen and examined at bedside. Resting in bed, denies any discomfort at this time. HENRY drain continues to have serosanguineous drainage. Patient encouraged to get out of bed to chair and ambulate with assistance. - Constitutional Vitals: Temp Pulse Resp BP Pulse Ox 98.5 F 67 16 170/99 93 06/13/16 11:50 06/13/16 11:50 06/13/16 11:50 06/13/16 11:50 06/13/16 11:50 General appearance: Present: cooperative, A&O X 3, pleasant, no acute distress, obese, answers questions appropriately - Head Head exam: Present: atraumatic, normocephalic - Eye Eye exam: Present: conjuntiva pink, sclera anicteric - Respiratory Respiratory exam: Present: CTAB. Absent: accessory muscle use, rales, rhonchi, wheezes - Cardiovascular Cardiovascular exam: Present: RRR, +S1, +S2 - GI/Abdominal GI/Abdominal exam: Present: normal bowel sounds, soft, no peritoneal signs. Absent: distended, tenderness Additional comments: HENRY drain in place - Extremities Exam Extremities exam: Present: warm, radial pulses palpable and symetrical. Absent : pedal edema - Neurological Exam Neurological exam: Present: alert, oriented X3 Internal Medicine: Result - Labs CBC & Chem 7: 06/13/16 04:25 06/13/16 04:25 Labs: Short CBC 06/13/16 Range/Units 04:25 WBC 8.6 (4.3-11.1) K/mcL Hgb 10.1 L (12.9-16.9) g/dL Hct 31.2 L (37.5-50.1) % Plt Count 371 (140-400) K/mcL Neutrophils # 5.3 (1.6-8.9) K/mcL BMP 06/12/16 06/13/16 14:00 04:25 Sodium 140 140 Potassium 3.2 L 2.9 L Chloride 104 104 Carbon Dioxide 30 H 29 BUN 7 L 7 L Creatinine 0.74 0.71 L Glucose 121 H 108 H Calcium 8.5 L 8.6 - ABG Interpretation ABG results: PT/INR, D-dimer PT 12.6 Seconds (9.4-12.1) H 06/12/16 14:00 Consult Discharge Plan - Plan Additional Instructions: Low fat diet Pigtail drain- cleanse around drain with soap and water and pat dry daily, apply split 4X4 gauze and tape to secure daily. Empty drain 4 times daily and as needed if full. Record output and bring to follow-up appointment on 06/23/[address] Brenner. Referrals: Jenny Brenner MD [Partnered Physician] - 06/23/16 1:50 pm (hospital follow- up) YOLANDAPCP [Primary Care Provider] - 06/15/16 3:30 pm
[2016-06-13 14:21] LABS: BUN/Creatinine Ratio 12 (6-26); Blood Urea Nitrogen 9 mg/dL (8-26); Calcium 8.6 mg/dL (8.6-10.8); Carbon Dioxide 26 mEq/L (19-29); Chloride 103 mEq/L (98-109); Glucose 135 mg/dL (70-99); Osmolality,Calculated 289 (280-300); Potassium 3.1 mEq/L (3.5-4.5); Sodium 139 mEq/L (136-145); eGFR For African Americans > 60 (> 60); eGFR For Non-African Americans > 60 (> 60)
[2016-06-13] MEDS ORDERED: Clinimix E 5%-20% SOLUTION 2,000 ML with MVI, adult with vitamin K 10 ML IVC SCH (17:00)
[2016-06-13] MEDS: RisperiDONE-M 1 MG TAB.RAPDIS PO SCH (20:42)
[2016-06-13] MEDS: 0.9 % Sodium Chloride 500 ML IVC SCH (20:44)
[2016-06-14] MEDS: *HR* OxyCODONE/APAP 5/325 TABLET PO PRN ×3 (00:31→23:49)
[2016-06-14 00:49] LABS: Basophils % 0.3 %; Eosinophils # 0.5 K/mcL (0.0-0.6); Eosinophils % 4.2 %; Hematocrit 36.3 % (37.5-50.1); Hemoglobin 11.9 g/dL (12.9-16.9); Immature Granulocytes % 0.9 % (0-4); Lymphocytes # 2.8 K/mcL (0.6-4.6); Lymphocytes % 25.5 %; Mean Corpuscular HGB Conc 32.8 g/dL (31.6-35.5); Mean Corpuscular Hemoglobin 27.7 pg (28.0-33.3); Mean Corpuscular Volume 84.6 fL (83.0-100.0); Mean Platelet Volume 8.5 fL (9.4-12.4); Monocytes # 1.1 K/mcL (0.0-1.3); Monocytes % 9.6 %; Neutrophils # 6.5 K/mcL (1.6-8.9); Platelet Count 358 K/mcL (140-400); Red Blood Count 4.29 M/mcL (4.19-5.50); Red Cell Distribution Width 14.6 % (11.5-14.5); Segmented Neutrophils % 59.5 %
[2016-06-14 01:01] LABS: BUN/Creatinine Ratio 15 (6-26); Blood Urea Nitrogen 11 mg/dL (8-26); Calcium 8.6 mg/dL (8.6-10.8); Carbon Dioxide 26 mEq/L (19-29); Chloride 103 mEq/L (98-109); Glucose 111 mg/dL (70-99); Magnesium 2.2 mg/dL (1.6-2.6); Osmolality,Calculated 288 (280-300); Phosphorous 2.7 mg/dL (2.3-4.7); Potassium 2.9 mEq/L (3.5-4.5); Sodium 139 mEq/L (136-145); eGFR For African Americans > 60 (> 60); eGFR For Non-African Americans > 60 (> 60)
[2016-06-14] MEDS: *HR* HYDROmorphone (PF) 1 MG/ML SYRINGE IVP PRN ×5 (04:45→20:07)
[2016-06-14] MEDS: MetroNIDAZOLE 500 MG/100 ML 500 MG/100 ML BAG IVPB SCH ×2 (04:45→11:37)
[2016-06-14] MEDS: *HR* Metoprolol 5 MG/5 ML VIAL IVP SCH ×2 (04:45→10:08)
[2016-06-14] MEDS: Piperacillin/Tazobactam 3.375 GM in D5% in Water (Mini-Bag+) 100 ML IVPB SCH ×3 (06:33→23:50)
[2016-06-14] MEDS: niCARdipine 20 MG CAPSULE PO SCH ×3 (08:31→20:07)
[2016-06-14] MEDS: OXcarbazepine 150 MG TABLET PO SCH ×3 (08:31→20:07)
[2016-06-14] MEDS: Ondansetron 4 MG/2 ML VIAL IVP PRN ×3 (08:35→23:49)
[2016-06-14] MEDS: Pantoprazole 40 MG VIAL IVP SCH (08:35)
[2016-06-14] MEDS: Chlorhexidine Rinse 15 ML MOUTHWASH MM SCH ×2 (08:36→20:10)
[2016-06-14] MEDS ORDERED: hydrALAZINE 10 MG TABLET PO SCH (12:00)
[2016-06-14] MEDS: Metoprolol XL (24 HR) Succ 25 MG TAB.ER.24H PO SCH (14:58)
--- NOTE | 2016-06-14 15:31 | General Surgery Progress Note ---
Date of Encounter: 06/14/16 Time of Encounter: 15:00 - Assessment and Plan (1) Acute cholecystitis Current Visit: Yes Status: Acute Surgery cancelled per anesthesia due to developing RLL pneumonia and high risk for general anesthesia S/P IR cholecystostomy drain placement- continue for the next 6-8 weeks Advance to low fat diet as tolerated IV antibiotics- Zosyn (may discontinue in the next 24 hours) Supportive care/pain control Surgery will sign off at this time. Thank you for allowing us to participate in the care of this patient. Please call with any further questions/concerns. Follow-up as scheduled with Dr. Brenner on 06/23/16. (2) Hospital-acquired pneumonia Current Visit: Yes Status: Resolved IS every 1 hour while awake Management per medicine service (3) COPD (chronic obstructive pulmonary disease) Current Visit: Yes Status: Chronic Stable Continue bronchodilators as needed Qualifiers: COPD type: unspecified COPD Qualified Code(s): J44.9 - Chronic obstructive pulmonary disease, unspecified (4) CAD (coronary artery disease) Current Visit: Yes Status: Chronic Qualifiers: Coronary Disease-Associated Artery/Lesion type: [place] artery [place] vs. transplanted heart: unspecified whether [place] or transplanted heart Associated angina: angina presence unspecified Qualified Code(s): I25.10 - Atherosclerotic heart disease of [place] coronary artery without angina pectoris (5) Hypertension Current Visit: Yes Status: Chronic Continue current medication regimen Management per medicine service Qualifiers: Hypertension type: essential hypertension Qualified Code(s): I10 - Essential (primary) hypertension (6) Partial small bowel obstruction Current Visit: Yes Status: Resolved Advance to low fat diet as tolerated (7) DVT prophylaxis Current Visit: Yes Status: Acute EPCDs to bilateral lower extremities for DVT prophylaxis Add heparin 5,000 units SQ twice daily for DVT prophylaxis Subjective Patient reports: no new complaints, feels better, tolerating liquids well (full liquids), flatus, bowel movement, diarrhea, afebrile Objective Vital Signs - Last 8 Hours Temp Pulse Resp BP Pulse Ox 06/14/16 15:00 97.6 F 79 14 190/108 99 06/14/16 11:46 64 06/14/16 11:18 97.8 F 63 18 180/95 98 06/14/16 08:52 74 Intake and Output 06/13/16 06/14/16 06/14/16 23:59 07:59 15:59 Intake Total 2700 / 2700 550 / 550 100 / 100 Output Total 825 / 825 1925 / 1925 430 / 430 Balance 1875 / 1875 -1375 / -1375 -330 / -330 Intake: IV Fluids 1860 / 1860 200 / 200 100 / 100 Clinimix E 5%-20% 1560 / 1560 SOLUTION 2,000 ML @ 65 mls/hr IVC .Q24H [facility] 10 ml Rx#: [id number] Flagyl 500 MG/100 ML 500 200 / 200 100 / 100 mg In 100 ml @ 100 mls/hr IVPB Q8H [facility] Rx#: [id number] Zosyn 3.375 GM In 100 / 100 100 / 100 100 / 100 Dextrose 5% (Minibag+) 100 ML 100 ML @ 25 mls/hr IVPB Q8H [facility] Rx#: [id number] Oral 840 / 840 350 / 350 0 / 0 Output: Catheter 800 / 800 1850 / 1850 350 / 350 Wound Drainage 25 / 25 75 / 75 80 / 80 Right Medial Abdomen 25 / 25 75 / 75 80 / 80 Other: Meal Lunch Percent of Meal Consumed 0% Stool Size Large Stool Consistency formed Stool Color Brown Blood Glucose* 116 125 127 - General physical appearance well developed, no distress, no pain, chronically ill - Eyes normal ocular movement - ENT normal mucosa, atraumatic, normocephalic - Neck Neck exam: trachea midline - Respiratory normal respiratory effort, clear to auscultation - Cardiovascular Cardiovascular exam: Present: RRR - Abdomen Abdomen: Present: bowel sounds present, soft, non tender, wound (RUQ with pigtail drain to bulb suction with bilious drainage noted) - Genitourinary other (moscoso catheter to SD with clear yellow urine noted) - Musculoskeletal other (deconditioning noted) - Psychiatric oriented to person, oriented to place - Labs 06/14/16 00:35 06/14/16 11:47 Diabetes panel 06/14/16 06/14/16 Range/Units 00:35 11:47 Sodium 139 (136-145) mEq/L Potassium 2.9 L 4.4 D (3.5-4.5) mEq/L Chloride 103 (98-109) mEq/L Carbon Dioxide 26 (19-29) mEq/L BUN 11 (8-26) mg/dL Creatinine 0.73 (0.72-1.25) mg/dL Glucose 111 H (70-99) mg/dL Calcium 8.6 (8.6-10.8) mg/dL Calcium panel 06/14/16 Range/Units 00:35 Calcium 8.6 (8.6-10.8) mg/dL Phosphorus 2.7 (2.3-4.7) mg/dL Pituitary panel 06/14/16 06/14/16 Range/Units 00:35 11:47 Sodium 139 (136-145) mEq/L Potassium 2.9 L 4.4 D (3.5-4.5) mEq/L Chloride 103 (98-109) mEq/L Carbon Dioxide 26 (19-29) mEq/L BUN 11 (8-26) mg/dL Creatinine 0.73 (0.72-1.25) mg/dL Glucose 111 H (70-99) mg/dL Calcium 8.6 (8.6-10.8) mg/dL Adrenal panel 06/14/16 06/14/16 Range/Units 00:35 11:47 Sodium 139 (136-145) mEq/L Potassium 2.9 L 4.4 D (3.5-4.5) mEq/L Chloride 103 (98-109) mEq/L Carbon Dioxide 26 (19-29) mEq/L BUN 11 (8-26) mg/dL Creatinine 0.73 (0.72-1.25) mg/dL Glucose 111 H (70-99) mg/dL Calcium 8.6 (8.6-10.8) mg/dL Consult Discharge Plan - Plan Additional Instructions: Low fat diet Pigtail drain- cleanse around drain with soap and water and pat dry daily, apply split 4X4 gauze and tape to secure daily. Empty drain 4 times daily and as needed if full. Record output and bring to follow-up appointment on 06/23/[address] Brenner. Referrals: Jenny Brenner MD [Partnered Physician] - 06/23/16 1:50 pm (hospital follow- up) YOLANDA,PCP [Primary Care Provider] - 06/24/16 9:15 am - Attending Attestation I examined this patient and my medical decision-making was reviewed with the CASH SURRENDER CALCULATOR/PA/Advanced Practice Nurse/Resident Physician. I agree with the documented findings, disposition and treatment plan as described except to the extent set forth below.
--- NOTE | 2016-06-14 15:39 | Internal Med Progress Note ---
Date of Encounter: 06/14/16 Time of Encounter: 15:37 - Assessment and plan (1) Acute cholecystitis Current Visit: Yes Status: Acute Assessment and plan: S/P percutaneous CCT CT A/P on 06/10/16: gallbladder decompressed, no evidence of complication, no evidence of bleed. Percutaneous drain noted with bilous, seroussangunious drainage, H&H within acceptable range management as per surgery, will continue to monitor Currently on Zosyn- (start date: 06/08/16) Discontinued Flagyl Code(s): K81.0 - Acute cholecystitis (2) Partial small bowel obstruction Current Visit: Yes Status: Resolved Assessment and plan: Resolved Started on low fat diet Patient encouraged to increase PO intake Discharge pending improvement in PO intake and BP control (3) Hospital-acquired pneumonia Current Visit: Yes Status: Resolved Assessment and plan: Patient completed abx treatment currently asymptomatic Leukocytosis resolved Afebrile (4) Electrolyte abnormality Current Visit: Yes Status: Acute Assessment and plan: Hypokalemia K supplemented electrolyte protocol initiated continue to monitor electrolytes and replace as needed (5) COPD (chronic obstructive pulmonary disease) Current Visit: Yes Status: Chronic Assessment and plan: not in acute exacerbation continue bronchodilators as needed continue O2 supplementation as needed Qualifiers: COPD type: unspecified COPD Qualified Code(s): J44.9 - Chronic obstructive pulmonary disease, unspecified (6) CAD (coronary artery disease) Current Visit: Yes Status: Chronic Assessment and plan: Cleared by surgery to reinitiate DAPT restart ASA and plavix Qualifiers: Coronary Disease-Associated Artery/Lesion type: [place] artery [place] vs. transplanted heart: unspecified whether [place] or transplanted heart Associated angina: angina presence unspecified Qualified Code(s): I25.10 - Atherosclerotic heart disease of [place] coronary artery without angina pectoris (7) DVT prophylaxis Current Visit: No Status: Acute Assessment and plan: Heparin SQ - Subjective Interval history: Patient seen and examined at bedside. Remains bedbound and refusing to participate with physical therapy or get out of bed to chair. Refusing meals and only agreeing to eat chicken nuggets. Patient is currently on TPN. Need better control of BP and improvement in oral intake. Discharge planning initiated. sanitation worker cleaning machinery consulted for ECF placement - Constitutional Vitals: Temp Pulse Resp BP Pulse Ox 97.6 F 79 14 190/108 99 06/14/16 15:00 04/10/17 15:00 06/14/16 15:00 06/14/16 15:00 06/14/16 15:00 General appearance: Present: cooperative, A&O X 3, pleasant, no acute distress, obese, answers questions appropriately - Head Head exam: Present: atraumatic, normocephalic - Eye Eye exam: Present: conjuntiva pink, sclera anicteric - Respiratory Respiratory exam: Absent: respiratory distress, wheezes - Cardiovascular Cardiovascular exam: Present: RRR, +S1, +S2. Absent: diastolic murmur, gallop, rubs, systolic murmur - GI/Abdominal GI/Abdominal exam: Present: normal bowel sounds, soft. Absent: tenderness (rody drain in place (RUQ)) - Extremities Exam Extremities exam: Present: pedal edema, warm, radial pulses palpable and symetrical - Neurological Exam Neurological exam: Present: alert, oriented X3 Internal Medicine: Result - Labs CBC & Chem 7: 06/14/16 00:35 06/14/16 11:47 Labs: Short CBC 06/14/16 Range/Units 00:35 WBC 11.0 (4.3-11.1) K/mcL Hgb 11.9 L D (12.9-16.9) g/dL Hct 36.3 L (37.5-50.1) % Plt Count 358 (140-400) K/mcL Neutrophils # 6.5 (1.6-8.9) K/mcL BMP 06/14/16 06/14/16 00:35 11:47 Sodium 139 Potassium 2.9 L 4.4 D Chloride 103 Carbon Dioxide 26 BUN 11 Creatinine 0.73 Glucose 111 H Calcium 8.6 - ABG Interpretation ABG results: PT/INR, D-dimer PT 12.6 Seconds (9.4-12.1) H 06/12/16 14:00 Consult Discharge Plan - Plan Additional Instructions: Low fat diet Pigtail drain- cleanse around drain with soap and water and pat dry daily, apply split 4X4 gauze and tape to secure daily. Empty drain 4 times daily and as needed if full. Record output and bring to follow-up appointment on 06/23/[address] Brenner. Referrals: Jenny Brenner MD [Partnered Physician] - 06/23/16 1:50 pm (hospital follow- up) YOLANDAPCP [Primary Care Provider] - 06/24/16 9:15 am
[2016-06-14] MEDS ORDERED: ALPRAZolam 0.5 MG TABLET PO ONE (16:32)
[2016-06-14] MEDS ORDERED: Clinimix E 5%-20% SOLUTION 2,000 ML with MVI, adult with vitamin K 10 ML IVC SCH (17:00)
[2016-06-14] MEDS: *HR* Heparin 5,000 UNIT/ML VIAL SQ SCH (19:26)
[2016-06-14] MEDS: RisperiDONE-M 1 MG TAB.RAPDIS PO SCH (20:07)
[2016-06-14] MEDS: Haloperidol Lactate 5 MG/ML VIAL IVP PRN (20:08)
[2016-06-15] MEDS: Haloperidol Lactate 5 MG/ML VIAL IVP PRN (03:04)
[2016-06-15] MEDS: *HR* HYDROmorphone (PF) 1 MG/ML SYRINGE IVP PRN (03:04)
[2016-06-15 05:03] LABS: BUN/Creatinine Ratio 16 (6-26); Blood Urea Nitrogen 12 mg/dL (8-26); Calcium 8.9 mg/dL (8.6-10.8); Carbon Dioxide 25 mEq/L (19-29); Chloride 105 mEq/L (98-109); Glucose 126 mg/dL (70-99); Magnesium 1.9 mg/dL (1.6-2.6); Osmolality,Calculated 291 (280-300); Phosphorous 3.7 mg/dL (2.3-4.7); Potassium 3.4 mEq/L (3.5-4.5); Sodium 140 mEq/L (136-145); eGFR For African Americans > 60 (> 60); eGFR For Non-African Americans > 60 (> 60)
[2016-06-15] MEDS: *HR* Heparin 5,000 UNIT/ML VIAL SQ SCH ×2 (06:54→17:53)
[2016-06-15] MEDS: Piperacillin/Tazobactam 3.375 GM in D5% in Water (Mini-Bag+) 100 ML IVPB SCH (06:55)
[2016-06-15] MEDS: Chlorhexidine Rinse 15 ML MOUTHWASH MM SCH ×2 (08:33→19:56)
[2016-06-15] MEDS: Aspirin Enteric Coated 81 MG Tablet PO SCH (08:33)
[2016-06-15] MEDS: OXcarbazepine 150 MG TABLET PO SCH ×3 (08:33→19:56)
[2016-06-15] MEDS: Pantoprazole 40 MG VIAL IVP SCH (08:33)
[2016-06-15] MEDS: niCARdipine 20 MG CAPSULE PO SCH ×3 (08:33→19:57)
[2016-06-15] MEDS: Metoprolol XL (24 HR) Succ 25 MG TAB.ER.24H PO SCH (08:34)
[2016-06-15] MEDS: *HR* OxyCODONE/APAP 5/325 TABLET PO PRN ×2 (15:00→21:29)
[2016-06-15] MEDS ORDERED: Clinimix E 5%-20% SOLUTION 2,000 ML with MVI, adult with vitamin K 10 ML IVC SCH (17:00)
--- NOTE | 2016-06-15 18:01 | Internal Med Progress Note ---
Date of Encounter: 06/15/16 Time of Encounter: 10:00 - Assessment and plan (1) DVT prophylaxis Current Visit: No Status: Acute Assessment and plan: Heparin SQ (2) Healthcare-associated pneumonia Current Visit: Yes Status: Acute Assessment and plan: Finish the antibiotic course. Patient had no cough or fever. WBC get down. (3) Acute cholecystitis Current Visit: Yes Status: Acute Assessment and plan: S/P percutaneous CCT CT A/P on 06/10/16: gallbladder decompressed, no evidence of complication, no evidence of bleed. Percutaneous drain noted with bilous, seroussangunious drainage, H&H within acceptable range management as per surgery, will continue to monitor Discontinue Zosyn today per surgical recommendation. Discontinued Flagyl (4) Severe protein-calorie malnutrition Current Visit: Yes Status: Acute Assessment and plan: Swallow test generally normal. Pt just doesn't want to eat. Improving slowly. History of poor ntakes since February 2016, 47 Lb weight loss in 3 months, Pre albumin 10. Nutrition on board, continue to follow recommendations. PEG option discussed with family, refused because pt is not tolerate anesthesis. On cardiac diet, continue TPN. Pt was on PPN before admission. Will continue encourage pt to eat, his uptake is improving, will continue TPN/ PPN upon discharge until pt has normal uptake. - Time Spent With Patient 25 - 35 minutes - Subjective Interval history: Patient is a 60-year-old male admitted for acute cholecystitis. Past medical history is significant for CAD, hypertension, hyperlipidemia. Patient also has schizophrenia and on multiple psych medications. Patient was seen and examined. He is awake alert. Patient has poor uptake. Swallow evaluation done and the patient has generally normal swallow function. Internet Webmaster is on case. Tube feeding discussed with family (Pt's and sister), however, patient shows sensitivity to general anesthesia previously and seems to condition decline after anesthesia, family refused to try anesthesia again for PEG tube. The patient's uptake is slightly and slowly improving, will continue to encourage patient to eat and continue TPN. Antibiotic is discontinued today as it has been used for 8 days. - Constitutional Vitals: Temp Pulse Resp BP Pulse Ox 97.6 F 67 18 153/89 95 06/15/16 16:00 06/15/16 16:00 06/15/16 16:00 06/15/16 16:00 06/15/16 16:00 General appearance: Present: cooperative, A&O X 3, pleasant, no acute distress, obese, answers questions appropriately - Head Head exam: Present: atraumatic, normocephalic - Eye Eye exam: Present: PERRL, conjuntiva pink, sclera anicteric Pupils: Present: PERRL - Neck Neck exam general surgery: Present: supple, trachea midline. Absent: lymphadenopathy - Respiratory Respiratory exam: Present: CTAB. Absent: accessory muscle use, rales, rhonchi, wheezes - Cardiovascular Cardiovascular exam: Present: RRR, +S1, +S2. Absent: diastolic murmur, gallop, rubs, systolic murmur - GI/Abdominal GI/Abdominal exam: Present: normal bowel sounds, soft, no peritoneal signs. Absent: distended, tenderness - Extremities Exam Extremities exam: Present: warm, radial pulses palpable and symetrical. Absent : calf tenderness, cyanotic, pedal edema - Neurological Exam Neurological exam: Present: CN II-XII intact, oriented X3, no focal deficits. Absent: pronater drift, facial droop, speech deficit - Skin Skin exam: Present: dry, intact Internal Medicine: Result - Labs CBC & Chem 7: 06/14/16 00:35 06/15/16 04:00 Labs: BMP 06/15/16 04:00 Sodium 140 Potassium 3.4 L D Chloride 105 Carbon Dioxide 25 BUN 12 Creatinine 0.74 Glucose 126 H Calcium 8.9 - ABG Interpretation ABG results: PT/INR, D-dimer PT 12.6 Seconds (9.4-12.1) H 06/12/16 14:00 Consult Discharge Plan - Plan Additional Instructions: Low fat diet Pigtail drain- cleanse around drain with soap and water and pat dry daily, apply split 4X4 gauze and tape to secure daily. Empty drain 4 times daily and as needed if full. Record output and bring to follow-up appointment on 06/23/[address] Brenner. Referrals: Jenny Brenner MD [Partnered Physician] - 06/23/16 1:50 pm (hospital follow- up) [place],PCP [Primary Care Provider] - 06/24/16 9:15 am
[2016-06-15] MEDS: Ondansetron 4 MG/2 ML VIAL IVP PRN (19:56)
[2016-06-15] MEDS: RisperiDONE-M 1 MG TAB.RAPDIS PO SCH (19:57)
[2016-06-16 04:52] LABS: Basophils # 0.1 K/mcL (0.0-0.2); Basophils % 0.5 %; Eosinophils # 0.3 K/mcL (0.0-0.6); Eosinophils % 3.1 %; Hematocrit 34.7 % (37.5-50.1); Hemoglobin 11.1 g/dL (12.9-16.9); Immature Granulocytes % 0.5 % (0-4); Lymphocytes # 2.7 K/mcL (0.6-4.6); Lymphocytes % 24.8 %; Mean Corpuscular Hemoglobin 27.8 pg (28.0-33.3); Mean Corpuscular Volume 86.8 fL (83.0-100.0); Monocytes # 0.9 K/mcL (0.0-1.3); Monocytes % 7.8 %; Platelet Count 309 K/mcL (140-400); Segmented Neutrophils % 63.3 %
[2016-06-16 05:17] LABS: BUN/Creatinine Ratio 15 (6-26); Blood Urea Nitrogen 12 mg/dL (8-26); Calcium 9.1 mg/dL (8.6-10.8); Carbon Dioxide 26 mEq/L (19-29); Chloride 106 mEq/L (98-109); Glucose 127 mg/dL (70-99); Osmolality,Calculated 291 (280-300); Potassium 3.2 mEq/L (3.5-4.5); Sodium 140 mEq/L (136-145); eGFR For African Americans > 60 (> 60); eGFR For Non-African Americans > 60 (> 60)
[2016-06-16] MEDS: 0.9 % Sodium Chloride 500 ML IVC SCH (05:41)
[2016-06-16] MEDS: *HR* Heparin 5,000 UNIT/ML VIAL SQ SCH ×2 (06:51→18:20)
[2016-06-16] MEDS: niCARdipine 20 MG CAPSULE PO SCH ×3 (08:02→21:11)
[2016-06-16] MEDS: Metoprolol XL (24 HR) Succ 25 MG TAB.ER.24H PO SCH (08:03)
[2016-06-16] MEDS: OXcarbazepine 150 MG TABLET PO SCH ×3 (08:03→21:12)
[2016-06-16] MEDS: *HR* OxyCODONE/APAP 5/325 TABLET PO PRN ×3 (08:03→21:22)
[2016-06-16] MEDS: Aspirin Enteric Coated 81 MG Tablet PO SCH (08:03)
[2016-06-16] MEDS: Chlorhexidine Rinse 15 ML MOUTHWASH MM SCH ×2 (08:04→21:13)
[2016-06-16] MEDS: Pantoprazole 40 MG VIAL IVP SCH (08:04)
[2016-06-16] MEDS: Ondansetron 4 MG/2 ML VIAL IVP PRN ×2 (08:06→16:25)
[2016-06-16] MEDS ORDERED: Sennosides 8.6 MG TABLET PO PRN (10:17)
[2016-06-16 10:24] LABS: Magnesium 1.7 mg/dL (1.6-2.6)
[2016-06-16] MEDS: Megestrol Acetate 400 MG/10 ML UDC PO SCH (11:33)
[2016-06-16] MEDS: Magnesium Sulfate 2 GM in D5% in Water 100 ML IVPB PRN (11:53)
[2016-06-16] MEDS: *HR* HYDROmorphone (PF) 1 MG/ML SYRINGE IVP PRN ×4 (11:54→22:35)
[2016-06-16] MEDS: Nystatin SUSP 5 ML UD.LIQ PO SCH ×3 (13:09→21:13)
[2016-06-16] MEDS ORDERED: OXCARBAZEPINE 600 MG PO SCH (15:00)
[2016-06-16] MEDS: Isosorbide MONOnitrate (24 HR) 60 MG TAB.ER.24H PO SCH (15:44)
--- NOTE | 2016-06-16 17:35 | Internal Med Progress Note ---
Date of Encounter: 06/16/16 Time of Encounter: 10:00 - Assessment and plan (1) DVT prophylaxis Current Visit: No Status: Acute Assessment and plan: Heparin SQ (2) Healthcare-associated pneumonia Current Visit: Yes Status: Acute Assessment and plan: Finish the antibiotic course. Patient had no cough or fever. WBC get down. (3) Acute cholecystitis Current Visit: Yes Status: Acute Assessment and plan: S/P percutaneous CCT CT A/P on 06/10/16: gallbladder decompressed, no evidence of complication, no evidence of bleed. Percutaneous drain noted with bilous, seroussangunious drainage, H&H within acceptable range management as per surgery, will continue to monitor Discontinue Zosyn today per surgical recommendation. Discontinued Flagyl (4) Severe protein-calorie malnutrition Current Visit: Yes Status: Acute Assessment and plan: Swallow test generally normal. Pt just doesn't want to eat. Improving slowly. Possibly due to swallow pain because of fungal infection. Nystatin suspension ordered. History of poor intakes since February 2016, 47 Lb weight loss in 3 months, Pre albumin 10. Nutrition on board, continue to follow recommendations. PEG option discussed with family, refused because pt is not tolerate anesthia. On cardiac diet, continue TPN. Pt was on PPN at [facility] before admission. Will continue encourage pt to eat, megace added. Will continue TPN/PPN upon discharge until pt has normal uptake. - Time Spent With Patient 25 - 35 minutes - Subjective Interval history: Patient is a 60-year-old male admitted for acute cholecystitis. Past medical history is significant for CAD, hypertension, hyperlipidemia. Patient also has schizophrenia and on multiple psych medications. Patient was seen and examined. He is awake alert. Still has poor uptake and need TPN. His vitals are stable. No fever or leukocytosis. Cholecystostomy drainage is in place. Patient tolerated regular diet well and had bowel movement yesterday. His poor uptake is possibly due to oral thrush/pain and cholecystitis. Discussed with the family, will continue IV nutrition and encouraged patient to eat, try to taper down IV nutrition as patient eat better. Family verbalized understanding and agreement. Add Megace today to boost appetite. Add nystatin switch and swallow for thrush. - Constitutional Vitals: Temp Pulse Resp BP Pulse Ox 98.5 F 91 16 147/105 98 06/16/16 16:25 06/16/16 16:25 06/16/16 16:25 06/16/16 16:25 06/16/16 16:25 General appearance: Present: cooperative, A&O X 3, pleasant, no acute distress, obese, answers questions appropriately - Head Head exam: Present: atraumatic, normocephalic - Eye Eye exam: Present: PERRL, conjuntiva pink, sclera anicteric Pupils: Present: PERRL - Neck Neck exam general surgery: Present: supple, trachea midline. Absent: lymphadenopathy - Respiratory Respiratory exam: Present: CTAB. Absent: accessory muscle use, rales, rhonchi, wheezes - Cardiovascular Cardiovascular exam: Present: RRR, +S1, +S2. Absent: diastolic murmur, gallop, rubs, systolic murmur - GI/Abdominal GI/Abdominal exam: Present: normal bowel sounds, soft, no peritoneal signs. Absent: distended, tenderness Additional comments: Cholecystostomy drain is in place. - Extremities Exam Extremities exam: Present: warm, radial pulses palpable and symetrical. Absent : calf tenderness, cyanotic, pedal edema - Neurological Exam Neurological exam: Present: CN II-XII intact, oriented X3, no focal deficits. Absent: pronater drift, facial droop, speech deficit - Skin Skin exam: Present: dry, intact Internal Medicine: Result - Labs CBC & Chem 7: 06/16/16 04:30 06/16/16 11:50 Labs: Short CBC 06/16/16 Range/Units 04:30 WBC 11.0 (4.3-11.1) K/mcL Hgb 11.1 L (12.9-16.9) g/dL Hct 34.7 L (37.5-50.1) % Plt Count 309 (140-400) K/mcL Neutrophils # 7.0 (1.6-8.9) K/mcL BMP 06/16/16 06/16/16 04:30 11:50 Sodium 140 Potassium 3.2 L 3.5 Chloride 106 Carbon Dioxide 26 BUN 12 Creatinine 0.78 Glucose 127 H Calcium 9.1 - ABG Interpretation ABG results: PT/INR, D-dimer PT 12.6 Seconds (9.4-12.1) H 06/12/16 14:00 Consult Discharge Plan - Plan Additional Instructions: Low fat diet Pigtail drain- cleanse around drain with soap and water and pat dry daily, apply split 4X4 gauze and tape to secure daily. Empty drain 4 times daily and as needed if full. Record output and bring to follow-up appointment on 06/23/[address] Brenner. Referrals: Jenny Brenner MD [Partnered Physician] - 06/23/16 1:50 pm (hospital follow- up) [facility],PC[facility] [Primary Care Provider] - 06/24/16 9:15 am
[2016-06-16] MEDS: Clinimix E 5%-20% SOLUTION 2,000 ML with MVI, adult with vitamin K 10 ML IVC SCH (20:02)
[2016-06-16] MEDS: Pregabalin 75 MG CAPSULE PO SCH (21:12)
[2016-06-16] MEDS: RisperiDONE-M 1 MG TAB.RAPDIS PO SCH (21:13)
[2016-06-16] MEDS: (Melatonin/Pyridoxine Hcl (B6) [Melatonin 3 Mg Tablet PO SCH (21:14)
[2016-06-16] MEDS: Haloperidol Lactate 5 MG/ML VIAL IVP PRN (22:04)
[2016-06-17] MEDS: Magnesium Sulfate 2 GM in D5% in Water 100 ML IVPB PRN (01:08)
[2016-06-17] MEDS: 0.9 % Sodium Chloride 500 ML IVC SCH ×2 (07:44→07:55)
[2016-06-17] MEDS: *HR* Heparin 5,000 UNIT/ML VIAL SQ SCH ×2 (08:34→18:37)
[2016-06-17] MEDS: Pantoprazole 40 MG VIAL IVP SCH (08:38)
[2016-06-17] MEDS ORDERED: Isosorbide MONOnitrate (24 HR) 60 MG TAB.ER.24H PO SCH (09:00)
[2016-06-17] MEDS ORDERED: Multivitamin Liquid 15 ML UDC PO SCH (09:00)
[2016-06-17 10:08] LABS: BUN/Creatinine Ratio 17 (6-26); Blood Urea Nitrogen 15 mg/dL (8-26); Calcium 9.3 mg/dL (8.6-10.8); Carbon Dioxide 23 mEq/L (19-29); Chloride 107 mEq/L (98-109); Glucose 115 mg/dL (70-99); Osmolality,Calculated 290 (280-300); eGFR For African Americans > 60 (> 60); eGFR For Non-African Americans > 60 (> 60)
[2016-06-17 10:09] LABS: Sodium 139 mEq/L (136-145)
[2016-06-17 10:10] LABS: Potassium 4.4 mEq/L (3.5-4.5)
[2016-06-17] MEDS: Chlorhexidine Rinse 15 ML MOUTHWASH MM SCH ×2 (10:30→20:41)
[2016-06-17] MEDS: Aspirin Enteric Coated 81 MG Tablet PO SCH (10:30)
[2016-06-17] MEDS: Metoprolol XL (24 HR) Succ 25 MG TAB.ER.24H PO SCH (10:30)
[2016-06-17] MEDS: OXcarbazepine 150 MG TABLET PO SCH ×3 (10:30→20:41)
[2016-06-17] MEDS: Nystatin SUSP 5 ML UD.LIQ PO SCH ×4 (10:30→20:41)
[2016-06-17] MEDS: Megestrol Acetate 400 MG/10 ML UDC PO SCH (10:31)
[2016-06-17] MEDS: Isosorbide MONOnitrate (24 HR) 60 MG TAB.ER.24H PO SCH (10:31)
[2016-06-17] MEDS: niCARdipine 20 MG CAPSULE PO SCH ×3 (10:31→21:00)
[2016-06-17] MEDS: Cyanocobalamin (B-12) 1,000 MCG TABLET PO SCH (10:32)
[2016-06-17 11:30] LABS: Basophils # 0.1 K/mcL (0.0-0.2); Basophils % 0.5 %; Eosinophils # 0.3 K/mcL (0.0-0.6); Eosinophils % 2.6 %; Hematocrit 34.8 % (37.5-50.1); Hemoglobin 11.1 g/dL (12.9-16.9); Immature Granulocytes % 0.3 % (0-4); Lymphocytes # 3.1 K/mcL (0.6-4.6); Lymphocytes % 25.6 %; Mean Corpuscular HGB Conc 31.9 g/dL (31.6-35.5); Mean Corpuscular Hemoglobin 28.1 pg (28.0-33.3); Mean Corpuscular Volume 88.1 fL (83.0-100.0); Mean Platelet Volume 8.9 fL (9.4-12.4); Monocytes % 7.9 %; Neutrophils # 7.6 K/mcL (1.6-8.9); Platelet Count 350 K/mcL (140-400); Red Blood Count 3.95 M/mcL (4.19-5.50); Red Cell Distribution Width 15.1 % (11.5-14.5); Segmented Neutrophils % 63.1 %
[2016-06-17 12:15] LABS: Platelet Estimate Normal (Normal)
[2016-06-17] MEDS: *HR* OxyCODONE/APAP 5/325 TABLET PO PRN ×2 (12:17→17:28)
--- NOTE | 2016-06-17 15:43 | Cardiology Consult Note ---
Date of Encounter: 06/17/16 Time of Encounter: 15:00 Assessment and Plan (1) Elevated troponin Current Visit: Yes Status: Acute Mild, adynamic troponin elevation in the setting of acute PNA and cholecystitis. Likely secondary to demand ischemia. Upon review, troponin levels are noted to be chronically elevated. He denies chest pain/discomfort. Symptoms are not similar to previous MA. ECG unchanged. Continue to have RUQ pain. TTE : EF 55%, mild cLVH, mild LVDD, mild AR, normal wall motion. Continue home CV medications including asa, statin, and betablocker. Follow-up with [facility] in [place] as outpatient. Tentative d/c to [facility] inpatient unit. No further inpatient recommendations from Cardiology standpoint. Will sign-off, please call with questions. Discussion w patient/family: The assessment and plan as outlined above was discussed with the patient and/or family members who expressed understanding and agreement. All questions were answered. Thank you for involving us in the care of your patient. Please call with any questions. The patient will be discussed and reviewed with Dr. Bland; changes to be made accordingly. History of Present Illness Consult date: 06/17/16 Requesting physician: Nioklay Lewis Consult reason: Elevated troponin Chief complaint: Abdominal pain History of present illness: Mr. Mora is a 60 year old male PMH of CAD s/p multiple PCIs, HTN, HLD, tobacco abuse who presented as transfer from [facility] on 06/05/16 due to elevated troponin--0.04. Upon admission, he was found to have acute pneumonia and also noted to have acute cholecystitis; cholecystectomy was recommended; however felt to be high risk due to acute PNA. At that time a HENRY drain was placed. Cardiology consult requested today due to abnormal troponin at admission. Upon exam, he is chest pain free; he continues to complain of RUQ abdominal pain. He confirms last PCI was at [facility] in [place] in March of 2015. Past Med Surg Social Fam HX - Past Medical History Attestation: Yes The following information was validated with the patient. Source: patient, old records reviewed Medical history: COPD (not on home oxygen), coronary artery disease, hyperlipidemia, hypertension, myocardial infarction (x3) Psychiatric history: anxiety, depression, schizophrenia, previous psychiatric hospitalization - Past Surgical History Surgical History: angioplasty/stent (9 cardiac stents), orthopedic, other ( spinal surgery, back spinal stimulator, LLE repair after trauma (tree crushed leg)) - Social History Smoking Status: Current every day smoker Smokeless Tobacco Status: No Alcohol use: none Drug use: none - Family History Father History Unknown: Yes Age: 45 Living Status: Age at : 45 Cause of : Heart attack Hx Family Cardiac Disorders: Yes Medications and Allergies Aspirin [Lo-Dose Aspirin EC] 81 mg PO DAILY 04/28/16 [History] Atorvastatin Calcium [Lipitor] 80 mg PO QPM 04/28/16 [History] Clopidogrel [Plavix] 75 mg PO DAILY 04/28/16 [History] Cyanocobalamin (B-12) [Vitamin B12] 1,000 mcg PO DAILY 04/28/16 [History] Docusate [Colace] 200 mg PO DAILY 04/28/16 [History] Duloxetine HCl [Cymbalta] 60 mg PO BID 04/28/16 [History] Fluticasone Propionate Nasal [Flonase] 50 mcg NS DAILY 04/28/16 [History] Hydrocortisone 1% CREAM [Cortaid] 1 appl TP BID 04/28/16 [History] Lidocaine 4% CRM (LMX) [Lmx 4] 1 appl TP BID PRN 04/28/16 [History] Oxcarbazepine [Oxtellar Xr] 600 mg PO TID 04/28/16 [History] RisperiDONE [Risperidone] 1 mg PO HS 04/28/16 [History] Sennosides [Laxative] 17.2 mg PO DAILY PRN 04/28/16 [History] Tamsulosin [Flomax] 0.4 mg PO DAILY capsule 05/14/16 [Rx] Acetaminophen [Tylenol] 650 mg PO Q6HR 06/06/16 [History] Cyclobenzaprine [Flexeril] 10 mg PO TID 06/06/16 [History] Enalapril Maleate [Vasotec] 5 mg PO BID 06/06/16 [History] Enoxaparin [Lovenox] 40 mg SQ DAILY 06/06/16 [History] Haloperidol 10 mg PO Q6H PRN 06/06/16 [History] Haloperidol Lactate [Haldol] 20 mg IM Q6H PRN 06/06/16 [History] Insulin Regular Human [HumuLIN R] 3 - 8 unit SQ TIDWM 06/06/16 [History] Ipratropium/Albuterol Neb [Duoneb] 3 ml IH Q4HR 06/06/16 [History] Isosorbide MONOnitrate (24 HR) [Imdur] 120 mg PO DAILY 06/06/16 [History] Levofloxacin [Levaquin] 750 mg PO DAILY 06/06/16 [History] Melatonin/Pyridoxine HCl (B6) [Melatonin 3 mg Tablet] 3 mg PO HS 06/06/16 [ History] Metoprolol XL (24 HR) Succ [Toprol XL] 12.5 mg PO DAILY 06/06/16 [History] Multivitamin Liquid [Cerovite Liquid] 5 ml PO DAILY 06/06/16 [History] Nitroglycerin [Nitro-Bid] 1 inch TD Q6H 06/06/16 [History] Pregabalin [Lyrica] 150 mg PO HS 06/06/16 [History] Allergies fentanyl Allergy (Verified 04/27/16 23:01) Rash hydrogen peroxide [From Peroxyl] Allergy (Verified 04/27/16 23:01) Rash piroxicam Allergy (Verified 06/05/16 19:20) See Comments propofol Allergy (Verified 06/05/16 19:20) See Comments All Systems Review: A 10-system review of systems was performed and is negative for pertinent findings except as documented above in the HPI. - Cardiovascular Cardiovascular: as per HPI Physical Examination General: Conversant HEENT: Atraumatic, Normocephaly, Mucus Membranes Moist Cardiac: Reg Rate and Rhythm, Normal S1 and S2 Lungs: Other (Coarse breath sounds throughout) Neuro: Alert and responsive Abdomen: Soft, Other (RUQ HENRY drain) Musculoskeletal: No Chest Wall Tenderness Extremities: Other (BLE pre-tibial edema, mild. ) Results 06/17/16 11:20 06/17/16 09:13 Lab Results 06/16/16 06/16/16 06/17/16 18:35 18:35 09:13 WBC Hgb Hct Plt Count Sodium 139 Potassium 3.6 4.4 Chloride 107 Carbon Dioxide 23 BUN 15 Creatinine 0.87 Glucose 115 H Calcium 9.3 Magnesium 1.9 Troponin I 06/17/16 06/17/16 11:20 11:20 WBC 12.1 H Hgb 11.1 L Hct 34.8 L Plt Count 350 Sodium Potassium Chloride Carbon Dioxide BUN Creatinine Glucose Calcium Magnesium Troponin I 0.05 H* Active Medications Albuterol Sulfate (Proventil Neb) 2.5 mg IH Q2H PRN PRN Reason: Shortness Of Breath/Wheezing Stop: 12/05/16 23:39 Albuterol/Ipratropium (Duoneb) 3 ml IH G8TEDPM PRN; Protocol PRN Reason: Shortness Of Breath/Wheezing Stop: 12/06/16 10:19 Aspirin (Aspirin Ec) 81 mg PO DAILY [facility] Stop: 12/15/16 09:01 Last Admin: 06/17/16 10:30 Dose: 81 mg Atorvastatin Calcium (Lipitor) 80 mg PO QPM JOVANNY Stop: 12/16/16 18:01 Last Admin: 06/16/16 18:20 Dose: 80 mg Chlorhexidine Gluconate (Chlorhexidine Rinse) 15 ml MM BID [facility] Stop: 12/06/16 11:01 Last Admin: 06/17/16 10:30 Dose: 15 ml Clopidogrel Bisulfate (Plavix) 75 mg PO DAILY [facility] Stop: 12/15/16 09:01 Last Admin: 06/17/16 10:30 Dose: 75 mg Cyanocobalamin (Vitamin B12) 1,000 mcg PO DAILY [facility] Stop: 12/17/16 09:01 Last Admin: 06/17/16 10:32 Dose: 1,000 mcg Docusate Sodium (Colace) 100 mg PO BID OJVANNY PRN Reason: Protocol Stop: 12/13/16 10:01 Last Admin: 06/17/16 10:32 Dose: 100 mg Duloxetine HCl (Cymbalta) 60 mg PO BID [facility] Stop: 12/16/16 21:01 Last Admin: 06/17/16 10:31 Dose: 60 mg Haloperidol Lactate (Haldol) 1 mg IVP Q6H PRN PRN Reason: Agitation Stop: 12/06/16 10:57 Last Admin: 06/16/16 22:04 Dose: 1 mg Heparin Sodium (Porcine) (Heparin) 5,000 unit SQ Q12HCO [facility] Stop: 12/14/16 18:01 Last Admin: 06/17/16 08:34 Dose: 5,000 unit Hydralazine HCl (Hydralazine) 10 mg IVP Q6H PRN PRN Reason: SBP>150 Stop: 12/14/16 14:50 Last Admin: 06/16/16 11:34 Dose: 10 mg Hydromorphone HCl (Dilaudid) 0.25 mg IVP Q2H PRN PRN Reason: SEVERE PAIN 7-10 Stop: 12/06/16 15:13 Last Admin: 06/16/16 22:35 Dose: 0.25 mg Sodium Chloride (0.9 % Sodium Chloride) 500 mls @ 20 mls/hr IVC .Q24H JOVANNY Stop: 12/05/16 20:01 Last Admin: 06/17/16 07:55 Dose: Not Given Dextrose (Dextrose 10% Water 500 Ml Ivbag) 500 mls @ 50 mls/hr IVC .Q10H PRN PRN Reason: TPN delayed or interrupted Stop: 12/11/16 12:22 Fat Emulsion Intravenous (Intralipid 20%) 250 mls @ 21 mls/hr IVPB DAILY@1700 JOVANNY Stop: 12/11/16 17:01 Last Infusion: 06/17/16 14:27 Dose: Infused Magnesium Sulfate 2 gm/ (Dextrose) 104 mls @ 50 mls/hr IVPB Q6H PRN PRN Reason: Hypomagnesemia Stop: 12/11/16 13:39 Last Infusion: 06/17/16 14:28 Dose: Infused Potassium Chloride (Potassium Chloride 10 Meq/100ml) 10 meq in 100 mls @ 100 mls/hr IVPB Q1H PRN PRN Reason: Potassium less than 4 Stop: 12/11/16 13:39 Last Infusion: 06/13/16 10:00 Dose: Infused Multivitamins 10 ml/ Amino (Acids/Electrolytes) 2,010 mls @ 83.3 mls/hr IVC .Q24H JOVANNY PRN Reason: Protocol Stop: 06/17/16 18:31 Last Infusion: 06/17/16 14:27 Dose: 50 mls/hr Isosorbide Mononitrate (Imdur) 120 mg PO DAILY [facility] Stop: 12/16/16 15:01 Last Admin: 06/17/16 10:31 Dose: 120 mg Lisinopril (Zestril) 10 mg PO DAILY [facility] Stop: 12/14/16 15:01 Last Admin: 06/17/16 10:32 Dose: 10 mg Megestrol Acetate (Megace) 400 mg PO DAILY [facility] PRN Reason: Protocol Stop: 12/16/16 10:16 Last Admin: 06/17/16 10:31 Dose: 400 mg Melatonin (Melatonin) 3 mg PO HS [facility] Stop: 12/16/16 21:01 Last Admin: 06/16/16 21:14 Dose: 3 mg Metoprolol Succinate (Toprol Xl) 25 mg PO DAILY [facility] Stop: 12/14/16 15:01 Last Admin: 06/17/16 10:30 Dose: 25 mg Naloxone HCl (Narcan) 0.4 mg IVP Q2MIN PRN PRN Reason: Opioid Reversal Stop: 12/05/16 23:39 Nicardipine HCl (Cardene) 40 mg PO TID [facility] Stop: 12/06/16 11:01 Last Admin: 06/17/16 10:31 Dose: 40 mg Nitroglycerin (Nitroglycerin) 0.4 mg SL Q5MIN PRN PRN Reason: Chest Pain Stop: 12/11/16 10:19 Nystatin (Mycostatin Suspension) 5 ml PO QID [facility] Stop: 12/16/16 13:01 Last Admin: 06/17/16 12:17 Dose: 5 ml Ondansetron HCl (Zofran) 4 mg IVP Q8HR PRN PRN Reason: Nausea And Vomiting Stop: 12/05/16 23:39 Last Admin: 06/16/16 16:25 Dose: 4 mg Oxcarbazepine (Trileptal) 600 mg PO TID [facility] Stop: 12/06/16 15:01 Last Admin: 06/17/16 10:30 Dose: 600 mg Oxycodone/Acetaminophen (Percocet 5/325) 1 each PO Q6HR PRN PRN Reason: MODERATE PAIN 4-6 Stop: 12/13/16 09:49 Last Admin: 06/17/16 12:17 Dose: 1 each Pantoprazole Sodium (Protonix) 40 mg IVP DAILY [facility] Stop: 12/06/16 09:01 Last Admin: 06/17/16 08:38 Dose: 40 mg Potassium Chloride (Potassium Chloride) 40 meq PO DAILY PRN PRN Reason: Hypokalemia Stop: 12/14/16 02:45 Last Admin: 06/17/16 01:08 Dose: 40 meq Pregabalin (Lyrica) 150 mg PO HS [facility] Stop: 12/16/16 21:01 Last Admin: 06/16/16 21:12 Dose: 150 mg Risperidone (Risperdal M-Tab) 1 mg PO HS JOVANNY Stop: 12/11/16 21:01 Last Admin: 06/16/16 21:13 Dose: 1 mg Senna (Senna) 17.2 mg PO DAILY PRN PRN Reason: Constipation Tamsulosin HCl (Flomax) 0.4 mg PO DAILY JOVANNY PRN Reason: Protocol Stop: 12/17/16 09:01 Last Admin: 06/17/16 10:32 Dose: 0.4 mg - Imaging and Cardiology Echo: report reviewed Other Results: 12 hour tele: avg HR=79 SR. No significant event noted. - EKG Interpretation EKG results cardiology: personally reviewed Consult Discharge Plan - Plan Additional Instructions: Low fat diet Pigtail drain- cleanse around drain with soap and water and pat dry daily, apply split 4X4 gauze and tape to secure daily. Empty drain 4 times daily and as needed if full. Record output and bring to follow-up appointment on 06/23/[address] Brenner. Referrals: Jenny Brenner MD [Partnered Physician] - 06/23/16 1:50 pm (hospital follow- up) [facility] [Primary Care Provider] - 06/24/16 9:15 am
[2016-06-17] MEDS: *HR* HYDROmorphone (PF) 1 MG/ML SYRINGE IVP PRN ×2 (16:12→18:52)
[2016-06-17] MEDS ORDERED: metroNIDAZOLE 500 MG TABLET PO SCH (16:30)
[2016-06-17] MEDS: metroNIDAZOLE 500 MG TABLET PO SCH (17:00)
[2016-06-17] MEDS: levoFLOXacin 500 MG TABLET PO SCH (17:27)
[2016-06-17] MEDS: Clinimix E 5%-20% SOLUTION 2,000 ML with MVI, adult with vitamin K 10 ML IVC SCH (18:45)
--- NOTE | 2016-06-17 18:45 | Internal Med Progress Note ---
Date of Encounter: 06/17/16 Time of Encounter: 10:00 - Assessment and plan (1) DVT prophylaxis Current Visit: No Status: Acute Assessment and plan: Heparin SQ (2) Healthcare-associated pneumonia Current Visit: Yes Status: Acute Assessment and plan: Finish the antibiotic course. Patient had no cough or fever. WBC get down. (3) Acute cholecystitis Current Visit: Yes Status: Acute Assessment and plan: S/P percutaneous CCT CT A/P on 06/10/16: gallbladder decompressed, no evidence of complication, no evidence of bleed. Percutaneous drain noted with bilous, seroussangunious drainage, H&H within acceptable range management as per surgery, will continue to monitor Slightly elevated WBc, restart flagyl and levaquin today, no fever. (4) Severe protein-calorie malnutrition Current Visit: Yes Status: Acute Assessment and plan: Swallow test generally normal. Pt just doesn't want to eat. Improving slowly. Possibly due to swallow pain because of fungal infection. Nystatin suspension ordered. History of poor intakes since February 2016, 47 Lb weight loss in 3 months, Pre albumin 10. Nutrition on board, continue to follow recommendations. PEG option discussed with family, refused because pt is not tolerate anesthia. On cardiac diet, continue TPN. Pt was on PPN at [facility] before admission. Will continue encourage pt to eat, megace added. Will continue TPN/PPN upon discharge to [place] until pt has normal uptake. - Time Spent With Patient 25 - 35 minutes - Subjective Interval history: Patient is a 60-year-old male admitted for acute cholecystitis. Past medical history is significant for CAD, hypertension, hyperlipidemia. Patient also has schizophrenia and on multiple psych medications. Patient was seen and examined. He is awake alert. Still has poor uptake and need TPN. His vitals are stable. No fever or tachycardia. However WBC slightly elevated. Will add po levaquin and flagyl. Cholecystostomy drainage is in place. Patient tolerated regular diet well and had bowel movement. Will continue IV nutrition and encouraged patient to eat, try to taper down IV nutrition as patient eat better. D/W Dr Morris from [facility], plan to transfer pt to [place] for further management. - Constitutional Vitals: Temp Pulse Resp BP Pulse Ox 98.2 F 79 18 108/70 98 06/17/16 16:08 06/17/16 16:08 06/17/16 16:08 06/17/16 16:08 06/17/16 16:08 General appearance: Present: cooperative, A&O X 3, pleasant, no acute distress, obese, answers questions appropriately - Head Head exam: Present: atraumatic, normocephalic - Eye Eye exam: Present: PERRL, conjuntiva pink, sclera anicteric Pupils: Present: PERRL - Neck Neck exam general surgery: Present: supple, trachea midline. Absent: lymphadenopathy - Respiratory Respiratory exam: Present: CTAB. Absent: accessory muscle use, rales, rhonchi, wheezes - Cardiovascular Cardiovascular exam: Present: RRR, +S1, +S2. Absent: diastolic murmur, gallop, rubs, systolic murmur - GI/Abdominal GI/Abdominal exam: Present: normal bowel sounds, soft, no peritoneal signs. Absent: distended, tenderness - Extremities Exam Extremities exam: Present: warm, radial pulses palpable and symetrical. Absent : calf tenderness, cyanotic, pedal edema - Neurological Exam Neurological exam: Present: CN II-XII intact, oriented X3, no focal deficits. Absent: pronater drift, facial droop, speech deficit - Skin Skin exam: Present: dry, intact Internal Medicine: Result - Labs CBC & Chem 7: 06/17/16 11:20 06/17/16 09:13 Labs: Short CBC 06/17/16 Range/Units 11:20 WBC 12.1 H (4.3-11.1) K/mcL Hgb 11.1 L (12.9-16.9) g/dL Hct 34.8 L (37.5-50.1) % Plt Count 350 (140-400) K/mcL Neutrophils # 7.6 (1.6-8.9) K/mcL BMP 06/16/16 06/17/16 18:35 09:13 Sodium 139 Potassium 3.6 4.4 Chloride 107 Carbon Dioxide 23 BUN 15 Creatinine 0.87 Glucose 115 H Calcium 9.3 Cardiac Enzymes 06/17/16 Range/Units 11:20 Troponin I 0.05 H* (0-0.03) ng/mL - ABG Interpretation ABG results: PT/INR, D-dimer PT 12.6 Seconds (9.4-12.1) H 06/12/16 14:00 - VTE Documentation of Mechanical Device: Intermittent pneumatic compression device Consult Discharge Plan - Plan Additional Instructions: Low fat diet Pigtail drain- cleanse around drain with soap and water and pat dry daily, apply split 4X4 gauze and tape to secure daily. Empty drain 4 times daily and as needed if full. Record output and bring to follow-up appointment on 06/23/[address] Brenner. Referrals: Jenny Brenner MD [Partnered Physician] - 06/23/16 1:50 pm (hospital follow- up) YOLANDA,PCP [Primary Care Provider] - 06/24/16 9:15 am
[2016-06-17] MEDS: RisperiDONE-M 1 MG TAB.RAPDIS PO SCH (20:41)
[2016-06-17] MEDS: Pregabalin 75 MG CAPSULE PO SCH (20:41)
[2016-06-18 05:08] LABS: BUN/Creatinine Ratio 12 (6-26); Blood Urea Nitrogen 15 mg/dL (8-26); Calcium 8.5 mg/dL (8.6-10.8); Carbon Dioxide 25 mEq/L (19-29); Chloride 108 mEq/L (98-109); Glucose 87 mg/dL (70-99); Magnesium 1.2 mg/dL (1.6-2.6); Osmolality,Calculated 290 (280-300); Potassium 3.4 mEq/L (3.5-4.5); Sodium 140 mEq/L (136-145); eGFR For African Americans > 60 (> 60); eGFR For Non-African Americans 57 (> 60)
[2016-06-18] MEDS: (Melatonin/Pyridoxine Hcl (B6) [Melatonin 3 Mg Tablet PO SCH (05:25)
[2016-06-18] MEDS: metroNIDAZOLE 500 MG TABLET PO SCH ×2 (05:30→09:48)
[2016-06-18] MEDS: *HR* Heparin 5,000 UNIT/ML VIAL SQ SCH (05:30)
[2016-06-18 06:04] LABS: Basophils % 0.3 %; Eosinophils # 0.4 K/mcL (0.0-0.6); Eosinophils % 3.2 %; Hematocrit 31.6 % (37.5-50.1); Immature Granulocytes % 0.4 % (0-4); Lymphocytes # 3.1 K/mcL (0.6-4.6); Lymphocytes % 25.9 %; Mean Corpuscular HGB Conc 31.6 g/dL (31.6-35.5); Mean Corpuscular Hemoglobin 28.2 pg (28.0-33.3); Mean Platelet Volume 9.2 fL (9.4-12.4); Monocytes # 0.9 K/mcL (0.0-1.3); Monocytes % 7.3 %; Neutrophils # 7.4 K/mcL (1.6-8.9); Platelet Count 275 K/mcL (140-400); Red Blood Count 3.55 M/mcL (4.19-5.50); Red Cell Distribution Width 15.4 % (11.5-14.5); Segmented Neutrophils % 62.9 %
[2016-06-18] MEDS: Megestrol Acetate 400 MG/10 ML UDC PO SCH (09:44)
[2016-06-18] MEDS: levoFLOXacin 500 MG TABLET PO SCH (09:45)
[2016-06-18] MEDS: Metoprolol XL (24 HR) Succ 25 MG TAB.ER.24H PO SCH (09:46)
[2016-06-18] MEDS: Chlorhexidine Rinse 15 ML MOUTHWASH MM SCH (09:46)
[2016-06-18] MEDS: niCARdipine 20 MG CAPSULE PO SCH (09:46)
[2016-06-18] MEDS: Cyanocobalamin (B-12) 1,000 MCG TABLET PO SCH (09:46)
[2016-06-18] MEDS: Nystatin SUSP 5 ML UD.LIQ PO SCH (09:46)
[2016-06-18] MEDS: Isosorbide MONOnitrate (24 HR) 60 MG TAB.ER.24H PO SCH (09:46)
[2016-06-18] MEDS: Aspirin Enteric Coated 81 MG Tablet PO SCH (09:47)
[2016-06-18] MEDS: Pantoprazole 40 MG VIAL IVP SCH (09:48)
[2016-06-18] MEDS: OXcarbazepine 150 MG TABLET PO SCH (09:48)
[2016-06-18] MEDS: 0.9 % Sodium Chloride 500 ML IVC SCH ×2 (09:48→11:57)
[2016-06-18 11:54] VITALS: BP 102/57
--- NOTE | 2016-06-18 15:36 | Discharge Summary ---
Date of Encounter: 06/18/16 Time of Encounter: 14:00 - Discharge Diagnosis (1) DVT prophylaxis Priority: Secondary Status: Acute (2) Healthcare-associated pneumonia Priority: Primary Status: Acute (3) Acute cholecystitis Priority: Primary Status: Acute (4) Severe protein-calorie malnutrition Priority: Primary Status: Acute - Discharge Medications Prescriptions: Megestrol Acetate [Megace] 400 mg PO DAILY #20 [facility] Home Medications: Aspirin [Lo-Dose Aspirin EC] 81 mg PO DAILY 04/28/16 [History] Atorvastatin Calcium [Lipitor] 80 mg PO QPM 04/28/16 [History] Clopidogrel [Plavix] 75 mg PO DAILY 04/28/16 [History] Cyanocobalamin (B-12) [Vitamin B12] 1,000 mcg PO DAILY 04/28/16 [History] Docusate [Colace] 200 mg PO DAILY 04/28/16 [History] Duloxetine HCl [Cymbalta] 60 mg PO BID 04/28/16 [History] Fluticasone Propionate Nasal [Flonase] 50 mcg NS DAILY 04/28/16 [History] Hydrocortisone 1% CREAM [Cortaid] 1 appl TP BID 04/28/16 [History] Lidocaine 4% CRM (LMX) [Lmx 4] 1 appl TP BID PRN 04/28/16 [History] Oxcarbazepine [Oxtellar Xr] 600 mg PO TID 04/28/16 [History] RisperiDONE [Risperidone] 1 mg PO HS 04/28/16 [History] Sennosides [Laxative] 17.2 mg PO DAILY PRN 04/28/16 [History] Tamsulosin [Flomax] 0.4 mg PO DAILY capsule 05/14/16 [Rx] Acetaminophen [Tylenol] 650 mg PO Q6HR 06/06/16 [History] Cyclobenzaprine [Flexeril] 10 mg PO TID 06/06/16 [History] Haloperidol 10 mg PO Q6H PRN 06/06/16 [History] Haloperidol Lactate [Haldol] 20 mg IM Q6H PRN 06/06/16 [History] Ipratropium/Albuterol Neb [Duoneb] 3 ml IH Q4HR 06/06/16 [History] Melatonin/Pyridoxine HCl (B6) [Melatonin 3 mg Tablet] 3 mg PO HS 06/06/16 [ History] Multivitamin Liquid [Cerovite Liquid] 5 ml PO DAILY 06/06/16 [History] Pregabalin [Lyrica] 150 mg PO HS 06/06/16 [History] Heparin 5,000 unit SQ Q12HCO vial 06/18/16 [Rx] Levofloxacin [Levaquin] 750 mg PO DAILY #0 tablet 06/18/16 [Rx] Megestrol Acetate [Megace] 400 mg PO DAILY #20 udc 06/18/16 [Rx] MetroNIDAZOLE [Flagyl] 500 mg PO Q8H tablet 06/18/16 [Rx] Allergies/Adverse Reactions: Allergies fentanyl Allergy (Verified 04/27/16 23:01) Rash hydrogen peroxide [From Peroxyl] Allergy (Verified 04/27/16 23:01) Rash piroxicam Allergy (Verified 06/05/16 19:20) See Comments propofol Allergy (Verified 06/05/16 19:20) See Comments Procedures/tests Complete & Pending: Procedures Performed prior 72 hours Category Date Time Status CT abd pelvis wo no iv no oral [CT] Stat Cat Scan 06/18/16 13:[address] chest wo con [CT] Stat Cat Scan 06/18/16 13:22 Draft - Notes to Outpatient Provider 1. Pt is on PO levaquin and flagyl now, please f/u WBC and vitals and decide if continue Abx. 2. Pt needs continue IV nutrition and being encouraged to eat. Megace 400mg po qd placed. 3. Pt has elevated Cr (1.28 today) and hypomegnesemia (Mg 1.2 today) he was given IVF and MgSO4 2g iv. Please follow up BMP and meganessium. 4. Pt has one episode of hypotension, BP is stable but at lower side now. His metoprolol, isosorbide mononitrate, lisinopril, and nitropaste is on hold. Please resume based on his BP level. Date of admission: 06/05/16 22:27 Primary care physician: PCP OR Consults: 06/06/16 13:04 Consult to Surgery [CONS] Routine Consulting Provider: Jenny Brenner Reason for Consult: Acute Cholecystitis. Time Notified: 13:04 Call Completed: Yes 06/06/16 15:12 Consult to Anesthesiology [CONS] Routine Consulting Provider: Anesthesia [place] Reason for Consult: history reaction to anesthesia Time Notified: 15:13 Call Completed: Yes 06/06/16 15:13 Consult to Interventional Radiology [CONS] Routine Consulting Provider: Radiology Interventional [place] Reason for Consult: acute cholecystitis Time Notified: 15:14 Call Completed: No 06/08/16 11:35 Consult to Interventional Radiology [CONS] Routine Consulting Provider: Radiology Interventional Cols Reason for Consult: placement of percutaneous cholecystostomy tube Time Notified: 11:38 Call Completed: Yes 06/09/16 08:03 Consult to Occupational Therapy [CONS] Routine Comment: Evaluate, develop and implement POC, encourage amb Consult to Physical Therapy [CONS] Routine Comment: Evaluate, develop and implement POC 06/10/16 10:43 Consult to PICC team [Consult to Invasive Line Access Team] [CONS] Routine Reason for Consult: POOR ACCESS LIMITED ACCESS Line Type: PICC 06/10/16 12:23 Consult to Speech Therapy [CONS] Routine Comment: Evaluate, develop and implement POC Reason for Consult: usp dysphagia, okay by surgery to advance pass clear liquids, need recommendations for diet textures and liquids Call Completed: No 06/10/16 15:39 Consult to Invasive Line Access Team [CONS] Routine Reason for Consult: Picc Line Insertion Line Type: PICC 06/10/16 19:45 Consult to Cad Detailer [CONS] Routine Reason for SW Consult: possible rehab 06/11/16 08:29 Consult to Nutrition [CONS] Routine Comment: start TPN please Consulting Provider: NUTRITION Reason for Dietary Consult: TPN Start and Manage 06/17/16 11:20 Consult to Cardiology [CONS] Routine Comment: Consulting Provider: Cardiology [place] Reason for Consult: Elevated troponin, request Cardio consult by [facility] Call Completed: No Discharging clinician: Nikolay Lewis Anticipated date of discharge: 06/18/16 - Patient Status Disposition: Transfer Critical Access Hosp Condition: Fair - Discharge Instructions Follow Up With: Jenny Brenner MD [Partnered Physician] - 06/23/16 1:50 pm (hospital follow- up) YOLANDAPCP [Primary Care Provider] - 06/24/16 9:15 am Additional Instructions: Low fat diet Pigtail drain- cleanse around drain with soap and water and pat dry daily, apply split 4X4 gauze and tape to secure daily. Empty drain 4 times daily and as needed if full. Record output and bring to follow-up appointment on 06/23/[address] Brenner. - Diet and Activity Activity: as per physical therapy Diet: regular diet Interval History: Mr. Mora is a 60 year old male with past medical history of mental health disorders, hypertension, smoker, chronic back pain, CAD s/p multiple PCIs, recently transferred from this facility to [facility], last time he was admitted to syncope, he had uncontrolled hypertension and he was unable to swallow likely associated with oral and esophageal thrush. The patient was transferred to our emergency department from the inpatient at the OR, he was receiving treatment for urinary tract infection (enterococcus, on levaquin, according to OR report) . The patient states that has been complaining of pain in the right upper quadrant in the last 3-4 days, associated to nausea and vomiting. Pain is worse after he eats. The patient had chest pain earlier today, he had workup done at the OR which revealed a mild elevation of troponins (0.04) and the patient was transferred here for evaluation of possible NSTEMI. Upon ambulation in our emergency department he was found to be hypertensive, with leukocytosis and complaining of chest pain. A nitro drip was started. Patient is currently chest pain-free. I saw him in the inpatient unit already, he was complaining of right upper quadrant pain. He is alert, he recognized me, I took care of him during his last admission. The patient denies fever, cough, shortness of breath. In the emergency department he received a dose of Azactam , Levaquin and vancomycin for a possible healthcare associated pneumonia. The patient is allergic to penicillins. Hospital course: Mr. Mora is a 60 year old male admitted for right upper quadrant pain. CT of abdomen shows acute cholecystitis. Patient was treated with antibiotic, surgical consult was called. Per surgical consult, pt was placed cholecystostomy drainage. Patient also admitted with elevated troponin, serial troponin has been followed. Cardiology consult was called, consider chronic troponin elevation, no further testing recommended. Patient has a chronic poor uptake and malnutrition, he was on PPN in OR and was placed on TPN. PEG tube option discussed with family, declined because pt cannot tolerate anesthesia ( bad experience with anesthesia before). Patient gradually start eating now. Discussed with Dr Morris in [facility], will transfer pt back to [facility] for continuous management. I saw and examined the patient today. He is awake alert, still weak, finished Ensure. Patient has one episode of hypotension to 80s this morning, BP back to 108/69 after 500ml NS bolus. We will hold blood pressure medication for now and continue closely monitoring in OR. Right now patient's vitals are stable. Stable to transfer to OR hospital. - Time Spent with Patient Total time spent providing and/or coordinating discharge services: 40 min Greater than 30 minutes - Constitutional Vitals: Temp Pulse Resp BP Pulse Ox 98.4 F 65 20 102/57 97 06/18/16 11:19 06/18/16 11:51 06/18/16 11:51 06/18/16 11:51 06/18/16 11:51 General appearance: Present: cooperative, A&O X 3, pleasant, no acute distress, obese, answers questions appropriately - Head Head exam: Present: atraumatic, normocephalic - Eye Eye exam: Present: PERRL, conjuntiva pink, sclera anicteric Pupils: Present: PERRL - Neck Neck exam general surgery: Present: supple, trachea midline. Absent: lymphadenopathy - Respiratory Respiratory exam: Present: CTAB. Absent: accessory muscle use, rales, rhonchi, wheezes - Cardiovascular Cardiovascular exam: Present: RRR, +S1, +S2. Absent: diastolic murmur, gallop, rubs, systolic murmur - GI/Abdominal GI/Abdominal exam: Present: normal bowel sounds, soft, no peritoneal signs. Absent: distended, tenderness - Extremities Exam Extremities exam: Present: warm, radial pulses palpable and symetrical. Absent : calf tenderness, cyanotic, pedal edema - Neurological Exam Neurological exam: Present: CN II-XII intact, oriented X3, no focal deficits. Absent: pronater drift, facial droop, speech deficit - Skin Skin exam: Present: dry, intact - VTE Documentation of Mechanical Device: Intermittent pneumatic compression device
--- NOTE | 2016-06-18 16:02 | Physician Discharge Referral ---
ExtendedCare Referral Info Transfer To: [facility] Provider in Charge after Transfer: Other - Diagnosis (1) DVT prophylaxis Priority: Secondary Status: Acute (2) Healthcare-associated pneumonia Priority: Primary Status: Acute (3) Acute cholecystitis Priority: Primary Status: Acute (4) Severe protein-calorie malnutrition Priority: Primary Status: Acute - Transfer Medications Prescriptions: Megestrol Acetate [Megace] 400 mg PO DAILY #20 [facility] [place] Home Medications: Aspirin [Lo-Dose Aspirin EC] 81 mg PO DAILY 04/28/16 [History] Atorvastatin Calcium [Lipitor] 80 mg PO QPM 04/28/16 [History] Clopidogrel [Plavix] 75 mg PO DAILY 04/28/16 [History] Cyanocobalamin (B-12) [Vitamin B12] 1,000 mcg PO DAILY 04/28/16 [History] Docusate [Colace] 200 mg PO DAILY 04/28/16 [History] Duloxetine HCl [Cymbalta] 60 mg PO BID 04/28/16 [History] Fluticasone Propionate Nasal [Flonase] 50 mcg NS DAILY 04/28/16 [History] Hydrocortisone 1% CREAM [Cortaid] 1 appl TP BID 04/28/16 [History] Lidocaine 4% CRM (LMX) [Lmx 4] 1 appl TP BID PRN 04/28/16 [History] Oxcarbazepine [Oxtellar Xr] 600 mg PO TID 04/28/16 [History] RisperiDONE [Risperidone] 1 mg PO HS 04/28/16 [History] Sennosides [Laxative] 17.2 mg PO DAILY PRN 04/28/16 [History] Tamsulosin [Flomax] 0.4 mg PO DAILY capsule 05/14/16 [Rx] Acetaminophen [Tylenol] 650 mg PO Q6HR 06/06/16 [History] Cyclobenzaprine [Flexeril] 10 mg PO TID 06/06/16 [History] Haloperidol 10 mg PO Q6H PRN 06/06/16 [History] Haloperidol Lactate [Haldol] 20 mg IM Q6H PRN 06/06/16 [History] Ipratropium/Albuterol Neb [Duoneb] 3 ml IH Q4HR 06/06/16 [History] Melatonin/Pyridoxine HCl (B6) [Melatonin 3 mg Tablet] 3 mg PO HS 06/06/16 [ History] Multivitamin Liquid [Cerovite Liquid] 5 ml PO DAILY 06/06/16 [History] Pregabalin [Lyrica] 150 mg PO HS 06/06/16 [History] Heparin 5,000 unit SQ Q12HCO vial 06/18/16 [Rx] Levofloxacin [Levaquin] 750 mg PO DAILY #0 tablet 06/18/16 [Rx] Megestrol Acetate [Megace] 400 mg PO DAILY #20 udc 06/18/16 [Rx] MetroNIDAZOLE [Flagyl] 500 mg PO Q8H tablet 06/18/16 [Rx] Allergies/Adverse Reactions: Allergies fentanyl Allergy (Verified 04/27/16 23:01) Rash hydrogen peroxide [From Peroxyl] Allergy (Verified 04/27/16 23:01) Rash piroxicam Allergy (Verified 06/05/16 19:20) See Comments propofol Allergy (Verified 06/05/16 19:20) See Comments - Respiratory Orders Smoking Cessation: Smoking cessation has been advised. For more information, call the [place] Tobacco Quit Line at 4-094-EYMQ-NOW. - Advance Directives Code Status: Full Code - Diet Orders Cardiac (Please also continue IV nutrition (please evaluate by nutririonist.)) CERTIFICATION: I certify that the transfer of the above named patient to an Extended Care Facility is necessary for the continuing treatment of the diagnosis listed. The above information is true and accurate reflection of patient's current condition. Confidential - Redisclosure prohibited without a patient's written consent.
[2016-06-18] MEDS ORDERED: Clinimix E 5%-20% SOLUTION 2,000 ML with MVI, adult with vitamin K 10 ML IVC SCH (17:00)
[2016-06-19] MEDS ORDERED: Clinimix E 5%-20% SOLUTION 2,000 ML with MVI, adult with vitamin K 10 ML IVC SCH (17:00)
[2016-06-20] MEDS ORDERED: Clinimix E 5%-20% SOLUTION 2,000 ML with MVI, adult with vitamin K 10 ML IVC SCH (17:00)
== END 2016-06-18 16:30 | disposition critical access hospital (66) | DRG 444 ==
LOC: EMEROO 19:17 → 2NENU 22:27 → SUATTDRO 22:27 → 2NENU 22:45 → 2NNU 06-11 08:26
PROVIDERS: ADMIT Internal Medicine; ATTEND Internal Medicine
PROC: IRDRAIN (2016-06-08 12:00)

== ENCOUNTER 2016-09-02 09:33 | Inpatient (IN) ==
--- NOTE | 2016-09-02 09:42 | Emergency Department Note ---
Disposition Clinical Impression: Cholecystitis Aspiration pneumonia Qualifiers: Aspiration pneumonia type: unspecified Laterality: right Lung location: lower lobe of lung Qualified Code(s): J69.0 - Pneumonitis due to inhalation of food and vomit Acute respiratory failure Qualifiers: Respiratory failure complication: hypoxia Qualified Code(s): J96.01 - Acute respiratory failure with hypoxia Disposition: Admitted As Inpatient SOB HPI - General Chief Complaint: ED Shortness of Breath/Dyspnea Stated Complaint: AMS/EARNESTINE Time Seen by Provider: 09/02/16 09:38 Source: EMS Mode of arrival: EMS Limitations: altered mental status Nursing Notes Reviewed: Yes Vital Signs Reviewed: Yes - History of Present Illness Patient comes in from the [facility] with vomiting 3 days and question aspiration pneumonia. History is provided by his sister and also records from the assisted. Patient has battled some issues with Consuelo lithiasis has also had a drain in the gallbladder. He has been vomiting today vomited and became hypoxemic and his mental status was altered. At that point on the call 911. On arrival patient is not able to give any history he is covered in vomit. Treatment prior to arrival: oxygen - Related Data Home Medications Medication Instructions Recorded Confirmed Aspirin [Lo-Dose Aspirin EC] 81 mg PO DAILY 04/28/16 09/02/16 Atorvastatin Calcium [Lipitor] 80 mg PO QPM 04/28/16 09/02/16 Clopidogrel [Plavix] 75 mg PO DAILY 04/28/16 09/02/16 Docusate [Colace] 200 mg PO DAILY 04/28/16 09/02/16 Fluticasone Propionate Nasal 1 spray NS DAILY 04/28/16 09/02/16 [Flonase] Hydrocortisone 1% CREAM [Cortaid] 1 appl TP BID 04/28/16 09/02/16 Lidocaine 4% CRM (LMX) [Lmx 4] 1 appl TP BID PRN 04/28/16 09/02/16 Oxcarbazepine [Oxtellar Xr] 300 mg PO TID 04/28/16 09/02/16 Sennosides [Laxative] 17.2 mg PO DAILY PRN 04/28/16 09/02/16 risperiDONE [Risperidone] 2 mg PO HS 04/28/16 09/02/16 Acetaminophen [Tylenol] 650 mg PO Q6HR 06/06/16 09/02/16 Ipratropium/Albuterol Neb [Duoneb] 3 ml IH Q4HR 06/06/16 09/02/16 Melatonin/Pyridoxine HCl (B6) 9 mg PO HS 06/06/16 09/02/16 [Melatonin 3 mg Tablet] Multivitamin Liquid [Cerovite 5 ml PO DAILY 06/06/16 09/02/16 Liquid] Amlodipine Besylate 10 mg PO DAILY 09/02/16 09/02/16 Baclofen 5 mg PO TID 09/02/16 09/02/16 Balsam Trista/Henry Oil [Venelex 1 appl TP BID 09/02/16 09/02/16 Ointment] Buspirone HCl [Buspar] 7.5 mg PO TID 09/02/16 09/02/16 Carvedilol 12.5 mg PO BID 09/02/16 09/02/16 Chlorhexidine Gluconate [Peridex] 15 ml MM BID 09/02/16 09/02/16 Cholecalciferol (D-3) [Vitamin D] 2,000 unit PO DAILY 09/02/16 09/02/16 Ferrous Sulfate Oral Soln 220 mg PO BID 09/02/16 09/02/16 Gabapentin [Neurontin] 300 mg PO TID 09/02/16 09/02/16 Isosorbide DInitrate [Isosorbide 20 mg PO TID 09/02/16 09/02/16 Dinitrate] LORazepam [Ativan] 0.5 mg PO QID PRN 09/02/16 09/02/16 Lidocaine Patch [Lidoderm 5% patch] 1 patch TP DAILY 09/02/16 09/02/16 Nystatin Cream [Mycostatin Cream] 1 appl TP BID 09/02/16 09/02/16 Nystatin POWDER [Nystop] 1 appl TP BID 09/02/16 09/02/16 Ondansetron [Zofran ODT] 8 mg SL Q4HR PRN 09/02/16 09/02/16 Oxycodone HCl [Oxycontin] 10 mg PO QID PRN 09/02/16 09/02/16 Pantoprazole Sodium [Protonix] 40 mg PO DAILY 09/02/16 09/02/16 Potassium Chloride 20% [Potassium 15 ml PO TID 09/02/16 09/02/16 Chloride] Saliva Stimulant [Biotene 2 ml MM 5XD 09/02/16 09/02/16 Moisturizing Rinse] Simethicone [Gaviscon Drops] 80 mg PO TID 09/02/16 09/02/16 Spironolactone [Aldactone] 25 mg PO DAILY 09/02/16 09/02/16 Terazosin HCl 8 mg PO HS 09/02/16 09/02/16 Tramadol HCl [Ultram] 50 mg PO QID PRN 09/02/16 09/02/16 Venlafaxine [Effexor] 75 mg PO BID 09/02/16 09/02/16 hydrALAZINE [HydrALAZINE] 75 mg PO TID 09/02/16 09/02/16 Allergies Allergy/AdvReac Type Severity Reaction Status Date / Time fentanyl Allergy Rash Verified 04/27/16 23:01 hydrogen peroxide Allergy Rash Verified 04/27/16 23:01 [From Peroxyl] piroxicam Allergy See Verified 06/05/16 19:20 Comments propofol Allergy See Verified 06/05/16 19:20 Comments Limitations: ROS unobtainable due to patients medical condition Past Medical History - Past Medical History Source: old records reviewed, obtained from family, nursing notes reviewed Medical history: Reports: COPD (not on home oxygen), coronary artery disease, hyperlipidemia, hypertension, myocardial infarction (x3) Surgical history: Reports: angioplasty/stent (9 cardiac stents), orthopedic, other (spinal surgery, back spinal stimulator, LLE repair after trauma (tree crushed leg)) Psychiatric history: Reports: anxiety, depression, schizophrenia, previous psychiatric hospitalization - Social History Smoking Status: Current every day smoker Smokeless Tobacco Status: No Alcohol use: Reports: none Drug use: Reports: none Physical Exam - General Limitations: other (She is alert mumbling covert and yellow bile appearing vomitus) - Head Head exam: atraumatic, normocephalic, normal inspection - Eye Eye exam: Present: normal appearance, PERRL, EOMI - Neck Neck exam: Present: normal inspection, full ROM, trachea midline - Chest Chest inspection: Present: normal inspection, symmetric chest wall rise - Respiratory Respiratory exam: Present: other - Cardiovascular Cardiovascular exam: Present: regular rate, normal rhythm, normal heart sounds - Abdominal Exam Abdominal exam: Present: soft. Absent: guarding Abdominal tenderness: Present: RUQ, mild - Neurological Exam Neurological exam: Present: alert - Skin Skin exam: Present: diaphoresis Course - Reevaluation(s) Reevaluation #1: Much more alert will answer questions still confused Time: 10:33 - Consultations Consultation #1: No mediate surgical intervention Dr. Tinoco will consult on the floor. Time: 13:05 Vital Signs Temperature 97.9 F 09/02/16 09:36 Pulse Rate 84 09/02/16 09:36 Respiratory Rate 22 09/02/16 09:36 Blood Pressure 156/119 09/02/16 09:36 O2 Sat by Pulse Oximetry 86 09/02/16 09:36 Temperature 97.9 F 09/02/16 09:36 Pulse Rate 78 09/02/16 11:44 Respiratory Rate 18 09/02/16 13:41 Blood Pressure 157/92 09/02/16 13:41 O2 Sat by Pulse Oximetry 96 09/02/16 11:44 Oxygen Delivery Oxygen Delivery Room Air Shortness of Breath/Dyspnea - [facility] [place] Narrative Medical decision making narrative: Patient's mental status started improving he does complain of pain in the right upper quadrant when palpated CT and ultrasound reviewed. - Lab Data Result diagrams: 09/02/16 10:03 09/02/16 10:03 Lab Results 09/02/16 09/02/16 09/02/16 Range/Units 09:45 10:03 10:03 WBC 11.3 H (4.3-11.1) K/mcL RBC 4.27 (4.19-5.50) M/mcL Hgb 11.2 L (12.9-16.9) g/dL Hct 34.6 L (37.5-50.1) % MCV 81.0 L (83.0-100.0) fL MCH 26.2 L (28.0-33.3) pg MCHC 32.4 (31.6-35.5) g/dL RDW 14.7 H (11.5-14.5) % Plt Count 364 (140-400) K/mcL MPV 8.7 L (9.4-12.4) fL Immature Gran % 0.4 (0-4) % Seg Neutrophils % 81.2 % Lymphocytes % 12.6 % Monocytes % 3.8 % Eosinophils % 1.7 % Basophils % 0.3 % Neutrophils # 9.2 H (1.6-8.9) K/mcL Lymphocytes # 1.4 (0.6-4.6) K/mcL Monocytes # 0.4 (0.0-1.3) K/mcL Eosinophils # 0.2 (0.0-0.6) K/mcL Basophils # 0.0 (0.0-0.2) K/mcL Immature Plt Fraction 2.2 (1.1-6.1) % PT 11.8 (9.4-12.1) Seconds INR 1.1 APTT 30.3 (26.0-36.0) Seconds ABG pH 7.43 (7.32-7.45) pH Units ABG pCO2 42 (35-45) mmHg ABG pO2 56 L (85-104) mmHg ABG HCO3 27.9 H (21-27) mEQ/L ABG Total CO2 29.2 H (20-26) mEq/L ABG O2 Saturation 90 L (95-98) % ABG Base Excess 3.2 H (-2.0 to 3.0) mEq/L Blood Gas Modality vent Inspired O2 50 % Sodium (136-145) mEq/L Potassium (3.5-4.5) mEq/L Chloride (98-109) mEq/L Carbon Dioxide (19-29) mEq/L BUN (8-26) mg/dL Creatinine (0.72-1.25) mg/dL Est GFR ( Amer) (> 60) Est GFR (Non-Af Amer) (> 60) BUN/Creatinine Ratio (6-26) Glucose (70-99) mg/dL Calculated Osmolality (280-300) Lactic Acid (0.5-2.2) mmol/L Calcium (8.6-10.8) mg/dL Magnesium (1.6-2.6) mg/dL Total Bilirubin (0.2-1.2) mg/dL Direct Bilirubin (0.0-0.5) mg/dL Indirect Bilirubin (0.0-1.2) mg/dL AST (5-34) Units/L ALT (0-55) Units/L Alkaline Phosphatase (38-126) Units/L Troponin I (0-0.03) ng/mL B-Natriuretic Peptide (0-100) pg/mL Serum Total Protein (6.0-8.3) g/dL Albumin (3.5-5.0) g/dL Globulin (2.4-3.5) g/dL Albumin/Globulin Ratio (1.1-2.2) Lipase (8-78) Units/L Blood Type Antibody Screen Antibody Identification 09/02/16 09/02/16 09/02/16 Range/Units 10:03 10:03 10:03 WBC (4.3-11.1) K/mcL RBC (4.19-5.50) M/mcL Hgb (12.9-16.9) g/dL Hct (37.5-50.1) % MCV (83.0-100.0) fL MCH (28.0-33.3) pg MCHC (31.6-35.5) g/dL RDW (11.5-14.5) % Plt Count (140-400) K/mcL MPV (9.4-12.4) fL Immature Gran % (0-4) % Seg Neutrophils % % Lymphocytes % % Monocytes % % Eosinophils % % Basophils % % Neutrophils # (1.6-8.9) K/mcL Lymphocytes # (0.6-4.6) K/mcL Monocytes # (0.0-1.3) K/mcL Eosinophils # (0.0-0.6) K/mcL Basophils # (0.0-0.2) K/mcL Immature Plt Fraction (1.1-6.1) % PT (9.4-12.1) Seconds INR APTT (26.0-36.0) Seconds ABG pH (7.32-7.45) pH Units ABG pCO2 (35-45) mmHg ABG pO2 (85-104) mmHg ABG HCO3 (21-27) mEQ/L ABG Total CO2 (20-26) mEq/L ABG O2 Saturation (95-98) % ABG Base Excess (-2.0 to 3.0) mEq/L Blood Gas Modality Inspired O2 % Sodium 131 L (136-145) mEq/L Potassium 3.8 (3.5-4.5) mEq/L Chloride 95 L (98-109) mEq/L Carbon Dioxide 26 (19-29) mEq/L BUN 8 (8-26) mg/dL Creatinine 0.80 (0.72-1.25) mg/dL Est GFR ( Amer) > 60 (> 60) Est GFR (Non-Af Amer) > 60 (> 60) BUN/Creatinine Ratio 10 (6-26) Glucose 129 H (70-99) mg/dL Calculated Osmolality 272 L (280-300) Lactic Acid 0.9 (0.5-2.2) mmol/L Calcium 10.3 (8.6-10.8) mg/dL Magnesium 1.8 (1.6-2.6) mg/dL Total Bilirubin 0.6 (0.2-1.2) mg/dL Direct Bilirubin 0.3 (0.0-0.5) mg/dL Indirect Bilirubin 0.3 (0.0-1.2) mg/dL AST 19 (5-34) Units/L ALT 18 (0-55) Units/L Alkaline Phosphatase 145 H (38-126) Units/L Troponin I 0.01 (0-0.03) ng/mL B-Natriuretic Peptide (0-100) pg/mL Serum Total Protein 7.7 (6.0-8.3) g/dL Albumin 3.5 (3.5-5.0) g/dL Globulin 4.2 H (2.4-3.5) g/dL Albumin/Globulin Ratio 0.8 L (1.1-2.2) Lipase 44 (8-78) Units/L Blood Type Antibody Screen Antibody Identification 09/02/16 09/02/16 09/02/16 Range/Units 10:03 10:04 13:20 WBC (4.3-11.1) K/mcL RBC (4.19-5.50) M/mcL Hgb (12.9-16.9) g/dL Hct (37.5-50.1) % MCV (83.0-100.0) fL MCH (28.0-33.3) pg MCHC (31.6-35.5) g/dL RDW (11.5-14.5) % Plt Count (140-400) K/mcL MPV (9.4-12.4) fL Immature Gran % (0-4) % Seg Neutrophils % % Lymphocytes % % Monocytes % % Eosinophils % % Basophils % % Neutrophils # (1.6-8.9) K/mcL Lymphocytes # (0.6-4.6) K/mcL Monocytes # (0.0-1.3) K/mcL Eosinophils # (0.0-0.6) K/mcL Basophils # (0.0-0.2) K/mcL Immature Plt Fraction (1.1-6.1) % PT (9.4-12.1) Seconds INR APTT (26.0-36.0) Seconds ABG pH (7.32-7.45) pH Units ABG pCO2 (35-45) mmHg ABG pO2 (85-104) mmHg ABG HCO3 (21-27) mEQ/L ABG Total CO2 (20-26) mEq/L ABG O2 Saturation (95-98) % ABG Base Excess (-2.0 to 3.0) mEq/L Blood Gas Modality Inspired O2 % Sodium (136-145) mEq/L Potassium (3.5-4.5) mEq/L Chloride (98-109) mEq/L Carbon Dioxide (19-29) mEq/L BUN (8-26) mg/dL Creatinine (0.72-1.25) mg/dL Est GFR ( Amer) (> 60) Est GFR (Non-Af Amer) (> 60) BUN/Creatinine Ratio (6-26) Glucose (70-99) mg/dL Calculated Osmolality (280-300) Lactic Acid 0.7 (0.5-2.2) mmol/L Calcium (8.6-10.8) mg/dL Magnesium (1.6-2.6) mg/dL Total Bilirubin (0.2-1.2) mg/dL Direct Bilirubin (0.0-0.5) mg/dL Indirect Bilirubin (0.0-1.2) mg/dL AST (5-34) Units/L ALT (0-55) Units/L Alkaline Phosphatase (38-126) Units/L Troponin I (0-0.03) ng/mL B-Natriuretic Peptide 24 (0-100) pg/mL Serum Total Protein (6.0-8.3) g/dL Albumin (3.5-5.0) g/dL Globulin (2.4-3.5) g/dL Albumin/Globulin Ratio (1.1-2.2) Lipase (8-78) Units/L Blood Type O POSITIVE Antibody Screen POSITIVE Antibody Identification Known Anti-c Critical Care Time Critical Care Time: Yes Total Critical Care Time: 45 Attestation: Critical care performed: Time is exclusive of separately billable procedures. Time includes: direct patient care, patient reassessment, coordination of patient care, interpretation of data (laboratory data, radiology data, and respiratory data), review of patient's medical records, medical consultation and documentation of patient care. Procedures included in critical care time: Procedures excluded from critical care time:
[2016-09-02 09:50] LABS: ABG Base Excess 3.2 mEq/L (-2.0 to 3.0); ABG HCO3 27.9 mEQ/L (21-27); ABG Oxygen Saturation 90 % (95-98); ABG PCO2 42 mmHg (35-45); ABG PH 7.43 pH Units (7.32-7.45); ABG PO2 56 mmHg (85-104); ABG TCO2 29.2 mEq/L (20-26); Blood Gas FiO2 50 %
[2016-09-02] MEDS ORDERED: Pantoprazole 40 MG VIAL IVP ONE (10:06)
[2016-09-02] MEDS ORDERED: Ondansetron 4 MG/2 ML VIAL IVP ONE (10:06)
[2016-09-02 10:12] LABS: Basophils % 0.3 %; Eosinophils # 0.2 K/mcL (0.0-0.6); Eosinophils % 1.7 %; Hematocrit 34.6 % (37.5-50.1); Hemoglobin 11.2 g/dL (12.9-16.9); Immature Granulocytes % 0.4 % (0-4); Immature Platelets 2.2 % (1.1-6.1); Lymphocytes # 1.4 K/mcL (0.6-4.6); Lymphocytes % 12.6 %; Mean Corpuscular HGB Conc 32.4 g/dL (31.6-35.5); Mean Corpuscular Hemoglobin 26.2 pg (28.0-33.3); Mean Platelet Volume 8.7 fL (9.4-12.4); Monocytes # 0.4 K/mcL (0.0-1.3); Monocytes % 3.8 %; Neutrophils # 9.2 K/mcL (1.6-8.9); Platelet Count 364 K/mcL (140-400); Red Blood Count 4.27 M/mcL (4.19-5.50); Red Cell Distribution Width 14.7 % (11.5-14.5); Segmented Neutrophils % 81.2 %
[2016-09-02 10:16] LABS: INR 1.1; Prothrombin Time 11.8 Seconds (9.4-12.1)
[2016-09-02 10:19] LABS: Activated Partial Thrombo Time 30.3 Seconds (26.0-36.0)
[2016-09-02 10:52] LABS: Alanine Aminotransferase 18 Units/L (0-55); Albumin 3.5 g/dL (3.5-5.0); Albumin/Globulin Ratio 0.8 (1.1-2.2); Alkaline Phosphatase 145 Units/L (38-126); Aspartate Amino Transferase 19 Units/L (5-34); BUN/Creatinine Ratio 10 (6-26); Bilirubin,Direct 0.3 mg/dL (0.0-0.5); Bilirubin,Indirect 0.3 mg/dL (0.0-1.2); Bilirubin,Total 0.6 mg/dL (0.2-1.2); Blood Urea Nitrogen 8 mg/dL (8-26); Calcium 10.3 mg/dL (8.6-10.8); Carbon Dioxide 26 mEq/L (19-29); Chloride 95 mEq/L (98-109); Globulin 4.2 g/dL (2.4-3.5); Glucose 129 mg/dL (70-99); Lipase 44 Units/L (8-78); Magnesium 1.8 mg/dL (1.6-2.6); Osmolality,Calculated 272 (280-300); Potassium 3.8 mEq/L (3.5-4.5); Sodium 131 mEq/L (136-145); Total Protein 7.7 g/dL (6.0-8.3); eGFR For African Americans > 60 (> 60); eGFR For Non-African Americans > 60 (> 60)
[2016-09-02] MEDS ORDERED: Ampicillin/Sulbactam 3,000 MG in 0.9 % Sodium Chloride Mini Bag 100 ML IVPB ONE (11:10)
[2016-09-02] MEDS ORDERED: *HR* LORazepam 2 MG/ML VIAL IVP ONE (13:39)
--- NOTE | 2016-09-02 14:04 | Electrocardiograph Report ---
[facility] Test Date: 2016-09-02 Pat Name: Chad Mora Department: 102 Room: 2NE24 Gender: M Watermelon Inspector: : [id number] Requested By: Guilherme Granger Order Number: [id number] Reading MD: Carlitos Brizuela MD Measurements Intervals [place] Rate: 75 P: 50 MN: 174 QRS: 20 QRSD: 128 T: 81 QT: 389 QTc: 418 Interpretive Statements SINUS RHYTHM POSSIBLE LEFT VENTRICULAR HYPERTROPHY [VOLTAGE CRITERIA PLUS LAE OR QRS WIDENING] INFERIOR MYOCARDIAL INFARCTION [40+ ms Q WAVE AND/OR ST/T ABNORMALITY IN II/aVF], OF INDETERMINATE AGE Electronically Signed On 09-02-2016 14:02:33 EDT by Carlitos Brizuela MD
[2016-09-02] MEDS ORDERED: Ondansetron 4 MG/2 ML VIAL IVP PRN (14:15)
[2016-09-02] MEDS ORDERED: Naloxone 0.4 MG/ML INJ IVP PRN (14:15)
[2016-09-02] MEDS ORDERED: *HR* OxyCODONE ER (12 HR) 10 MG TABLET PO PRN (15:25)
[2016-09-02] MEDS ORDERED: traMADol 50 MG TABLET PO PRN ×2 (15:25→17:24)
[2016-09-02] MEDS ORDERED: *HR* LORazepam 0.5 MG TABLET PO PRN (15:25)
--- NOTE | 2016-09-02 15:43 | Internal Med History&Physical ---
<Babs Amezcua - Last Filed: 09/02/16 17:21> Date of Encounter: 09/02/16 Time of Encounter: 15:43 Assessment and Plan (1) Acute respiratory failure Current visit: Yes Status: Acute 1 patient presented to the ER hypoxic in the lower 90s. ABG PO2 of 56. Patient has had a recent episode of vomiting x-ray indicative of aspiration. Patient placed on 50% Ventimask transitioned over to 5 L nasal cannula. We will continue oxygen titrating to maintain SPO2 greater than 92% 2 aspiration precautions 3 suction at bedside Qualifiers: Respiratory failure complication: hypoxia Qualified Code(s): J96.01 - Acute respiratory failure with hypoxia (2) Aspiration pneumonia Current visit: Yes Status: Acute 1 patient presented after several days of vomiting he does have history of dysphagia and is receiving tube feedings. History of fever he does have leukocytosis Upon presentation S PO2 was in the lower 90s, chest x-ray with right lower lobe pneumonia versus atelectasis. Blood cultures have been obtained patient was given Unasyn in the ER we will start him on Zosyn. 2 breathing treatments as needed 3 obtain sputum culture 4 aspiration precautions 5 NPO fpr now- will hold TF Qualifiers: Aspiration pneumonia type: unspecified Laterality: right Lung location: lower lobe of lung Qualified Code(s): J69.0 - Pneumonitis due to inhalation of food and vomit (3) COPD (chronic obstructive pulmonary disease) Current visit: No Status: Chronic Qualifiers: COPD type: unspecified COPD Qualified Code(s): J44.9 - Chronic obstructive pulmonary disease, unspecified (4) CAD (coronary artery disease) Current visit: No Status: Chronic 1 patient has had multiple stent placements. We will continue with aspirin Plavix statin beta pamella. 2 oxygen and nitroglycerin as needed Qualifiers: Coronary Disease-Associated Artery/Lesion type: [place] artery [place] vs. transplanted heart: unspecified whether [place] or transplanted heart Associated angina: angina presence unspecified Qualified Code(s): I25.10 - Atherosclerotic heart disease of [place] coronary artery without angina pectoris (5) Nausea & vomiting Current visit: Yes Status: Acute 1 patient has been experiencing several episodes of vomiting over the past few days. Unsure if this is viral or related to tube feedings We will continue with aspiration precautions head of bed elevated 30 degrees. 2 dietary consult for tube feedings 3 Zofran as needed for nausea vomiting Qualifiers: Vomiting type: unspecified Vomiting Intractability: non-intractable Qualified Code(s): R11.2 - Nausea with vomiting, unspecified (6) Cholecystitis Current visit: Yes Status: Acute 1 patient had a positive Hurd's sign as well as positive sonographic Hurd sign. Gallbladder ultrasound positive for acute cholecystitis. We did consult surgery Dr. Tinoco he did speak with the ER physician no surgical intervention at this time. He will see patient up on consult 2 continue with Zofran for nausea 3 continue with Zosyn (7) DVT prophylaxis Current visit: Yes Status: Acute 1 SCDs (8) Diarrhea Current visit: Yes Status: Acute 1 according to patient had 2 large loose bowel movements a day which were very dark. Patient is on ferrous sulfate. We will obtain cold as well as GI profile Qualifiers: Diarrhea type: unspecified type Qualified Code(s): R19.7 - Diarrhea, unspecified Internal Medicine - H&P: HPI Chief complaint: hypoxia Admitted From: Emergency Dept Plans for Post Hospital Care: Home History of present illness: Mr. Mora is a 61 year old male past medical hx of HTN COPD chronic back pain prostrate cancer CAD with stents schizophrenia. Patient has extensive medical history-in particular he has been residing in the [facility] since April after he had undergone a spinal stimulator placement in [place]. Since this time he has been bedridden receiving tube feedings, however TF have been held for past 24hrs. He does have a history of cholelithiasis, he had a drain placed in June and conservatively treated. Apparently on Tuesday he had an episode where he had vomited he had a another episode of vomiting on Tuesday as well as a fever Tuesday and Tuesday he was doing fairly well. This morning he had an episode of vomiting and diarrhea she became hypoxic, concern for aspiration. He was transported to [place] for further evaluation. Upon presentation patient was covered in vomit, oxygen saturations were lower 90s. ABG was obtained pH was 7.43 PCO2 was 42 PO2 is 56 and O2 sat was 90 Vicryl as well as appointment. He was placed on nonrebreather lab work revealed slight leukocytosis 11.3 chemistry unremarkable lactate was 0.7 troponin was 0.01. Chest x-ray revealed atelectasis versus pneumonia and right lower lobe. Patient had a positive Hurd sign assessment ultrasound of abdomen revealed sonographic Hurd sign with gallbladder wall thickening findings are strongly indicative of acute cholecystitis. ER physician did speak with Dr. Tinoco not a surgical candidate at this time he will see the patient on consult. Blood cultures were obtained patient was given Unasyn and has been admitted for further workup and evaluation presently the patient is alert oriented 3, appropriate he does follow simple commands however he is very slow to respond. Cranial nerves II through XII are intact he is able to move all extremities however very weak. He has regular heart rhythm S1-S2 no rubs clicks gallops murmurs noted. His lung sounds have some scattered rhonchi throughout. His abdomen is soft and nontender to palpation he has no pedal edema. Of note he does have sever gaulding under his armpits bilaterally. No other breakdown noted. His SPO2 is 100% on 50% nonrebreather we will place him on 5 L nasal cannula. He is hemodynamically stable this time review this case with who agrees with plan Past Med Surg Social Fam HX - Past Medical History Medical history: COPD (not on home oxygen), coronary artery disease, hyperlipidemia, hypertension, myocardial infarction (x3) Psychiatric history: anxiety, depression, schizophrenia, previous psychiatric hospitalization - Past Surgical History Surgical History: angioplasty/stent (9 cardiac stents), orthopedic, other ( spinal surgery, back spinal stimulator, LLE repair after trauma (tree crushed leg)) - Social History Smoking Status: Current every day smoker Smokeless Tobacco Status: No Alcohol use: none Drug use: none - Family History Father Living Status: Hx Family Cardiac Disorders: Yes Internal Medicine - H&P: Meds Aspirin [Lo-Dose Aspirin EC] 81 mg PO DAILY 04/28/16 [History] Atorvastatin Calcium [Lipitor] 80 mg PO QPM 04/28/16 [History] Clopidogrel [Plavix] 75 mg PO DAILY 04/28/16 [History] Docusate [Colace] 200 mg PO DAILY 04/28/16 [History] Fluticasone Propionate Nasal [Flonase] 1 spray NS DAILY 04/28/16 [History] Hydrocortisone 1% CREAM [Cortaid] 1 appl TP BID 04/28/16 [History] Lidocaine 4% CRM (LMX) [Lmx 4] 1 appl TP BID PRN 04/28/16 [History] Oxcarbazepine [Oxtellar Xr] 300 mg PO TID 04/28/16 [History] Sennosides [Laxative] 17.2 mg PO DAILY PRN 04/28/16 [History] risperiDONE [Risperidone] 2 mg PO HS 04/28/16 [History] Acetaminophen [Tylenol] 650 mg PO Q6HR 06/06/16 [History] Ipratropium/Albuterol Neb [Duoneb] 3 ml IH Q4HR 06/06/16 [History] Melatonin/Pyridoxine HCl (B6) [Melatonin 3 mg Tablet] 9 mg PO HS 06/06/16 [ History] Multivitamin Liquid [Cerovite Liquid] 5 ml PO DAILY 06/06/16 [History] Amlodipine Besylate 10 mg PO DAILY 09/02/16 [History] Baclofen 5 mg PO TID 09/02/16 [History] Balsam [place] Oil [Venelex Ointment] 1 appl TP BID 09/02/16 [History] Buspirone HCl [Buspar] 7.5 mg PO TID 09/02/16 [History] Carvedilol 12.5 mg PO BID 09/02/16 [History] Chlorhexidine Gluconate [Peridex] 15 ml MM BID 09/02/16 [History] Cholecalciferol (D-3) [Vitamin D] 2,000 unit PO DAILY 09/02/16 [History] Ferrous Sulfate Oral Soln 220 mg PO BID 09/02/16 [History] Gabapentin [Neurontin] 300 mg PO TID 09/02/16 [History] Isosorbide DInitrate [Isosorbide Dinitrate] 20 mg PO TID 09/02/16 [History] LORazepam [Ativan] 0.5 mg PO QID PRN 09/02/16 [History] Lidocaine Patch [Lidoderm 5% patch] 1 patch TP DAILY 09/02/16 [History] Nystatin Cream [Mycostatin Cream] 1 appl TP BID 09/02/16 [History] Nystatin POWDER [Nystop] 1 appl TP BID 09/02/16 [History] Ondansetron [Zofran ODT] 8 mg SL Q4HR PRN 09/02/16 [History] Oxycodone HCl [Oxycontin] 10 mg PO QID PRN 09/02/16 [History] Pantoprazole Sodium [Protonix] 40 mg PO DAILY 09/02/16 [History] Potassium Chloride 20% [Potassium Chloride] 15 ml PO TID 09/02/16 [History] Saliva Stimulant [Biotene Moisturizing Rinse] 2 ml MM 5XD 09/02/16 [History] Simethicone [Gaviscon Drops] 80 mg PO TID 09/02/16 [History] Spironolactone [Aldactone] 25 mg PO DAILY 09/02/16 [History] Terazosin HCl 8 mg PO HS 09/02/16 [History] Tramadol HCl [Ultram] 50 mg PO QID PRN 09/02/16 [History] Venlafaxine [Effexor] 75 mg PO BID 09/02/16 [History] hydrALAZINE [HydrALAZINE] 75 mg PO TID 09/02/16 [History] Allergies fentanyl Allergy (Verified 04/27/16 23:01) Rash hydrogen peroxide [From Peroxyl] Allergy (Verified 04/27/16 23:01) Rash piroxicam Allergy (Verified 06/05/16 19:20) See Comments propofol Allergy (Verified 06/05/16 19:20) See Comments All Systems PM: A 10-system review of systems was performed and is negative for pertinent findings except as documented above in the HPI. - Constitutional Constitutional: no chills, no fever(s), no night sweats - EENT Eyes: no change in vision, no discharge, no pain, no photophobia Ears: no ear discharge, no ear pain, no tinnitus Nose, mouth and throat: no dysphagia, no nasal discharge, no neck pain, no sore throat - Cardiovascular Cardiovascular ROS IM: dyspnea, no chest pain, no diaphoresis, no lightheadedness, no palpitations, no syncope - Respiratory Respiratory: cough, dyspnea - Gastrointestinal Gastrointestinal: abdominal pain, diarrhea, nausea, vomiting - Integumentary Integumentary IM: erythema, rash - Neurological Neurological ROS: focal weakness, weakness - Psychiatric Psychiatric: anxiety, confusion - Constitutional Vitals: Temp Pulse Resp BP Pulse Ox 98.7 F 96 20 138/98 100 09/02/16 14:25 09/02/16 14:25 09/02/16 14:25 09/02/16 14:25 09/02/16 14:25 General appearance: Present: A&O X 3, answers questions appropriately - Head Head exam: Present: atraumatic, normocephalic - Eye Eye exam: Present: EOMI, PERRL, conjuntiva pink, sclera anicteric Pupils: Present: PERRL - Neck Neck exam general surgery: Present: supple, trachea midline. Absent: lymphadenopathy - Respiratory Respiratory exam: Present: rhonchi. Absent: accessory muscle use, rales, wheezes - Cardiovascular Cardiovascular exam: Present: RRR, +S1, +S2. Absent: diastolic murmur, gallop, rubs, systolic murmur - GI/Abdominal GI/Abdominal exam: Present: normal bowel sounds, soft, no peritoneal signs. Absent: distended, tenderness - Extremities Exam Extremities exam: Present: warm, radial pulses palpable and symetrical. Absent : calf tenderness, cyanotic, pedal edema - Neurological Exam Neurological exam: Present: CN II-XII intact, oriented X3, no focal deficits. Absent: pronater drift, facial droop, speech deficit - Skin Skin exam: Present: dry, erythema, excoriation, intact Internal Med - H&P Results - Labs CBC & Chem 7: 09/02/16 10:03 09/02/16 10:03 - EKG Data EKG shows normal: sinus rhythm - Diagnostic Studies Other Images Additional comments: Chest X-Ray 09/02/16 09:38 IMPRESSION: Question of atelectasis versus pneumonia in the right lower lobe. Follow-up PA and lateral radiographs can be obtained for further evaluation if necessary. D/ / Angelito Benitez MD / Angelito Benitez MD Interpreting Provider: Angelito Benitez MD Abdomen/Pelvis CT 09/02/16 10:28 IMPRESSION: 1. No acute abdominopelvic process demonstrated 2. Gallbladder wall thickening with no definite pericholecystic stranding to the indicate acute cholecystitis. Ultrasound may be useful for further evaluation 3. Small urinary bladder calculi 4. Stable 3.4 x 3.3 cm abdominal aortic aneurysm 5. Small to moderate right pleural effusion with basilar atelectasis RECOMMENDATIONS: Managing Abdominal Aortic Aneurysms 2.6-2.9 cm: 5 year follow up. 3.0-3.4 cm: 3 year follow up 3.5-3.9 cm: 1 year follow up. 4.0-4.4 cm: 1 year follow up. Recommend vascular consultation. 4.5-5.4 cm: 6 month follow up. Recommend vascular consultation. Greater than or equal to 5.5 cm: Referral to vascular surgeon. Reference: Annette et al. The care of patients with an abdominal aortic aneurysm: The Society of Vascular Surgery practice guidelines. Journal of Vascular Surgery. Vol 50, Number 85. Mine et al. Managing Incidental Findings on Abdominal and Pelvic CT and MRI, Part 2: White Paper of the ACR Incidental Findings Committee II on Vascular Findings. J Am Denys Radiol 2013;10:789-794 D/ / Dustin Moreno MD / Dustin Moreno MD Interpreting Provider: Dustin Moreno MD Head CT 09/02/16 10:34 IMPRESSION: 1. No acute intracranial abnormality. 2. Diffuse cerebral atrophy with chronic small vessel ischemic disease. D/ / Cristi Larsen MD / Cristi Larsen MD Interpreting Provider: Cristi Larsen MD Gallbladder Ultrasound 09/02/16 11:37 IMPRESSION: Cholelithiasis with gallbladder wall thickening and positive sonographic Hurd sign. The findings are strongly indicative of of acute cholecystitis. Right pleural effusion. D/ / 09/02/2016 12:50:23 Santana Sanders MD / [email or web address] Interpreting Provider: Santana Sanders MD <Nathanael Alex T - Last Filed: 09/02/16 17:24> Date of Encounter: 09/02/16 Internal Medicine - H&P: HPI History of present illness: Mr. Mora is a 61 year old male All Systems PM: A 10-system review of systems was performed and is negative for pertinent findings except as documented above in the HPI. - Constitutional Vitals: Temp Pulse Resp BP Pulse Ox 98.7 F 96 20 138/98 100 09/02/16 14:25 09/02/16 14:25 09/02/16 14:25 09/02/16 14:25 09/02/16 14:25 Internal Med - H&P Results - Labs CBC & Chem 7: 09/02/16 10:03 09/02/16 10:03 - Attending Attestation 60 M, resident of [place], bed-bound, recently discharged from [facility] after placement of cholecystostomy for Acute cholecystitis due to patient being poor candidate for surgery. Presented today from [place] with complains of abdominal pain, nausea and vomiting, at time of presentation, patient had vomitus on his and was in acute hypoxic respiratory failure. Work up in ER reveal acute cholecystitis, aspiration pneumonia. Patient is seen and evaluated at bedside independently. Sister at the bedside Physical exam revealed 92% on 4L NC, slow mentation but oriented X3, obese, moves all extremities independently, masked facies. Chest auscultation anteriorly is clear, HS S1, S2, gallop, no murmurs, Abdomen is soft, not-tender , negative [place] sign, BS present in all quadrants, PEG tube site clean and dry, no pedal edema Labs and Imaging reviewed A/P *Acute Hypoxic respiratory failure secondary to aspiration pneumonitis and aspiration pneumonia: Agree with Zosyn. Jacinto. Patient is not septic at this time *Acute calculous cholecystitis by imaging: Patients abdomen is benign on exam, continue Zosyn, follow surgery eval Resume home meds Transmitter Chief eval for tube feeds, rest of details as in [employer] [facility] documentation
[2016-09-02] MEDS: Piperacillin/Tazobactam 3.375 GM in D5% in Water (Mini-Bag+) 100 ML IVPB SCH ×2 (16:28→23:00)
--- NOTE | 2016-09-02 16:51 | General Surgery Consult Note ---
<Zeke Tinoco M - Last Filed: 09/02/16 17:52> Date of Encounter: 09/02/16 Medications and Allergies Atorvastatin Calcium [Lipitor] 80 mg PO HS 04/28/16 [History] Clopidogrel [Plavix] 75 mg PO DAILY 04/28/16 [History] Fluticasone Propionate Nasal [Flonase] 100 mcg NS DAILY 04/28/16 [History] Hydrocortisone 1% CREAM [Cortaid] 1 appl TP BID 04/28/16 [History] Lidocaine 4% CRM (LMX) [Lmx 4] 1 appl TP DAILY 04/28/16 [History] Sennosides [Laxative] 17.2 mg PO DAILY PRN 04/28/16 [History] risperiDONE [Risperidone] 2 mg PO HS 04/28/16 [History] Ipratropium/Albuterol Neb [Duoneb] 3 ml IH Q6H PRN 06/06/16 [History] Melatonin/Pyridoxine HCl (B6) [Melatonin 3 mg Tablet] 9 mg PO HS 06/06/16 [ History] Multivitamin Liquid [Cerovite Liquid] 15 ml PO DAILY 06/06/16 [History] Acetaminophen [Tylenol Susp] 650 mg PO Q6HR PRN 09/02/16 [History] Albuterol Sulfate [Albuterol Inhaler] 2 puff IH Q6H PRN 09/02/16 [History] Amlodipine Besylate 10 mg PO DAILY 09/02/16 [History] Aspirin 81 mg PO DAILY 09/02/16 [History] Baclofen 5 mg PO TID 09/02/16 [History] Balsam Trista/[place] Oil [Venelex Ointment] 1 appl TP BID 09/02/16 [History] Buspirone HCl [Buspar] 7.5 mg PO TID 09/02/16 [History] Carvedilol 12.5 mg PO BID 09/02/16 [History] Chlorhexidine Gluconate [Peridex] 15 ml MM BID 09/02/16 [History] Cholecalciferol (D-3) [Vitamin D] 2,000 unit PO DAILY 09/02/16 [History] Docusate [Colace] 200 mg PO DAILY 09/02/16 [History] Ferrous Sulfate Oral Soln 220 mg PO BID 09/02/16 [History] Gabapentin [Neurontin] 300 mg PO TID 09/02/16 [History] Isosorbide DInitrate [Isosorbide Dinitrate] 20 mg PO TID 09/02/16 [History] LORazepam [Ativan] 0.5 mg PO Q6H PRN 09/02/16 [History] Lidocaine Patch [Lidoderm 5% patch] 1 patch TD DAILY 09/02/16 [History] Nystatin Cream [Mycostatin Cream] 1 appl TP BID 09/02/16 [History] Nystatin POWDER [Nystop] 1 appl TP BID 09/02/16 [History] OXcarbazepine [Oxcarbazepine] 300 mg PO TID 09/02/16 [History] Oxycodone HCl 10 mg PO QID 09/02/16 [History] Pantoprazole Sodium [Protonix] 40 mg PO DAILY 09/02/16 [History] Potassium Chloride 20% [Potassium Chloride] 20 meq PO TID 09/02/16 [History] Promethazine [Phenergan] 25 mg PO TID PRN 09/02/16 [History] Ranitidine HCl [Acid Pointing Machine Operator] 150 mg PO BID PRN 09/02/16 [History] Saliva Substitute Combo No.3 [Aquoral] 4 spray MM 5XD 09/02/16 [History] Simethicone [Gaviscon Drops] 80 mg PO TID 09/02/16 [History] Spironolactone [Aldactone] 25 mg PO DAILY 09/02/16 [History] Terazosin HCl 8 mg PO HS 09/02/16 [History] Tramadol HCl [Ultram] 50 mg PO Q6H PRN 09/02/16 [History] Venlafaxine [Effexor] 75 mg PO BID 09/02/16 [History] hydrALAZINE [HydrALAZINE] 75 mg PO TID 09/02/16 [History] risperiDONE [Risperidone] 1 mg PO BID 09/02/16 [History] Allergies fentanyl Allergy (Verified 04/27/16 23:01) Rash hydrogen peroxide [From Peroxyl] Allergy (Verified 04/27/16 23:01) Rash piroxicam Allergy (Verified 06/05/16 19:20) See Comments propofol Allergy (Verified 06/05/16 19:20) See Comments Review of Systems All systems PM: A 10-system review of systems was performed and is negative for pertinent findings except as documented above in the HPI. General Surgery Exam Initial Vital Signs Temp Pulse Resp BP Pulse Ox 97.9 F 84 22 156/119 86 09/02/16 09:36 09/02/16 09:36 09/02/16 09:36 09/02/16 09:36 09/02/16 09:36 Exam Initial Vital Signs Temp Pulse Resp BP Pulse Ox 97.9 F 84 22 156/119 86 09/02/16 09:36 09/02/16 09:36 09/02/16 09:36 09/02/16 09:36 09/02/16 09:36 Results - Labs 09/02/16 10:03 09/02/16 10:03 Abnormal lab results WBC 11.3 K/mcL (4.3-11.1) H 09/02/16 10:03 Hgb 11.2 g/dL (12.9-16.9) L 09/02/16 10:03 Hct 34.6 % (37.5-50.1) L 09/02/16 10:03 MCV 81.0 fL (83.0-100.0) L 09/02/16 10:03 MCH 26.2 pg (28.0-33.3) L 09/02/16 10:03 RDW 14.7 % (11.5-14.5) H 09/02/16 10:03 MPV 8.7 fL (9.4-12.4) L 09/02/16 10:03 Neutrophils # 9.2 K/mcL (1.6-8.9) H 09/02/16 10:03 ABG pO2 56 mmHg (85-104) L 09/02/16 09:45 ABG HCO3 27.9 mEQ/L (21-27) H 09/02/16 09:45 ABG Total CO2 29.2 mEq/L (20-26) H 09/02/16 09:45 ABG O2 Saturation 90 % (95-98) L 09/02/16 09:45 ABG Base Excess 3.2 mEq/L (-2.0 to 3.0) H 09/02/16 09:45 Sodium 131 mEq/L (136-145) L 09/02/16 10:03 Chloride 95 mEq/L (98-109) L 09/02/16 10:03 Glucose 129 mg/dL (70-99) H 09/02/16 10:03 POC Glucose 126 (58-89) H 09/02/16 09:44 Calculated Osmolality 272 (280-300) L 09/02/16 10:03 Alkaline Phosphatase 145 Units/L (38-126) H 09/02/16 10:03 Globulin 4.2 g/dL (2.4-3.5) H 09/02/16 10:03 Albumin/Globulin Ratio 0.8 (1.1-2.2) L 09/02/16 10:03 All other labs normal. Consult Discharge Plan - Plan [facility]errals[facility]Primary Care Provider[facility] - - Attending Attestation I reviewed the above assessment and evaluation with the nurse practictioner and agree with the above. Patient has had vomiting for several days and is currently admitted due to aspiration. He does not report any abdominal pain to palpation. I am unable to assess any presence of RUQ pain and am uncertain as to the etiology of his nausea/vomiting. I do not think he is an appropriate surgical candidate for a cholecystectomy and recommend placing the PEG to gravity moscoso drainage. IVF hydration and IV antibiotics for coverage. Will follow with you. <Marlyn Prather - Last Filed: 09/03/16 11:46> Date of Encounter: 09/03/16 Time of Encounter: 16:30 Assessment and Plan (1) Cholelithiasis Current Visit: Yes Status: Chronic No urgent surgical intervention at this time Supportive measures IV fluids Pain control Empiric antibiotic therapy- agree with Zosyclement Serial abdominal exams Will continue to follow and assess progress Qualifiers: Cholelithiasis location: gallbladder Cholecystitis presence: with cholecystitis Cholecystitis acuity: chronic Biliary obstruction: without biliary obstruction Qualified Code(s): K80.10 - Calculus of gallbladder with chronic cholecystitis without obstruction (2) Nausea & vomiting Current Visit: Yes Status: Acute Place peg tube to gravity drain (moscoso bag) NPO IV fluids Qualifiers: Vomiting type: unspecified Vomiting Intractability: non-intractable Qualified Code(s): R11.2 - Nausea with vomiting, unspecified (3) Aspiration pneumonia Current Visit: Yes Status: Acute Management per medicine service IV antibiotics Qualifiers: Aspiration pneumonia type: unspecified Laterality: right Lung location: lower lobe of lung Qualified Code(s): J69.0 - Pneumonitis due to inhalation of food and vomit History of Present Illness Consult date: 09/02/16 Reason for consult: other (Abdominal pain with associated nausea and vomiting) Requesting physician: Guilherme Granger History of present illness: Mr. Mora is a 61-year-old male with a very complex past medical history. Much of the history from the history of present illness is obtained from the primary nurse and the medical records as the patient is unable to give any information at this time. He was transferred from the [facility] with complaints of nausea and vomiting for the past 3 days. His tube feeds have been held for the past24 hours. There were also concerns for aspiration and possible pneumonia. The patient initially had abdominal pain on presentation but states that this is improved at this time. There were no reports of fevers or chills. The patient was admitted in June 2016 for similar complaints and had a cholecystostomy tube placed at that time. He was not medically stable enough for a surgical procedure at that time and the decision was made to treat him conservatively for cholecystitis. The patient's drain was scheduled to be removed on 07/12/[address] Brenner. However, his last visit with Dr. Brenner was on June 23, 2016. The patient has had a CAT scan and ultrasound completed which shows thickening of the gallbladder wall and concerns for possible cholecystitis. We have been asked to see and evaluate the patient for recommendations. Past Med Surg Social Fam HX - Past Medical History Source: old records reviewed Medical history: COPD (not on home oxygen), coronary artery disease, hyperlipidemia, hypertension, myocardial infarction (x3), other (Altered mental status- the patient's symptoms began after having a spinal stimulator placed in April 2016. He has had extensive workup, however the etiology for his mental status changes continues to be unclear.) Psychiatric history: anxiety, depression, schizophrenia, previous psychiatric hospitalization - Past Surgical History Surgical History: angioplasty/stent (9 cardiac stents), orthopedic, other ( spinal surgery, back spinal stimulator, LLE repair after trauma (tree crushed leg)), other (Peg tube placement) - Social History Smoking Status: Current every day smoker Smokeless Tobacco Status: No Alcohol use: none Drug use: none Occupational status: disabled - Family History Father Living Status: Hx Family Cardiac Disorders: Yes Review of Systems ROS unobtainable: due to mental status All systems PM: A 10-system review of systems was performed and is negative for pertinent findings except as documented above in the HPI. General Surgery Exam Initial Vital Signs Temp Pulse Resp BP Pulse Ox 97.9 F 84 22 156/119 86 09/02/16 09:36 09/02/16 09:36 09/02/16 09:36 09/02/16 09:36 09/02/16 09:36 - General physical appearance chronically ill - Eyes normal ocular movement - ENT dry mucosa, atraumatic, normocephalic - Neck trachea midline - Respiratory normal respiratory effort, other (diminished bibasilar bases) rales: bilateral - Cardiovascular Cardiovascular exam: Present: RRR - Abdomen Abdomen general surgery: Present: bowel sounds present, soft, non tender, wound (peg tube clamped) - Integumentary Integumentary general surgery: Present: warm and dry - Neurologic Present: disoriented, other (pleasantly confused) - Musculoskeletal Present: other (severe deconditioning) - Psychiatric Psychiatric general surgery: Present: oriented to person Exam Initial Vital Signs Temp Pulse Resp BP Pulse Ox 97.9 F 84 22 156/119 86 09/02/16 09:36 09/02/16 09:36 09/02/16 09:36 09/02/16 09:36 09/02/16 09:36 Results - Labs 09/03/16 03:19 09/03/16 03:19 Abnormal lab results WBC 11.3 K/mcL (4.3-11.1) H 09/02/16 10:03 Hgb 11.2 g/dL (12.9-16.9) L 09/02/16 10:03 Hct 34.6 % (37.5-50.1) L 09/02/16 10:03 MCV 81.0 fL (83.0-100.0) L 09/02/16 10:03 MCH 26.2 pg (28.0-33.3) L 09/02/16 10:03 RDW 14.7 % (11.5-14.5) H 09/02/16 10:03 MPV 8.7 fL (9.4-12.4) L 09/02/16 10:03 Neutrophils # 9.2 K/mcL (1.6-8.9) H 09/02/16 10:03 ABG pO2 56 mmHg (85-104) L 09/02/16 09:45 ABG HCO3 27.9 mEQ/L (21-27) H 09/02/16 09:45 ABG Total CO2 29.2 mEq/L (20-26) H 09/02/16 09:45 ABG O2 Saturation 90 % (95-98) L 09/02/16 09:45 ABG Base Excess 3.2 mEq/L (-2.0 to 3.0) H 09/02/16 09:45 Sodium 131 mEq/L (136-145) L 09/02/16 10:03 Chloride 95 mEq/L (98-109) L 09/02/16 10:03 Glucose 129 mg/dL (70-99) H 09/02/16 10:03 Calculated Osmolality 272 (280-300) L 09/02/16 10:03 Alkaline Phosphatase 145 Units/L (38-126) H 09/02/16 10:03 Globulin 4.2 g/dL (2.4-3.5) H 09/02/16 10:03 Albumin/Globulin Ratio 0.8 (1.1-2.2) L 09/02/16 10:03 All other labs normal. - Imaging Additional studies: Chest X-Ray 09/02/16 09:38 IMPRESSION: Question of atelectasis versus pneumonia in the right lower lobe. Follow-up PA and lateral radiographs can be obtained for further evaluation if necessary. D/ / Angelito Benitez MD / Angelito Benitez MD Interpreting Provider: Angelito Benitez MD Abdomen/Pelvis CT 09/02/16 10:28 IMPRESSION: 1. No acute abdominopelvic process demonstrated 2. Gallbladder wall thickening with no definite pericholecystic stranding to the indicate acute cholecystitis. Ultrasound may be useful for further evaluation 3. Small urinary bladder calculi 4. Stable 3.4 x 3.3 cm abdominal aortic aneurysm 5. Small to moderate right pleural effusion with basilar atelectasis RECOMMENDATIONS: Managing Abdominal Aortic Aneurysms 2.6-2.9 cm: 5 year follow up. 3.0-3.4 cm: 3 year follow up 3.5-3.9 cm: 1 year follow up. 4.0-4.4 cm: 1 year follow up. Recommend vascular consultation. 4.5-5.4 cm: 6 month follow up. Recommend vascular consultation. Greater than or equal to 5.5 cm: Referral to vascular surgeon. Reference: Annette et al. The care of patients with an abdominal aortic aneurysm: The Society of Vascular Surgery practice guidelines. Journal of Vascular Surgery. Vol 50, Number 85. Mine et al. Managing Incidental Findings on Abdominal and Pelvic CT and MRI, Part 2: White Paper of the ACR Incidental Findings Committee II on Vascular Findings. J Am Denys Radiol 2013;10:789-794 D/ / Dustin Moreno MD / Dustin Moreno MD Interpreting Provider: Dustin Moreno MD Head CT 09/02/16 10:34 IMPRESSION: 1. No acute intracranial abnormality. 2. Diffuse cerebral atrophy with chronic small vessel ischemic disease. D/ / Cristi Larsen MD / Cristi Larsen MD Interpreting Provider: Cristi Larsen MD Gallbladder Ultrasound 09/02/16 11:37 IMPRESSION: Cholelithiasis with gallbladder wall thickening and positive sonographic Hurd sign. The findings are strongly indicative of of acute cholecystitis. Right pleural effusion. D/ / 09/02/2016 12:50:23 Santana Sanders MD / kolby Interpreting Provider: Santana Sanders MD - Attending Attestation I examined this patient and my medical decision-making was reviewed with the PROCESS CONSULTANT/PA/Advanced Practice Nurse/Resident Physician. I agree with the documented findings, disposition and treatment plan as described except to the extent set forth below.
[2016-09-02] MEDS: Ipratropium/Albuterol Neb 3 ML IH SCH ×3 (18:09→23:03)
[2016-09-02] MEDS: Acetaminophen 325 MG TABLET PO SCH ×2 (18:43→23:01)
[2016-09-02] MEDS ORDERED: Chlorhexidine Rinse 15 ML MOUTHWASH MM SCH (21:00)
[2016-09-02] MEDS ORDERED: risperiDONE 1 MG TABLET PO SCH (21:00)
[2016-09-02] MEDS ORDERED: Melatonin 3 MG TABLET PO SCH (21:00)
[2016-09-02] MEDS ORDERED: POTASSIUM CHLORIDE PO SCH (21:00)
[2016-09-02] MEDS: Pantoprazole 40 MG VIAL IVP SCH (21:25)
[2016-09-02] MEDS: *HR* LORazepam 2 MG/ML VIAL IVP PRN (21:25)
[2016-09-02] MEDS: Gabapentin 300 MG CAPSULE PO SCH (21:52)
[2016-09-02] MEDS: hydrALAZINE 25 MG TABLET PO SCH (21:52)
[2016-09-02] MEDS: Ferrous Sulfate Oral Soln 300 MG/5 ML UDC PO SCH (21:52)
[2016-09-02] MEDS: Simethicone 80 MG TAB.CHEW PO SCH (21:52)
[2016-09-02] MEDS: Baclofen 10 MG TABLET PO SCH (21:52)
[2016-09-02] MEDS: Nystatin Cream 15 GM TUBE TP SCH (21:52)
[2016-09-02] MEDS: OXcarbazepine 150 MG TABLET PO SCH (21:53)
[2016-09-02] MEDS: Nystatin POWDER 30 GM BOTTLE TP SCH (21:53)
[2016-09-02] MEDS: *HR* Metoprolol 5 MG/5 ML VIAL IVP SCH (23:00)
[2016-09-03] MEDS: Ipratropium/Albuterol Neb 3 ML IH SCH ×4 (03:45→15:49)
[2016-09-03 04:13] LABS: Basophils % 0.2 %; Eosinophils # 0.1 K/mcL (0.0-0.6); Eosinophils % 0.6 %; Hematocrit 33.2 % (37.5-50.1); Hemoglobin 10.7 g/dL (12.9-16.9); Immature Granulocytes % 0.4 % (0-4); Lymphocytes # 2.1 K/mcL (0.6-4.6); Lymphocytes % 15.1 %; Mean Corpuscular HGB Conc 32.2 g/dL (31.6-35.5); Mean Corpuscular Hemoglobin 26.6 pg (28.0-33.3); Mean Corpuscular Volume 82.4 fL (83.0-100.0); Mean Platelet Volume 9.2 fL (9.4-12.4); Monocytes % 7.4 %; Neutrophils # 10.6 K/mcL (1.6-8.9); Platelet Count 303 K/mcL (140-400); Red Blood Count 4.03 M/mcL (4.19-5.50); Segmented Neutrophils % 76.3 %
[2016-09-03 04:30] LABS: BUN/Creatinine Ratio 10 (6-26); Blood Urea Nitrogen 8 mg/dL (8-26); Calcium 9.9 mg/dL (8.6-10.8); Carbon Dioxide 27 mEq/L (19-29); Chloride 102 mEq/L (98-109); Glucose 94 mg/dL (70-99); Osmolality,Calculated 286 (280-300); Potassium 3.4 mEq/L (3.5-4.5); eGFR For African Americans > 60 (> 60); eGFR For Non-African Americans > 60 (> 60)
[2016-09-03 04:31] LABS: Sodium 139 mEq/L (136-145)
[2016-09-03] MEDS: *HR* Metoprolol 5 MG/5 ML VIAL IVP SCH ×3 (05:12→15:35)
[2016-09-03] MEDS: Acetaminophen 325 MG TABLET PO SCH (05:13)
[2016-09-03] MEDS: Pantoprazole 40 MG VIAL IVP SCH (05:13)
[2016-09-03] MEDS ORDERED: *HR* Enoxaparin 40 MG/0.4 ML SYRINGE SQ SCH (07:00)
[2016-09-03] MEDS: Piperacillin/Tazobactam 3.375 GM in D5% in Water (Mini-Bag+) 100 ML IVPB SCH ×2 (07:29→15:35)
[2016-09-03] MEDS ORDERED: Potassium Chloride Elixir 20 MEQ/15 ML UDC PO SCH (09:00)
[2016-09-03] MEDS ORDERED: Multivitamin Liquid 15 ML UDC PO SCH (09:00)
[2016-09-03] MEDS ORDERED: Pantoprazole 40 MG VIAL IVP SCH (09:00)
[2016-09-03] MEDS ORDERED: Cholecalciferol (D-3) 1,000 UNIT TABLET PO SCH (09:00)
[2016-09-03] MEDS ORDERED: Fluticasone Propionate Nasal 50 MCG/SPRAY BOTTLE NS SCH (09:00)
[2016-09-03] MEDS ORDERED: Aspirin Enteric Coated 81 MG Tablet PO SCH (09:00)
[2016-09-03] MEDS ORDERED: amLODIPine 5 MG TABLET PO SCH (09:00)
[2016-09-03] MEDS ORDERED: Spironolactone 25 MG TABLET PO SCH (09:00)
[2016-09-03] MEDS: *HR* LORazepam 2 MG/ML VIAL IVP PRN ×2 (10:02→12:46)
[2016-09-03] MEDS: Ferrous Sulfate Oral Soln 300 MG/5 ML UDC PO SCH (10:11)
[2016-09-03] MEDS: Simethicone 80 MG TAB.CHEW PO SCH ×2 (10:18→15:10)
[2016-09-03] MEDS: Baclofen 10 MG TABLET PO SCH (10:18)
[2016-09-03] MEDS: Nystatin POWDER 30 GM BOTTLE TP SCH (10:18)
[2016-09-03] MEDS: Nystatin Cream 15 GM TUBE TP SCH (10:18)
[2016-09-03] MEDS: hydrALAZINE 25 MG TABLET PO SCH (10:18)
[2016-09-03] MEDS: Gabapentin 300 MG CAPSULE PO SCH (10:18)
[2016-09-03] MEDS: OXcarbazepine 150 MG TABLET PO SCH (10:19)
[2016-09-03 10:51] LABS: Bilirubin,Urine Negative (Negative); Blood,Urine Moderate (Negative); Clarity,Urine Cloudy (Clear); Color,Urine Yellow (Yellow); Glucose,Urine (UA) Normal (Normal); Ketones,Urine Negative (Negative); Leukocyte Esterase,Urine Negative (Negative); Nitrite,Urine Negative (Negative); Protein,Urine 100 mg/dL (Neg-Trace); Specific Gravity,Urine 1.028 (1.010-1.025); Urobilinogen,Urine Normal (Normal)
[2016-09-03 10:54] LABS: Bacteria,Urine None Seen per hpf (None-Few); Hyaline Casts,Urine None Seen per lpf (None-Few); RBC,Urine TNTC per hpf (0-3); Squamous Epithelial Cell,Urine Many per lpf (None-Few)
--- NOTE | 2016-09-03 11:42 | General Surgery Progress Note ---
Date of Encounter: 09/03/16 Time of Encounter: 10:15 - Assessment and Plan (1) Cholelithiasis Current Visit: Yes Status: Chronic No surgical intervention at this time Supportive measures IV fluids Pain control Empiric antibiotic therapy- agree with Zosyn Serial abdominal exams May resume tube feeds as tolerated- consult to nutrition Qualifiers: Cholelithiasis location: gallbladder Cholecystitis presence: with cholecystitis Cholecystitis acuity: chronic Biliary obstruction: without biliary obstruction Qualified Code(s): K80.10 - Calculus of gallbladder with chronic cholecystitis without obstruction (2) Nausea & vomiting Current Visit: Yes Status: Acute Resolved May slowly advance tube feeds- consult to coil inspector IV fluids Qualifiers: Vomiting type: unspecified Vomiting Intractability: non-intractable Qualified Code(s): R11.2 - Nausea with vomiting, unspecified (3) Aspiration pneumonia Current Visit: Yes Status: Acute Management per medicine service Qualifiers: Aspiration pneumonia type: unspecified Laterality: right Lung location: lower lobe of lung Qualified Code(s): J69.0 - Pneumonitis due to inhalation of food and vomit Subjective Patient reports: no new complaints, still having pain (back pain), afebrile, other (Patient reports minimal abdominal discomfort; denies nausea/vomiting) Objective Vital Signs - Last 8 Hours Temp Pulse Resp BP Pulse Ox 09/03/16 07:42 18 95 09/03/16 06:59 98.5 F 69 15 124/81 98 09/03/16 05:18 98.5 F 89 14 156/92 90 09/03/16 03:45 18 99 Intake and Output 09/02/16 09/03/16 09/03/16 23:59 07:59 15:59 Intake Total 100 / 100 100 / 100 0 / 0 Output Total 0 / 0 0 / 0 Balance 100 / 100 100 / 100 0 / 0 Intake: IV Fluids 100 / 100 100 / 100 Zosyn 3.375 GM In 100 / 100 100 / 100 Dextrose 5% (Minibag+) 100 ML 100 ML @ 25 mls/hr IVPB Q8HR [facility] Rx#: [id number] Oral 0 / 0 0 / 0 Output: Catheter 0 / 0 0 / 0 Other: Meal Breakfast Percent of Meal Consumed 0% Weight 92.8 kg Blood Glucose* 94 Patient Weight 09/03/16 23:59 Weight 92.8 kg - General physical appearance no distress, other (Patient responds to questions; very difficult to communicate due to altered speech) - Eyes normal ocular movement - ENT dry mucosa, atraumatic, normocephalic - Neck Neck exam: trachea midline - Respiratory normal respiratory effort, other (diminished bibasilar bases) rales: bilateral - Cardiovascular Cardiovascular exam: Present: RRR - Abdomen Abdomen: Present: bowel sounds present, soft, tender, wound (peg tube to gravity drain with 300ml of bilious drainage total) Abdominal Tenderness: RUQ (minimal) - Genitourinary other (moscoso catheter to SD) - Musculoskeletal other (severe deconditioning) - Psychiatric oriented to person, oriented to place - Labs 09/03/16 03:19 09/03/16 03:19 Diabetes panel 09/03/16 Range/Units 03:19 Sodium 139 D (136-145) mEq/L Potassium 3.4 L (3.5-4.5) mEq/L Chloride 102 (98-109) mEq/L Carbon Dioxide 27 (19-29) mEq/L BUN 8 (8-26) mg/dL Creatinine 0.80 (0.72-1.25) mg/dL Glucose 94 (70-99) mg/dL Calcium 9.9 (8.6-10.8) mg/dL Calcium panel 09/03/16 Range/Units 03:19 Calcium 9.9 (8.6-10.8) mg/dL Pituitary panel 09/03/16 Range/Units 03:19 Sodium 139 D (136-145) mEq/L Potassium 3.4 L (3.5-4.5) mEq/L Chloride 102 (98-109) mEq/L Carbon Dioxide 27 (19-29) mEq/L BUN 8 (8-26) mg/dL Creatinine 0.80 (0.72-1.25) mg/dL Glucose 94 (70-99) mg/dL Calcium 9.9 (8.6-10.8) mg/dL Adrenal panel 09/03/16 Range/Units 03:19 Sodium 139 D (136-145) mEq/L Potassium 3.4 L (3.5-4.5) mEq/L Chloride 102 (98-109) mEq/L Carbon Dioxide 27 (19-29) mEq/L BUN 8 (8-26) mg/dL Creatinine 0.80 (0.72-1.25) mg/dL Glucose 94 (70-99) mg/dL Calcium 9.9 (8.6-10.8) mg/dL Consult Discharge Plan - Plan [facility]errals: [facility] [Primary Care Provider] - - Attending Attestation I examined this patient and my medical decision-making was reviewed with the PROCESS EXPERT/PA/Advanced Practice Nurse/Resident Physician. I agree with the documented findings, disposition and treatment plan as described except to the extent set forth below.
--- NOTE | 2016-09-03 12:55 | Discharge Summary ---
Date of Encounter: 09/04/16 Time of Encounter: 12:52 - Discharge Diagnosis (1) Acute cholecystitis Priority: Primary Status: Acute (2) Cholelithiasis Priority: Secondary Status: Chronic Qualifiers: Cholelithiasis location: gallbladder Cholecystitis presence: with cholecystitis Cholecystitis acuity: chronic Biliary obstruction: without biliary obstruction Qualified Code(s): K80.10 - Calculus of gallbladder with chronic cholecystitis without obstruction (3) CAD (coronary artery disease) Priority: Secondary Status: Chronic Qualifiers: Coronary Disease-Associated Artery/Lesion type: [place] artery [place] vs. transplanted heart: unspecified whether [place] or transplanted heart Associated angina: angina presence unspecified Qualified Code(s): I25.10 - Atherosclerotic heart disease of [place] coronary artery without angina pectoris (4) COPD (chronic obstructive pulmonary disease) Priority: Secondary Status: Chronic Qualifiers: COPD type: unspecified COPD Qualified Code(s): J44.9 - Chronic obstructive pulmonary disease, unspecified (5) CKD (chronic kidney disease) Priority: Secondary Status: Chronic Qualifiers: Chronic kidney disease stage: unspecified stage Qualified Code(s): N18.9 - Chronic kidney disease, unspecified (6) Hypertension Priority: Secondary Status: Chronic Qualifiers: Hypertension type: essential hypertension Qualified Code(s): I10 - Essential (primary) hypertension (7) Aspiration pneumonia Priority: Primary Status: Acute Qualifiers: Aspiration pneumonia type: unspecified Laterality: right Lung location: lower lobe of lung Qualified Code(s): J69.0 - Pneumonitis due to inhalation of food and vomit - Discharge Medications Home Medications: Atorvastatin Calcium [Lipitor] 80 mg PO HS 04/28/16 [History] Clopidogrel [Plavix] 75 mg PO DAILY 04/28/16 [History] Fluticasone Propionate Nasal [Flonase] 100 mcg NS DAILY 04/28/16 [History] Hydrocortisone 1% CREAM [Cortaid] 1 appl TP BID 04/28/16 [History] Lidocaine 4% CRM (LMX) [Lmx 4] 1 appl TP DAILY 04/28/16 [History] Sennosides [Laxative] 17.2 mg PO DAILY PRN 04/28/16 [History] risperiDONE [Risperidone] 2 mg PO HS 04/28/16 [History] Ipratropium/Albuterol Neb [Duoneb] 3 ml IH Q6H PRN 06/06/16 [History] Melatonin/Pyridoxine HCl (B6) [Melatonin 3 mg Tablet] 9 mg PO HS 06/06/16 [ History] Multivitamin Liquid [Cerovite Liquid] 15 ml PO DAILY 06/06/16 [History] Acetaminophen [Tylenol Susp] 650 mg PO Q6HR PRN 09/02/16 [History] Albuterol Sulfate [Albuterol Inhaler] 2 puff IH Q6H PRN 09/02/16 [History] Amlodipine Besylate 10 mg PO DAILY 09/02/16 [History] Aspirin 81 mg PO DAILY 09/02/16 [History] Baclofen 5 mg PO TID 09/02/16 [History] Balsam [place] Oil [Venelex Ointment] 1 appl TP BID 09/02/16 [History] Buspirone HCl [Buspar] 7.5 mg PO TID 09/02/16 [History] Carvedilol 12.5 mg PO BID 09/02/16 [History] Chlorhexidine Gluconate [Peridex] 15 ml MM BID 09/02/16 [History] Cholecalciferol (D-3) [Vitamin D] 2,000 unit PO DAILY 09/02/16 [History] Docusate [Colace] 200 mg PO DAILY 09/02/16 [History] Ferrous Sulfate Oral Soln 220 mg PO BID 09/02/16 [History] Gabapentin [Neurontin] 300 mg PO TID 09/02/16 [History] Isosorbide DInitrate [Isosorbide Dinitrate] 20 mg PO TID 09/02/16 [History] LORazepam [Ativan] 0.5 mg PO Q6H PRN 09/02/16 [History] Lidocaine Patch [Lidoderm 5% patch] 1 patch TD DAILY 09/02/16 [History] Nystatin Cream [Mycostatin Cream] 1 appl TP BID 09/02/16 [History] Nystatin POWDER [Nystop] 1 appl TP BID 09/02/16 [History] OXcarbazepine [Oxcarbazepine] 300 mg PO TID 09/02/16 [History] Oxycodone HCl 10 mg PO QID 09/02/16 [History] Pantoprazole Sodium [Protonix] 40 mg PO DAILY 09/02/16 [History] Potassium Chloride 20% [Potassium Chloride] 20 meq PO TID 09/02/16 [History] Promethazine [Phenergan] 25 mg PO TID PRN 09/02/16 [History] Ranitidine HCl [Acid Disk Recoater] 150 mg PO BID PRN 09/02/16 [History] Saliva Substitute Combo No.3 [Aquoral] 4 spray MM 5XD 09/02/16 [History] Simethicone [Gaviscon Drops] 80 mg PO TID 09/02/16 [History] Spironolactone [Aldactone] 25 mg PO DAILY 09/02/16 [History] Terazosin HCl 8 mg PO HS 09/02/16 [History] Tramadol HCl [Ultram] 50 mg PO Q6H PRN 09/02/16 [History] Venlafaxine [Effexor] 75 mg PO BID 09/02/16 [History] hydrALAZINE [HydrALAZINE] 75 mg PO TID 09/02/16 [History] risperiDONE [Risperidone] 1 mg PO BID 09/02/16 [History] Allergies/Adverse Reactions: Allergies fentanyl Allergy (Verified 04/27/16 23:01) Rash hydrogen peroxide [From Peroxyl] Allergy (Verified 04/27/16 23:01) Rash piroxicam Allergy (Verified 06/05/16 19:20) See Comments propofol Allergy (Verified 06/05/16 19:20) See Comments Date of admission: 09/02/16 13:20 Primary care physician: PCP [place] Consults: 09/02/16 16:23 dietary consult [Consult to Nutrition] [CONS] Routine Comment: Consulting Provider: NUTRITION Reason for Dietary Consult: TF Start and Manage 09/03/16 08:01 Consult to Manager Purchasing [CONS] Routine Reason for SW Consult: From [place] LT 09/03/16 11:47 consult to family literacy coordinator [Consult to Nutrition] [CONS] Routine Comment: may slowly resume tube feeds via peg tube Consulting Provider: NUTRITION Reason for Dietary Consult: TF Start and Manage Discharging clinician: David Russo - Patient Status Disposition: Transfer Other Condition: Critical Functional capacity at discharge: bed bound Overall status at discharge: patient is not back to baseline - Discharge Instructions Follow Up With: [facility] [Primary Care Provider] - - Diet and Activity Activity: as per physical therapy Diet: other Interval History: Mr. Mora is a 61 year old male past medical hx of HTN COPD chronic back pain prostrate cancer CAD with stents schizophrenia. Patient has extensive medical history-in particular he has been residing in the [facility] since April after he had undergone a spinal stimulator placement in [place]. Since this time he has been bedridden receiving tube feedings, however TF have been held for past 24hrs. He does have a history of cholelithiasis, he had a drain placed in June and conservatively treated. Apparently on Tuesday he had an episode where he had vomited he had a another episode of vomiting on Tuesday as well as a fever Tuesday and Tuesday he was doing fairly well. This morning he had an episode of vomiting and diarrhea she became hypoxic, concern for aspiration. He was transported to [place] for further evaluation. Upon presentation patient was covered in vomit, oxygen saturations were lower 90s. ABG was obtained pH was 7.43 PCO2 was 42 PO2 is 56 and O2 sat was 90 Vic[place] as well as appointment. He was placed on nonrebreather lab work revealed slight leukocytosis 11.3 chemistry unremarkable lactate was 0.7 troponin was 0.01. Chest x-ray revealed atelectasis versus pneumonia and right lower lobe. Patient had a positive Hurd sign assessment ultrasound of abdomen revealed sonographic Hurd sign with gallbladder wall thickening findings are strongly indicative of acute cholecystitis. ER physician did speak with Dr. Tinoco not a surgical candidate at this time he will see the patient on consult. Blood cultures were obtained patient was given Unasyn and has been admitted for further workup and evaluation presently the patient is alert oriented 3, appropriate he does follow simple commands however he is very slow to respond. Cranial nerves II through XII are intact he is able to move all extremities however very weak. He has regular heart rhythm S1-S2 no rubs clicks gallops murmurs noted. His lung sounds have some scattered rhonchi throughout. His abdomen is soft and nontender to palpation he has no pedal edema. Of note he does have sever gaulding under his armpits bilaterally. No other breakdown noted. His SPO2 is 100% on 50% nonrebreather we will place him on 5 L nasal cannula. Hospital course: Patient was hospitalized. He was evaluated by surgery department. Per surgery : Right upper quadrant pain unable to assess. Not an appropriate surgical candidate for cholecystectomy. Surgery recommended PEG to gravity Colon drainage. IV fluids hydration/IV antibiotics. Patient's family insisted that she should be transferred to [facility] as they feel that this is a acute on chronic cholecystitis. This patient was previously hospitalized and [facility] and that time it was recommended for patient to get in to [facility] for any major surgery/procedure. I have spoken to patient's and sister at length. Patient's and sister prefers transfer to [facility] at [facility]. I have informed Jesus Marlyn from surgery department regarding this transfer and my discussion with family members. I have spoken to [facility] at [facility], they accepted the transfer. I spoke with Mrs. Foley who is a registered nurse accepted the transfer. Case discussed with the on-call hospitalist from [facility] and then they accepted the transfer. At the time of transfer, patient's family does not have any question concern update or recommendation 09/04/2016 patient has GPC in blood informed [place] (RN Ms Sujey ) - Time Spent with Patient Total time spent providing and/or coordinating discharge services: - Constitutional Vitals: Temp Pulse Resp BP Pulse Ox 98.5 F 88 16 159/106 95 09/03/16 12:00 09/03/16 12:00 09/03/16 12:00 09/03/16 12:00 09/03/16 12:00 General appearance: Present: A&O X 3, answers questions appropriately - Head Head exam: Present: atraumatic, normocephalic - Eye Eye exam: Present: PERRL, conjuntiva pink, sclera anicteric Pupils: Present: PERRL - Neck Neck exam general surgery: Present: supple, trachea midline. Absent: lymphadenopathy - Respiratory Respiratory exam: Present: CTAB. Absent: accessory muscle use, rales, rhonchi, wheezes - Cardiovascular Cardiovascular exam: Present: RRR, +S1, +S2. Absent: diastolic murmur, gallop, rubs, systolic murmur - GI/Abdominal GI/Abdominal exam: Present: normal bowel sounds, soft, no peritoneal signs. Absent: distended, tenderness Additional comments: PEG tube noted - Extremities Exam Extremities exam: Present: warm, radial pulses palpable and symetrical. Absent : calf tenderness, cyanotic, pedal edema - Neurological Exam Neurological exam: Present: CN II-XII intact, oriented X3, no focal deficits. Absent: pronater drift, facial droop, speech deficit Additional comments: Patient has a likely previous neurological injury. He has a echolalia. - Skin Skin exam: Present: dry, intact
[2016-09-03] MEDS ORDERED: *HR* LORazepam 2 MG/ML VIAL IVP ONE (13:09)
[2016-09-03] MEDS ORDERED: *HR* Morphine 2 MG/ML SYRINGE IVP ONE (15:30)
[2016-09-03] MEDS ORDERED: *HR* Morphine 2 MG/ML SYRINGE ONE (15:33)
[2016-09-03 15:34] VITALS: BP 159/110
[2016-09-03 16:37] LABS: Acinetobacter baumannii by PCR Not Detected (Not Detect); Candida albicans by PCR Not Detected (Not Detect); Candida glabrata by PCR Not Detected (Not Detect); Candida krusei by PCR Not Detected (Not Detect); Candida parapsilosis by PCR Not Detected (Not Detect); Candida tropicalis by PCR Not Detected (Not Detect); Enterococcus by PCR Not Detected (Not Detect); Escherichia coli by PCR Not Detected (Not Detect); Klebsiella oxytoca by PCR Not Detected (Not Detect); Klebsiella pneumoniae by PCR Not Detected (Not Detect); Pseudomonas aeruginosa by PCR Not Detected (Not Detect); Serratia marcescens by PCR Not Detected (Not Detect); Staphylococcus aureus by PCR Not Detected (Not Detect); Streptococcus agalactiae(B)PCR Not Detected (Not Detect); Streptococcus by PCR Not Detected (Not Detect); Streptococcus pneumoniae PCR Not Detected (Not Detect); Streptococcus pyogenes (A) PCR Not Detected (Not Detect); mecA Methicillin-Resist Gene ***DETECTED*** (Not Detect)
[2016-09-03] MEDS ORDERED: *HR* Metoprolol 5 MG/5 ML VIAL IVP SCH (20:35)
[2016-09-03] MEDS ORDERED: RisperiDONE-M 1 MG TAB.RAPDIS PO SCH (21:00)
== END 2016-09-03 18:06 | disposition other institution (70) | DRG 444 ==
LOC: EMEROO 09:33 → 2NENU 13:20
PROVIDERS: ADMIT Internal Medicine; ATTEND Internal Medicine